=== PATIENT | male | born 1965 | race Caucasian/White ===

== ENCOUNTER 2022-01-26 07:09 | Outpatient (CLI) | payer BC, SELFPAY ==
--- OUTSIDE RECORDS SUMMARY | 2022-01-26 07:11 | XMS_ITS | Encounter Summary ---
:1965 Author Organization [employer] Address [address] [place] [address] Care Team Providers Name Role Phone Noah Cerda MD Primary Care Provider Reason for Visit Reason Comments CPAP (new) Encounter Details Date Type Department Care Team Description 02/07/2018 Telephone [facility] 3931 Ana Cristina Conner A PRN, CPAP (new) Pulmonary Medicine DESIGN ASSISTANT [address] [facility] [address] [facility] [address] [place] [address] [place], [place] [phone] (Wo rk) Social History Tobacco Use Types Packs/Day Years Used Date Smoking Tobacco: Every Day Cigarettes 0.9 Smokeless Tobacco: Never Comments: Smoking History Packs/day: Alcohol Use Standard Drinks/Week Comments No 0 (1 standard drink = 0.6 oz pure alcoho l) rare Alcohol Habits Answer Date Recorded How often do you have a drink containing alcohol? Not asked How many drinks containing alcohol do you have on a typical Not asked day when you are drinking? How often do you have six or more drinks on one occasion? No t asked Comment: rare 12/11/2015 Sex Assigned at Date Recorded Not on file documented as of this encounter Nursing Notes Stefany Meadows RN - 02/07/2018 2:03 PM CDT Pt requests that we send his CPAP order to [facility] [phone], with order number [id number] written on it. Pt is paying out of pocket so no further documentation needed. documented in this encounter Plan of Treatment Not on filedocumented as of this encounter Visit Diagnoses Not on filedocumented in this encounter Care Teams Direct Customer Service Representative Relationship Specialty Start Date End Date Noah Cerda MD PCP - General Family Practice 03/29/16 [address] [place] [address] documented as of this encounter
--- OUTSIDE RECORDS SUMMARY | 2022-01-26 07:11 | XMS_ITS | Clinical Summary ---
:1965 Author Organization [employer] Address [address] [place] [address] Care Team Providers Name Role Phone Noah Cerda MD Primary Care Provider Source Comments You are receiving this document as you are listed as the primary care provider,follow-up provider, or the patient has been referred to you for consultation.This is in compliance with the Medicare and Medicaid EHR Incentive Program,which states Providers who transition their patient to another setting of careor provider of care or refers their patient to another provider of care shouldprovide summarycare record for each transition of care or referral. [employer] Allergies Active Allergy Reactions Severity Noted Date Comments Atorvastatin 09/18/2013 PN: myalgia, PN : cramps Medications Medication Sig Dispensed Refills Start Date End Date Status unknown medication LW 0 04/05/2005 Active Comment:CPAP 9, [facility] Multiple Vitamins-Minerals Take 1 tablet 100 13 4 Active (MULTIVITAMIN OR) by mouth daily (every 24 hours). hydroCHLOROthiazide Take 1 Tab by 90 Tab 0 11/02/2016 Active (ORETIC) 25 MG tablet mouth daily. venlafaxine (EFFEXORXR) 75 Take 1 Cap by 90 Cap 0 7 Active MG 24 hour release mouth daily. capsuleIndications: Mild single current episode of major depressive disorder (HRC) pravastatin (PRAVACHOL) 20 TAKE 1 TABLET 90 Tab 0 7 Active MG tabletIndications: DAILY (EVERY Hyperlipidemia, 24 HOURS) unspecified hyperlipidemia type (HRC) Active Problems Problem Noted Date Asymptomatic varicose veins 08/08/2007 Overview: LW Modifier: Right thigh ; Varicose Veins Encounter for sterilization 08/08/2007 Overview: LW Onset: 1997 ; Vasectomy Elective Obstructive sleep apnea on CPAP 04/05/2005 Overview: Severe Setting: APAP 9-15 FFM Supplied by: PN[facility] PSG done: 04/04/05 AHI 52 RDI 71 Lowest O2 Sat: 83% Asim/Conner 06/08/14 replacement, Repair-Replace 11/16; 02/07/18 cmn/[facility]. F: [phone] Hyperlipidemia 09/10/2003 Overview: LW Onset: 17Isw59 Major depressive disorder, single episode 09/10/2003 Overview: LW Onset: 07Ale47 ; Depression Major NOS Obesity 09/10/2003 Overview: LW Modifier: BMI > 35 LW Onset: 42Swu12 Tobacco use disorder 09/27/2002 Overview: Tobacco Abuse Immunizations Name Administration Dates Next Due DT Ped 12/02/1993 HepA-HepB ([place], 18+ yrs) 03/31/2004, 05/25/2003, 004 Influenza IIV4 (Quadrivalent) 0.5mL 01/06/2016 (22948) TDAP (ADACEL) 03/08/2010 Td 03/31/2004 Family History Relation Name Status Comments Other Social History Tobacco Use Types Packs/Day Years [...] Assigned at Date Recorded Not on file Last Filed Vital Signs Vital Sign Reading Time Taken Comments Blood Pressure 128/88 11/16/2017 8:03 AM CDT Pulse 63 11/16/2017 8:03 AM CDT Temperature 36.8 ??C (98.3 ??F) 04/05/2016 11:14 AM HEAVY RAIL TRAIN OPERATOR Respiratory Rate 18 11/23/2012 3:27 PM CDT Oxygen Saturation 98% 11/16/2017 8:03 AM CDT Inhaled Oxygen Concentration - - Weight 136.5 kg (301 lb) 11/16/2017 8:03 AM CDT Height 182.9 cm (6') 11/16/2017 8:03 AM CDT Body Mass Index 40.82 11/16/2017 8:03 AM CDT Plan of Treatment Health Maintenance Due Date Last Done Comments Colon Cancer Screening Plan 1965 Due Hep C Screening (Preventive 1965 Services) COVID-19 Vaccine (#1) 05/11/1967 HIV Screening (Preventive 1982 Services) Adult Preventive Visit 1984 PSA Screening Discussion 08/18/2004 08/19/2003 Zoster/Shingles (1 of 2) 2016 Cholesterol 10/11/2020 10/12/2015, 06/02/2014, 02/14/2013, Additional history exists Influenza (#1) 2021 01/06/2016 DTaP/Tdap/Td (5 - Tdap) 01/12/2027 01/12/2017, 03/08/2010, 03/31/2004, Additional history exists HepA Aged Out 03/31/2004, 05/25/2003, No longe r eligible 04/27/2003 based on patient 's age to complete this topic HepB Completed 03/31/2004, 05/25/2003, 04/27/2003 Hib Aged Out No longer eligib le based on patient 's age to complete this topic IPV (Polio) Aged Out No longer eligib le based on patient 's age to complete this topic MCV4 Aged Out No longer eligib le based on patient 's age to complete this topic Pneumococcal Aged Out No longer eligib le based on patient 's age to complete this topic Insurance Payer Benefit Plan / Subscriber ID Effective Dates Phone Addre ss Type Group BCBS BCBS OUT OF [id number] 2015-Present [address] [address] [place] [address] (Work) [id number] [address] Carranza Personal/Famil Self 1965 [address] [phone] [place], [place] (Work) [address] [address] Personal/Famil 01/25/1967 [id number] [phone] [place] (Work) [address] Care Teams Market Risk Specialist Relationship Specialty Start Date End Date Noah Cerda MD PCP - General Family Practice 03/29/16 [address] [place] [address]
--- OUTSIDE RECORDS SUMMARY | 2022-01-26 07:11 | XMS_ITS | Encounter Summary ---
:1965 Author Organization [employer] Address [address] [address] Care Team Providers Name Role Phone Noah Cerda MD Primary Care Provider Reason for Visit Reason Comments Refill hydroCHLOROthiazide (ORETIC) 25 MG tablet [Pharmacy Med Name: HYDROCHLOROTHIAZIDE TAB 25MG ] Encounter Details Date Type Department Care Team Description 03/23/2018 Refill [facility] Ivan Kendrick Refi ll (hydroCHLOROthiazide Medicine W, DIRECTOR IT PROJECT, PROJECT LEADER (ORETIC) 25 MG tablet [address] [address] [place] [Pharmacy Med Name: [place] [address] [place], [place] HYDROCHLOROTHIAZIDE TAB [phone] [id number] 25MG]) Social History Tobacco Use Types Packs/Day Years [...] documented as of this encounter Nursing Notes Wilfredo Addison RN - 03/25/2018 4:22 PM CST Requested Prescriptions Refused Prescriptions Disp Refills ??? hydroCHLOROthiazide (ORETIC) 25 MG tablet [Pharmacy Med Name: HYDROCHLOROTHIAZIDE TAB 25MG] 90 Tablet 0 Sig: TAKE 1 TABLET DAILY Refused By: WILFREDO ADDISON Reason for Refusal: Patient Needs An Appointment TER CREASER SLOTTER HELPER Interface, Out Asyarisylwia Prov Query - 03/23/2018 9:09 PM CST hydroCHLOROthiazide (ORETIC) 25 MG tablet [Pharmacy Med Name: HYDROCHLOROTHIAZIDE TAB 25MG] Medication started: 10/12/2015 Last ordered by IVAN KENDRICK W: 11/02/2016 (506 days ago) QTY: 90, Refills: 0, Sig: take 1 tab by mouth daily. (changed but equivalent) -> A qualifying visit was not found within the last 2 years. -> Cr, K, and Na are overdue (performed 29 months ago, required every 12 months) -> Cr is abnormal (1.2 mg/dL lies outside 0.73 mg/dL - 1.18 mg/dL) Last qualifying visit: None (A recent visit (in Family Practice) was found) Next scheduled visit: None SBP: 134 mm Hg on 04/05/2016 DBP: 72 mm Hg on 04/05/2016 Cr: 1.2 mg/dL on 11/11/2015 Na: 140 mEq/L on 11/11/2015 K: 4.3 mEq/L on 11/11/2015 PATIENT IS DUE FOR: - CR (Sent to [facility]) - K (Sent to [facility]) - NA (Sent to [facility]) Powered by [employer], Reference: [id number], 03/23/2018 9:09:28 PM SLITTER CREASER SLOTTER HELPER, Ricardo: CAYETANO BANUELOS REFLAKEISHA ([id number]) TER CREASER SLOTTER HELPER documented in this encounter Plan of Treatment Not on filedocumented as of this encounter Visit Diagnoses Not on filedocumented in this encounter Care Teams Casting Finisher Relationship Specialty Start Date End Date Noah Cerda MD PCP - General Family Practice 03/29/16 [address] [place] [address] documented as of this encounter
--- OUTSIDE RECORDS SUMMARY | 2022-01-26 07:11 | XMS_ITS | Encounter Summary ---
:1965 Author Organization [employer] Address [address] [place] [address] Care Team Providers Name Role Phone Noah Cerda MD Primary Care Provider Encounter Details Date Type Department Care Team Description 10/02/2016 Notes/Orders [facility] [place] [address] [address] [address] [place] [address] [place], [place] [id number] (Wo rk) Social History Tobacco Use Types [...] on file documented as of this encounter Plan of Treatment Not on filedocumented as of this encounter Visit Diagnoses Not on filedocumented in this encounter Care Teams Extrusion Process Operator Relationship Specialty Start Date End Date Noah Cerda MD PCP - General Family Practice 03/29/16 [address] [place] [address] documented as of this encounter
--- OUTSIDE RECORDS SUMMARY | 2022-01-26 07:11 | XMS_ITS | Encounter Summary ---
:1965 Author Organization [employer] Address [address], [place] [address] Care Team Providers Name Role Phone Noah Cerda MD Primary Care Provider Reason for Visit Reason Comments Refill venlafaxine (EFFEXORXR) 75 M G 24 hour release capsule [Pharmacy Med Name: VENLAFAXINE HCL ER CAPS 75MG ] Encounter Details Date Type Department Care Team Description 11/27/2016 Refill [facility] Ivan Kendrick R efill (venlafaxine Medicine PROCESS OPERATOR, LARD MAKER (EFFEXORXR) 75 MG [address] hour [place] [address] [place] [address] [Pharmacy Med Name: [phone] (Wo rk) VENLAFAXINE HCL ER CAPS 75MG]) Social History Tobacco Use Types Packs/Day Years [...] documented as of this encounter Nursing Notes Jennifer Flores - 11/30/2016 4:08 PM CDT MYCHART Letter sent Joan Oneil RN - 11/29/2016 9:28 AM CDT OFFICE APPOINTMENT NEEDED Please notify patient to schedule an appointment within 30 days. Requested Prescriptions Signed Prescriptions Disp Refills ??? venlafaxine (EFFEXORXR) 75 MG 24 hour release capsule 90 Cap 0 Sig: Take 1 Cap by mouth daily. Authorizing Provider: IVAN KENDRICK Ordering User: JOAN ONEIL Interface, Out Surescripts Prov Query - 11/27/2016 12:18 AM CDT venlafaxine (EFFEXORXR) 75 MG 24 hour release capsule [Pharmacy Med Name: VENLAFAXINE HCL ER CAPS 75MG] Medication started: 12/20/2010 Last ordered by IVAN KENDRICK W: 10/12/2015 (412 days ago) QTY: 90, Refills: 3, Sig: take 1 capsule by mouth daily (every 24 hours). (changed but equivalent) -> This medication may not have been authorized by the requested provider. -> Refill x 3 months (courtesy refill. overdue for an office visit) Last qualifying visit: 11/11/2015 (with IVAN KENDRICK) Next scheduled visit: None SBP: 138 mm Hg on 11/11/2015 DBP: 88 mm Hg on 11/11/2015 Powered by [employer], Reference: [id number], 11/27/2016 12:18:49 AM CDT, Pool: CAYETANO BANUELOS REFILL([id number]) documented in this encounter Plan of Treatment Not on filedocumented as of this encounter Visit Diagnoses Diagnosis Mild single current episode of major dep ressive disorder (HRC) documented in this encounter Care Teams Mobile Sales Assistant Relationship Specialty Start Date End Date Noah Cerda MD PCP - General [facility] Practice 03/29/16 [address] [place] [address] documented as of this encounter
--- OUTSIDE RECORDS SUMMARY | 2022-01-26 07:11 | XMS_ITS | Encounter Summary ---
:1965 Author Organization [employer] Address [address] [place] [address] Care Team Providers Name Role Phone Noah Cerda MD Primary Care Provider Reason for Referral Procedure/Equipment (Routine) - Closed Specialty Diagnoses / Procedures Referred By Contact Refer red To Contact Diagnoses GAGAN (obstructive sleep apnea) Ana Cristina Conner APRN, CNP Procedures Positive Airway Pressure - Replacement/Repair [address] [facility] [address] [place] [address] Referral ID Status Reason Start Date Expiration Date Visits Requ ested Visits Authorized [id number] Closed 11/16/2017 02/15/2019 1 1 Reason for Visit Reason Comments SLEEP APNEA antoine Encounter Details Date Type Department Care Team Description 11/16/2017 Office Visit Specialty Center Ana Cristina Conner GAGAN (o bstructive sleep apnea) (Primary Dx); 39[address] Pulmonary YUE SMALLS Obesity due to excess calories with seri ous comorbidity, unspecified classification Medicine [address] [place], [place] [id number] Social History Tobacco Use Types Packs/Day Years [...] on file documented as of this encounter Last Filed Vital Signs Vital Sign Reading Time Taken Comments Blood Pressure 128/88 11/16/2017 8:03 AM CDT Pulse 63 11/16/2017 8:03 AM CDT Temperature - - Respiratory Rate - - Oxygen Saturation 98% 11/16/2017 8:03 AM CDT Inhaled Oxygen Concentration - - Weight 136.5 kg (301 lb) 11/16/2017 8:03 AM CDT Height 182.9 cm (6') 11/16/2017 8:03 AM CDT Body Mass Index 40.82 11/16/2017 8:03 AM CDT documented in this encounter Progress Notes Ana Cristina Conner, OUTPATIENT INTERVIEWING CLERK, DIRECTOR OF EMERGENCY NURSING - 11/16/2017 8:00 AM CDT PULMONARY/SLEEP CLINIC FOLLOW-UP CHIEF COMPLAINT: Obstructive Sleep Apnea HPI: The patient is a 52 y.o. male with a history of severe obstructive sleep apnea- AHi 52 diagnosed in 2004. He has compliantly worn cpap since that time set at 9 - 12 cm h20. No snoring under mask. Sleeping 12 hours/ night. Waking x 2. No headache in am. Does feel rested but his body is sore. He drives and needs DOT clearance. His original machine broke and he's been using his father's oldermachine which stopped recording data in 2017. We will need to replace his machine. Wears full face mask. WEight is up 30 lbs from original study. INTERVAL MEDICAL HISTORY:reviewed PHYSICAL EXAM: BP 128/88 (BP Location: Right Forearm, BP Cuff Size: Adult Regular/Long) Pulse 63 Ht 6' (1.829 m) Wt (!) 301 lb (136.5 kg) SpO2 98% BMI 40.82 kg/m2 GEN: alert and oriented x3 IMPRESSION AND PLAN: 1. Severe sleep apnea- 2. Morbid obesity Reviewed sleep study. Will replace machine with apap 9-15 cm h20. Look at simplus full face mask. Will print download next year for him for his dot- needs visit in 3 years. All of the patient's questions were answered. He states understanding and agreement with my assessment and plan as above. Total time 15 min, more than half spent in face to face counseling and coordination of care. documented in this encounter Plan of Treatment Not on filedocumented as of this encounter Visit Diagnoses Diagnosis GAGAN (obstructive sleep apnea) - Primary Obstructive sleep apnea (adult) (pediatr ic) Obesity due to excess calories with seri ous comorbidity, unspecified classification (HRC) documented in this encounter Care Teams Date Puller Relationship Specialty Start Date End Date Noah Cerda MD PCP - General Family Practice 03/29/16 [address] [place] [address] documented as of this encounter
--- OUTSIDE RECORDS SUMMARY | 2022-01-26 07:11 | XMS_ITS | Encounter Summary ---
:1965 Author Organization [employer] Address [address], [place] [address] Care Team Providers Name Role Phone Noah Cerda MD Primary Care Provider Reason for Visit Reason Comments Refill pravastatin (PRAVACHOL) 20 M G tablet [Pharmacy Med Name: PRAVASTATIN TABS 20MG] Encounter Details Date Type Department Care Team Description 12/30/2016 Refill [facility] Ivan Kendrick R efill (pravastatin Medicine MANAGER ORDER, CAN INTAKE WORKER (PRAVACHOL) 20 MG [address] [facility] [address] tablet [[place] [address] [place] [address] Name: PRAVASTATIN TABS [phone] (Wo rk) 20MG]) Social History Tobacco Use Types Packs/Day Years [...] documented as of this encounter Nursing Notes Edie Donis - 01/01/2017 10:43 AM CDT Appointment letter sent via Agendia Nelson Martinez RN - 12/30/2016 8:26 AM CDT OFFICE APPOINTMENT NEEDED Please notify patient to schedule an appointment within 30 days. Requested Prescriptions Pending Prescriptions Disp Refills pravastatin (PRAVACHOL) 20 MG tablet [Pharmacy Med Name: PRAVASTATIN TABS 20MG] 90 Tab 0 Sig: TAKE 1 TABLET DAILY (EVERY 24 HOURS) Interface, Out [employer] Query - 12/30/2016 12:29 AM CDT pravastatin (PRAVACHOL) 20 MG tablet [Pharmacy Med Name: PRAVASTATIN TABS 20MG] Medication started: 09/14/2011 Last ordered by IVAN KENDRICK W: 10/01/2016 (90 days ago) QTY: 90, Refills: 0, Sig: take 1 tabletdaily (every 24 hours) (unchanged) -> Refill x 3 months (courtesy refill. overdue for an office visit) Last qualifying visit: 11/11/2015 (with IVAN KENDRICK) Next scheduled visit: None Powered by [employer], Reference: [id number], 12/30/2016 12:29:55 AM CDT, Ricardo: CAYETANO BANUELOS REFILL([id number]) documented in this encounter Plan of Treatment Not on filedocumented as of this encounter Visit Diagnoses Diagnosis Hyperlipidemia, unspecified hyperlipidem ia type (HRC) documented in this encounter Care Teams Area Development Manager Relationship Specialty Start Date End Date Noah Cerda MD PCP - General [facility] Practice 03/29/16 [address] [place] [address] documented as of this encounter
--- OUTSIDE RECORDS SUMMARY | 2022-01-26 07:12 | XMS_ITS | Encounter Summary ---
:1965 Author Organization [employer] Address [address], [place] [address] Care Team Providers Name Role Phone Juany Mazariegoston W YUE SMALLS Primary Care Provider [phone] Reason for Visit Reason Comments MEDICATION CHECK Encounter Details Date Type Department Care Team Description 06/05/2013 Office Visit [facility] [place]ilah, Vargas Othe r and unspecified hyperlipidemia (Primary Dx); Medicine W, YUE SMALLS Major depressive disorder, single episod e, unspecified; [address] [employer] [address] [address] Tobacco use disorder; [place] [address] [place], [place] Erectile dysfunction of orga jase origin [phone] Social History Tobacco Use Types Packs/Day Years Used Date Smoking Tobacco: Never Assessed Sex Assigned at Date Recorded Not on file documented as of this encounter Last Filed Vital Signs Vital Sign Reading Time Taken Comments Blood Pressure 142/89 06/05/2013 10:55 AM NON DESTRUCTIVE TESTER Pulse 71 06/05/2013 10:55 AM NON DESTRUCTIVE TESTER Temperature - - Respiratory Rate - - Oxygen Saturation - - Inhaled Oxygen Concentration - - Weight 140.2 kg (309 lb) 06/05/2013 10:55 AM NON DESTRUCTIVE TESTER Height - - Body Mass Index 41.33 03/08/2010 7:59 AM NON DESTRUCTIVE TESTER documented in this encounter Patient Instructions Patient InstructionsEstrella Zendejas LPN - 06/05/2013 11:31 AM CST You must quit smoking. You must start to loose weight and exercise. Discuss the CPAP needs with the Sleep Lab. [phone] DESTRUCTIVE TESTER documented in this encounter Progress Notes Vargas Mazariegos, TILTROTOR CREW CHIEF, REFERENCE LIBRARIAN - 06/05/2013 12:34 PM CST Chief concern: Chief Complaint Patient presents with ??? Medication Check Other concerns: Hyperlipidemia, tobacco abuse, depression, sleep apnea, erectile dysfunction Past medical history: Past Medical History Diagnosis Date ??? Hyperlipidemia #*LW 2 09/10/2003 ??? Depression Major NOS #*LW 3 09/10/2003 ??? Obesity #*LW 4 09/10/2003 ??? Obstructive Sleep Apnea Hypopnea #*LW 5 04/05/2005 Medications: Current Outpatient Prescriptions on File Prior to Visit Medication Sig Dispense Refill ??? [DISCONTINUED] cefUROXime (CEFTIN) 500 mg tablet Take 1 tablet by mouth 2 times daily. till all taken 20 tablet 0 ??? continuous positive airway pressure (CPAP) LW Comment:CPAP 9, [facility] ??? drug not in computer Take by mouth. Indications: pro formula multi vit supplements 2 daily ??? multivitamin (THERAGRAN) tablet Take 1 tablet by mouth daily (every 24 hours). 100 13 ??? omega-3 fatty acids-fish oil 340-1,000 mg capsule Take 1 capsule by mouth daily (every 24 hours). ??? op medications reviewed ??? pravastatin (PRAVACHOL) 20 mg tablet Take 1 tablet by mouth daily (every 24 hours). 30 tablet 11 ??? [DISCONTINUED] varenicline (CHANTIX CONTINUING MONTH FACUNDO) 1 mg tablet Take 1 tablet by mouth 2 times daily. 60 tablet 1 ??? [DISCONTINUED] varenicline (CHANTIX STARTER FACUNDO) 0.5 (11)-1 (42) mg tablet Take as instructed. Take 0.5mg by mouth daily for days 1 through 3, then 0.5mg twice daily for days 4 through 7, then 1mg twice daily. 53 tablet 0 ??? [DISCONTINUED] venlafaxine (EFFEXOR-XR) 150 mg 24 hr capsule Take 1 capsule by mouth daily (every 24 hours). Pt. forgot medication at home, so Rx called in. 10 capsule 0 ??? venlafaxine (EFFEXOR-XR) 150 mg 24 hr capsule Take 1 capsule by mouth daily (every 24 hours). 90capsule 3 No current facility-administered medications on file prior to visit. Adverse Drug Reactions: Allergies Allergen Reactions ??? Atorvastatin Calcium myalgia Habits: History Social History ??? Marital Status: Spouse Name: N/A Number of Children: N/A ??? Years of Education: N/A Occupational History ??? Not on file. Social History Main Topics ??? Smoking status: Current Every Day Smoker -- 0.85 packs/day Types: Cigarettes ??? Smokeless tobacco: Never Used Comment: Smoking History Packs/day: ??? Alcohol Use: Not on file Comment: Alcoholic Drinks/day: Amount:1-2 drinks; Freq:=< Monthly; ??? Drug Use: Not on file ??? Sexually Active: Not on file Other Topics Concern ??? Not on file Social History Narrative ??? No narrative on file HPI: He returns for a followup of multiple issues. History of hyperlipidemia, depression, obesity, sleep apnea. PH Q.-9=5. Currently on Effexor XR 150 mg q.d. with good results. Denies any side effectsfrom his medication. His cholesterol is stable with elevated triglycerides. He admits to lack of exercise and weight gain. Blood pressure is borderline elevated. He has sleep apnea, initial evaluation in 2004. He believes he needs a new machine. He also complains of erectile dysfunction. Previous testosterone normal. He is interested in trialing medication. Denies other concerns. Review of systems: Denies chest pain, shortness of breath. Denies bowel or bladder symptoms. Denies numbness, tingling, swelling in the extremities. Weight is stable. No arthralgias or myalgias. OBJECTIVE: Vital Signs: BP 142/89 Pulse 71 Wt 140.161 kg (309 lb) BMI 41.31 kg/m2 Patient is alert oriented and pleasant. No acute distress. Head: Normocephalic. Eyes: PERRLA, full EOM. External exams normal. Ears: Normal pinnae, canals, and TM's. Nose: Patent, without deformity. Throat: Moist mucous membranes without lesions, erythema, or exudate. Neck: Supple, no cervical lymphadenopathy. Thyroid nontender, without swelling or nodules palpated. Respiratory: Normal respiratory effort. Lungs are clear with good breath sounds. Heart: Regular rate and rhythm, no murmurs, rubs, gallops. Abdomen: The abdomen was soft and nontender without guarding rebound or masses. No hepatosplenomegaly. Legs: Without edema. ASSESSMENT: Encounter Diagnoses Name Primary? Hyperlipidemia Yes ??? Depression Major NOS ??? Tobacco Abuse ??? Erectile dysfunction of organic origin PLAN: Patient Instructions You must quit smoking. You must start to loose weight and exercise. Discuss the CPAP needs with the Sleep Lab. [phone] Orders Placed This Encounter Medications ??? sildenafil citrate (VIAGRA) 100 mg tablet Sig: Take 0.5-1 tablets by mouth as needed for Erectile Dysfunction. Dispense: 6 tablet Refill: 11 Continue other medications unchanged. Return within one year for complete physical exam, sooner as needed. The patient was discharged ambulatory and in stable condition and agreed with the above plan. DESTRUCTIVE TESTER documented in this encounter Plan of Treatment Not on filedocumented as of this encounter Visit Diagnoses Diagnosis Other and unspecified hyperlipidemia (HR C) - Primary Other and unspecified hyperlipidemia Major depressive disorder, single episod e, unspecified (HRC) Major depressive disorder, single episod e, unspecified Tobacco use disorder (HRC) Tobacco use disorder Erectile dysfunction of organic origin Impotence of organic origin documented in this encounter Care Teams Blood Donor Recruiter Supervisor Relationship Specialty Start Date End Date Vargas Mazariegos APRN, CNP PCP - General 07/24/10 03/28/16 documented as of this encounter
--- OUTSIDE RECORDS SUMMARY | 2022-01-26 07:12 | XMS_ITS | Encounter Summary ---
:1965 Author Organization [employer] Address [address], [place] [address] Care Team Providers Name Role Phone Ivan Kendrick APRN, YUE Primary Care Provider [phone] Reason for Visit Reason Comments Refill Encounter Details Date Type Department Care Team Description 07/09/2015 Refill [facility] Ivan Kendrick, SERINA, Refill [address] [place] [address] [facility] [phone] [place], [place] [address] (Wo rk) Social History Tobacco Use Types Packs/Day Years Used Date Smoking Tobacco: Never Assessed Sex Assigned at Date Recorded Not on file documented as of this encounter Nursing Notes User, Katie - 07/09/2015 8:13 AM CDT 1) pravastatin (PRAVACHOL) 20 mg tablet [Pharmacy Med Name: PRAVASTATIN 20MG TAB] - MEDICATION STARTED: 09/14/2011 - LAST REFILLED ON: 06/15/2014, QTY: 90, Refills: 3, Sig: take 1 tablet by mouth daily (every 24 hours). (changed but equivalent) - REFILL: 3 months - RATIONALE: This is a courtesy refill. Patient is overdue for an office visit. This will be the last refill authorized by the protocol. - LAST QUALIFYING VISIT WITH IVAN KENDRICK: 05/28/2014 - NEXT SCHEDULED VISIT: None Powered by [employer], Reference: [id number], 07/09/2015 5:31:24 AM Ricardo GRANT: CAYETANO IMED REFILL ([id number]) 2) venlafaxine (EFFEXOR-XR) 150 mg 24 hr capsule [Pharmacy Med Name: VENLAFAXINE ER 150MG CAP] - MEDICATION STARTED: 03/08/2010 - LAST REFILLED ON: 06/15/2014, QTY: 90, Refills: 3, Sig: take 1 capsule by mouth daily (every 24 hours). (changed but equivalent) - REFILL: 3 months - RATIONALE: This is a courtesy refill. Patient is overdue for an office visit. This will be the last refill authorized by the protocol. - LAST QUALIFYING VISIT WITH IVAN KENDRICK W: 05/28/2014 - NEXT SCHEDULED VISIT: None - SBP: 150.0mm Hg on 05/28/2014 - DBP: 88.0mm Hg on 05/28/2014 Powered by [employer], Reference: [id number], 07/09/2015 5:31:24 AM CHARLYTRicardo: CAYETANO DEVONED REFILL ([id number]) Eveline Waller CMA - 07/09/2015 8:13 AM CDT Appointment Letter Sent (via [employer]) Suhail Nielsen RN - 07/09/2015 8:11 AM CDT OFFICE APPOINTMENT NEEDED Please notify patient to schedule an appointment within 30 days. Requested Prescriptions Signed Prescriptions Disp Refills ??? venlafaxine (EFFEXOR-XR) 150 mg 24 hr capsule 90 capsule 0 Sig: TAKE ONE CAPSULE BY MOUTH ONCE DAILY Authorizing Provider: IVAN KENDRICK Ordering User: SUHAIL NIELSEN ??? pravastatin (PRAVACHOL) 20 mg tablet 90 tablet 0 Sig: TAKE ONE TABLET BY MOUTH ONCE DAILY Authorizing Provider: IVAN KENDRICK Ordering User: SUHAIL NIELSEN documented in this encounter Miscellaneous Notes Letter - Ivan Kendrick APRN, CNP - 07/09/2015 12:00 AM CDT Images from the original note were not included. [facility] Austin Carranza [id number] [address] July 09, 2015 Dear Austin Carranza, We recently received a renewal request for your prescription(s). While reviewing your chart, we noticed that you are due for a visit with your doctor. To receive future refills, please schedule an office visit within the next month. At [facility], your health care is important to us. Please call [phone] to schedule an appointment. Thank you for choosing [facility] for your health care needs. Your [facility] Primary Care Team OMS INSPECTOR documented in this encounter Plan of Treatment Not on filedocumented as of this encounter Visit Diagnoses Not on filedocumented in this encounter Care Teams Transition Teacher Relationship Specialty Start Date End Date Ivan Kendrick APRN, CNP PCP - General 07/24/10 03/28/16 (work) documented as of this encounter
--- OUTSIDE RECORDS SUMMARY | 2022-01-26 07:12 | XMS_ITS | Encounter Summary ---
:1965 Author Organization [employer] Address [address] [place] [address] Care Team Providers Name Role Phone Vargas Mazariegos APRN, CNP Primary Care Provider [phone] Reason for Visit Reason Comments MEDICATION CHECK Encounter Details Date Type Department Care Team Description 09/17/2012 Office Visit [facility] Vargas Mazariegos Othe r and unspecified hyperlipidemia (Primary Dx); Medicine SERINA Jung CNP Major depressive disorder, single episod e, unspecified; [address] [address] [place] [address] [place], [place] [phone] Social History Tobacco Use Types Packs/Day Years Used Date Smoking Tobacco: Never Assessed Sex Assigned at Date Recorded Not on file documented as of this encounter Last Filed Vital Signs Vital Sign Reading Time Taken Comments Blood Pressure 136/83 09/17/2012 12:12 PM CDT Pulse 81 09/17/2012 12:12 PM CDT Temperature - - Respiratory Rate - - Oxygen Saturation - - Inhaled Oxygen Concentration - - Weight 135.6 kg (299 lb) 09/17/2012 12:12 PM CDT Height - - Body Mass Index 39.99 03/08/2010 7:59 AM TUBE DEPATCHER documented in this encounter Progress Notes Vargas Mazariegos APRN, CNP - 09/17/2012 2:58 PM CDT Chief concern: Chief Complaint Patient presents with ??? Medication Check Other concerns: Hyperlipidemia, tobacco abuse, depression Past medical history: Past Medical History Diagnosis Date ??? Hyperlipidemia #*LW 2 09/10/2003 ??? Depression Major NOS #*LW 3 09/10/2003 ??? Obesity #*LW 4 09/10/2003 ??? Obstructive Sleep Apnea Hypopnea #*LW 5 04/05/2005 Medications: Current Outpatient Prescriptions on File Prior to Visit Medication Sig Dispense Refill ??? continuous positive airway pressure (CPAP) LW [...] 24 hours). ??? op medications reviewed ??? DISCONTD: pravastatin (PRAVACHOL) 20 mg tablet Take 1 tablet by mouth daily (every 24 hours). 30tablet 11 ??? DISCONTD: venlafaxine (EFFEXOR-XR) 150 mg 24 hr capsule Take 1 capsule by mouth daily (every 24 hours). 30 capsule 0 No current facility-administered medications on file prior to visit. Adverse Drug Reactions: Allergies Allergen Reactions ??? Atorvastatin Calcium LW Reaction: myalgia ??? Other LW Other1: -NKA ??? Review Contrast Media LW CM1: CONTRAST- NKA Reaction : ??? Review Food Intolerance LW FI1: NKA Habits: History Social History ??? Marital Status: Spouse Name: N/A Number of Children: N/A ??? Years of Education: N/A Occupational History ??? Not on file. Social History Main Topics ??? Smoking status: Current Everyday Smoker -- 1.00 packs/day Types: Cigarettes ??? Smokeless tobacco: Never Used Comment: Smoking History Packs/day: ??? Alcohol Use: Not on file Alcoholic Drinks/day: Amount:1-2 drinks; Freq:=< Monthly; ??? Drug Use: Not on file ??? Sexually Active: Not on file Other Topics Concern ??? Not on file Social History Narrative ??? No narrative on file HPI: Patient returns for a followup of chronic issues. History of hyperlipidemia currently on Pravachol 20 mg q.d. He denies any side effects from the medication. Previously on Lipitor with myalgias. Recent laboratory tests through a life insurance physical, total cholesterol 226, triglyceride 397, HDL 34, LDL 112. He admits that he does not get any routine exercise. He continues to smoke regularly. Has tried quitting with Chantix in the past and has been able to reduce the amount he smokes but has not been able to quit. He would like to re trial it. History of depression, controlled. PH Q.-9=7. Currently taking Effexor 150 mg q.d. He requests refills of his medications. Denies other concerns. Review of systems: Denies chest pain, shortness of breath. Denies bowel or bladder symptoms. Denies numbness, tingling, swelling in the extremities. Weight is stable. No arthralgias or myalgias. OBJECTIVE: Vital Signs: BP 136/83 Pulse 81 Wt 135.626 kg (299 lb) BMI 39.97 kg/m2 Patient is alert oriented and pleasant. [...] ??? Depression Major NOS ??? Tobacco Abuse PLAN: Orders Placed This Encounter Procedures ??? Alanine Aminotransferase ??? CPK ??? Cholesterol Fraction-LDLD If Trig High Orders Placed This Encounter Medications ??? omega-3 fatty acids-fish oil 340-1,000 mg capsule Sig: Take 1 capsule by mouth daily (every 24 hours). ??? pravastatin (PRAVACHOL) 20 mg tablet Sig: Take 1 tablet by mouth daily (every 24 hours). Dispense: 30 tablet Refill: 11 ??? venlafaxine (EFFEXOR-XR) 150 mg 24 hr capsule Sig: Take 1 capsule by mouth daily (every 24 hours). Dispense: 30 capsule Refill: 11 ??? varenicline (CHANTIX STARTER FACUNDO) 0.5 (11)-1 (42) mg tablet Sig: Take as instructed. Take 0.5mg by mouth daily for days 1 through 3, then 0.5mg twice daily fordays 4 through 7, then 1mg twice daily. Dispense: 53 tablet Refill: 0 Future laboratory tests. Diet, exercise and weight loss recommended. Is cholesterol is not improving, consider adjusting his dosage. Return in 4-6 months, sooner as needed. The patient was discharged ambulatory and in stable condition and agreed with the above plan. documented in this encounter Plan of Treatment Not on filedocumented as of this encounter Visit Diagnoses Diagnosis Other and unspecified hyperlipidemia (HR C) - Primary Other and unspecified hyperlipidemia Major depressive disorder, single episod e, unspecified (HRC) Major depressive disorder, single episod e, unspecified Tobacco use disorder (HRC) Tobacco use disorder documented in this encounter Care Teams Insurance And Financial Services Agent Relationship Specialty Start Date End Date Vargas Mazariegos APRN, CNP PCP - General 07/24/10 03/28/16 documented as of this encounter
--- OUTSIDE RECORDS SUMMARY | 2022-01-26 07:12 | XMS_ITS | Encounter Summary ---
:1965 Author Organization [employer] Address [address] [place] [address] Care Team Providers Name Role Phone Vargas Mazariegos APRN, CNP Primary Care Provider [phone] Reason for Visit Reason Comments Prior Authorization Request Encounter Details Date Type Department Care Team Description 06/11/2013 Telephone [facility] Vargas Mazariegos P rionorma Authorization Medicine YUE SMALLS Request [id number] [place] [address] [place], [place] [phone] (Wo rk) Social History Tobacco Use Types Packs/Day Years Used Date Smoking Tobacco: Never Assessed Sex Assigned at Date Recorded Not on file documented as of this encounter Nursing Notes Estrella Zendejas LPN - 06/11/2013 12:22 PM CST notified per detailed message Vargas Chaudhry APRN, CNP - 06/11/2013 11:06 AM CST Viagra is generally not covered even with a PA. He will need to call his insurance and discuss it with them. Estrella Fitch LPN - 06/11/2013 10:46 AM CST would you like a PA started EMIC PHYSICIAN Abbie Kimble - 06/11/2013 9:44 AM CST Prior Authorization What prior authorization is needed? Medication-Viagra Insurance Carrier: In dependant Administrators Pharmacy Carrier? [facility] [place] documented in this encounter Plan of Treatment Not on filedocumented as of this encounter Visit Diagnoses Diagnosis Other and unspecified hyperlipidemia (HR C) - Primary Other and unspecified hyperlipidemia documented in this encounter Care Teams It Security Specialist Relationship Specialty Start Date End Date Vargas Mazariegos, COMMUNICATION COORDINATOR, JIG MILL OPERATOR PCP - General 07/24/10 03/28/16 documented as of this encounter
--- OUTSIDE RECORDS SUMMARY | 2022-01-26 07:12 | XMS_ITS | Encounter Summary ---
:1965 Author Organization [employer] Address [address] [place] [address] Care Team Providers Name Role Phone Noah Cerda MD Primary Care Provider Encounter Details Date Type Department Care Team Description 05/25/2016 Notes/Orders [facility] [place] [address] [address] [place] [address] [place], [place] [id number] (Wo rk) Social History Tobacco Use Types [...] on filedocumented in this encounter Care Teams Vacuum Cleaner Repair Person Relationship Specialty Start Date End Date Noah Cerda MD PCP - General Family Practice 03/29/16 [address] [place] [address] documented as of this encounter
--- OUTSIDE RECORDS SUMMARY | 2022-01-26 07:12 | XMS_ITS | Encounter Summary ---
:1965 Author Organization [employer] Address [address], [place] [address] Care Team Providers Name Role Phone Vargas Mazariegos APRN, CNP Primary Care Provider [phone] Reason for Referral Specialty Diagnoses / Procedures Referred By Contact Refer red To Contact Vargas Mazariegos APRN, CNP [address] [place] [address] Referral ID Status Reason Start Date Expiration Date Visits Requ ested Visits Authorized UATE RESEARCH ASSISTANT Reason for Visit Reason Comments SKIN PROBLEM Encounter Details Date Type Department Care Team Description 06/02/2014 Initial Consult Jessica Fulton Prurigo nodularis (Primary Dx); Dermatology MD Wilma Skin lesion; [address] Tinea pedis; [address] [place], [place] Benign neoplasm of scalp and skin of neck; [place] [address] Other symptoms involving skin and integu mentary tissues [address] Social History Tobacco Use Types Packs/Day Years Used Date Smoking Tobacco: Never Assessed Sex Assigned at Date Recorded Not on file documented as of this encounter Patient Instructions Patient InstructionsKiera Carrington MA - 06/02/2014 12:19 PM CST DIRECT PHONE NUMBER: KIERA ANAYA [phone]. FEEL FREE TO CALL WITH ANY QUESTIONS OR CONCERNSYOU MAY HAVE. MOLES TO HAVE CHECKED IN CLINIC: BLACK, HILARIO OR BROWN IN THE CENTER WITH A RED OR COPPER TONE COLORING AROUND IT. ANY MOLES THAT CHANGE OR DOUBLE IN SIZE. SUNSCREEN: PREFER CLOTHING OVER SUNSCREEN. WHEN USING SUNSCREEN, PREFER SUNSCREEN WITH ZINC BASE. * FOR EXAMPLE: VANICREAM SPF 30 OR 50, NEUTROGENA SENSITIVE SKIN, CITY BLOCK BY CLINIQUE OR AQUASPORT AVAILABLE AT [employer]. VITAMIN D-3 RECOMMENDATIONS: - TAKE VITAMIN D WITH FOOD THAT HAS FAT IN IT THIS HELPS THE BODY ABSORB IT. - PREFER YOU TAKE IT YEAR ROUND. - CAN ADD UP YOUR VITAMIN D-3 INTAKE FOR THE WEEK AND TAKE IT ALL AT ONCE INSTEAD OF DAILY IF YOU ARE NOT GOOD AT REMEMBERING TO TAKE IT. - PREFER GEL CAPSULES OVER SOLID TABLETS. THIS IS AVAILABLE OVER THE COUNTER. - VITAMIN D HAS BEEN SHOWN TO FIGHT CERTAIN CANCERS, IT'S A NATURAL MOOD BOOSTER, NATURAL IMMUNITY BOOSTER, AND GOOD FOR YOUR MUSCLES, BONES AND BRAIN HEALTH. FOOT / TOENAIL FUNGUS TREATMENT PLAN: * MEDICAL TERM IS CALLED TINEA PEDIS *FOOT / TOENAIL FUNGUS CAN BE ITCHY AND SCALEY. *CAN TREAT IT WITH ANTI-FUNGAL CREAM OR LOTION. EX. ) LAMISIL (GENERIC IS CALLED TERBINAFINE) OVER THE COUNTER PRODUCT. *TRIM NAIL BACK FAR IS COMFORTABLE *APPLY LAMISIL FROM THE ANKLE DOWN OVER THE FEET AND IN BETWEEN THE TOES EVERY NIGHT UNTIL FUNGUS ISGONE AND THEN FOR ONE WEEK LONGER AFTER FUNGUS HAS RESOLVED. *BE SURE TO CLEAN THE BOTTOM OF THE SHOWER/TUB WITH LYSOL AFTER SHOWERS. UATE RESEARCH ASSISTANT documented in this encounter Progress Notes Jessica Hernandez MD - 06/02/2014 1:01 PM CST Progress Notes signed by Jessica Bland MD at 06/02/141853 Author: Jessica Bland MD Service: (none) Author Type: Physician Filed: 06/02/141853 Note Time: 06/02/14 0901 Status: Signed Sewing Machine Repairer Helper: Jessica Bland MD (Physician) NAME: AUSTIN CARRANZA MR#: [id number] CSN: [id number] AUTHENTICATING CLINICIAN: Jessica Hernandez MD CONFIRM #: [id number] LOC: 527 CLINIC PROGRESS NOTE DATE OF VISIT: 06/02/2014 : 1965 [place] is a 48-year-old with several lesions on his body he would like looked at. He has a sore spot on his right buttocks and the right forearm that will not heal. He has a spot on the left inner eyebrow that he thinks may be rubbed from his CPAP machine that came up about 2 weeks ago and has not cleared, some areas under the arms, and a couple areas on the left upper lid. He has had some on the uppereyelid before that were removed, and they are back. EXAMINATION: Basically full body including scalp, face, neck, chest, back, abdomen, buttocks, arms, hands, and nails reveals tinea pedis of the feet. A little bit of onychomycosis of the great toenails. It is mildly inflammatory of the skin around the heels. He has 2 little keratoses on the left upper eyelid, and then on the left buttocks and the right forearm are large 2.5 cm hyperkeratotic inflammatory plaques consistent with prurigo nodules, and I do not believe they are squamous cell carcinomas. He does freely admit to picking at them. 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 Perirectal, genitalia are clear. Hands and feet are fine. ASSESSMENT: Some prurigo nodules, seborrheic keratoses, sheridan hemangiomas. PLAN: We talked about options for the prurigo nodules, shave excisions, excisions, freezing, injecting, and he would like to do the freezing. It will probably take more than one treatment, but I think it will clear them. They are painful. They are bothersome, and I think they need treatment. It does not give us a diagnosis, but clinically it is pretty obvious. So, both were frozen aggressively with liquid nitrogen by [facility]- for a 10-second freeze, and Band-Aid applied. I would like him to keep them under wraps, not pick. I will see him back in a couple months. It may take a month to peel out. To call with any questions or concerns. The rest of the skin exam was fine. SUZI:SJ C: CONFIRM #: [id number] UATE RESEARCH ASSISTANT documented in this encounter Plan of Treatment Scheduled Referrals Name Type Priority Associated Diagnoses Order S chedule Dermatology Referral Routine Skin lesion Ordered: 2014, Consult-Adult/Peds Expires: 06/02/2014 documented as of this encounter Visit Diagnoses Diagnosis Prurigo nodularis - Primary Lichenification and lichen simplex chron icus Skin lesion Unspecified disorder of skin and subcuta neous tissue Tinea pedis Dermatophytosis of foot Benign neoplasm of scalp and skin of nec k Other symptoms involving skin and integu mentary tissues documented in this encounter Care Teams Tour Counselor Relationship Specialty Start Date End Date Vargas Mazariegos, MANAGEMENT [employer]ESSIONALS, EELER PCP - General 07/24/10 03/28/16 documented as of this encounter
--- OUTSIDE RECORDS SUMMARY | 2022-01-26 07:12 | XMS_ITS | Encounter Summary ---
:1965 Author Organization [employer] Address [address], [place] [address] Care Team Providers Name Role Phone Vargas Mazariegos Erich SMALLS CNP Primary Care Provider [phone] Reason for Visit Reason Comments Other EAR,PLUGGED Encounter Details Date Type Department Care Team Description 11/23/2012 Hospital Encounter [facility] Heriberto Solitario (left otitis media) (Primary Dx); Care S, DO Ear discharge blood [address] [facility] [place] [address] [phone] Social History Tobacco Use Types Packs/Day Years Used Date Smoking Tobacco: Never Assessed Sex Assigned at Date Recorded Not on file documented as of this encounter Last Filed Vital Signs Vital Sign Reading Time Taken Comments Blood Pressure 140/82 11/23/2012 3:27 PM CDT Pulse 71 11/23/2012 3:27 PM CDT Temperature 36.8 ??C (98.2 ??F) 11/23/2012 3:27 PM CDT Respiratory Rate 18 11/23/2012 3:27 PM CDT Oxygen Saturation 98% 11/23/2012 3:27 PM CDT Inhaled Oxygen Concentration - - Weight - - Height - - Body Mass Index - - documented in this encounter Medications at Time of Discharge Medication Sig Dispensed Refills Start Date End Date Multiple Take 1 tablet by 100 13 03/31/2004 Vitamins-Minerals mouth daily (every (MULTIVITAMIN OR) 24 hours). unknown medication LW Comment:CPAP 9, 0 5 [facility] cefuroxime (aka CEFTIN) Take 1 tablet by 20 tablet 0 201206/05/2013 tabletIndications: LOM mouth 2 times daily. (left otitis media), Ear till all taken discharge blood varenicline (AKA Take 1 tablet by 60 tablet 1 09/30/2012 CHANTIX) 1 MG mouth 2 times daily. tabletIndications: Tobacco use disorder (HRC) Varenicline Tartrate Take as instructed. 53 tablet 0 201206/05/2013 (AKA CHANTIX FACUNDO) 0.5 MG Take 0.5mg by mouth X 11 & 1 MG X 42 daily for days 1 tabletIndications: through 3, then Tobacco use disorder 0.5mg twice daily (HRC) for days 4 through 7, then 1mg twice daily. DRUG NOT IN Take by mouth. 0 09/14/201109/18 COMPUTERIndications: pro Indications: pro formula multi vit formula multi vit supplements 2 daily supplements 2 daily omega-3 fatty acids Take 1 capsule by 0 3 09/18/2013 (FISH OIL) 1000 MG mouth daily (every capsule 24 hours). pravastatin (AKA Take 1 tablet by 30 tablet 11 09/17/2012 PRAVACHOL) 20 MG mouth daily (every tabletIndications: Other 24 hours). and unspecified hyperlipidemia (HRC) UNKNOWN MEDICATION Indications: PN: 0 04/19/2010 09/18/2013 venlafaxine (AKA EFFEXOR Take 1 capsule by 90 capsule 3 09/2110/16/2013 XR) 150 MG 24 hour mouth daily (every release 24 hours). capsuleIndications: Major depressive disorder, single episode, unspecified (HRC) documented as of this encounter ED Notes Heriberto Solitario DO - 11/23/2012 3:46 PM CDT ED Provider Notes signed by Heriberto Solitario DO at 11/23/121750 Author: Heriberto Solitario DO Service: (none) Author Type: Physician Filed: 11/23/121750 Note Time: 11/23/121708 Status: Signed Consumer Advocate: Heriberto Solitario DO (Physician) NAME: AUSTIN CARRANZA MR#: [id number] CSN: [id number] AUTHENTICATING CLINICIAN: Heriberto Solitario DO CONFIRM #: [id number] LOC: 520 URGENT CARE PROGRESS NOTE DATE OF VISIT: 11/23/2012 : 1965 CHIEF COMPLAINT: This patient complains of bloody drainage from his left ear that he noticed about 2 hours ago. His left ear feels full, but denies any ear pain. Denies any ringing in the ears. He has had no trauma to the ear. He has not placed anything in the ear such as Q-Tips. He has had problems with ear infections in one ear, he does not remember which one and he had recurrent ear tubes placed in his ear and at one point he had a T-tube placed and that was the last time. He denies any swimming, cold symptoms orsore throat. He is not on any blood thinners. He denies any bruising. ALLERGIES: Reviewed on [facility]. MEDICATIONS: Reviewed on [facility]. PAST MEDICAL HISTORY: Significant for hyperlipidemia, major depression, obesity, obstructive sleep apnea and ear infections. SOCIAL HISTORY: He smokes. Does not use alcohol. IMMUNIZATIONS: Reviewed on [facility]. PHYSICAL EXAM: VITAL SIGNS: Blood pressure 140/82. Pulse 71. Respirations 18. Temperature 98.3. Pulse oximeter 98% on room air. He is awake, alert, active, nontoxic, well hydrated, afebrile. He is pleasant, no acute distress. SKIN: Warm and dry without rash, petechiae, or purpura. HEENT. Head is normocephalic. His eyes are PERRLA. Cornea, conjunctivae, sclerae are clear. Lids arenormal. Nose is without congestion or rhinitis. Throat is without erythema or drainage down the backof the throat. Ears the right TM and canal are clear and normal. The left ear shows no pain with motion of the tragus. He has some blood in the external canal. The tympanic membrane is injected and a little bit erythematous and there is some blood on the floor of the canal. I do not see any perforations. There is no tube in the ear. The canal is not erythematous or edematous. He has no tenderness over the mastoid area. He has a negative brody sign. NECK: Soft and supple. Trachea is midline. No JVD. No mass or adenopathy. ASSESSMENT: 1. Left otitis media. 2. Bloody discharge in the left ear. TREATMENT/CLINICAL COURSE/MEDICAL DECISION MAKING: I rubbed 2 fingers outside of his ear, he was able to hear it, so he does have some hearing in the ear. I told him that at this point I am not sure why he had bloody drainage from his ear. It could be that he had an otitis and it ruptured. He could have had a blood blister form on the tympanic membrane and rupture. So at this point I am going to treat him for an infection. I am placing him on Ceftin 500 mg 20 tablets, 1 b.i.d. until all taken. I would like him to recheck with his doctor in 10-14 days to recheck the ear. He is to keep it clean and dry. No swimming. He is to return for any pain, hearing loss, worsening condition or any concerns. He was discharged to home in stable condition. LSS:MEDQ C: CONFIRM #: [id number] documented in this encounter Miscellaneous Notes Medication History - Hola Winters MD - 11/23/2012 3:42 PM CDT INPATIENT MEDS Encounter Date: 11/23/12 cefUROXime (CEFTIN) 500 mg tablet Start Date:11/23/12, End Date:06/05/13, Frequency:2 TIMES DAILY *No Administrations Recorded documented in this encounter Plan of Treatment Not on filedocumented as of this encounter Visit Diagnoses Diagnosis LOM (left otitis media) - Primary Ear discharge blood Other otorrhea Triage Assessment Note - Jennifer Silva RN - 11/23/2012 3:25 PM CDT pt said that this afternoon his L ear started bleeding out of no where; he was not cleaning it or doing anything with it. one of his ears has a tube in it from 2 years ago and he's not sure if that's the ear it's in. documented in this encounter Care Teams Plate Drying Machine Tender Relationship Specialty Start Date End Date Vargas Mazariegos, SERINA, ASSISTANT TO THE DIRECTOR PCP - General 07/24/10 03/28/16 documented as of this encounter
--- OUTSIDE RECORDS SUMMARY | 2022-01-26 07:12 | XMS_ITS | Encounter Summary ---
:1965 Author Organization [email or web address] Address [address], [place] [address] Care Team Providers Name Role Phone Noah Cerda MD Primary Care Provider Reason for Visit Reason Comments Refill pravastatin (PRAVACHOL) 20 M G tablet [Pharmacy Med Name: PRAVASTATIN TABS 20MG] Encounter Details Date Type Department Care Team Description 10/01/2016 Refill [facility] Ivan Kendrick WAlba efill (pravastatin Medicine SCRAP BUNCH MAKER, TRANSPORTATION OFFICER (PRAVACHOL) 20 MG [address] [facility] [address] tablet [[place] [address] [place] [address] Name: PRAVASTATIN TABS [phone] (Wo rk) 20MG]) Social History Tobacco Use [...] documented as of this encounter Nursing Notes Lizet Reyes RN - 10/01/2016 5:35 PM CDT Renewed medication per medication refill protocol. Requested Prescriptions Pending Prescriptions Disp Refills pravastatin (PRAVACHOL) 20 MG tablet [Pharmacy Med Name: PRAVASTATIN TABS 20MG] 90 Tab 0 Sig: TAKE 1 TABLET DAILY (EVERY 24 HOURS) Interface, Out Fliiby Query - 10/01/2016 5:40 AM CDT pravastatin (PRAVACHOL) 20 MG tablet [Pharmacy Med Name: PRAVASTATIN TABS 20MG] Medication started: 09/14/2011 Last ordered by IVAN KENDRICK W: 10/12/2015 (355 days ago) QTY: 90, Refills: 3, Sig: take 1 tablet by mouth daily (every 24 hours). (changed but equivalent) -> Refill x 3 months (until due for an office visit) Last qualifying visit: 11/11/2015 (with IVAN KENDRICK) Next scheduled visit: None [employer], Reference: [id number], 10/01/2016 5:40:47 AM CDT, Ricardo: CAYETANO BANUELOS REFILL ([id number]) documented in this encounter Plan of Treatment Not on filedocumented as of this encounter Visit Diagnoses Diagnosis Hyperlipidemia, unspecified hyperlipidem ia type (HRC) documented in this encounter Care Teams Social Services Assistant Relationship Specialty Start Date End Date Noah Cerda MD PCP - General [facility] 03/29/16 [address] [place] [address] documented as of this encounter
--- OUTSIDE RECORDS SUMMARY | 2022-01-26 07:12 | XMS_ITS | Encounter Summary ---
:1965 Author Organization [employer] Address [address] [place] [address] Care Team Providers Name Role Phone Vargas Mazariegos MED CARE MANAGER, PRODUCTION CONTROL SPECIALIST Primary Care Provider Reason for Visit Reason Comments Pharmacy Encounter Details Date Type Department Care Team Description 06/06/[address] [facility] Vargas Mazariegos A PRN, Pharmacy Medicine PRODUCTION CONTROL SPECIALIST [address] [place] [address] [place] [address] [phone] (Wo rk) Social History Tobacco Use Types Packs/Day Years Used Date Smoking Tobacco: Never Assessed Sex Assigned at Date Recorded Not on file documented as of this encounter Nursing Notes Jenny Bee - 06/10/2013 3:45 PM CST PA was denied for Viagra. Both the pt and the pharmacy have been notified. GER CHANGE Deb Cain LPN - 06/10/2013 9:47 AM CST called and PA done over phone and will take 72 hrs.for approval. Emma Lee - 06/09/2013 11:30 AM CST Caller from [facility] calling and advised that they have faxed over a PA that needs to be faxedback urgently to [phone] Deb Cain LPN - 06/06/2013 11:23 AM CST MICHELE Quach faxed to patient insurance BS CS [place] medicare [place] for patient . awaiting approval. GER CHANGE documented in this encounter Plan of Treatment Not on filedocumented as of this encounter Visit Diagnoses Not on filedocumented in this encounter Care Teams Jointer Machine Operator Relationship Specialty Start Date End Date Vargas Mazariegos, MED CARE MANAGER, PRODUCTION CONTROL SPECIALIST PCP - General 07/24/10 03/28/16 documented as of this encounter
--- OUTSIDE RECORDS SUMMARY | 2022-01-26 07:12 | XMS_ITS | Encounter Summary ---
:1965 Author Organization [employer] Address [address] [address] Care Team Providers Name Role Phone Vargas Mazariegos APRN, CNP Primary Care Provider [phone] Reason for Visit Reason Comments Refill Encounter Details Date Type Department Care Team Description 09/08/2012 Telephone [facility] Vargas Mazariegos A PRN, Refill Medicine [place] [address] [facility] [address] [place] [address] [place] [address] [phone] (Wo rk) Social History Tobacco Use Types Packs/Day Years Used Date Smoking Tobacco: Never Assessed Sex Assigned at Date Recorded Not on file documented as of this encounter Nursing Notes Estrella Zendejas LPN - 09/10/2012 12:56 PM CDT notified and advised per detailed message Vargas Mazariegos APRN, CNP - 09/10/2012 12:24 PM CDT 1 month supply only, no additional refills, last visit 1 year ago. Pt will need an appointment priorto any more refills. Shannon Ames RN - 09/10/2012 11:04 AM CDT DOES NOT MEET REQUIREMENTS FOR REFILL Reason: Past due for 6 month f/u. No appointment scheduled. Last visit with PCP: 09/13/12- advised to f/u in 6 months. nursing staff development coordinator action: Please route to Frontline to schedule appointment. Requested Prescriptions Pending Prescriptions Disp Refills ??? venlafaxine (EFFEXOR-XR) 150 mg 24 hr capsule [Pharmacy Med Name: VENLAFAXINE HCL ER 150MG CAP] 30 capsule 0 Sig: Take 1 capsule by mouth daily (every 24 hours). documented in this encounter Plan of Treatment Not on filedocumented as of this encounter Visit Diagnoses Not on filedocumented in this encounter Care Teams Splitter Machine Relationship Specialty Start Date End Date Vargas Mazariegos, SERINA, BULB GROWER PCP - General 07/24/10 03/28/16 documented as of this encounter
--- OUTSIDE RECORDS SUMMARY | 2022-01-26 07:12 | XMS_ITS | Encounter Summary ---
:1965 Author Organization [employer] Address [address] [place] [address] Care Team Providers Name Role Phone Vargas Mazariegos Erich SMALLS CNP Primary Care Provider [phone] Encounter Details Date Type Department Care Team Description 06/02/2014 Lab Visit [facility] Other and unspecified hyperl ipidemia; [address] Screening for diabetes manuela almonte; [place] [address] Fatigue [phone] Social History Tobacco Use Types Packs/Day Years Used Date Smoking Tobacco: Never Assessed Sex Assigned at Date Recorded Not on file documented as of this encounter Plan of Treatment Not on filedocumented as of this encounter Procedures Procedure Name Priority Date/Time Associated Diagnosis Comme nts GLUCOSE Routine 06/02/2014 11:21 Screening for diabetes R esults for this AM MERCHANDISER mellitus procedure are i n the results section. THYROID STIMULATING Routine 06/02/2014 11:21 Fatigue Resu lts for this HORMONE AM MERCHANDISER procedure are i n the results section. LIPID PANEL AND Routine 06/02/2014 11:21 Other and unspecified Results for this DIRECT LDL(IF AM MERCHANDISER hyperlipidemia (HRC) proced ure are in NEEDED) the results section. COMPLETE BLOOD Routine 06/02/2014 11:21 Fatigue Results f or this COUNT-NO DIFF AM MERCHANDISER procedure are in the results section. ALT (SGPT) Routine 06/02/2014 11:21 Other and unspecified Re sults for this AM MERCHANDISER hyperlipidemia (HRC) procedu re are in the results section. CK, TOTAL Routine 06/02/2014 11:21 Other and unspecified Re sults for this AM MERCHANDISER hyperlipidemia (HRC) procedu re are in the results section. documented in this encounter Results Complete Blood Count-No Diff (06/02/2014 11:21 AM MERCHANDISER) athologist Signature White Blood Cell 8.1 3.8 - 11.0 HP CONVERSIO N Count k/cmm Red Blood Cell 4.42 4.20 - HP CONVERSION Count 5.90 m/cmm Hemoglobin 14.9 13.4 - HP CONVERSION 17.5 g/dL Hematocrit 41.7 39.0 - HP CONVERSION 51.0 % Mean Corpuscular 94.5 80.0 - HP CONVERSION Volume 100.0 fL RDW 13.3 11.0 - HP CONVERSION 15.0 % Platelet Count 156 140 - 450 HP CONVERSION k/cmm Specimen Anatomical Collection Method Collection Time Receive d Time (Source) Location / / Volume Laterality 06/02/2014 11:21 06/02/2014 AM MERCHANDISER 11:21 AM MERCHANDISER Narrative HP CONVERSION - 06/02/2014 11:37 AM MERCHANDISER Performed at [facility], [address] [place] [address] Vargas Mazariegos APRN, CNP LAB_1 Performing Organization Address City/[facility] Phon e Number HP CONVERSION THYROID STIMULATING HORMONE (06/02/2014 11:21 AM MERCHANDISER) athologist Signature Thyroid 2.41 0.20 - HP CONVERSION Stimulating 4.50 mIU/L Hormone Specimen Anatomical Collection Method Collection Time Receive d Time (Source) Location / / Volume Laterality 06/02/2014 11:21 06/02/2014 3:45 AM MERCHANDISER PM MERCHANDISER Narrative HP CONVERSION - 06/02/2014 4:22 PM [place] [address] Vargas Mazariegos APRN, MATERNAL CHILD NURSE LAB_1 Performing Organization Address City/State/[facility] Phon e Number HP CONVERSION GLUCOSE (06/02/2014 11:21 AM MERCHANDISER) athologist Signature Lab Glucose 91 60 - 100 HP CONVERSION mg/dL Specimen Anatomical Collection Method Collection Time Receive d Time (Source) Location / / Volume Laterality 06/02/2014 11:21 06/02/2014 7:01 AM MERCHANDISER PM MERCHANDISER Narrative HP CONVERSION - 06/02/2014 7:16 PM MERCHANDISER Performed at [facility], [address] [place], [place] [id number] Vargas Erich Delilah SMALLS CNP LAB_1 Performing Organization Address [facility] Phon e Number HP CONVERSION (ABNORMAL) Lipid Panel and Direct LDL(If Needed) (06/02/2014 11:21 AM MERCHANDISER) [facility] Method Time Signature Cholesterol 219 (H) 0 - 200 HP CONVERSION mg/dL Triglycerides 344 (H) 0 - 149 HP CONVERSION mg/dL HDL Cholesterol 33 (L) >39 mg/dL HP CONVERSION Cholesterol/HDL 6.6 HP CONVERSION Ratio Screen LDL Calculated 117 19 - 130 HP CONVERSION mg/dL Length Of Fast na HP CONVERSION Specimen Anatomical Collection Method Collection Time Receive d Time (Source) Location / / Volume Laterality 06/02/2014 11:21 06/02/2014 7:01 AM MERCHANDISER PM MERCHANDISER Narrative HP CONVERSION - 06/02/2014 7:16 PM MERCHANDISER Performed at [facility], [address] [place] [address] Vargas Erich Delilah SMALLS CNP LAB_1 Performing Organization Address [facility] Phon e Number HP CONVERSION CK, Total (06/02/2014 11:21 AM MERCHANDISER) P athologist Signature Creatine Kinase 191 0 - 225 HP CONVERSION U/L Specimen Anatomical Collection Method Collection Time Receive d Time (Source) Location / / Volume Laterality 06/02/2014 11:21 06/02/2014 7:01 AM MERCHANDISER PM MERCHANDISER Narrative HP CONVERSION - 06/02/2014 7:16 PM MERCHANDISER Performed at [facility], [address] [place] [address] Vargas Erich Delilah SMALLS CNP LAB_1 Performing Organization Address [facility] Phon e Number HP CONVERSION ALT (SGPT) (06/02/2014 11:21 AM MERCHANDISER) [facility] Method Time Signature Alanine 26 4 - 55 HP CONVERSION Aminotransferase U/L Specimen Anatomical Collection Method Collection Time Receive d Time (Source) Location / / Volume Laterality 06/02/2014 11:21 06/02/2014 7:01 AM MERCHANDISER PM MERCHANDISER Narrative HP CONVERSION - 06/02/2014 7:16 PM MERCHANDISER Performed at [facility], [address] [place] [address] Vargas Mazariegos APRN, CNP LAB_1 Performing Organization Address City/State/ZIP Code Phon e Number HP CONVERSION documented in this encounter Visit Diagnoses Diagnosis Other and unspecified hyperlipidemia (HR C) Other and unspecified hyperlipidemia Screening for diabetes mellitus Fatigue Other malaise and fatigue documented in this encounter Care Teams Medical Records Custodian Relationship Specialty Start Date End Date Vargas Mazariegos APRN, CNP PCP - General 07/24/10 03/28/16 documented as of this encounter
--- OUTSIDE RECORDS SUMMARY | 2022-01-26 07:12 | XMS_ITS | Encounter Summary ---
:1965 Author Organization [employer] Address [address] [place] [address] Care Team Providers Name Role Phone Vargas Mazariegos Erich SMALLS CNP Primary Care Provider [phone] Encounter Details Date Type Department Care Team Description 02/14/2013 Lab Visit [facility] Other and unspecified [address] [facility] [place] [address] Social History Tobacco Use Types Packs/Day Years Used Date Smoking Tobacco: Never Assessed Sex Assigned at Date Recorded Not on file documented as of this encounter Plan of Treatment Not on filedocumented as of this encounter Procedures Procedure Name Priority Date/Time Associated Diagnosis Comme nts LIPID PANEL AND Routine 02/14/2013 9:46 AM Other and unspecifi ed Results for this DIRECT LDL(IF CDT hyperlipidemia (HRC) proced ure are in NEEDED) the results section. LDL CHOLESTEROL, Routine 02/14/2013 9:46 AM Resul ts for this DIRECT MEASURED CDT procedure ar e in the results section. ALT (SGPT) Routine 02/14/2013 9:46 AM Other and unspecified Results for this CDT hyperlipidemia (HRC) procedu re are in the results section. CK, TOTAL Routine 02/14/2013 9:46 AM Other and unspecified Results for this CDT hyperlipidemia (HRC) procedu re are in the results section. documented in this encounter Results (ABNORMAL) LDL Cholesterol, Direct Measured (02/14/2013 9:46 AM CDT) P athologist Signature LDL Direct 159 (H) 0 - 130 HP CONVERSION mg/dL Specimen Anatomical Collection Method Collection Time Receive d Time (Source) Location / / Volume Laterality 02/14/2013 9:46 AM 3 9:45 CDT AM CDT Narrative HP CONVERSION - 02/14/2013 11:39 AM CDT Performed at [facility], [address] [place] [address] Vargas Mazariegos APRN, CNP LAB_1 Performing Organization Address [facility] Phon e Number HP CONVERSION (ABNORMAL) Lipid Panel and Direct LDL(If Needed) (02/14/2013 9:46 AM CDT) [facility] gist Method Time Signature Cholesterol 237 (H) 0 - 200 HP CONVERSION mg/dL Triglycerides 411 (H) 0 - 149 HP CONVERSION mg/dL HDL Cholesterol 32 (L) >39 mg/dL HP CONVERSION Cholesterol/HDL 7.4 HP CONVERSION Ratio Screen Length Of Fast 12.0 HP CONVERSION Specimen Anatomical Collection Method Collection Time Receive d Time (Source) Location / / Volume Laterality 02/14/2013 9:46 AM 3 9:45 CDT AM CDT Narrative HP CONVERSION - 02/14/2013 11:26 AM CDT Performed at [facility], [address] [place] [address] Vargas Mazariegos APRN, CNP LAB_1 Performing Organization Address [facility] Phon e Number HP CONVERSION (ABNORMAL) CK, Total (02/14/2013 9:46 AM CDT) athologist Signature Creatine 285 (H) 0 - 225 HP CONVERSION Kinase U/L Specimen Anatomical Collection Method Collection Time Receive d Time (Source) Location / / Volume Laterality 02/14/2013 9:46 AM 3 9:45 CDT AM CDT Narrative HP CONVERSION - 02/14/2013 11:26 AM CDT Performed at [facility], [address] [place] [address] Vargas Mazariegos APRN, CNP LAB_1 Performing Organization Address [facility] Phon e Number HP CONVERSION ALT (SGPT) (02/14/2013 9:46 AM CDT) [facility] gist Method Time Signature Alanine 49 4 - 55 HP CONVERSION Aminotransferase U/L Specimen Anatomical Collection Method Collection Time Receive d Time (Source) Location / / Volume Laterality 02/14/2013 9:46 AM 10/25/201 3 9:45 CDT AM CDT Narrative HP CONVERSION - 02/14/2013 11:26 AM CDT Performed at [facility], [address] [place], [place] [id number] Vargas Mazariegos APRN, CNP LAB_1 Performing Organization Address City/State/ZIP Code Phon e Number HP CONVERSION documented in this encounter Visit Diagnoses Diagnosis Other and unspecified hyperlipidemia (HR C) Other and unspecified hyperlipidemia documented in this encounter Care Teams [employer] Relationship Specialty Start Date End Date Vargas Mazariegos APRN, CNP PCP - General 07/24/10 03/28/16 documented as of this encounter
--- OUTSIDE RECORDS SUMMARY | 2022-01-26 07:12 | XMS_ITS | Encounter Summary ---
:1965 Author Organization [employer] Address [address] [address] [place] [address] Care Team Providers Name Role Phone Noah Cerda MD Primary Care Provider Reason for Visit Reason Comments PRE-OP EXAM DOS 04-14-16 [facility] eyelids Encounter Details Date Type Department Care Team Description 04/05/2016 Pre-Op Visit [facility] Noah Cerda, Preoper ative examination (Primary Dx); Medicine Ptosis, bilateral [address] [place] [address] [phone] Social History Tobacco Use Types Packs/Day Years [...] Sign Reading Time Taken Comments Blood Pressure 134/72 04/05/2016 11:14 AM RUBBER CURER Pulse 68 04/05/2016 11:14 AM RUBBER CURER Temperature 36.8 ??C (98.3 ??F) 04/05/2016 11:14 AM RUBBER CURER Respiratory Rate - - Oxygen Saturation - - Inhaled Oxygen Concentration - - Weight 140.6 kg (310 lb) 04/05/2016 11:14 AM RUBBER CURER Height 182.9 cm (6') 04/05/2016 11:14 AM RUBBER CURER Body Mass Index 42.04 04/05/2016 11:14 AM RUBBER CURER documented in this encounter OR Notes H&P - Noah Cerda MD - 04/05/2016 11:31 AM CST PREOPERATIVE ASSESSMENT Date of Service: 04/05/2016 Date of : 1965 Age: 50 y.o. Sex: male Preoperative Evaluation completed by: Noah Cerda MD Primary care physician: Noah Cerda MD [phone] CHIEF COMPLAINT Pre-Operative Evaluation ANTICIPATED PROCEDURE Eyelid surgery HISTORY OF PRESENT ILLNESS 50 yo here for the above procedure. No acute concerns today. No hx of surgical problems in the past.No hx of DVT or PE. No FH or anaesthesia problems. EKG 2 months ago was without acute findings. Lab work normal as well. Risk Factors/Review of Systems: (Please see flowsheets for details) Cardiovascular risks negative except for: Renal risks negative except for: Neuro risks negative except for: GI risks negative except for: Pulmonary risks negative except for: Obstructive sleep apnea: Smoker: Endocrine/Nutrition risks negative except for: Hematologic Disease risks negative except for: Musculoskeletal/Skin risks negative except for: Mental Health risks negative except for: Anxiety: Code Status: , Other risk factors negative except for: Complete review of systems is otherwise negative. Patient Active Problem List Diagnosis ??? Tobacco use disorder (HRC) ??? Hyperlipidemia (HRC) ??? Major depressive disorder, single episode ??? Obesity (HRC) ??? Sleep apnea ??? Asymptomatic varicose veins ??? Encounter for sterilization Past Medical History Diagnosis Date ??? Hyperlipidemia #*LW 2 09/10/2003 ??? Depression Major NOS #*LW 3 09/10/2003 ??? Obesity #*LW 4 09/10/2003 ??? Obstructive Sleep Apnea Hypopnea #*LW 5 04/05/2005 No past surgical history on file. Family History Problem Relation Age of Onset ??? LW Problem: V18.0 DM Fam Hx LW Modifier: father at 65 Social History Social History ??? Marital Status: Spouse Name: N/A ??? Number of Children: N/A ??? Years of Education: N/A Occupational History ??? Not on file. Social History Main Topics ??? Smoking status: Current Every Day Smoker -- 0.85 packs/day Types: Cigarettes ??? Smokeless tobacco: Never Used Comment: Smoking History Packs/day: ??? Alcohol Use: No Comment: rare ??? Drug Use: Not on file ??? Sexual Activity: Not on file Other Topics Concern ??? Not on file Social History Narrative Current Outpatient Prescriptions Medication Sig Dispense Refill ??? Multiple Vitamins-Minerals (MULTIVITAMIN OR) Take 1 tablet by mouth daily (every 24 hours). (Patient taking differently: Take 1 tablet by mouth every other day.) 100 13 ??? pravastatin (PRAVACHOL) 20 MG tablet Take 1 tablet by mouth daily (every 24 hours). 90 tablet 3 ??? unknown medication LW Comment:CPAP 9, [facility] ??? venlafaxine (EFFEXORXR) 75 MG 24 hour release capsule Take 1 capsule by mouth daily (every 24 hours). 90 capsule 3 No current facility-administered medications for this visit. Allergies Allergen Reactions ??? Atorvastatin PN: myalgia, PN: cramps PHYSICAL EXAMINATION Temp: 98.3 ??F (36.8 ??C) (04/05/16 111) Pulse: 68 (04/05/16 111) BP: 134/72 mmHg (04/05/16 111) Height: 6' (182.9 cm) (04/05/16 1114) Weight: (!) 310 lb (140.615 kg) (04/05/16 111) BMI (Calculated): 42.13 (04/05/16 1114) General Appearance: Normal HEENT: Normal Neck: Normal Lungs: Normal Heart: Normal Abdomen: Normal Extremities: Normal Skin: Normal Neurologic: Normal TEST RESULTS AND DATE EKG done: From ED on 01/23. Sinus rhythm. Vertical axis. Consider pulmonary disease. Borderline ECG. ASSESSMENT 1. Preoperative Assessment: This patient has been examined by me today and has been found to be a suitable candidate for surgery: Yes 2. Avoid NSAIDs prior to surgery. RECOMMENDATIONS AND PLAN Day of surgery testing: none Medication recommendations including insulin / diabetes: no adjustments needed. Additional screening recommended: no Consult (Cardiology/other): no Additional test results attached: none Recommend RT assessment post op for Oxygenation and ventilation monitoring: YES, hx of sleep apnea. Other: no - Do not eat anything after midnight the evening before your surgery. - It is OK to drink water or Gatorade up to 4 hours before your surgery. - You may take medicines before surgery with a small sip of water ABOVE RECOMMENDATIONS WERE REVIEWED WITH PATIENT: yes Noah Cerda MD 04/05/2016 ER CURER documented in this encounter Plan of Treatment Not on filedocumented as of this encounter Visit Diagnoses Diagnosis Preoperative examination - Primary Preoperative examination, unspecified Ptosis, bilateral Unspecified ptosis of eyelid documented in this encounter Care Teams Mesh Cutter Relationship Specialty Start Date End Date Noah Cerda MD PCP - General Family Practice 03/29/16 [address] [place] [address] documented as of this encounter
--- OUTSIDE RECORDS SUMMARY | 2022-01-26 07:12 | XMS_ITS | Encounter Summary ---
:1965 Author Organization [employer] Address [address] [place] [address] Care Team Providers Name Role Phone Ivan Kendrick APRN, CNP Primary Care Provider [phone] Reason for Visit Reason Comments Refill Encounter Details Date Type Department Care Team Description 11/17/2013 Refill [facility] Ivan Kendrick APRN, Refill [address] [place] [address] [facility] [phone] [place], [place] [address] (Wo rk) Social History Tobacco Use Types Packs/Day Years Used Date Smoking Tobacco: Never Assessed Sex Assigned at Date Recorded Not on file documented as of this encounter Nursing Notes Tammy Orourke RN - 11/20/2013 8:21 AM CDT Renewed medication per medication refill protocol. Requested Prescriptions Signed Prescriptions Disp Refills ??? pravastatin (PRAVACHOL) 20 mg tablet 90 tablet 1 Sig: Take 1 tablet by mouth daily (every 24 hours). Authorizing Provider: IVAN KENDRICK Ordering User: TAMMY OROURKE documented in this encounter Plan of Treatment Not on filedocumented as of this encounter Visit Diagnoses Not on filedocumented in this encounter Care Teams Childcare Administrator Relationship Specialty Start Date End Date Ivan Kendrick APRN, CNP PCP - General 07/24/10 03/28/16 documented as of this encounter
--- OUTSIDE RECORDS SUMMARY | 2022-01-26 07:12 | XMS_ITS | Encounter Summary ---
:1965 Author Organization [employer] Address [address] [address] Care Team Providers Name Role Phone Ivan Kendrick APRN, YUE Primary Care Provider [phone] Reason for Visit Reason Comments Refill Encounter Details Date Type Department Care Team Description 06/15/2014 Refill [facility] Ivan Kendrick APRN, Refill [address] [place] [address] [facility] [phone] [place], [place] [address] (Wo rk) Social History Tobacco Use Types Packs/Day Years Used Date Smoking Tobacco: Never Assessed Sex Assigned at Date Recorded Not on file documented as of this encounter Nursing Notes User, Katie - 06/17/2014 10:12 AM CST 1) pravastatin (PRAVACHOL) 20 mg tablet - WARNING: The patient is requesting a renewal from a different pharmacy. - REFILL: 12 months (if warnings resolved) - RATIONALE: This refill should last until the patient is due for an office visit. - LAST QUALIFYING VISIT WITH IVAN KENDRICK: 05/28/2014 - NEXT SCHEDULED VISIT: None - MEDICATION STARTED: 09/14/2011 - LAST REFILLED ON: 05/28/2014, QTY: 30, Refills: 11, Sig: take 1 tablet by mouth daily (every 24 hours). (unchanged) Powered by [employer], Reference: [id number], 06/15/2014 4:15:00 PM Ricardo CULLEN: [facility]TE[facility]O IMED REFILL ([id number]) 2) venlafaxine (EFFEXOR-XR) 150 mg 24 hr capsule - WARNING: The patient is requesting a renewal from a different pharmacy. - REFILL: 12 months (if warnings resolved) - RATIONALE: This refill should last until the patient is due for an office visit. - LAST QUALIFYING VISIT WITH IVAN KENDRICK W: 05/28/2014 - NEXT SCHEDULED VISIT: None - MEDICATION STARTED: 08/11/2008 - LAST REFILLED ON: 05/28/2014, QTY: 30, Refills: 11, Sig: take 1 capsule by mouth daily (every 24 hours). (unchanged) Powered by [employer], Reference: [id number], 06/15/2014 4:15:00 PM Ricardo CULLEN: [facility] IMED REFILL ([id number]) Suhail Ayers RN - 06/17/2014 10:12 AM CST Renewed medication per medication refill protocol. Requested Prescriptions Signed Prescriptions Disp Refills ??? venlafaxine (EFFEXOR-XR) 150 mg 24 hr capsule 90 capsule 3 Sig: Take 1 capsule by mouth daily (every 24 hours). Authorizing Provider: IVAN KENDRICK Ordering User: SUHAIL PRESTON ??? pravastatin (PRAVACHOL) 20 mg tablet 90 tablet 3 Sig: Take 1 tablet by mouth daily (every 24 hours). Authorizing Provider: IVAN KENDRICK Ordering User: SUHAIL PRESTON A&P TECHNICIAN Charlene Yuen - 06/15/2014 4:14 PM CST Mail Order pharmacy now requesting Rxs. Please send Rxs if appropriate, thank you. documented in this encounter Plan of Treatment Not on filedocumented as of this encounter Visit Diagnoses Diagnosis Major depressive disorder, single episod e, unspecified (HRC) - Primary Major depressive disorder, single episod e, unspecified Other and unspecified hyperlipidemia (HR C) Other and unspecified hyperlipidemia documented in this encounter Care Teams Cord Maker Relationship Specialty Start Date End Date Ivan Kendrick, PACKAGING DESIGN ENGINEER, PRODUCTION POSTING CLERK PCP - General 07/24/10 03/28/16 documented as of this encounter
--- OUTSIDE RECORDS SUMMARY | 2022-01-26 07:12 | XMS_ITS | Encounter Summary ---
:1965 Author Organization [employer] Address [address] [place] [address] Care Team Providers Name Role Phone Vargas Mazariegos Erich SMALLS CNP Primary Care Provider [phone] Encounter Details Date Type Department Care Team Description 11/06/2011 Lab Visit [facility] Other and unspecified [place] [address] hyperlipidemia [place], [place] [address] Social History Tobacco Use Types Packs/Day Years Used Date Smoking Tobacco: Never Assessed Sex Assigned at Date Recorded Not on file documented as of this encounter Plan of Treatment Not on filedocumented as of this encounter Procedures Procedure Name Priority Date/Time Associated Diagnosis Comme nts LIPID PANEL AND Routine 11/06/2011 11:25 Other and unspecified Results for this DIRECT LDL(IF AM CDT hyperlipidemia (HRC) proced ure are in NEEDED) the results section. ALT (SGPT) Routine 11/06/2011 11:25 Other and unspecified Re sults for this AM CDT hyperlipidemia (HRC) procedu re are in the results section. CK, TOTAL Routine 11/06/2011 11:25 Other and unspecified Re sults for this AM CDT hyperlipidemia (HRC) procedu re are in the results section. documented in this encounter Results (ABNORMAL) Lipid Panel and Direct LDL(If Needed) (11/06/2011 11:25 AM CDT) [facility] Method Time Signature Cholesterol 236 (H) 0 - 200 HP CONVERSION mg/dL Triglycerides 387 (H) 0 - 149 HP CONVERSION mg/dL HDL Cholesterol 37 (L) >39 mg/dL HP CONVERSION Cholesterol/HDL 6.4 HP CONVERSION Ratio Screen LDL Calculated 122 19 - 130 HP CONVERSION mg/dL Length Of Fast 1.5 HP CONVERSION Comment: Corrected result; previously re ported as 10 on 11/06/11 at 10:29 by MICHELLE Specimen Anatomical Collection Method Collection Time Receive d Time (Source) Location / / Volume Laterality 11/06/2011 11:25 11/06/2011 1:13 AM CDT PM CDT Vargas Mazariegos APRN, CNP LAB_1 Performing Organization Address City/[facility] Code Phon e Number HP CONVERSION CK, Total (11/06/2011 11:25 AM CDT) P athologist Signature Creatine Kinase 182 0 - 225 HP CONVERSION U/L Specimen Anatomical Collection Method Collection Time Receive d Time (Source) Location / / Volume Laterality 11/06/2011 11:25 11/06/2011 1:13 AM CDT PM CDT Vargas Mazariegos APRN, CNP LAB_1 Performing Organization Address [facility] Phon e Number HP CONVERSION ALT (SGPT) (11/06/2011 11:25 AM CDT) Patholo gist Method Time Signature Alanine 27 4 - 55 HP CONVERSION Aminotransferase U/L Specimen Anatomical Collection Method Collection Time Receive d Time (Source) Location / / Volume Laterality 11/06/2011 11:25 11/06/2011 1:13 AM CDT PM CDT Vargas Mazariegos APRN, CNP LAB_1 Performing Organization Address [facility] Phon e Number HP CONVERSION documented in this encounter Visit Diagnoses Diagnosis Other and unspecified hyperlipidemia (HR C) Other and unspecified hyperlipidemia documented in this encounter Care Teams Lining Closer Relationship Specialty Start Date End Date Vargas Mazariegos APRN, CNP PCP - General 07/24/10 03/28/16 documented as of this encounter
--- OUTSIDE RECORDS SUMMARY | 2022-01-26 07:12 | XMS_ITS | Encounter Summary ---
:1965 Author Organization [employer] Address [address] [address] Care Team Providers Name Role Phone Ivan Kendrick APRN, CNP Primary Care Provider [phone] Reason for Visit Reason Comments Patient Calling Back Encounter Details Date Type Department Care Team Description 05/17/2014 Refill [facility] Ivan Kendrick P atient Calling Back Medicine YUE SMALLS [address] [place] [address] [place] [address] [phone] (Wo rk) Social History Tobacco Use Types Packs/Day Years Used Date Smoking Tobacco: Never Assessed Sex Assigned at Date Recorded Not on file documented as of this encounter Nursing Notes User, Katie - 05/20/2014 12:36 PM CST venlafaxine (EFFEXOR-XR) 150 mg 24 hr capsule [Pharmacy Med Name: VENLAFAXINE HCL ER 150MG CAP] - WARNING: This medication has never been authorized by the requested provider. - REFILL: 3 months (if warnings resolved) - RATIONALE: This refill should last until the patient is due for an office visit. - LAST QUALIFYING VISIT WITH IVAN KENDRICK W: 06/05/2013 - NEXT SCHEDULED VISIT: None - MEDICATION STARTED: 08/11/2008 - LAST REFILLED ON: 10/18/2013, QTY: 30, Refills: 6, Sig: take 1 capsule by mouth daily (every 24 hours). (unchanged) Powered by [employer], Reference: [id number], 05/17/2014 7:43:38 PM Ricardo CULLEN: CAYETANO BANUELOS REFILL ([id number]) Ashley Cox - 05/20/2014 12:36 PM CST Appt Letter sent Estrella Stanley RN - 05/19/2014 5:24 PM CST REFILL APPOINTMENT NEEDED Please call patient and schedule appointment within 30 days. Medication has been renewed and sent to pharmacy for a 30 day supply Comment: UCTION ASSEMBLER Alysha Landaverde - 05/19/2014 1:53 PM CST Non -Symptom Message from Front Line Primary Care Provider: Ivan Kendrick APRN, CNP Message: Patient states he is out of venlafaxine and needs this filled today if possible. Called in the so please approve. documented in this encounter Miscellaneous Notes Letter - Ivan Kendrick APRN, CNP - 05/17/2014 12:00 AM CST Images from the original note were not included. [facility] [address] [place] [address] Austin Carranza [address] [address] [facility] [address] May 20, 2014 Dear Austin Carranza, We received your request for the following prescription(s): Orders Placed This Encounter Medications ??? venlafaxine (EFFEXOR-XR) 150 mg 24 hr capsule Sig: TAKE 1 CAPSULE BY MOUTH DAILY (EVERY 24 HOURS). Dispense: 30 capsule Refill: 0 needs appt Your request was approved. You will need an appointment with your provider before your next refill. Please call [facility] at [phone] to schedule an appointment within 30 days. Thank you for choosing [facility] for your [facility] care needs. [facility] Primary Care Team UCTION ASSEMBLER Letter - Ivan Kendrick APRN, CNP - 05/17/2014 12:00 AM CST Images from the original note were not included. [facility] [address] [facility] [address] Austin Carranza [address] [facility] [address] May 20, 2014 Dear Austin Carranza, We received your request for the following prescription(s): Orders Placed This Encounter Medications ??? venlafaxine (EFFEXOR-XR) 150 mg 24 hr capsule Sig: TAKE 1 CAPSULE BY MOUTH DAILY (EVERY 24 HOURS). Dispense: 30 capsule Refill: 0 needs appt Your request was approved. You will need an appointment with your provider before your next refill. Please call [facility] at [phone] to schedule an appointment within 30 days. Thank you for choosing [facility] for your health care needs. [facility] Primary Care Team UCTION ASSEMBLER documented in this encounter Plan of Treatment Not on filedocumented as of this encounter Visit Diagnoses Not on filedocumented in this encounter Care Teams Heat Treater Relationship Specialty Start Date End Date Ivan Kendrick APRN, YUE PCP - General 07/24/10 03/28/16 documented as of this encounter
--- OUTSIDE RECORDS SUMMARY | 2022-01-26 07:12 | XMS_ITS | Encounter Summary ---
:1965 Author Organization [employer] Address [address] [address] Care Team Providers Name Role Phone Vargas Mazariegos APRN, CNP Primary Care Provider [phone] Reason for Visit Reason Comments Refill Encounter Details Date Type Department Care Team Description 09/30/2012 Refill [facility] Vargas Mazariegos APRN, Refill [id number] Done In :[address] [place] [address] [facility] [phone] [place], [place] [address] (Wo rk) Social History Tobacco Use Types Packs/Day Years Used Date Smoking Tobacco: Never Assessed Sex Assigned at Date Recorded Not on file documented as of this encounter Nursing Notes Vargas Mazariegos APRN, CNP - 09/30/2012 2:50 PM CDT done. Libra Merchant - 09/30/2012 2:36 PM CDT From Pharmacy: We noticed that Austin's prescription for the Chantix Starter Pack had 0 refills. Can we get a prescription for the Chantix Continuing Pack so that when he is ready to continue after the starter pack, we have the order on file? Thanks, [facility] documented in this encounter Plan of Treatment Not on filedocumented as of this encounter Visit Diagnoses Diagnosis Tobacco use disorder (HRC) - Primary Tobacco use disorder documented in this encounter Care Teams Tree Doctor Relationship Specialty Start Date End Date Vargas Mazariegos, SERINA, DUBBING MACHINE OPERATOR PCP - General 07/24/10 03/28/16 documented as of this encounter
--- OUTSIDE RECORDS SUMMARY | 2022-01-26 07:12 | XMS_ITS | Encounter Summary ---
:1965 Author Organization [employer] Address [address] [place] [address] Care Team Providers Name Role Phone Vargas Mazariegos APRN, CNP Primary Care Provider [phone] Reason for Visit Reason Comments MEDICATION CHECK Encounter Details Date Type Department Care Team Description 10/12/2015 Office Visit [facility] Vargas Mazariegos Hype rlipidemia, unspecified hyperlipidemia type (Primary Dx); Maxwell Jung APRN, CNP Essential hypertension; [id number] Carter single current episode of major dep ressive disorder (HRC); [place] [address] [place], [place] Screening for diabetes [facility] [phone] Social History Tobacco Use Types Packs/Day Years Used Date Smoking Tobacco: Never Assessed Sex Assigned at Date Recorded Not on file documented as of this encounter Last Filed Vital Signs Vital Sign Reading Time Taken Comments Blood Pressure 154/95 10/12/2015 7:54 AM CDT Pulse 68 10/12/2015 7:54 AM CDT Temperature - - Respiratory Rate - - Oxygen Saturation - - Inhaled Oxygen Concentration - - Weight 143.3 kg (316 lb) 10/12/2015 7:54 AM CDT Height 184.2 cm (6' 0.5) 10/12/2015 7:54 AM CDT Body Mass Index 42.27 10/12/2015 7:54 AM CDT documented in this encounter Patient Instructions Patient InstructionsVargas Mazariegos APRN, CNP - 10/12/2015 9:00 AM CDT Visit Opthalmology for vision related problems. Try using Flonase daily in each nostril. Follow up in 4 weeks to recheck blood pressure. Start taking Hydrochlorothiazide in the morning. Continue to check your blood pressure at home. documented in this encounter Progress Notes Vargas Mazariegos APRN, CNP - 10/12/2015 9:30 AM CDT Chief concern: Chief Complaint Patient presents with ??? Medication Check Other concerns: Hyperlipidemia, Depression, Hypertension. Past medical history: Past Medical History Diagnosis Date ??? Hyperlipidemia #*LW 2 09/10/2003 ??? Depression Major NOS #*LW 3 09/10/2003 ??? Obesity #*LW 4 09/10/2003 ??? Obstructive Sleep Apnea Hypopnea #*LW 5 04/05/2005 Medications: Outpatient Prescriptions Prior to Visit Medication Sig Dispense Refill ??? continuous positive airway pressure (CPAP) LW Comment:CPAP 9, [facility] ??? multivitamin (THERAGRAN) tablet Take 1 tablet by mouth daily (every 24 hours). (Patient taking differently: Take 1 tablet by mouth every other day.) 100 13 ??? pravastatin (PRAVACHOL) 20 mg tablet TAKE ONE TABLET BY MOUTH ONCE DAILY 90 tablet 0 ??? venlafaxine (EFFEXOR-XR) 150 mg 24 hr capsule TAKE ONE CAPSULE BY MOUTH ONCE DAILY 90 capsule 0 No facility-administered medications prior to visit. Adverse Drug Reactions: Allergies Allergen Reactions ??? Atorvastatin Calcium myalgia ??? Lipitor [Atorvastatin] cramps Habits: History Social History ??? Marital Status: [...] ??? Not on file Social History Narrative Lab Results Component Value Date/Time CHOLESTEROL 219* 06/02/2014 1121 HDL CHOLESTEROL 33* 06/02/2014 1121 TRIGLYCERIDES 344* 06/02/2014 1121 LDL CALCULATED 117 06/02/2014 1121 LDL DIRECT 159* 02/14/2013 0946 Lab Results Component Value Date/Time LAB GLUCOSE 91 06/02/2014 1121 BEDSIDE BLOOD GLUCOSE TEST 70 05/18/1998 0849 HPI: Patient is here today to renew his medications. He currently takes 150 mg Effexor for depression. He reports frequent sweating but denies other side effects. PHQ-9=5. He states that the medicationtakes away the lows but also takes away the highs which he does not like. He would like to reduce the amount of his medication today. Also takes Pravachol 20 mg daily. States he has some bilateral rib muscle pains but not very often. Over the past 2 years patient has gained 15 lbs. He is a current every day smoker. He is not willing to consider quitting at this time. He is a school age program teacher and states that he does reduce his smoking to 7-10 cigarettes a day in the summer time. His blood pressure is elevated at today's visit. He states that he checks it at home and it runs in the 120-130s however over the past few years it has slowly been increasing. Reports some leg swelling and sock lines at the end of the day. Father with a history of 9 coronary stents. He is willing to start medication today to lower blood pressure. States his right ear has been bugging him. He remembers having a tube placed in his left ear. [facility] complains that his vision is worsening for reading. He has been using cheaters recently. He has had some recent double vision in his right eye when reading at night. Denies blurry vision or eye pain. Denies other concerns. Review of systems: Denies chest pain, shortness of breath. Denies bowel or bladder symptoms. Denies numbness, tingling, swelling in the extremities. Weight is stable. No arthralgias or myalgias. OBJECTIVE: Vital Signs: BP 154/95 mmHg Pulse 68 Ht 1.842 m (6' 0.5) Wt 143.337 kg (316 lb) BMI 42.25 kg/m2 Patient is alert oriented and pleasant. No acute distress. Head: Normocephalic. Eyes: PERRLA, full EOM. External exams normal. Ears: Normal pinnae, canals, and TM's. Right ear effusion noted. Nose: Patent, without deformity. Throat: Moist mucous membranes without lesions, erythema, or exudate. Neck: Supple, no cervical lymphadenopathy. Respiratory: Normal respiratory effort. Lungs are clear with goodbreath sounds. Heart: Regular rate and rhythm, no murmurs, rubs, gallops. Abdomen: The abdomen was soft and nontender without guarding rebound or masses. No hepatosplenomegaly. Legs: 1+ edema bilaterally. ASSESSMENT: Encounter Diagnoses Name Primary? 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 Hyperlipidemia, unspecified hyperlipidemia type ??? Essential hypertension (HRC) ??? Screening for diabetes mellitus PLAN: Start Hydrochlorothiazide to reduce blood pressure. Follow up in 1 month to recheck creatinine/electrolytes. Reduce Effexor from 150 to [address] Consider having [address] calcium scoring done in the future. Follow up with Opthalmology for eye related problems. Try using Flonase daily to reduce fluid in right ear. Orders Placed This Encounter Procedures ??? Alanine Aminotransferase ??? Glucose ??? Cholesterol Fraction-LDLD If Trig High ??? Creatinine ??? Electrolytes (NA, K, CL, Bicarb) Patient Instructions Visit Opthamology for vision related problems. Try using Flonase daily in each nostril. Follow up in 4 weeks to recheck blood pressure. Start taking Hydrochlorothiazide in the morning. Continue to check your blood pressure at home. Orders Placed This Encounter Medications ??? pravastatin (PRAVACHOL) 20 mg tablet Sig: Take 1 tablet by mouth daily (every 24 hours). Dispense: 90 tablet Refill: 3 ??? venlafaxine (EFFEXOR-XR) 75 mg 24 hr capsule Sig: Take 1 capsule by mouth daily (every 24 hours). Dispense: 90 capsule Refill: 3 ??? hydrochlorothiazide (ORETIC) 25 mg tablet Sig: Take 1 tablet by mouth daily (every 24 hours). Dispense: 90 tablet Refill: 3 The patient was discharged ambulatory and in stable condition and agreed with the above plan. documented in this encounter Plan of Treatment Not on filedocumented as of this encounter Visit Diagnoses Diagnosis Hyperlipidemia, unspecified hyperlipidem ia type (HRC) - Primary Essential hypertension (HRC) Unspecified essential hypertension Mild single current episode of major dep ressive disorder (HRC) Screening for diabetes mellitus documented in this encounter Care Teams Migratory Farm Hand Relationship Specialty Start Date End Date Vargas Mazariegos, YUE SMALLS PCP - General 07/24/10 03/28/16 documented as of this encounter
--- OUTSIDE RECORDS SUMMARY | 2022-01-26 07:12 | XMS_ITS | Encounter Summary ---
:1965 Author [facility] Address [address] [place] [address] Care Team Providers Name Role Phone Vargas Mazariegos APRN, CNP Primary Care Provider [phone] Reason for Visit Reason Comments Refill Encounter Details Date Type Department Care Team Description 10/16/2013 Refill [facility] Vargas Mazariegos APRN, Refill [address] [address] [place] [address] [facility] [phone] [place], [place] [address] (Wo rk) Social History Tobacco Use Types Packs/Day Years Used Date Smoking Tobacco: Never Assessed Sex Assigned at Date Recorded Not on file documented as of this encounter Nursing Notes Reyna Schmid - 10/18/2013 5:35 PM CDT effexor refilled per protocol documented in this encounter Plan of Treatment Not on filedocumented as of this encounter Visit Diagnoses Not on filedocumented in this encounter Care Teams Factory Laborer Relationship Specialty Start Date End Date Vargas Mazariegos APRN, CNP PCP - General 07/24/10 03/28/16 documented as of this encounter
--- OUTSIDE RECORDS SUMMARY | 2022-01-26 07:12 | XMS_ITS | Encounter Summary ---
:1965 Author Organization [employer] Address [address], [place] [address] Care Team Providers Name Role Phone Ivan Kendrick APRN, YUE Primary Care Provider [phone] Reason for Visit Reason Comments Refill Encounter Details Date Type Department Care Team Description 10/13/2015 Refill [facility] Ivan Kendrick APRN, Refill [address] [place] [address] [facility] [phone] [place], [place] [address] (Wo rk) Social History Tobacco Use Types Packs/Day Years Used Date Smoking Tobacco: Never Assessed Sex Assigned at Date Recorded Not on file documented as of this encounter Nursing Notes User, Katie - 10/13/2015 4:53 PM CDT venlafaxine (EFFEXOR-XR) 150 mg 24 hr capsule [Pharmacy Med Name: VENLAFAXINE ER 150MG CAP] - MEDICATION STARTED: 03/08/2010 - LAST REFILLED ON: 07/09/2015, QTY: 90, Refills: 0, Sig: take one capsule by mouth once daily (unchanged) - WARNING #1: A duplicate request was processed on 10/11/2015. - WARNING #2: The requested medication appears on the patient's medication history at a different strength (75 mg). - REFILL: 12 months (if warnings resolved) - RATIONALE: This refill should last until the patient is due for an office visit. - LAST QUALIFYING VISIT WITH IVAN KENDRICK: 10/12/2015 - NEXT SCHEDULED VISIT IN INTERNAL MEDICINE: 11/11/2015 - SBP: 154.0mm Hg on 10/12/2015 - DBP: 95.0mm Hg on 10/12/2015 Powered by [employer], Reference: [id number], 10/13/2015 2:11:15 PM CDT, Pool: MONTEIRO IMED REFILL ([id number]) ATTE OPERATOR Lizet Sandhu RN - 10/13/2015 4:53 PM CDT Renewed medication per medication refill protocol. Requested Prescriptions Signed Prescriptions Disp Refills ??? venlafaxine (EFFEXOR-XR) 150 mg 24 hr capsule 90 capsule 3 Sig: TAKE ONE CAPSULE BY MOUTH ONCE DAILY Authorizing Provider: IVAN KENDRICK Ordering User: LIZET SANDHU Wanda Ma - 10/13/2015 3:45 PM CDT Pt states [facility] will not ship medication until 10/17 and pt is out as of today. Pt is requesting a partial Rx sent to [facility] in [place] to get him through to 10/22/15. Pleaseadvise. Jennifer Flores - 10/13/2015 2:53 PM CDT venlafaxine (EFFEXOR-XR) 150 mg 24 hr capsule last sent to [facility] 07/09/15 for a 90 day supply. Ptrecently had appt on 10/12/15 with PCP. Please advise, thank you. ATTE OPERATOR documented in this encounter Plan of Treatment Not on filedocumented as of this encounter Visit Diagnoses Not on filedocumented in this encounter Care Teams Custodial Services Manager Relationship Specialty Start Date End Date Ivan Kendrick, EXPANSION JOINT FINISHER, CAREGIVERS NON MEDICAL PCP - General 07/24/10 03/28/16 documented as of this encounter
--- OUTSIDE RECORDS SUMMARY | 2022-01-26 07:12 | XMS_ITS | Encounter Summary ---
:1965 Author Organization [facility] Address [address], [place] [address] Care Team Providers Name Role Phone Vargas Mazariegos APRN, CNP Primary Care Provider [phone] Encounter Details Date Type Department Care Team Description 11/29/2010 Notes/Orders [facility] Vargas Mazariegos, O ther and unspecified hyperlipidemia; Medicine YUE SMALLS Other malaise and fatigue [address] [place] [address] [place] [phone] (Wo rk) Social History Tobacco Use Types Packs/Day Years Used Date Smoking Tobacco: Never Assessed Sex Assigned at Date Recorded Not on file documented as of this encounter Plan of Treatment Not on filedocumented as of this encounter Visit Diagnoses Diagnosis Other and unspecified hyperlipidemia (HR C) Other and unspecified hyperlipidemia Other malaise and fatigue documented in this encounter Care Teams Telephone Service Representative Relationship Specialty Start Date End Date Vargas Mazariegos APRN, CNP PCP - General 07/24/10 03/28/16 documented as of this encounter
--- OUTSIDE RECORDS SUMMARY | 2022-01-26 07:12 | XMS_ITS | Encounter Summary ---
:1965 Author Organization [employer] Address [address], [place] [address] Care Team Providers Name Role Phone Vargas Mazariegos Erich SMALLS CNP Primary Care Provider [phone] Reason for Visit Reason Comments Pulmonary Encounter Details Date Type Department Care Team Description 09/18/2013 Office Visit [facility] [address] Ana Cristina Conner, U nspecified sleep Pulmonary Medicine YUE SMALLS apnea (Primary Dx) [address] [facility] [address] [place], [place] [address] [address] [place], [place] [phone] (Wo rk) Social History Tobacco Use Types Packs/Day Years Used Date Smoking Tobacco: Never Assessed Sex Assigned at Date Recorded Not on file documented as of this encounter Last Filed Vital Signs Vital Sign Reading Time Taken Comments Blood Pressure 146/88 09/18/2013 10:47 AM CDT Pulse 69 09/18/2013 10:47 AM CDT Temperature - - Respiratory Rate - - Oxygen Saturation 97% 09/18/2013 10:47 AM CDT Inhaled Oxygen Concentration - - Weight 136.5 kg (301 lb) 09/18/2013 10:47 AM CDT Height 182.9 cm (6') 09/18/2013 10:47 AM CDT Body Mass Index 40.82 09/18/2013 10:47 AM CDT documented in this encounter Progress Notes Ana Cristina Conner APRN, CNP - 09/18/2013 12:40 PM CDT PULMONARY/SLEEP CLINIC FOLLOW-UP CHIEF COMPLAINT: Obstructive Sleep Apnea HPI: The patient is a 47 y.o. male with a history of severe obstructive sleep apnea- AHi 52 diagnosed in 2004. He has compliantly worn cpap since that time set at 9 cm h20. He felt he was sleeping well. His heard no snoring. His machine broke 2 weeks ago. He is not sleeping well. His insurance will be changing at the end of the month so he is not able to purchase a new machine presently. His father may have an extra machine he could use. He has not been sleepy with driving. He does drive a school bus. Weight is up 30 lbs from his sleep study in 2004. No restless leg syndrome. INTERVAL MEDICAL HISTORY:reviewed SOCIAL HISTORY: smokes 10 cigarettes/day, no etoh, 4-6 cans diet mountain dew /day, FAMILY HISTORY: reviewed. father with shanthi ROS: reviewed- negative PHYSICAL EXAM: BP 146/88 Pulse 69 Ht 6' (1.829 m) Wt 301 lb (136.533 kg) BMI 40.81 kg/m2 SpO2 97% GEN: alert and oriented x3 IMPRESSION AND PLAN: 1. Severe sleep apnea- Reviewed sleep study. Will start autoset 9-12 cm h20 once he has insurance. He can bring his fathersmachine in and I will be happy to set it for him. We discussed importance given his driving in treating his sleep apnea as soon as possible. I will see him once he has new machine for download. Orders faxed to [facility]. All of the patient's questions were answered. He states understanding and agreement with my assessment and plan as above. Total time 20 min, more than half spent in face to face counseling and coordination of care. documented in this encounter Plan of Treatment Not on filedocumented as of this encounter Visit Diagnoses Diagnosis Unspecified sleep apnea - Primary documented in this encounter Care Teams Solder Technician Relationship Specialty Start Date End Date Vargas Mazariegos APRN, CNP PCP - General 07/24/10 03/28/16 documented as of this encounter
--- OUTSIDE RECORDS SUMMARY | 2022-01-26 07:12 | XMS_ITS | Encounter Summary ---
:1965 [facility] Address [address] [address] Care Team Providers Name Role Phone Vargas Mazariegos APRN, CNP Primary Care Provider [phone] Encounter Details Date Type Department Care Team Description 11/11/2015 Lab Visit [facility] Essential hypertension [address] [place] [address] Social History Tobacco Use Types Packs/Day Years Used Date Smoking Tobacco: Never Assessed Sex Assigned at Date Recorded Not on file documented as of this encounter Plan of Treatment Not on filedocumented as of this encounter Procedures Procedure Name Priority Date/Time Associated Diagnosis Comme nts CREATININE / GFR Routine 11/11/2015 11:19 AM Essential Resu lts for this CDT hypertension procedure are i n the results section. ELECTROLYTE PANEL Routine 11/11/2015 11:19 AM Essential Res ults for this CDT hypertension procedure are i n the results section. documented in this encounter Results Electrolyte Panel (11/11/2015 11:19 AM CDT) athologist Signature Sodium 140 136 - 145 HP CONVERSION mmol/L Potassium 4.3 3.5 - 5.2 HP CONVERSION mmol/L Chloride 101 98 - 107 HP CONVERSION mmol/L Bicarbonate 26 22 - 29 HP CONVERSION mmol/L Specimen Anatomical Collection Method Collection Time Receive d Time (Source) Location / / Volume Laterality 11/11/2015 11:19 11/11/2015 AM CDT 11:19 AM CDT Narrative HP CONVERSION - 11/11/2015 11:57 AM CDT Performed at [facility], [address] [place] [address] CLIA number [id number] Vargas Mazariegos APRN, CNP LAB_1 Performing Organization Address City/[facility]/ZIP Code Phon e Number HP CONVERSION (ABNORMAL) Creatinine / GFR (11/11/2015 11:19 AM CDT) [facility] gist Method Time Signature Creatinine 1.20 (H) 0.73 - HP CONVERSION Serum 1.18 mg/dL Est GFR >60 >60 HP CONVERSION Am mL/min/1.7 3m2 Est GFR Non-Afr >60 >60 HP CONVERSION Am mL/min/1.7 3m2 Comment: Normal>60, moderate decrease 30 - 59, se henry decrease 15 - 29, renal failure <15 mL/min/1.73 m2 NOTE: ??Choose the eGFR result above audrey ropriate for the race of the patient. Specimen Anatomical Collection Method Collection Time Receive d Time (Source) Location / / Volume Laterality 11/11/2015 11:19 11/11/2015 AM CDT 11:19 AM CDT Narrative HP CONVERSION - 11/11/2015 11:57 AM CDT Performed at [facility], [address] [place] [address] CLIA number [id number] Vargas Mazariegos APRN, CNP LAB_1 Performing Organization Address [facility] Phon e Number HP CONVERSION documented in this encounter Visit Diagnoses Diagnosis Essential hypertension (HRC) Unspecified essential hypertension documented in this encounter Care Teams Emergency Man Relationship Specialty Start Date End Date Vargas Mazariegos APRN, CNP PCP - General 07/24/10 03/28/16 documented as of this encounter
--- OUTSIDE RECORDS SUMMARY | 2022-01-26 07:12 | XMS_ITS | Encounter Summary ---
:1965 Author Organization [employer] Address [address] [place] [address] Care Team Providers Name Role Phone Vargas Mazariegos Erich SMALLS, YUE Primary Care Provider [phone] Encounter Details Date Type Department Care Team Description 11/29/2010 Lab Visit [facility] Other and unspecified hyperl ipidemia; [address] Other malaise and fatigue CHRISTINE Thomas [id number] Social History Tobacco Use Types Packs/Day Years Used Date Smoking Tobacco: Never Assessed Sex Assigned at Date Recorded Not on file documented as of this encounter Plan of Treatment Not on filedocumented as of this encounter Procedures Procedure Name Priority Date/Time Associated Diagnosis Comme nts TESTOSTERONE TOTAL Routine 11/29/2010 11:07 Other malaise and Results for this [facility]IL[facility] AM CDT fatigue procedu re are in the results section. LIPID PANEL AND Routine 11/29/2010 11:07 Other and unspecified Results for this DIRECT LDL(IF AM CDT hyperlipidemia (HRC) proced ure are in NEEDED) the results section. VITAMIN D Routine 11/29/2010 11:07 Other malaise and Result s for this 25-HYDROXY, TOTAL AM CDT fatigue procedure are in the results section. ALT (SGPT) Routine 11/29/2010 11:07 Other and unspecified Re sults for this AM CDT hyperlipidemia (HRC) procedu re are in the results section. CK, TOTAL Routine 11/29/2010 11:07 Other and unspecified Re sults for this AM CDT hyperlipidemia (HRC) procedu re are in the results section. VENIPUNCTURE (CRISTIAN) Routine 11/29/2010 11:05 Other and unspeci fied Results for this AM CDT hyperlipidemia (HRC) procedu re are in the results section. HANDLING FEE TO Routine 11/29/2010 11:05 Other malaise and Res ults for this REFERENCE LAB (HREF) AM CDT fatigue procedu re are in the results section. documented in this encounter Results Vitamin D 25-Hydroxy, Total (11/29/2010 11:07 AM CDT) P athologist Signature Vitamin D 25 Oh 28 20 - 80 HP CONVERSION ng/mL Comment: Deficiency = <20 Adequate ??= 20-29 Preferred = 30-50 Uncertain safety = 51-80 High = >80 Specimen Anatomical Collection Method Collection Time Receive d Time (Source) Location / / Volume Laterality 11/29/2010 11:07 11/29/2010 4:05 AM CDT PM CDT Vargas Mazariegos APRN, CNP LAB_1 Performing Organization Address City/[facility]/ZIP Code Phon e Number HP CONVERSION TESTOSTERONE TOTAL [facility]IL[facility] (11/29/2010 11:07 AM CDT) Analysis Performed At Patho logist Time Signature Total Serum 412 240 - 950 HP CONVERSION Testosterone ng/dL Specimen Anatomical Collection Method Collection Time Receive d Time (Source) Location / / Volume Laterality 11/29/2010 11:07 11/30/2010 AM CDT 10:14 AM CDT Narrative HP CONVERSION - 12/01/2010 4:29 PM CDT Performed at [facility] [address] [place] [address] Vargas Mazariegos APRN, CNP LAB_1 Performing Organization Address City/State/ZIP Code Phon e Number HP CONVERSION (ABNORMAL) Lipid Panel and Direct LDL(If Needed) (11/29/2010 11:07 AM CDT) [facility] Method Time Signature Cholesterol 186 0 - 200 HP CONVERSION mg/dL Triglycerides 323 (H) 0 - 149 HP CONVERSION mg/dL HDL Cholesterol 31 (L) >39 mg/dL HP CONVERSION Cholesterol/HDL 6.0 HP CONVERSION Ratio Screen LDL Calculated 90 19 - 130 HP CONVERSION mg/dL Length Of Fast 12.0 HP CONVERSION Specimen Anatomical Collection Method Collection Time Receive d Time (Source) Location / / Volume Laterality 11/29/2010 11:07 11/29/2010 2:19 AM CDT PM CDT Narrative HP CONVERSION - 11/29/2010 3:15 PM CDT Performed at [facility], [address] [place] [address] Vargas Erich Delilah SMALLS CNP LAB_1 Performing Organization Address [facility] Phon e Number HP CONVERSION (ABNORMAL) CK, Total (11/29/2010 11:07 AM CDT) athologist Signature Creatine 260 (H) 0 - 225 HP CONVERSION Kinase U/L Specimen Anatomical Collection Method Collection Time Receive d Time (Source) Location / / Volume Laterality 11/29/2010 11:07 11/29/2010 2:19 AM CDT PM CDT Narrative HP CONVERSION - 11/29/2010 3:15 PM CDT Performed at [facility], [address] [place] [address] Vargas Erich Delilah SMALLS CNP LAB_1 Performing Organization Address [facility] Phon e Number HP CONVERSION ALT (SGPT) (11/29/2010 11:07 AM CDT) [facility] Method Time Signature Alanine 22 4 - 55 HP CONVERSION Aminotransferase U/L Specimen Anatomical Collection Method Collection Time Receive d Time (Source) Location / / Volume Laterality 11/29/2010 11:07 11/29/2010 2:19 AM CDT PM CDT Narrative HP CONVERSION - 11/29/2010 3:15 PM CDT Performed at [facility], [address] [place] [address] Vargas Erich Delilah SMALLS CNP LAB_1 Performing Organization Address [facility] Phon e Number HP CONVERSION HANDLING FEE TO REFERENCE LAB (HREF) (11/29/2010 11:05 AM CDT) athologist Signature Handling Fee to Done HP CONVERSION Reference Lab Specimen (Source) Anatomical Collection Method Collection Time Re ceived Time Location / / Volume Laterality 11/29/2010 11:05 AM CDT Vargas Erich Delilah SMALLS CNP LAB_1 Performing Organization Address [facility] Phon e Number HP CONVERSION VENIPUNCTURE (CRISTIAN) (11/29/2010 11:05 AM CDT) athologist Signature Venipuncture Done HP CONVERSION Specimen (Source) Anatomical Collection Method Collection Time Re ceived Time Location / / Volume Laterality 11/29/2010 11:05 AM CDT Narrative HP CONVERSION - 11/29/2010 11:05 AM CDT Performed at [facility], [address] [place] [address] Vargas Mazariegos APRN, CNP LAB_1 Performing Organization Address City/State/ZIP Code Phon e Number HP CONVERSION documented in this encounter Visit Diagnoses Diagnosis Other and unspecified hyperlipidemia (HR C) Other and unspecified hyperlipidemia Other malaise and fatigue documented in this encounter Care Teams Grill Prep Cook Relationship Specialty Start Date End Date Vargas Mazariegos APRN, CNP PCP - General 07/24/10 03/28/16 documented as of this encounter
--- OUTSIDE RECORDS SUMMARY | 2022-01-26 07:12 | XMS_ITS | Encounter Summary ---
:1965 Author Organization [employer] Address [address] [address] Care Team Providers Name Role Phone Ivan Kendrick APRN, YUE Primary Care Provider [phone] Reason for Visit Reason Comments Refill Encounter Details Date Type Department Care Team Description 10/08/2012 Refill [facility] Ivan Kendrick, REFINER OPERATOR, Refill [address] [place] [address] [facility] [phone] [place], [place] [address] (Wo rk) Social History Tobacco Use Types Packs/Day Years Used Date Smoking Tobacco: Never Assessed Sex Assigned at Date Recorded Not on file documented as of this encounter Nursing Notes Lizet Sandhu RN - 10/09/2012 12:42 PM CDT Requested Prescriptions Signed Prescriptions Disp Refills ??? venlafaxine (EFFEXOR-XR) 150 mg 24 hr capsule 90 capsule 3 Sig: Take 1 capsule by mouth daily (every 24 hours). Authorizing Provider: IVAN KENDRICK Ordering User: LIZET SANDHU Renewed medication per medication refill protocol. Rx resent to pharmacy per current order by PCP dated 09/17/12. documented in this encounter Plan of Treatment Not on filedocumented as of this encounter Visit Diagnoses Diagnosis Major depressive disorder, single episod e, unspecified (HRC) - Primary Major depressive disorder, single episod e, unspecified documented in this encounter Care Teams Conveyor Man Relationship Specialty Start Date End Date Ivan Kendrick, REFINER OPERATOR, ASTROCHEMIST PCP - General 07/24/10 03/28/16 documented as of this encounter
--- OUTSIDE RECORDS SUMMARY | 2022-01-26 07:12 | XMS_ITS | Encounter Summary ---
:1965 Author Organization [employer] Address [address], [place] [address] Care Team Providers Name Role Phone Vargas Mazariegos Erich SMALLS, YUE Primary Care Provider [phone] Reason for Visit Reason Comments Follow-up Encounter Details Date Type Department Care Team Description 08/04/2014 Office Visit Jessica [facility], Prurigo nodularis (Primary Dx); Dermatology Nevus of face [address] [place] [address] [place] [phone] (Wo rk) Social History Tobacco Use Types Packs/Day Years Used Date Smoking Tobacco: Never Assessed Sex Assigned at Date Recorded Not on file documented as of this encounter Patient Instructions Patient InstructionsRadha Mazariegos RN - 08/04/2014 11:37 AM CDT 1. Try not to pick or scratch areas. 2. It might take a long time for the pinkness to go away. 3. Prurigo Nodule we did a steroid injection then placed duoderm on it. Leave this duoderm on for aslong as you can. DIRECT PHONE NUMBER: KIERA LIGHT HÉCTOR [phone]. FEEL FREE TO CALL WITH ANY QUESTIONS OR CONCERNS YOU MAY HAVE. MOLES TO HAVE CHECKED IN [...] BLOCK BY CLINIQUE OR AQUASPORT AVAILABLE AT [employer]. VITAMIN D-3 RECOMMENDATIONS: - TAKE VITAMIN D [...] FOR YOUR MUSCLES, BONES AND BRAIN HEALTH. documented in this encounter Progress Notes Jessica Hernandez MD - 08/04/2014 11:39 AM CDT Progress Notes signed by Jessica Bland MD at 08/05/14729 Author: Jessica Bland MD Service: (none) Author Type: Physician Filed: 08/05/14729 Note Time: 08/04/14 1505 Status: Signed Sandfill Operator: Jessica Bland MD (Physician) NAME: AUSTIN CARRANZA MR#: [id number] CSN: [id number] AUTHENTICATING CLINICIAN: Jessica Hernandez MD CONFIRM #: [id number] LOC: 527 CLINIC PROGRESS NOTE DATE OF VISIT: 08/04/2014 : 1965 [place] is a 48-year-old here for recheck of prurigo nodules on the right forearm and the right buttocks. We talked about options last time in May and we froze them. The arm improved greatly. He keptit moisturized. The backside he does not think it helped a lot. He also has a new spot on the left upper medial eyebrow where the root of the nose meets the eyebrow. EXAMINATION: At the left root of the nose where it meets the eyebrow is a small, slightly elevated intradermal nevus with a little light pigmentation on the surface. On the right buttocks is a prurigo nodule about 2 cm in size with hypo and hyperpigmentation around the periphery to 2 cm and the right forearm is a l onger, almost Nahomi's comet look with a round patch in the middle, a bit of a tail off to the side. It is mostly pink now with a little bit of hyperkeratosis and prurigo nodule remaining around the periphery. ASSESSMENT: Prurigo nodularis and intradermal nevus. PLAN: I think he has gotten good results on the arm and because it is sore and itchy, we did re-freeze theperiphery of the right buttocks. It really did not respond very well. We talked about shave removal versus intralesional injection because it is itching and annoying, so we did do the intralesional injection with 10 mg/mL of triamcinolone 0.2 mL injected, very firm to inject it, and then I placed DuoDERM Thin on the surface and I want him to use that for a month. Samples were given. The mole is normal and not worrisome. We will see him back in a few months. If things are doing well, he can cancel. If they are still there, we can re-evaluate for shave excision. Wound care instructions given verbally. Tolerated everything well. 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
--- OUTSIDE RECORDS SUMMARY | 2022-01-26 07:12 | XMS_ITS | Encounter Summary ---
:1965 Author Organization [employer] Address [address], [place] [address] Care Team Providers Name Role Phone Vargas Mazariegos ETL TESTERYUE Suazo Primary Care Provider [phone] Reason for Visit Reason Comments Patient Calling Back Medication Request Encounter Details Date Type Department Care Team Description 04/19/2013 Telephone [facility] Vargas Mazariegos P atient Calling Back; Medicine ETL TESTER, GLUER MACHINE SETUP OPERATOR Medication Request [address] [place] [address] [place] [address] [phone] (Wo rk) Social History Tobacco Use Types Packs/Day Years Used Date Smoking Tobacco: Never Assessed Sex Assigned at Date Recorded Not on file documented as of this encounter Nursing Notes Sue Perkins RN - 04/19/2013 2:34 PM CST Pt. calling and states is in [place] and left Venlafaxine at home. Is requesting that Rx for 1 pill be sent to [facility] in [place] on [address] Pharmacy phone is [phone]. This nurse consulted with on-call , Dr. Ana Cristina Cobos, who gave VO: Venlafaxine (Effexor XR) 150mg 24 hour capsule take 1 capsule by mouth daily every 24 huors, Quantitiy: 10, Refills: 0, remind pt. to schedule appointment with PCP. [facility] [place] and gave verbal order to pharmacist, Lloyd, for Venlafaxine. Then called pt. back to advise of Dr. Cobos's orders. ION ADMINISTRATOR Flora Ingram - 04/19/2013 2:01 PM CST The patient is calling back, see previous entry, transferred the call to triage. Mi Ozuna - 04/19/2013 12:18 PM CST Patient would like one tablet if possible of Venlafaxine medication. Pt is out of town and left medication at home. Patient just needs a one day supply. The pharmacy information pt would like it sent to : [id number] [place], [place] . documented in this encounter Plan of Treatment Not on filedocumented as of this encounter Visit Diagnoses Not on filedocumented in this encounter Care Teams Fast Food Assistant Restaurant Manager Relationship Specialty Start Date End Date Vargas Mazariegos, ETL TESTER, GLUER MACHINE SETUP OPERATOR PCP - General 07/24/10 03/28/16 documented as of this encounter
--- OUTSIDE RECORDS SUMMARY | 2022-01-26 07:12 | XMS_ITS | Encounter Summary ---
:1965 Author Organization [employer] Address [address] [address] Care Team Providers Name Role Phone Ivan Kendrick APRN, CNP Primary Care Provider [phone] Reason for Visit Reason Comments Refill Encounter Details Date Type Department Care Team Description 12/20/2010 Refill [facility] Ivan Kendrick APRN, Refill [address] [place] [address] [facility] [phone] [place], [place] [address] (Wo rk) Social History Tobacco Use Types Packs/Day Years Used Date Smoking Tobacco: Never Assessed Sex Assigned at Date Recorded Not on file documented as of this encounter Nursing Notes Yanet Newby - 12/20/2010 10:09 AM CDT Renewed medication per medication refill protocol. Prescription Refills Approved Prescriptions Disp Refills ??? venlafaxine (EFFEXOR XR) 150 mg 24 hr capsule 90 capsule 1 Sig: Take 1 capsule by mouth daily (every 24 hours). Authorizing Provider: IVAN KENDRICK Ordering User: YANET NEWBY documented in this encounter Plan of Treatment Not on filedocumented as of this encounter Visit Diagnoses Not on filedocumented in this encounter Care Teams Retail Experience Specialist Relationship Specialty Start Date End Date Ivan Kendrick APRN, CNP PCP - General 07/24/10 03/28/16 documented as of this encounter
--- OUTSIDE RECORDS SUMMARY | 2022-01-26 07:12 | XMS_ITS | Encounter Summary ---
:1965 Author Organization [employer] Address [address], [place] [address] Care Team Providers Name Role Phone Vargas Mazariegos APRN, CNP Primary Care Provider [phone] Reason for Visit Reason Comments MEDICATION CHECK Encounter Details Date Type Department Care Team Description 05/28/[address] [facility] Vargas Mazariegos M ajor depressive disorder, single episode, unspecified (Primary Dx); Medicine YUE SMALLS Other and unspecified hyperlipidemia; [address] [address] [place] Tobacco use disorder; [place] [address] [place], [place] Fatigue; [phone] [address] Skin lesion; [phone] (Wo rk) Screening for diabetes mellitus Social History Tobacco Use Types Packs/Day Years Used Date Smoking Tobacco: Never Assessed Sex Assigned at Date Recorded Not on file documented as of this encounter Last Filed Vital Signs Vital Sign Reading Time Taken Comments Blood Pressure 150/88 05/28/2014 10:40 AM XEROX MACHINE OPERATOR Pulse 69 05/28/2014 10:40 AM XEROX MACHINE OPERATOR Temperature - - Respiratory Rate - - Oxygen Saturation - - Inhaled Oxygen Concentration - - Weight 141.1 kg (311 lb) 05/28/2014 10:40 AM XEROX MACHINE OPERATOR Height - - Body Mass Index 42.18 09/18/2013 10:47 AM CDT documented in this encounter Patient Instructions Patient InstructionsVargas Mazariegos APRN, CNP - 05/28/2014 11:04 AM XEROX MACHINE OPERATOR Keep checking your BP, if > 140/90 then return for BP treatment. If your LDL > 130 then increase Pravastatin to 40 mg or switch back to Lipitor or trial Crestor. You must quit smoking. Please call the dermatology/skin dept. at [phone] to schedule your appointment. X MACHINE OPERATOR documented in this encounter Progress Notes Vargas Mazariegos APRN, CNP - 05/28/2014 12:44 PM CST Chief concern: Chief Complaint Patient presents with ??? Medication Check Other concerns: Depression, hyperlipidemia, tobacco abuse, fatigue, skin lesions x2 Past medical history: Past Medical History Diagnosis Date ??? Hyperlipidemia #*LW 2 09/10/2003 ??? Depression Major NOS #*LW 3 09/10/2003 ??? Obesity #*LW 4 09/10/2003 ??? Obstructive Sleep Apnea Hypopnea #*LW 5 04/05/2005 Medications: Current Outpatient Prescriptions on File Prior to Visit Medication Sig Dispense Refill ??? continuous positive airway pressure (CPAP) LW Comment:CPAP 9, [facility] ??? multivitamin (THERAGRAN) tablet Take 1 tablet by mouth daily (every 24 hours). (Patient taking differently: Take 1 tablet by mouth every other day.) 100 13 ??? [DISCONTINUED] pravastatin (PRAVACHOL) 20 mg tablet Take 1 tablet by mouth daily (every 24 hours). 90 tablet 1 ??? [DISCONTINUED] venlafaxine (EFFEXOR-XR) 150 mg 24 hr capsule TAKE 1 CAPSULE BY MOUTH DAILY (EVERY 24 HOURS). 30 capsule 0 No current facility-administered medications [...] ??? Not on file Social History Narrative HPI: Returns today with multiple concerns. History of hyperlipidemia on pravastatin 20 mg daily. Hischolesterol has been elevated. He admits to not taking his medicine regularly in the past. He has now been taking it regularly he would like to check his labs. He is willing to adjust it if necessary. P reviously on Lipitor with myalgias. He is having some leg cramps. History of depression on Effexor 150 mg q.d. PH Q.-9= 7. His blood pressure is elevated today. He has been checking his blood pressure at home, typically 130s or better systolically. He continues to smoke. He has tried to quit in the past unsuccessfully. He complains of excessive fatigue. He continues to gain weight. He admits to a poor diet and lack of exercise. He also has to reddened flaky skin lesions one on the right forearm and one on the right buttock. He has not seen dermatology has not had a biopsy. Denies other concerns. Review of systems: Denies chest pain, shortness of breath. Denies bowel or bladder symptoms. Denies numbness, tingling, swelling in the extremities. Weight is stable. No arthralgias or myalgias. Fatigue. OBJECTIVE: Vital Signs: BP 150/88 Pulse 69 Wt 141.069 kg (311 lb) Patient is alert oriented and pleasant. No [...] or masses. No hepatosplenomegaly. Legs: Without edema. Skin exam: Large raised nodular lesion, right forearm and right buttock. ASSESSMENT: Encounter Diagnoses Name Primary? Depression Major NOS Yes ??? Hyperlipidemia ??? Tobacco Abuse ??? Fatigue ??? Skin lesion x 2 ??? Screening for diabetes mellitus PLAN: Orders Placed This Encounter Procedures ??? Alanine Aminotransferase ??? CPK ??? Cholesterol Fraction-LDLD If Trig High ??? Glucose ??? Thyroid Stimulating Hormone ??? Complete Blood Count-No Diff ??? DERMATOLOGY CONSULT ADULT/PEDS (AMB) Patient Instructions Keep checking your BP, if > 140/90 then return for BP treatment. If your LDL > 130 then increase Pravastatin to 40 mg or switch back to Lipitor or trial Crestor. You must quit smoking. Please call the dermatology/skin dept. at [phone] to schedule your appointment. Orders Placed This Encounter Medications ??? pravastatin (PRAVACHOL) 20 mg tablet Sig: Take 1 tablet by mouth daily (every 24 hours). Dispense: 30 tablet Refill: 11 ??? venlafaxine (EFFEXOR-XR) 150 mg 24 hr capsule Sig: Take 1 capsule by mouth daily (every 24 hours). Dispense: 30 capsule Refill: 11 ??? triamcinolone (KENALOG) 0.1 % cream Sig: Apply topically 3 times daily. Dispense: 30 g Refill: 0 The patient was discharged ambulatory and in stable condition and agreed with the above plan. X MACHINE OPERATOR documented in this encounter Plan of Treatment Not on filedocumented as of this encounter Visit Diagnoses Diagnosis Major depressive disorder, single episod e, unspecified (HRC) - Primary Major depressive disorder, single episod e, unspecified Other and unspecified hyperlipidemia (HR C) Other and unspecified hyperlipidemia Tobacco use disorder (HRC) Tobacco use disorder Fatigue Other malaise and fatigue Skin lesion Unspecified disorder of skin and subcuta neous tissue Screening for diabetes mellitus documented in this encounter Care Teams Community Health Advocate Relationship Specialty Start Date End Date Vargas Mazariegos APRN, CNP PCP - General 07/24/10 03/28/16 documented as of this encounter
--- OUTSIDE RECORDS SUMMARY | 2022-01-26 07:12 | XMS_ITS | Encounter Summary ---
:1965 Author Organization [employer] Address [address] [place] [address] Care Team Providers Name Role Phone Vargas Mazariegos Erich SMALLS, YUE Primary Care Provider [phone] Encounter Details Date Type Department Care Team Description 10/12/2015 Lab Visit [facility] Hyperlipidemia, unspecified hyperlipidemia type; [address] [employer] Screening for diabetes manuela almonte; [place] [address] Essential hypertension [phone] Social History Tobacco Use Types Packs/Day Years Used Date Smoking Tobacco: Never Assessed Sex Assigned at Date Recorded Not on file documented as of this encounter Plan of Treatment Not on filedocumented as of this encounter Procedures Procedure Name Priority Date/Time Associated Diagnosis Comme nts GLUCOSE Routine 10/12/2015 9:10 Screening for diabetes Re sults for this AM CDT mellitus procedure are i n the results section. LIPID PANEL AND Routine 10/12/2015 9:10 Hyperlipidemia, Result s for this DIRECT LDL(IF AM CDT unspecified procedure are in NEEDED) hyperlipidemia type the resu lts section. CREATININE / GFR Routine 10/12/2015 9:10 Essential hypertensio n Results for this AM CDT procedure are i n the results section. ELECTROLYTE PANEL Routine 10/12/2015 9:10 Essential hypertensi on Results for this AM CDT procedure are i n the results section. ALT (SGPT) Routine 10/12/2015 9:10 Hyperlipidemia, Results f or this AM CDT unspecified procedure are i n hyperlipidemia type the resu lts section. documented in this encounter Results (ABNORMAL) Electrolyte Panel (10/12/2015 9:10 AM CDT) P athologist Signature Sodium 141 136 - 145 HP CONVERSION mmol/L Potassium 4.2 3.5 - 5.2 HP CONVERSION mmol/L Chloride 109 (H) 98 - 107 HP CONVERSION mmol/L Bicarbonate 25 22 - 29 HP CONVERSION mmol/L Specimen Anatomical Collection Method Collection Time Receive d Time (Source) Location / / Volume Laterality 10/12/2015 9:10 AM 6 9:10 CDT AM CDT Narrative HP CONVERSION - 10/12/2015 9:45 AM CDT Performed at [facility] [address] [place] [address] CLIA number [id number] Vargas Erich Delilah SMALLS, DATE PITTER LAB_1 Performing Organization Address [facility] Phon e Number HP CONVERSION Creatinine / GFR (10/12/2015 9:10 AM CDT) athologist Signature Creatinine 1.10 0.73 - HP CONVERSION Serum 1.18 mg/dL [...] Time (Source) Location / / Volume Laterality 10/12/2015 9:10 AM 6 9:10 CDT AM CDT Narrative HP CONVERSION - 10/12/2015 9:45 AM CDT Performed at [facility] [address] [place], [place] [address] CLIA number [id number] Vargas Mazariegos APRN, DATE PITTER LAB_1 Performing Organization Address [facility] Phon e Number HP CONVERSION (ABNORMAL) Lipid Panel and Direct LDL(If Needed) (10/12/2015 9:10 AM CDT) [facility] gist Method Time Signature Cholesterol 214 (H) 0 - 199 HP CONVERSION mg/dL Triglycerides 322 (H) 4 - 149 HP CONVERSION mg/dL HDL Cholesterol 31 (L) >39 mg/dL HP CONVERSION Cholesterol/HDL 6.9 HP CONVERSION Ratio Screen LDL Calculated 119 19 - 130 HP CONVERSION mg/dL Length Of Fast 12.0 HP CONVERSION Specimen Anatomical Collection Method Collection Time Receive d Time (Source) Location / / Volume Laterality 10/12/2015 9:10 AM 6 9:10 CDT AM CDT Narrative HP CONVERSION - 10/12/2015 9:45 AM CDT Performed at [facility] [address] [place] [address] CLIA number [id number] Vargas Mazariegos APRN, CNP LAB_1 Performing Organization Address [facility] Phon e Number HP CONVERSION GLUCOSE (10/12/2015 9:10 AM CDT) P athologist Signature Lab Glucose 96 60 - 100 HP CONVERSION mg/dL Specimen Anatomical Collection Method Collection Time Receive d Time (Source) Location / / Volume Laterality 10/12/2015 9:10 AM 6 9:10 CDT AM CDT Narrative HP CONVERSION - 10/12/2015 9:45 AM CDT Performed at [facility] [address] [place] [address] CLIA number [id number] Vargas Mazariegos APRN, DATE PITTER LAB_1 Performing Organization Address [facility] Phon e Number HP CONVERSION ALT (SGPT) (10/12/2015 9:10 AM CDT) Patholo gist Method Time Signature Alanine 23 9 - 55 HP CONVERSION Aminotransferase U/L Specimen Anatomical Collection Method Collection Time Receive d Time (Source) Location / / Volume Laterality 10/12/2015 9:10 AM 6 9:10 CDT AM CDT Narrative HP CONVERSION - 10/12/2015 9:45 AM CDT Performed at [facility] [address] [place] [address] CLIA number [id number] Vargas Mazariegos APRN, YUE LAB_1 Performing Organization Address [facility] Phon e Number HP CONVERSION documented in this encounter Visit Diagnoses Diagnosis Hyperlipidemia, unspecified hyperlipidem ia type (HRC) Screening for diabetes mellitus Essential hypertension (HRC) Unspecified essential hypertension documented in this encounter Care Teams Power Plant Engineer Relationship Specialty Start Date End Date Vargas Mazariegos APRN DATE PITTER PCP - General 07/24/10 03/28/16 documented as of this encounter
--- OUTSIDE RECORDS SUMMARY | 2022-01-26 07:12 | XMS_ITS | Encounter Summary ---
:1965 Author Organization [employer] Address [address] [address] Care Team Providers Name Role Phone Ivan Kendrick APRN, YUE Primary Care Provider [phone] Reason for Visit Reason Comments Refill Encounter Details Date Type Department Care Team Description 10/11/2015 Refill [facility] Ivan Kendrick, SERINA, Refill [address] [place] [address] [facility] [phone] [place], [place] [address] (Wo rk) Social History Tobacco Use Types Packs/Day Years Used Date Smoking Tobacco: Never Assessed Sex Assigned at Date Recorded Not on file documented as of this encounter Nursing Notes User, Katie - 10/12/2015 2:15 PM CDT 1) pravastatin (PRAVACHOL) 20 mg tablet [Pharmacy Med Name: PRAVASTATIN 20MG TAB] - MEDICATION STARTED: 09/14/2011 - LAST REFILLED ON: 07/09/2015, QTY: 90, Refills: 0, Sig: take one tablet by mouth once daily (unchanged) - NOTIFICATION: An office visit is overdue (performed 17 months ago, required every 12 months). - LAST QUALIFYING VISIT WITH IVAN KENDRICK W: 05/28/2014 - NEXT SCHEDULED VISIT: None Powered by [employer], Reference: [id number], 10/11/2015 10:48:06 AM CDT, Pool: CAYETANO IMED REFILL([id number]) 2) venlafaxine (EFFEXOR-XR) 150 mg 24 hr capsule [Pharmacy Med Name: VENLAFAXINE ER 150MG CAP] - MEDICATION STARTED: 03/08/2010 - LAST REFILLED ON: 07/09/2015, QTY: 90, Refills: 0, Sig: take one capsule by mouth once daily (unchanged) - NOTIFICATION: An office visit is overdue (performed 17 months ago, required every 12 months). - LAST QUALIFYING VISIT WITH IVAN KENDRICK: 05/28/2014 - NEXT SCHEDULED VISIT: None - SBP: 150.0mm Hg on 05/28/2014 - DBP: 88.0mm Hg on 05/28/2014 Powered by [employer], Reference: [id number], 10/11/2015 10:48:06 AM Ricardo GRANT: CAYETANO LAUGHLIN([id number]) Ivan Chaudhry APRN, CNP - 10/12/2015 2:15 PM CDT Done at visit today. Concha Joyce RN - 10/12/2015 1:21 PM CDT Further assistance needed to complete refill request Reason: Pt overdue for qualifying visit. Next Steps: Review pended order for accuracy. Sign. Route to frontline pool to schedule appt. Requested Prescriptions Pending Prescriptions Disp Refills ??? pravastatin (PRAVACHOL) 20 mg tablet [Pharmacy Med Name: PRAVASTATIN 20MG TAB] 90 tablet 0 Sig: Take 1 tablet by mouth daily (every 24 hours). ??? venlafaxine (EFFEXOR-XR) 150 mg 24 hr capsule [Pharmacy Med Name: VENLAFAXINE ER 150MG CAP] 90 capsule 0 Sig: Take 1 capsule by mouth daily (every 24 hours). documented in this encounter Plan of Treatment Not on filedocumented as of this encounter Visit Diagnoses Not on filedocumented in this encounter Care Teams Loading Unit Operator Seating Relationship Specialty Start Date End Date Ivan Kendrick APRN, YUE PCP - General 07/24/10 03/28/16 documented as of this encounter
--- OUTSIDE RECORDS SUMMARY | 2022-01-26 07:12 | XMS_ITS | Encounter Summary ---
:1965 Author Organization [employer] Address [address] [address] Care Team Providers Name Role Phone Ivan Kendrick APRN, YUE Primary Care Provider [phone] Reason for Visit Reason Comments Refill Encounter Details Date Type Department Care Team Description 06/14/2011 Refill [facility] Ivan Kendrick, TANKER SERVICEMAN, Refill [address] [place] [address] [facility] [phone] [place], [place] [address] (Wo rk) Social History Tobacco Use Types Packs/Day Years Used Date Smoking Tobacco: Never Assessed Sex Assigned at Date Recorded Not on file documented as of this encounter Nursing Notes Julissa Wong - 06/16/2011 10:40 AM CST lmm re rx and to make appt. Yanet Newby - 06/15/2011 6:11 PM CST REFILL APPOINTMENT NEEDED Please call patient and schedule appointment within 30 days. Medication has been renewed and faxed to pharmacy for 90 day supply only, per protocol. Comment: Due for follow-up Prescription Refills Approved Prescriptions Disp Refills ??? venlafaxine (EFFEXOR-XR) 150 mg 24 hr capsule 90 capsule 0 Sig: TAKE 1 CAPSULE BY MOUTH DAILY (EVERY 24 HOURS). Authorizing Provider: IVAN KENDRICK Ordering User: YANET NEWBY documented in this encounter Plan of Treatment Not on filedocumented as of this encounter Visit Diagnoses Not on filedocumented in this encounter Care Teams Folder And Notcher Relationship Specialty Start Date End Date Ivan Kendrick, TANKER SERVICEMAN, HARVEST FIELD TICKETER PCP - General 07/24/10 03/28/16 documented as of this encounter
--- OUTSIDE RECORDS SUMMARY | 2022-01-26 07:12 | XMS_ITS | Encounter Summary ---
:1965 Author Organization [employer] Address [address] [place] [address] Care Team Providers Name Role Phone Vargas Mazariegos APRN, CNP Primary Care Provider [phone] Reason for Visit Reason Comments Letter Encounter Details Date Type Department Care Team Description 10/02/2014 Telephone [facility] [address] Conner A PRN, Letter Pulmonary Medicine LEATHER WHITENER [address] [facility] [address] [facility] [address] [place] [address] [place], [place] [phone] (Wo rk) Social History Tobacco Use Types Packs/Day Years Used Date Smoking Tobacco: Never Assessed Sex Assigned at Date Recorded Not on file documented as of this encounter Nursing Notes Joycelyn Carrasco RN - 10/02/2014 1:44 PM CDT 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 Patient advised that this cannot be done because he must be seen at least 1 time per year for a download to prove compliance. Patient was given scheduling phone number and told he must schedule an appointment. documented in this encounter Plan of Treatment Not on filedocumented as of this encounter Visit Diagnoses Not on filedocumented in this encounter Care Teams Manager Analytical Relationship Specialty Start Date End Date Vargas Mazariegos APRN, CNP PCP - General 07/24/10 03/28/16 documented as of this encounter
--- OUTSIDE RECORDS SUMMARY | 2022-01-26 07:12 | XMS_ITS | Encounter Summary ---
:1965 Author Organization [employer] Address [address] [place] [address] Care Team Providers Name Role Phone Vargas Mazariegos APRN, CNP Primary Care Provider [phone] Reason for Visit Reason Comments Refill Encounter Details Date Type Department Care Team Description 04/19/2011 Refill [facility] Vargas Mazariegos APRN, [address]ill [address] [employer] [place] [address] [facility] [phone] [place], [place] [address] (Wo rk) Social History Tobacco Use Types Packs/Day Years Used Date Smoking Tobacco: Never Assessed Sex Assigned at Date Recorded Not on file documented as of this encounter Nursing Notes Estrella Zendejas LPN - 04/25/2011 9:20 AM CST notified Vargas Chaudhry APRN, CNP - 04/25/2011 9:07 AM CST done. Esther Johnson RN - 04/21/2011 12:08 PM CST Advised pt that PCP out of the office until 04/25/10--he is ok to wait. Pt thinks was > 6 mo since last attempt with Chantix. He only took it x 1 mo as was not aware it was a 3 mo program. ICAL INSTRUMENT MECHANIC Sarah Lam, RN, CDE - 04/19/2011 6:06 PM CST Voicemail message left for patient to return call. OK to wait until PCP back on 04/25? Also wondering how long it has been since patient took medication. ICAL INSTRUMENT MECHANIC Gisele Brewer - 04/19/2011 2:49 PM CST Non -Symptom Message from Front Line Primary Care Provider: NIKKI Downey Message: Pt wants to start back on chantix - please fax to pharmacy - pt requesting call when sent to pharmacy. ICAL INSTRUMENT MECHANIC documented in this encounter Plan of Treatment Not on filedocumented as of this encounter Visit Diagnoses Not on filedocumented in this encounter Care Teams Fare Register Repairer Relationship Specialty Start Date End Date Vargas Mazariegos, INFORMATION SECURITY ANALYST, JANITORIAL SUPERVISOR PCP - General 07/24/10 03/28/16 documented as of this encounter
--- OUTSIDE RECORDS SUMMARY | 2022-01-26 07:12 | XMS_ITS | Encounter Summary ---
:1965 Author Organization [employer] Address [address], [place] [address] Care Team Providers Name Role Phone Vargas Mazariegos APRN, CNP Primary Care Provider [phone] Reason for Visit Reason Comments MEDICATION CHECK Encounter Details Date Type Department Care Team Description 09/14/2011 Office Visit [facility] Vargas Mazariegos, O ther and unspecified hyperlipidemia; Medicine YUE SMALLS Major depressive disorder, single episod e, unspecified [id number] [place] [address] [place], [place] [phone] (Wo rk) Social History Tobacco Use Types Packs/Day Years Used Date Smoking Tobacco: Never Assessed Sex Assigned at Date Recorded Not on file documented as of this encounter Last Filed Vital Signs Vital Sign Reading Time Taken Comments Blood Pressure 136/83 09/14/2011 11:10 AM CDT Pulse 66 09/14/2011 11:10 AM CDT Temperature - - Respiratory Rate - - Oxygen Saturation - - Inhaled Oxygen Concentration - - Weight 129.3 kg (285 lb) 09/14/2011 11:10 AM CDT Height - - Body Mass Index 38.12 03/08/2010 7:59 AM RUG SIZER documented in this encounter Patient Instructions Patient InstructionsVargas Mazariegos APRN, CNP - 09/14/2011 11:26 AM CDT Please call [phone] to schedule your lab appointment. documented in this encounter Progress Notes Vargas Mazariegos W, DEAN, DIRECTOR MBA - 09/14/2011 12:36 PM CDT Chief concern: Chief Complaint Patient presents with ??? Medication Check Other concerns: Hyperlipidemia, depression Past medical history: Past Medical History Diagnosis Date ??? Hyperlipidemia #*LW 2 09/10/2003 ??? Depression Major NOS #*LW 3 09/10/2003 ??? Obesity #*LW 4 09/10/2003 ??? Obstructive Sleep Apnea Hypopnea #*LW 5 04/05/2005 Medications: Current outpatient prescriptions ordered prior to encounter Medication Sig Dispense Refill ??? continuous positive airway pressure (CPAP) LW Comment:CPAP 9, [facility] ??? multivitamin (THERAGRAN) tablet Take 1 tablet by mouth daily (every 24 hours). 100 13 ??? DISCONTD: [place]-3 Fatty Acids-Fish Oil (FISH OIL OMEGA 3-6-9) 300-1,000 mg CpDR daily (every 24 hours). ??? op medications reviewed ??? pravastatin (PRAVACHOL) 20 mg tablet Take 1 tablet by mouth daily (every 24 hours). 30 tablet 11 ??? DISCONTD: simvastatin (ZOCOR) 40 mg tablet Take 1 tablet by mouth every evening. LW Addl Instr:Indicated for: High Cholesterol 30 12 ??? DISCONTD: varenicline (CHANTIX CONTINUING MONTH FACUNDO) 1 mg tablet Take 1 tablet by mouth 2 times daily. 56 tablet 2 ??? DISCONTD: venlafaxine (EFFEXOR-XR) 150 mg 24 hr capsule TAKE 1 CAPSULE BY MOUTH DAILY (EVERY 24 HOURS). 90 capsule 0 Adverse Drug Reactions: Allergies Allergen Reactions ??? Atorvastatin Calcium LW Reaction: myalgia ??? Contrast Media LW CM1: CONTRAST- NKA Reaction : ??? Food Intolerance LW FI1: NKA ??? Other LW Other1: -NKA Habits: History Social History ??? Marital Status: Spouse Name: N/A Number of Children: N/A ??? Years of Education: N/A Occupational History ??? Not on file. Social History Main Topics ??? Smoking status: Current Everyday Smoker -- 0.6 packs/day Types: Cigarettes ??? Smokeless tobacco: Never Used Comment: Smoking History Packs/day: ??? Alcohol Use: Alcoholic Drinks/day: Amount:1-2 drinks; Freq:=< Monthly; ??? Drug Use: ??? Sexually Active: Other Topics Concern ??? Not on file Social History Narrative ??? No narrative on file HPI: Patient presents today for a followup of hyperlipidemia. He has stopped taking his cholesterol medicine times one month due to bilateral rib cramping. Previously on Lipitor, this caused leg cramping. His cholesterol has been improved on the medication. His triglycerides remain elevated. He has been taking gmrq-ang-mssfrmz supplements including fish oil. He is working on diet and exercise. History of depression, on Effexor 150 mg q.d. with good results. He would like to continue this medication.PH Q.-9 = 4. Denies other concerns. Lab Results Component Value Date/Time Cholesterol 186 11/29/2010 11:07 HDL Cholesterol 31* 11/29/2010 11:07 Triglycerides 323* 11/29/2010 11:07 LDL Calculated 90 11/29/2010 11:07 LDL Direct 178* 04/20/2010 11:49 Review of systems: Denies chest pain, shortness of breath. Denies bowel or bladder symptoms. Denies numbness, tingling, swelling in the extremities. Weight is stable. No arthralgias or myalgias. Deniessuicidal ideation. OBJECTIVE: Vital Signs: BP 136/83 Pulse 66 Wt 129.275 kg (285 lb) Patient is alert oriented and pleasant. [...] edema. ASSESSMENT: Encounter Diagnoses Name Primary? Hyperlipidemia ??? Depression Major NOS PLAN: Orders Placed This Encounter Procedure ??? Alanine Aminotransferase ??? CPK ??? Cholesterol Fraction-LDLD If Trig High Patient Instructions Please call [phone] to schedule your lab appointment. Orders Placed This Encounter Medication ??? venlafaxine (EFFEXOR-XR) 150 mg 24 hr capsule Sig: Take 1 capsule by mouth daily (every 24 hours). Dispense: 90 capsule Refill: 3 ??? pravastatin (PRAVACHOL) 20 mg tablet Sig: Take 1 tablet by mouth daily (every 24 hours). Dispense: 30 tablet Refill: 11 Return in 6 months, sooner as needed. Repeat cholesterol in one month, adjust based on results. The patient was discharged ambulatory and in stable condition and agreed with the above plan. documented in this encounter Plan of Treatment Not on filedocumented as of this encounter Visit Diagnoses Diagnosis Other and unspecified hyperlipidemia (HR C) Other and unspecified hyperlipidemia Major depressive disorder, single episod e, unspecified (HRC) Major depressive disorder, single episod e, unspecified documented in this encounter Care Teams Circulating Nurse Relationship Specialty Start Date End Date Vargas Mazariegos, DEAN, DIRECTOR MBA PCP - General 07/24/10 03/28/16 documented as of this encounter
--- OUTSIDE RECORDS SUMMARY | 2022-01-26 07:12 | XMS_ITS | Encounter Summary ---
:1965 Author Organization [employer] Address [address] [place] [address] Care Team Providers Name Role Phone Vargas Mazariegos APRN, CNP Primary Care Provider Reason for Visit Reason Comments MEDICATION CHECK Encounter Details Date Type Department Care Team Description 11/11/2015 Office Visit [facility] Vargas Mazariegos ntial hypertension Medicine WSERINA CNP (Primary Dx) [address] [place] [address] [place], [place] [phone] [address] Social History Tobacco Use Types Packs/Day Years Used Date Smoking Tobacco: Never Assessed Sex Assigned at Date Recorded Not on file documented as of this encounter Last Filed Vital Signs Vital Sign Reading Time Taken Comments Blood Pressure 138/88 11/11/2015 10:51 AM CDT Pulse 72 11/11/2015 10:51 AM CDT Temperature - - Respiratory Rate - - Oxygen Saturation - - Inhaled Oxygen Concentration - - Weight 142 kg (313 lb) 11/11/2015 10:51 AM CDT Height - - Body Mass Index 41.87 10/12/2015 7:54 AM CDT documented in this encounter Progress Notes Vargas Mazariegos APRN, CNP - 11/11/2015 12:16 PM CDT Chief concern: Chief Complaint Patient presents with ??? Medication Check Other concerns: Hypertension Past medical history: Past Medical History Diagnosis Date ??? Hyperlipidemia #*LW 2 09/10/2003 ??? Depression Major NOS #*LW 3 09/10/2003 ??? Obesity #*LW 4 09/10/2003 ??? Obstructive Sleep Apnea Hypopnea #*LW 5 04/05/2005 Medications: Outpatient Prescriptions Prior to Visit Medication Sig Dispense Refill ??? continuous positive airway pressure (CPAP) LW Comment:CPAP 9, [facility] ??? hydrochlorothiazide (ORETIC) 25 mg tablet Take 1 tablet by mouth daily (every 24 hours). 90 tablet 3 ??? multivitamin (THERAGRAN) tablet Take 1 tablet by mouth daily (every 24 hours). (Patient taking differently: Take 1 tablet by mouth every other day.) 100 13 ??? pravastatin (PRAVACHOL) 20 mg tablet Take 1 tablet by mouth daily (every 24 hours). 90 tablet 3 ??? venlafaxine (EFFEXOR-XR) 150 mg 24 hr capsule TAKE ONE CAPSULE BY MOUTH ONCE DAILY 90 capsule 3 ??? venlafaxine (EFFEXOR-XR) 75 mg 24 hr capsule Take 1 capsule by mouth daily (every 24 hours). 90 capsule 3 No facility-administered medications prior to visit. Adverse Drug Reactions: Allergies Allergen Reactions ??? Atorvastatin Calcium myalgia ??? Lipitor [Atorvastatin] cramps Habits: Social History Social History ??? Marital Status: [...] on file Social History Narrative HPI: Returns for a follow-up of hypertension. He was seen one month ago and started on hydrochlorothiazide 25 mg daily. Denies any side effects. He continues to take Effexor and pravastatin. He has been trying to work on fluid intake and activity. Denies other concerns. Review of systems: Denies chest pain, shortness of breath. Denies bowel or bladder symptoms. Denies numbness, tingling, swelling in the extremities. Weight is stable. No arthralgias or myalgias. OBJECTIVE: Vital Signs: BP 138/88 mmHg Pulse 72 Wt 141.976 kg (313 lb) Patient is alert oriented and pleasant. [...] No hepatosplenomegaly. Legs: Without edema. ASSESSMENT: Encounter Diagnosis Name Primary? Essential hypertension (HRC) Yes PLAN: Orders Placed This Encounter Procedures ??? Creatinine ??? Electrolytes (NA, K, CL, Bicarb) Continue your hydrochlorothiazide 25 mg daily. Continue checking your blood pressure. Return in 6 months. The patient was discharged ambulatory and in stable condition and agreed with the above plan. documented in this encounter Plan of Treatment Not on filedocumented as of this encounter Visit Diagnoses Diagnosis Essential hypertension (HRC) - Primary Unspecified essential hypertension documented in this encounter Care Teams Residential Sales Consultant Relationship Specialty Start Date End Date Vargas Mazariegos APRN, CNP PCP - General 07/24/10 03/28/16 documented as of this encounter
--- OUTSIDE RECORDS SUMMARY | 2022-01-26 07:12 | XMS_ITS | Encounter Summary ---
:1965 Author Organization [employer] Address [address], [place] [address] Care Team Providers Name Role Phone Vargas Mazariegos APRN, BRIDGES AND BUILDINGS SUPERVISOR Primary Care Provider [phone] Reason for Visit Reason Comments WALK-IN Encounter Details Date Type Department Care Team Description 07/31/2013 Telephone [facility] [address] [facility] Dario Mazariegos APRN, WALK-IN Medicine BRIDGES AND BUILDINGS SUPERVISOR [address] [address] [address] [place] [address] [place] [address] [phone] (Wo rk) Social History Tobacco Use Types Packs/Day Years Used Date Smoking Tobacco: Never Assessed Sex Assigned at Date Recorded Not on file documented as of this encounter Nursing Notes Soila Ascencio - 07/31/2013 10:31 AM CDT pt presented at desk and asked for pulmonary, pt's appt is at 10:15. Called pulm to ask if pt could be seen, spoke with pieter and per pul specialist could come over but, not a guarentee he will be seen. Relayed msg to pt and directions on how to get to [facility]. documented in this encounter Plan of Treatment Not on filedocumented as of this encounter Visit Diagnoses Not on filedocumented in this encounter Care Teams Manager Of Corporate Communications Relationship Specialty Start Date End Date Vargas Mazariegos, SERINA, BRIDGES AND BUILDINGS SUPERVISOR PCP - General 07/24/10 03/28/16 documented as of this encounter
--- OUTSIDE RECORDS SUMMARY | 2022-01-26 07:13 | XMS_ITS | Encounter Summary ---
:1965 Author Organization [employer] Address [address] [place] [address] Care Team Providers Name Role Phone Vargas Mazariegos YUE SMALLS Primary Care Provider [phone] Encounter Details Date Type Department Care Team Description 04/21/2010 Office Visit [facility] Ear, Nose, Anderso n, Bryce Mcgregor MD and Throat [address] [facility] [address] [place] [address] [place] [address] [phone] Social History Tobacco Use Types Packs/Day Years Used Date Smoking Tobacco: Never Assessed Sex Assigned at Date Recorded Not on file documented as of this encounter Progress Notes Bryce Jeronimo MD - 04/21/2010 12:01 AM CST NAME: AUSTIN CARRANZA MR#: [id number] ACCT: [id number] VISIT: [id number] DICTATING CLINICIAN: Bryce Jeronimo MD CONFIRM #: [id number] LOC: 3228 CLINIC PROGRESS NOTE DATE OF VISIT: 04/21/2010 : 1965 SUBJECTIVE: Austin is seen back in followup. He has had a tube by Dr. Ahuja and then more recently by me in both 2007 and then 04/2009. The last tube was a T-tube. He did very well up until the last few weeks when he started to get some drainage and plugging of the ears. No salty taste in his throat. He was doing some type of rinse that I think it was designed more for the ear canal. That was irritating and it seemed to proceed the drainage just by a day or two. OBJECTIVE: GENERAL APPEARANCE: Shows a pleasant gentleman. The left pinna is normal. The left canal has some otorrhea. The left TM shows a T-tube that looks likely in place. There is some granulation though along the inferior rim. I do not think there is a flange within that granulation. I think both phalanges are medial to the drum. There is some otorrhea that is actually a little pulsatile. I sectioned everything out as thoroughly as possible. He did have improvement of his hearing during this process. He did not have any sort of ongoing pulsatile otorrhea once things were cleaned out. ASSESSMENT/PLAN: Left otorrhea. It looks like there is basically an infection or irritation. I would like to start Ciprodex drops. Hopefully this will dry things up. If he has some ongoing otorrhea, might consider further workup. Also it is possible that replacement of the tube or removal could be of benefit if we cannot get this under control with the drops. I will plan to see him back in about 2 weeks. TAA:MEDQ C: CONFIRM #: [id number] ESIST documented in this encounter Plan of Treatment Not on filedocumented as of this encounter Visit Diagnoses Not on filedocumented in this encounter Care Teams Diesel Engine Fitter Relationship Specialty Start Date End Date Vargas Mazariegos, SERINA, YOKER MACHINE OPERATOR PCP - General 07/24/10 03/28/16 documented as of this encounter
--- OUTSIDE RECORDS SUMMARY | 2022-01-26 07:13 | XMS_ITS | Encounter Summary ---
:1965 Author [facility] Address [address] [place] [address] Care Team Providers Name Role Phone Vargas Mazariegos APRN, CNP Primary Care Provider [phone] Encounter Details Date Type Department Care Team Description 08/20/2010 PN Conversion Only [facility] [place] [facility] Sameer [facility] [address] [facility] [address] [place] [id number] Social History Tobacco Use Types Packs/Day Years Used Date Smoking Tobacco: Never Assessed Sex Assigned at Date Recorded Not on file documented as of this encounter Plan of Treatment Not on filedocumented as of this encounter Visit Diagnoses Not on filedocumented in this encounter Care Teams Marine Service Station Attendant Relationship Specialty Start Date End Date Vargas Mazariegos APRN, CNP PCP - General 07/24/10 03/28/16 documented as of this encounter
--- OUTSIDE RECORDS SUMMARY | 2022-01-26 07:13 | XMS_ITS | Encounter Summary ---
:1965 Author Organization [facility] Address [address], [place] [address] Care Team Providers Name Role Phone Vargas Mazariegos APRN, CNP Primary Care Provider [phone] Encounter Details Date Type Department Care Team Description 08/27/2010 PN Conversion Only [facility] [address] [place] [address] Social History Tobacco Use Types Packs/Day Years Used Date Smoking Tobacco: Never Assessed Sex Assigned at Date Recorded Not on file documented as of this encounter Plan of Treatment Not on filedocumented as of this encounter Visit Diagnoses Not on filedocumented in this encounter Care Teams Boiler Plant Operator Relationship Specialty Start Date End Date Vargas Mazariegos APRN, CNP PCP - General 07/24/10 03/28/16 documented as of this encounter
--- OUTSIDE RECORDS SUMMARY | 2022-01-26 07:13 | XMS_ITS | Encounter Summary ---
:1965 Author Organization [employer] Address [address] [place] [address] Care Team Providers Name Role Phone Vargas Mazariegos Erich SMALLS, YUE Primary Care Provider [phone] Encounter Details Date Type Department Care Team Description 04/21/2010 Office Visit [facility] [address] [facility] [place] [address] Social History Tobacco Use Types Packs/Day Years Used Date Smoking Tobacco: Never Assessed Sex Assigned at Date Recorded Not on file documented as of this encounter Progress Notes Kalani Marina - 04/21/2010 12:01 AM CST NAME: AUSTIN CARRANZA MR#: [id number] ACCT: [id number] VISIT: [id number] DICTATING CLINICIAN: JALEN Simms CONFIRM #: [id number] LOC: 3281 CLINIC PROGRESS NOTE DATE OF VISIT: 04/21/2010 : 1965 SUBJECTIVE: Austin Carranza, age 44, was seen for repeat tympanograms upon referral of Dr. Bryce Jeronimo. He reports that his left ear is feeling plugged again. Recall that Dr. Jeronimo placed a T tube in April 2009. The patient reports that he has had a plugged feeling since approximately January. OBJECTIVE: Otoscopy of the left ear shows what appears to be a protruding T tube sitting perhaps sideways on top of the tympanic membrane. Otoscopy in the right ear shows clear ear canal and tympanic membrane landmarks. Tympanometry showed normal ear canal volume with no tympanic membrane mobility in the left ear. Tympanometry in the right ear showed normal ear canal volume, normal middle ear pressure and normal static compliance. ASSESSMENT: 1. Normal middle ear function in the right ear. 2. Abnormal middle ear function the left ear with either the T tube being extruded or blocked at this point. PLAN: The results of today's testing were discussed with the patient. Please refer to Dr. Bryce Jeronimo's note on the same date regarding medical management options. All questions were fully answered. CME:MEDQ C: CONFIRM #: [id number] TIONS SALES EXECUTIVE documented in this encounter Plan of Treatment Not on filedocumented as of this encounter Visit Diagnoses Not on filedocumented in this encounter Care Teams Distribution Lead Relationship Specialty Start Date End Date Vargas Mazariegos, TORPEDO SHOOTER, GAS DISTRIBUTION SUPERVISOR PCP - General 07/24/10 03/28/16 documented as of this encounter
--- OUTSIDE RECORDS SUMMARY | 2022-01-26 07:13 | XMS_ITS | Encounter Summary ---
:1965 Author Organization [employer] Address [address], [place] [address] Care Team Providers Name Role Phone Ivan Kendrick APRN, YUE Primary Care Provider Reason for Visit Reason Comments Other Encounter Details Date Type Department Care Team Description 06/03/2010 Telephone [facility] Alanna Zendejas LPN Other [address] [place] [address] Social History Tobacco Use Types Packs/Day Years Used Date Smoking Tobacco: Never Assessed Sex Assigned at Date Recorded Not on file documented as of this encounter Progress Notes Center, Message - 06/03/2010 4:31 PM CST Non -Symptom Message from Front Line Caller Name/Relationship: Austin Jeffers Primary Merchandise Director: Delilah Message: Calling to tell Kylie Kendrick that he will not be able to come in for a blood draw till sometime next week. Due to insurance Harness Worker:Austin Best call back number: [phone] Is it OK to leave a confidential message on this voicemail? y *[id number] Created on 03Jun2010 4:31pm by CHRIS HARRIS On 03Jun2010 4:41pm IVAN KENDRICK wrote: complete lab as soon as able. Acknowledged by IVAN KENDRICK on 4:41pm On 06Jun2010 1:00pm ALANNA ZENDEJAS wrote: notified Acknowledged by ALANNA ZENDEJAS on 1:00pm [employer] documented in this encounter Plan of Treatment Not on filedocumented as of this encounter Visit Diagnoses Not on filedocumented in this encounter Care Teams Machinist Relationship Specialty Start Date End Date Ivan Kendrick, INVENTORY CONTROL/SHIPPING RECEIVING, RECEIVING COORDINATOR PCP - General 07/24/10 03/28/16 documented as of this encounter
--- OUTSIDE RECORDS SUMMARY | 2022-01-26 07:13 | XMS_ITS | Encounter Summary ---
:1965 Author Organization [facility] Address [address] [place] [address] Care Team Providers Name Role Phone Vargas Mazariegos Erich SMALLS CNP Primary Care Provider [phone] Encounter Details Date Type Department Care Team Description 08/29/2010 PN Conversion Only [facility] [address] [place] [address] Social History Tobacco Use Types Packs/Day Years Used Date Smoking Tobacco: Never Assessed Sex Assigned at Date Recorded Not on file documented as of this encounter Plan of Treatment Not on filedocumented as of this encounter Procedures Procedure Name Priority Date/Time Associated Diagnosis Comme nts CT ABD WO IV CONT Routine 08/29/2010 4:56 PM Resu lts for this ADRENALS CDT procedure are i n the results section. documented in this encounter Results CT Abd WO IV Cont Adrenals (08/29/2010 4:56 PM CDT) Anatomical Region Laterality Modality Abdomen Other Specimen (Source) Anatomical Location Collection Method / Collectio n Time Received Time / Laterality Volume Narrative 08/29/2010 4:[address] scan of the adrenals without contrast FINDINGS: Study is compared with 010 and shows no significant change in appearance of the left adrenal gland with a 1.5 cm area of nodularity in the lateral arm of the lef t adrenal gland. ??This likely represents a stable adenoma. ??Right adr enal gland unremarkable. ??No other gross abnormality. Dictating JOSE ARREDONDO A RADIOLOGIST Procedure Note Jose Magaña MD - 10/08/2015Format ting of this note might be different from the original. CT scan of the adrenals without contrast FINDINGS: Study is compared with and shows no significant change in appearance of the left adrenal gland with a 1.5 cm area of nodularity in the lateral arm of the lef t adrenal gland. This likely represents a stable adenoma. Right adren al gland unremarkable. No other gross abnormality. Dictating JOSE ARREDONDO RADIOLOGIST Vargas Mazariegos APRN, CNP RAD CT documented in this encounter Visit Diagnoses Not on filedocumented in this encounter Care Teams Team Driver Relationship Specialty Start Date End Date Vargas Mazariegos APRN, FIRE AND EXPLOSION INVESTIGATOR PCP - General 07/24/10 03/28/16 documented as of this encounter
--- OUTSIDE RECORDS SUMMARY | 2022-01-26 07:13 | XMS_ITS | Encounter Summary ---
:1965 Author Organization [employer] Address [address] [place] [address] Care Team Providers Name Role Phone Vargas Mazariegos APRN, CNP Primary Care Provider [phone] Encounter Details Date Type Department Care Team Description 06/22/2010 PN Conversion Only JENNY CONVERSION Vargas Mazariegos, [address] [place]S, [place] [address] [place], [place] [address] (Wo rk) Social History Tobacco Use Types Packs/Day Years Used Date Smoking Tobacco: Never Assessed Sex Assigned at Date Recorded Not on file documented as of this encounter Plan of Treatment Not on filedocumented as of this encounter Procedures Procedure Name Priority Date/Time Associated Diagnosis Comme nts LIPID PANEL AND Routine 06/22/2010 9:47 AM Result s for this DIRECT LDL(IF QA SPECIALIST procedure are in NEEDED) the results section. ALT (SGPT) Routine 06/22/2010 9:47 AM Results f or this QA SPECIALIST procedure are i n the results section. CK, TOTAL Routine 06/22/2010 9:47 AM Results f or this QA SPECIALIST procedure are i n the results section. documented in this encounter Results (ABNORMAL) Lipid Panel and Direct LDL(If Needed) (06/22/2010 9:47 AM QA SPECIALIST) [facility] Method Time Signature Cholesterol 201 (H) 0 - 200 HP CONVERSION mg/dL Triglycerides 338 (H) 0 - 149 HP CONVERSION mg/dL HDL Cholesterol 31 (L) >39 mg/dL HP CONVERSION Cholesterol/HDL 6.5 No normal HP CONVERSION Ratio Screen range LDL Calculated 102 19 - 130 HP CONVERSION mg/dL Length Of Fast 12.0 No normal HP CONVERSION range Specimen (Source) Anatomical Collection Method Collection Time Re ceived Time Location / / Volume Laterality 06/22/2010 9:47 AM QA SPECIALIST Vargas Mazariegos APRN, CNP LAB_1 Performing Organization Address [facility] Phon e Number HP CONVERSION (ABNORMAL) CK, Total (06/22/2010 9:47 AM QA SPECIALIST) P athologist Signature Creatine 282 (H) 0 - 225 HP CONVERSION Kinase U/L Specimen (Source) Anatomical Collection Method Collection Time Re ceived Time Location / / Volume Laterality 06/22/2010 9:47 AM QA SPECIALIST Vargas Mazariegos APRN, CNP LAB_1 Performing Organization Address [facility] Phon e Number HP CONVERSION ALT (SGPT) (06/22/2010 9:47 AM QA SPECIALIST) Patholo gist Method Time Signature Alanine 32 4 - 55 HP CONVERSION Aminotransferase U/L Specimen (Source) Anatomical Collection Method Collection Time Re ceived Time Location / / Volume Laterality 06/22/2010 9:47 AM QA SPECIALIST Vargas Mazariegos APRN, CNP LAB_1 Performing Organization Address [facility] Phon e Number HP CONVERSION documented in this encounter Visit Diagnoses Not on filedocumented in this encounter Care Teams Strip Mine Supervisor Relationship Specialty Start Date End Date Vargas Mazariegos APRN, CNP PCP - General 07/24/10 03/28/16 documented as of this encounter
--- OUTSIDE RECORDS SUMMARY | 2022-01-26 07:13 | XMS_ITS | Encounter Summary ---
:1965 Author Organization [facility] Address [address] [address] Care Team Providers Name Role Phone Vargas Mazariegos APRN, CNP Primary Care Provider [phone] Reason for Visit Reason Comments Other Encounter Details Date Type Department Care Team Description 06/22/2010 Telephone [facility], Message Other [address] [place], [place] [id number] Social History Tobacco Use Types Packs/Day Years Used Date Smoking Tobacco: Never Assessed Sex Assigned at Date Recorded Not on file documented as of this encounter [facility], Message - 06/22/2010 12:02 PM CST PA called in to [facility] for Effexor Xr pa ok # [id number]. PAtient and pharmacy advised. Created on 22Jun2010 12:02pm by ETHAN FISHER CH CUTTER documented in this encounter Plan of Treatment Not on filedocumented as of this encounter Visit Diagnoses Not on filedocumented in this encounter Care Teams Police Worker Relationship Specialty Start Date End Date Vargas Mazariegos APRN, TRAIN INSPECTOR PCP - General 07/24/10 12 documented as of this encounter
--- OUTSIDE RECORDS SUMMARY | 2022-01-26 07:13 | XMS_ITS | Encounter Summary ---
:1965 Author Organization [employer] Address [address] [address] Care Team Providers Name Role Phone Ivan Kendrick ELEMENTARY READING SPECIALIST, CREOSOTING ENGINEER Primary Care Provider [phone] Reason for Visit Reason Comments Other Encounter Details Date Type Department Care Team Description 08/30/2010 [facility] Ivan Kendrick, Balbir PRN, Other Medicine CREOSOTING ENGINEER [address] [place] [address] [place] [address] [phone] (Wo rk) Social History Tobacco Use Types Packs/Day Years Used Date Smoking Tobacco: Never Assessed Sex Assigned at Date Recorded Not on file documented as of this encounter [facility], Message - 08/30/2010 2:32 PM CDT Phone Note filed by Coravin at 08/30/101649 Author: Coravin Service: (none) Author Type: (none) Filed: 08/30/101649 Note Time: 08/30/101431 Status: Addendum Adult Basic Education Manager: Coravin (Resource) Related Notes: Original Note by Sita Pablo (Physician) filed at 08/30/101649 X-Ray CT Adrenals results are available in LW. Created on 30Aug2010 2:32pm by LILIANA PEGUERO On 30Aug2010 2:42pm IVAN KENDRICK wrote: no change from previous CT, no further testing needed. please notify. Acknowledged by IVAN KENDRICK on 2:42pm On 30Aug2010 4:47pm ALANNA JACOME wrote: notified Acknowledged by ALANNA JACOME on 4:47pm EN SHADE HARDWARE INSTALLER documented in this encounter Plan of Treatment Not on filedocumented as of this encounter Visit Diagnoses Not on filedocumented in this encounter Care Teams Sagger Soak Relationship Specialty Start Date End Date Ivan Kendrick, ELEMENTARY READING SPECIALIST, CREOSOTING ENGINEER PCP - General 07/24/10 03/28/16 documented as of this encounter
--- OUTSIDE RECORDS SUMMARY | 2022-01-26 07:13 | XMS_ITS | Encounter Summary ---
:1965 Author Organization [employer] Address [address] [place] [address] Care Team Providers Name Role Phone Vargas Mazariegos APRN, YUE Primary Care Provider [phone] Encounter Details Date Type Department Care Team Description 04/20/2010 PN Conversion Only JEN[place] CONVERSION Vargas Mazariegos, [address] [place], [place] [address] [place], [place] [address] (Wo rk) Social History Tobacco Use Types Packs/Day Years Used Date Smoking Tobacco: Never Assessed Sex Assigned at Date Recorded Not on file documented as of this encounter Plan of Treatment Not on filedocumented as of this encounter Procedures Procedure Name Priority Date/Time Associated Diagnosis Comme nts LIPID PANEL AND Routine 04/20/2010 11:49 AM Resul ts for this DIRECT LDL(IF KICKING MACHINE OPERATOR procedure are in NEEDED) the results section. LDL CHOLESTEROL, Routine 04/20/2010 11:49 AM Resu lts for this DIRECT MEASURED KICKING MACHINE OPERATOR procedure ar e in the results section. ALT (SGPT) Routine 04/20/2010 11:49 AM Results for this KICKING MACHINE OPERATOR procedure are i n the results section. CK, TOTAL Routine 04/20/2010 11:49 AM Results for this KICKING MACHINE OPERATOR procedure are i n the results section. documented in this encounter Results (ABNORMAL) LDL Cholesterol, Direct Measured (04/20/2010 11:49 AM KICKING MACHINE OPERATOR) P athologist Signature LDL Direct 178 (H) 0 - 130 HP CONVERSION mg/dL Specimen (Source) Anatomical Collection Method Collection Time Re ceived Time Location / / Volume Laterality 04/20/2010 11:49 AM KICKING MACHINE OPERATOR Vargas Jung Delilah SMALLS CNP LAB_1 Performing Organization Address [facility] Code Phon e Number HP CONVERSION (ABNORMAL) Lipid Panel and Direct LDL(If Needed) (04/20/2010 11:49 AM KICKING MACHINE OPERATOR) [facility] Method Time Signature Cholesterol 265 (H) 0 - 200 HP CONVERSION mg/dL Triglycerides 421 (H) 0 - 149 HP CONVERSION mg/dL HDL Cholesterol 41 >39 mg/dL HP CONVERSION Cholesterol/HDL 6.5 No normal HP CONVERSION Ratio Screen range Length Of Fast 12 No normal HP CONVERSION range Specimen (Source) Anatomical Collection Method Collection Time Re ceived Time Location / / Volume Laterality 04/20/2010 11:49 AM KICKING MACHINE OPERATOR Vargas Mazariegos APRN, CNP LAB_1 Performing Organization Address [facility] Code Phon e Number HP CONVERSION CK, Total (04/20/2010 11:49 AM KICKING MACHINE OPERATOR) athologist Signature Creatine Kinase 174 0 - 225 HP CONVERSION U/L Specimen (Source) Anatomical Collection Method Collection Time Re ceived Time Location / / Volume Laterality 04/20/2010 11:49 AM KICKING MACHINE OPERATOR Vargas Mazariegos APRN, CNP LAB_1 Performing Organization Address [facility] Code Phon e Number HP CONVERSION ALT (SGPT) (04/20/2010 11:49 AM KICKING MACHINE OPERATOR) [facility] Method Time Signature Alanine 23 4 - 55 HP CONVERSION Aminotransferase U/L Specimen (Source) Anatomical Collection Method Collection Time Re ceived Time Location / / Volume Laterality 04/20/2010 11:49 AM KICKING MACHINE OPERATOR Vargas Mazariegos APRN, CNP LAB_1 Performing Organization Address [facility] Phon e Number HP CONVERSION documented in this encounter Visit Diagnoses Not on filedocumented in this encounter Care Teams Bolt Loader Relationship Specialty Start Date End Date Vargas Mazariegos APRN, CNP PCP - General 07/24/10 03/28/16 documented as of this encounter
--- OUTSIDE RECORDS SUMMARY | 2022-01-26 07:13 | XMS_ITS | Encounter Summary ---
:1965 Author Organization [employer] Address [address] [place] [address] Care Team Providers Name Role Phone Vargas Mazariegos APRN, CNP Primary Care Provider [phone] Encounter Details Date Type Department Care Team Description 04/19/2010 Office Visit [facility] Vargas Mazariegos, Medicine YUE SMALL[place] [address] [address] [place] [address] [place] [address] [phone] (Wo rk) Social History Tobacco Use Types Packs/Day Years Used Date Smoking Tobacco: Never Assessed Sex Assigned at Date Recorded Not on file documented as of this encounter Last Filed Vital Signs Vital Sign Reading Time Taken Comments Blood Pressure 126/80 04/19/2010 12:06 PM ASSISTANT COUNSEL Pulse 76 04/19/2010 12:06 PM ASSISTANT COUNSEL Temperature - - Respiratory Rate - - Oxygen Saturation - - Inhaled Oxygen Concentration - - Weight 127.4 kg (280 lb 15.6 04/19/2010 12:06 PM C: 127 .5kg oz) ASSISTANT COUNSEL Height - - Body Mass Index 37.58 03/08/2010 7:59 AM ASSISTANT COUNSEL documented in this encounter Progress Notes Vargas Mazariegos, YUE SMALLS - 04/19/2010 12:01 AM CST Chief concern: Hyperlipidemia Other concerns: Tobacco abuse, depression Past medical history: Tobacco abuse, hyperlipidemia, depression, obesity, sleep apnea Medications: Fish oil, CPAP, multivitamin, Zocor 20 mg q.d., Effexor XR 150 mg q.d., Chantix 1 mg b.i.d.. Adverse Drug Reactions: Lipitor Habits: No smoking HPI: Patient returns for a followup of hyperlipidemia. Total cholesterol 271, triglycerides 302, HDL 34, LDL 177. He was started on simvastatin 20 mg q.d., denies side effects. He is due for followup laboratory testing. Continues to smoke 3 or 4 cigarettes daily. He plans to quit completely on April 23, 2010. He is currently taking Chantix. He believes his depression is controlled on generic Effexor 150 mg q.d. PHQ-9 = 4. Denies other concerns. Review of systems: Denies chest pain, shortness of breath. Denies bowel or bladder symptoms. Denies numbness, tingling, swelling in the extremities. Weight is stable. No myalgias or arthralgias. OBJECTIVE: Vital Signs: Blood pressure 126/80, pulse 76, weight 281 pounds. Patient is alert oriented and pleasant. No [...] masses. No hepatosplenomegaly. Legs: Without edema. ASSESSMENT: 1. Hyperlipidemia 2. Tobacco abuse 3. Depression, controlled PLAN: 1. continue fish oil 2. Complete Chantix, quit smoking completely as planned 3. Continue Effexor 4. Continue Zocor 20 mg q.d., adjust to an LDL target of less than 130. 5. Diet, exercise and weight loss recommendations discussed. The patient was discharged ambulatory and in stable condition and agreed with the above plan. *SH~DNS~SOAP STANT COUNSEL documented in this encounter Plan of Treatment Not on filedocumented as of this encounter Visit Diagnoses Not on filedocumented in this encounter Care Teams Refrigeration Operator Relationship Specialty Start Date End Date Vargas Mazariegos APRN, CNP PCP - General 07/24/10 03/28/16 documented as of this encounter
--- OUTSIDE RECORDS SUMMARY | 2022-01-26 07:13 | XMS_ITS | Encounter Summary ---
:1965 Author Organization [employer] Address [address] [place] [address] Care Team Providers Name Role Phone Vargas Mazariegos APRN, CNP Primary Care Provider [phone] Reason for Visit Reason Comments MEDICATION CHECK SHOULDER PAIN Encounter Details Date Type Department Care Team Description 11/24/2010 Office Visit [facility] Vargas Mazariegos Othe r and unspecified hyperlipidemia (Primary Dx); Maxwell Jung APRN, CNP Fatigue; [address] [address] [place], [place] [phone] [address] Social History Tobacco Use Types Packs/Day Years Used Date Smoking Tobacco: Never Assessed Sex Assigned at Date Recorded Not on file documented as of this encounter Last Filed Vital Signs Vital Sign Reading Time Taken Comments Blood Pressure 120/80 11/24/2010 10:56 AM CDT Pulse 76 11/24/2010 10:56 AM CDT Temperature - - Respiratory Rate - - Oxygen Saturation - - Inhaled Oxygen Concentration - - Weight 129.7 kg (286 lb) 11/24/2010 10:56 AM CDT Height - - Body Mass Index 38.26 03/08/2010 7:59 AM ELECTRIC TRUCKER documented in this encounter Progress Notes Vargas Mazariegos APRN, CNP - 11/24/2010 11:32 AM CDT Chief concern: Chief Complaint Patient presents with ??? Medication Check testosterone ??? Shoulder Pain right shoulder x 3 months fell over the winter Other concerns: Hyperlipidemia, fatigue Past medical history: Past Medical History Diagnosis [...] daily (every 24 hours). 100 13 ??? Sheridan-3 Fatty Acids-Fish Oil (FISH OIL OMEGA 3-6-9) 300-1,000 mg CpDR daily (every 24 hours). ??? op medications reviewed ??? simvastatin (ZOCOR) 40 mg tablet Take 1 tablet by mouth every evening. LW Addl Instr:Indicated for: High Cholesterol 30 12 ??? varenicline (CHANTIX CONTINUING MONTH FACUNDO) 1 mg tablet Take 1 tablet by mouth 2 times daily. LW Addl Instr:Indicated for: Smoking Cessation 56 1 ??? varenicline (CHANTIX) 0.5(11)-1(3X14) mg tablet LW Comment:Rx PRIORITY: Pt in Clinic LW Addl Instr:Take 0.5 mg orally once daily for days 1 through 3, then 0.5 mg twice daily for days 4 through 7, then 1 mg twice daily for the duration of treatment. Indicated for: Smoking Cessation 53 ??? venlafaxine (EFFEXOR XR) 150 mg 24 hr capsule Take 1 capsule by mouth daily (every 24 hours). LWAddl Instr:Take with food. May sprinkle on applesauce. Do not cut/crush/chew. Indicated for: Depression 30 12 Adverse Drug Reactions: Allergies Allergen Reactions ??? [...] ??? Smoking status: Current Everyday Smoker -- 0.7 packs/day ??? Smokeless tobacco: Not on file Comment: Smoking History Packs/day: ??? Alcohol Use: Alcoholic Drinks/day: Amount:1-2 drinks; Freq:=< Monthly; ??? Drug Use: ??? Sexually Active: Other Topics Concern ??? Not on file Social History Narrative ??? No narrative on file HPI: Patient returns for a followup of hyperlipidemia. He is currently taking simvastatin 40 mg q.d.He is due for followup laboratory testing. He denies any side effects to the medication. He is also complaining of fatigue. He is concerned about his testosterone level. He would like to have it checked. He has no history of low testosterone. He has never had a vitamin D checked. He had a normal thyroid and glucose February of 2010. He also complains of right shoulder pain. Symptoms are intermittent.Onset after a fall landing on his right elbow. He has been playing tennis regularly. Symptoms seem to worsen while playing tennis. Denies other concerns. Review of systems: Denies chest pain, shortness of breath. Denies bowel or bladder symptoms. Denies numbness, tingling, swelling in the extremities. Weight is stable. Fatigue. OBJECTIVE: Vital Signs: BP 120/80 Pulse 76 Wt 129.729 kg (286 lb) Patient is alert oriented and pleasant. [...] without guarding rebound or masses. No hepatosplenomegaly. Right shoulder exam: Point tenderness at the a.c. joint. Passive range of motion normal. Pain increases with lateral and frontal raise against resistance. ASSESSMENT: Encounter Diagnoses Name Primary? Hyperlipidemia #*LW 2 Yes ??? Fatigue ??? right Shoulder pain PLAN: 1. improved diet, decrease carbohydrates, continue exercise 2. Continue current medications 3. Vitamin D, cholesterol fractionation, ALT, CK, testosterone level pending 4. Watch shoulder symptoms, return if worsening. 5. Return in 6 months, sooner as needed. The patient was discharged ambulatory and in stable condition and agreed with the above plan. documented in this encounter Plan of Treatment Not on filedocumented as of this encounter Visit Diagnoses Diagnosis Other and unspecified hyperlipidemia (HR C) - Primary Other and unspecified hyperlipidemia Fatigue Other malaise and fatigue Shoulder pain Pain in joint, shoulder region documented in this encounter Care Teams Commodity Broker Relationship Specialty Start Date End Date Vargas Mazariegos APRN, CNP PCP - General 07/24/10 03/28/16 documented as of this encounter
--- OUTSIDE RECORDS SUMMARY | 2022-01-26 07:13 | XMS_ITS | Encounter Summary ---
:1965 Author Organization [employer] Address [address], [place] [address] Care Team Providers Name Role Phone Ivan Kendrick WAISTLINE JOINER OVERLOCK, ROD BENDING MACHINE OPERATOR Primary Care Provider [phone] Reason for Visit Reason Comments Other Encounter Details Date Type Department Care Team Description 06/22/2010 Telephone [facility] Ivan Kendrick A PRN, Other Medicine ROD BENDING MACHINE OPERATOR [address] [place] [address] [place] [address] [phone] (Wo rk) Social History Tobacco Use Types Packs/Day Years Used Date Smoking Tobacco: Never Assessed Sex Assigned at Date Recorded Not on file documented as of this encounter [facility], Message - 06/22/2010 9:46 AM CST Prior Authorization or Change Medications? Comment: Member ID #: (If applicable) Pharmacy Seq #:[id number] Pharmacy Name-Phone/Fax:[facility] fax# [phone]/City:[place] Clinician Name:Delilah Drug Name/Strength:Venlafaxine HCL ER 150mg caps Sig:Take 1 cap daily with food. Formulary Alternative: Insurance Carrier: Insurance Member ID: Call Back Phone or Cell Phone: Is it OK to Leave a Confidential Message on this Voicemail? *ECODE~PNPA Created on 22Jun2010 9:46am by AUGUSTIN REAL J On 22Jun2010 10:36am IVAN KENDRICK wrote: faxed. Acknowledged by IVAN KENDRICK on 10:36am Acknowledged by IVAN KENDRICK on 10:36am ILATION WORKER documented in this encounter Plan of Treatment Not on filedocumented as of this encounter Visit Diagnoses Not on filedocumented in this encounter Care Teams Lockstitch Lining Maker Relationship Specialty Start Date End Date Ivan Kendrick, WAISTLINE JOINER OVERLOCK, ROD BENDING MACHINE OPERATOR PCP - General 07/24/10 03/28/16 documented as of this encounter
--- OUTSIDE RECORDS SUMMARY | 2022-01-26 07:13 | XMS_ITS | Encounter Summary ---
:1965 Author Organization [employer] Address [address], [place] [address] Care Team Providers Name Role Phone Ivan Kendrick APRN, YUE Primary Care Provider [phone] Reason for Visit Reason Comments Other Encounter Details Date Type Department Care Team Description 03/18/2010 Telephone [facility] Alanna Zendejas LPN Other [address] [place] [address] Social History Tobacco Use Types Packs/Day Years Used Date Smoking Tobacco: Never Assessed Sex Assigned at Date Recorded Not on file documented as of this encounter [facility], Message - 03/18/2010 3:13 PM CST Phone Note filed by LocaModa at 08/13/101 Author: [employer] Service: (none) Author Type: (none) Filed: 08/13/104 Note Time: 03/18/101512 Status: Signed Affiliate Marketing Manager: [employer]oca[employer] (Resource) X-Ray CT Abdomen results are available in Last[employer]. Created on 18Mar2010 3:13pm by LILIANA PEGUERO On 21Mar2010 11:09am IVAN KENDRICK wrote: called, discussed results, small 1.5 cm left adrenal adenoma. Adrenal CT without contrast in 6months as recommended by radiology. pt agrees. Acknowledged by IVAN KENDRICK on 11:09am On 21Mar2010 2:31pm ALANNA ZENDEJAS wrote: pt scheduled, will send appt info in July for August appt Acknowledged by ALANNA ZENDEJAS on 2:31pm DING TANK TENDER documented in this encounter Plan of Treatment Not on filedocumented as of this encounter Visit Diagnoses Not on filedocumented in this encounter Care Teams Export Freight Manager Relationship Specialty Start Date End Date Ivan Kendrick, RADIOLOGY MANAGER, TICKET ATTENDANT PCP - General 07/24/10 03/28/16 documented as of this encounter
--- OUTSIDE RECORDS SUMMARY | 2022-01-26 07:13 | XMS_ITS | Encounter Summary ---
:1965 Author [facility] Address [address], [place] [address] Care Team Providers Name Role Phone Vargas Mazariegos APRN, CNP Primary Care Provider [phone] Encounter Details Date Type Department Care Team Description 06/22/2010 PN Conversion Only JENNY CONVERSION [address] [place] [address] Social History Tobacco Use Types Packs/Day Years Used Date Smoking Tobacco: Never Assessed Sex Assigned at Date Recorded Not on file documented as of this encounter Plan of Treatment Not on filedocumented as of this encounter Visit Diagnoses Not on filedocumented in this encounter Care Teams Warehouse Team Member Relationship Specialty Start Date End Date Vargas Mazariegos APRN, CNP PCP - General 07/24/10 03/28/16 documented as of this encounter
--- OUTSIDE RECORDS SUMMARY | 2022-01-26 07:14 | XMS_ITS | Encounter Summary ---
:1965 Author Organization [facility] Address [address] [place] [address] Care Team Providers Name Role Phone Vargas Mazariegos SERINA, YUE Primary Care Provider [phone] Encounter Details Date Type Department Care Team Description 02/08/2009 PN Conversion Only JENNY CONVERSION Eliz Robles, [address] [place] [address] [address] [place] [address] (Wo rk) Social History Tobacco Use Types Packs/Day Years Used Date Smoking Tobacco: Never Assessed Sex Assigned at Date Recorded Not on file documented as of this encounter Plan of Treatment Not on filedocumented as of this encounter Procedures Procedure Name Priority Date/Time Associated Diagnosis Comme nts GLUCOSE Routine 02/08/2009 11:26 AM Results for this CDT procedure are i n the results section. LIPID PANEL AND Routine 02/08/2009 11:26 AM Resul ts for this DIRECT LDL(IF CDT procedure are in NEEDED) the results section. LDL CHOLESTEROL, Routine 02/08/2009 11:26 AM Resu lts for this DIRECT MEASURED CDT procedure ar e in the results section. ALT (SGPT) Routine 02/08/2009 11:26 AM Results for this CDT procedure are i n the results section. documented in this encounter Results (ABNORMAL) LDL Cholesterol, Direct Measured (02/08/2009 11:26 AM CDT) P athologist Signature LDL Direct 174 (H) 0 - 130 HP CONVERSION mg/dL Comment: LDL Optimal: <100 mg/dL (target <100 if diabetes or coronary he art disease Near/Above Optimal: 100-130 mg/dL Borderline High: 130-160 mg/dL High Risk: 160-190 mg/dL Very High Risk: >190 mg/dL Specimen (Source) Anatomical Collection Method Collection Time Re ceived Time Location / / Volume Laterality 02/08/2009 11:26 AM CDT Eliz Castro [facility] Performing Organization Address [facility] Phon e Number HP CONVERSION (ABNORMAL) Lipid Panel and Direct LDL(If Needed) (02/08/2009 11:26 AM CDT) [facility] gist Method Time Signature Length Of Fast 12.0 Hours HP CONVERSION Cholesterol/HDL 8.7 No normal HP CONVERSION Ratio Screen range Cholesterol 286 (H) <200 mg/dL HP CONVERSION HDL Cholesterol 33 (L) >40 mg/dL HP CONVERSION Triglycerides 461 (H) 0 - 149 HP CONVERSION mg/dL LDL Calculated See Note 0 - 130 HP CONVERSION (A) mg/dL Comment: Unable to calculate due to >400 mg/dL Tr iglyceride. Specimen (Source) Anatomical Collection Method Collection Time Re ceived Time Location / / Volume Laterality 02/08/2009 11:26 AM CDT Eliz Castro [facility] Performing Organization Address [facility] Phon e Number HP CONVERSION GLUCOSE (02/08/2009 11:26 AM CDT) P athologist Signature Length Of Fast 12.0 Hours HP CONVERSION Lab Glucose 87 60 - 100 HP CONVERSION mg/dL Specimen (Source) Anatomical Collection Method Collection Time Re ceived Time Location / / Volume Laterality 02/08/2009 11:26 AM CDT Eliz Castro [facility] Performing Organization Address [facility] Phon e Number HP CONVERSION ALT (SGPT) (02/08/2009 11:26 AM CDT) [facility] Method Time Signature Alanine 27 4 - 55 HP CONVERSION Aminotransferase U/L Specimen (Source) Anatomical Collection Method Collection Time Re ceived Time Location / / Volume Laterality 02/08/2009 11:26 AM CDT Eliz Castro [facility] Performing Organization Address [facility] Phon e Number HP CONVERSION documented in this encounter Visit Diagnoses Not on filedocumented in this encounter Care Teams Clinical Research Nurse Relationship Specialty Start Date End Date Vargas Mazariegos, FIELD HORTICULTURAL SPECIALTY GROWER, RETIREMENT SPECIALIST PCP - General 07/24/10 03/28/16 documented as of this encounter
--- OUTSIDE RECORDS SUMMARY | 2022-01-26 07:14 | XMS_ITS | Encounter Summary ---
:1965 Author Organization [facility] Address [address], [place] [address] Care Team Providers Name Role Phone DelilahJuanyVargassocorro Jung APRN, CNP Primary Care Provider [phone] Reason for Visit Reason Comments Other Encounter Details Date Type Department Care Team Description 12/07/2008 Telephone [email or web address], Message Other [address] [place] [address] Social History Tobacco Use Types Packs/Day Years Used Date Smoking Tobacco: Never Assessed Sex Assigned at Date Recorded Not on file documented as of this encounter Progress Notes Miriam Porter - 12/07/2008 4:13 PM CDT Phone Note filed by Miriam Porter at 08/12/10942 Author: Miriam Porter Service: (none) Author Type: (none) Filed: 08/12/1043 Note Time: 12/07/081612 Status: Signed Race Relations Adviser: Sita Conversion (Physician) Prescription Refill Please provide enough refills to last until patient's next visit. Comment:- Pharmacy Seq #:-[phone] Pharmacy Name:-[facility] Street or City:-[address] [place] [address] Clinician Name:-DESIRAE Drug Name/Strength:-EFFEXOR XR 150MG CAPSULE SA Sig: Dose/Route/Freq:-TAKE ONE CAPSULE BY MOUTH ONE TIME DAILY WITH FOOD Quantity & Last Fill:-90(30 DISPENSED) 11/09/2008 Created on 07Dec2008 4:13pm by MIRIAM PORTER On 08Dec2008 11:37am MAURICIO SILVA wrote: Unable to refill per Medical Refill Protocol Comment: Pt.got refill on 08/19 phone note, Ijeoma gave 3 months OK but needs appt.for further refills. Call to schedule, forward request to Ijeoma. Pt.was last seen for acute issue by Ijeoma in Jan. last med check 08/08/07 by . On 08Dec2008 2:19pm BHASKAR SCOTT wrote: Pt. is scheduked for 12/15 with ijeoma On 08Dec2008 4:05pm IJEOMA MERRILL wrote: 30 refilled, keep appt. Acknowledged by IJEOMA MERRILL on 4:05pm CE SERVICES MANAGER documented in this encounter Plan of Treatment Not on filedocumented as of this encounter Visit Diagnoses Not on filedocumented in this encounter Care Teams Construction Checker Relationship Specialty Start Date End Date Vargas Mazariegos, ASSISTED LIVING ADMINISTRATOR, ASSISTIVE TECHNOLOGY TRAINER PCP - General 07/24/10 03/28/16 documented as of this encounter
--- OUTSIDE RECORDS SUMMARY | 2022-01-26 07:14 | XMS_ITS | Encounter Summary ---
:1965 Author Organization [employer] Address [address] [address] Care Team Providers Name Role Phone Vargas Mazariegos SERINA, YUE Primary Care Provider [phone] Encounter Details Date Type Department Care Team Description 04/13/2009 Office Visit [facility] [address] [place] [address] [place] [address] [phone] (Wo rk) Social History Tobacco Use Types Packs/Day Years Used Date Smoking Tobacco: Never Assessed Sex Assigned at Date Recorded Not on file documented as of this encounter Last Filed Vital Signs Vital Sign Reading Time Taken Comments Blood Pressure 130/80 04/13/2009 9:07 AM CDL TEAM TRUCK DRIVER Pulse 60 04/13/2009 9:07 AM CDL TEAM TRUCK DRIVER Temperature - - Respiratory Rate - - Oxygen Saturation - - Inhaled Oxygen Concentration - - Weight 126.1 kg (277 lb 15.7 04/13/2009 9:07 AM C: 126. 1kg oz) CDL TEAM TRUCK DRIVER Height - - Body Mass Index 37.18 12/15/2008 8:13 AM CDT documented in this encounter Progress Notes Sherry Hair MBBS - 04/13/2009 12:01 AM CST Progress Notes signed by Sherry Hair MD at 04/25/09 0742 Author: ELIZA Domingo Service: (none) Author Type: Physician Filed: 08/13/10 5383 Note Time: 04/13/09 0001 Status: Signed Usability Engineer: ELIZA Domingo (Physician) NAME: AUSTIN CARRANZA#: [id number] ACCT: [id number] VISIT: [id number] DICTATING CLINICIAN: Sherry Hair MD CONFIRM #: [id number] LOC: 1702 CLINIC PROGRESS NOTE DATE OF VISIT: 04/13/2009 SUBJECTIVE: : 1965. A 43-year-old gentleman presented to the clinic today for concerns regarding left ear pain. Patient reports pain in the left ear. Patient reports that every year he gets some fluid which does get infected and he needs to be seen by ENT. The patient was last seen in ENT in 01/2008 when the ear tubes were replaced. Patient now denies any fever, but does report some draining purulent fluid and muffled hearing. Denies any significant nasal complaints. REVIEW OF SYSTEMS: The rest of the complete review of systems negative. PAST MEDICAL HISTORY: Significant for nasal fracture and recurrent ear infection. PAST SURGICAL HISTORY: Includes tympanostomy and the tubes have been replaced 4-5 times in the past. MEDICATIONS: Include Sudafed as needed, and has been taking guaifenesin for cough as needed. Patient denies any tobacco use. OBJECTIVE: VS: Reviewed. BP: 130/80. P: 60. Wt: 178. GENERAL: No acute distress. Eyes: PERRLA, EOMI. No conjunctival congestion seen. Ears: On the left side patient has a significant amount of discharge which was seen. Patient does have tympanostomy tubes present with surrounding erythema. Nose: No significant erythema. Minimal mucoid discharge. Pharynx: Minimal post nasal drip present. Rest of the exam was deferred today. ASSESSMENT: Recurrent middle ear infection. Currently left otitis media. PLAN: Patient was given a prescription of Z-Abilio and to follow up with ENT if symptoms do not resolve. Patient verbalized understanding. Will follow up as needed. SR:[id number] C: 04/20/09 08:46 CONFIRM #: [id number] TEAM TRUCK DRIVER documented in this encounter Plan of Treatment Not on filedocumented as of this encounter Visit Diagnoses Not on filedocumented in this encounter Care Teams Mother Superior Relationship Specialty Start Date End Date Vargas Mazariegos, SCRUBBER MACHINE TENDER, DROP FORGE OPERATOR PCP - General 07/24/10 03/28/16 documented as of this encounter
--- OUTSIDE RECORDS SUMMARY | 2022-01-26 07:14 | XMS_ITS | Encounter Summary ---
:1965 [facility] Address [address] [address] Care Team Providers Name Role Phone Vargas Mazariegos APRN, CNP Primary Care Provider [phone] Encounter Details Date Type Department Care Team Description 03/08/2010 PN Conversion Only [place] [address] [address] [place] [address] Social History Tobacco Use Types Packs/Day Years Used Date Smoking Tobacco: Never Assessed Sex Assigned at Date Recorded Not on file documented as of this encounter Plan of Treatment Not on filedocumented as of this encounter Visit Diagnoses Not on filedocumented in this encounter Care Teams Lock Assembler Relationship Specialty Start Date End Date Vargas Mazariegos APRN, CNP PCP - General 07/24/10 03/28/16 documented as of this encounter
--- OUTSIDE RECORDS SUMMARY | 2022-01-26 07:14 | XMS_ITS | Encounter Summary ---
:1965 Author Organization [facility] Address [address] [address] Care Team Providers Name Role Phone Vargas Mazariegos APRN, CNP Primary Care Provider [phone] Encounter Details Date Type Department Care Team Description 02/12/2008 PN Conversion Only [place]EN[place] CONVERSION [address] [place] [address] Social History Tobacco Use Types Packs/Day Years Used Date Smoking Tobacco: Never Assessed Sex Assigned at Date Recorded Not on file documented as of this encounter Plan of Treatment Not on filedocumented as of this encounter Visit Diagnoses Not on filedocumented in this encounter Care Teams Water Maintenance Supervisor Relationship Specialty Start Date End Date aVrgas Mazariegos APRN, CNP PCP - General 07/24/10 03/28/16 documented as of this encounter
--- OUTSIDE RECORDS SUMMARY | 2022-01-26 07:14 | XMS_ITS | Encounter Summary ---
:1965 Author Organization [employer] Address [address] [address] Care Team Providers Name Role Phone Vargas Mazariegos Erich SMALLS CNP Primary Care Provider [phone] Encounter Details Date Type Department Care Team Description 02/12/2008 Office Visit [facility] Ijeoma Del Cid PA-C [address] [place] [address] [place] [phone] [place], [place] [address] (Wo rk) Social History Tobacco Use Types Packs/Day Years Used Date Smoking Tobacco: Never Assessed Sex Assigned at Date Recorded Not on file documented as of this encounter Last Filed Vital Signs Vital Sign Reading Time Taken Comments Blood Pressure 114/68 02/12/2008 11:14 AM CDT Pulse 80 02/12/2008 11:14 AM CDT Temperature - - Respiratory Rate - - Oxygen Saturation - - Inhaled Oxygen Concentration - - Weight 116.6 kg (256 lb 15.8 02/12/2008 11:14 AM C: 116 .6kg oz) CDT Height 184.2 cm (6' 0.5) 02/12/2008 11:14 AM C: 184.2c m CDT Body Mass Index 34.38 02/12/2008 11:14 AM CDT documented in this encounter Progress Notes Ijeoma Robles PA-C - 02/12/2008 12:01 AM CDT Progress Notes signed by Ijeoma Robles PA-C at 02/13/08 0821 Author: Ijeoma Robles PA-C Service: (none) Author Type: Physician Cupola Man Filed: 08/13/10 0758 Note Time: 02/12/08 0001 Status: Signed Oyster Grader: Ijeoma Robles PA-C (Physician Cupola Man) NAME: AUSTIN CARRANZA MR#: [id number] ACCT: [id number] VISIT: [id number] DICTATING CLINICIAN: IJEOMA ROBLES PA-C CONFIRM #: [id number] LOC: 1702 CLINIC PROGRESS NOTE DATE OF VISIT: 02/12/2008 SUBJECTIVE: Austin is a 42-year-old male who presents to the clinic today. He has an 87-tcxuh-dgb foster child with him, and he is complaining of left-sided ear fullness. This has been going on for approximately 6 months. He has been seen in the clinic and told to try some Sudafed to see if it would help, but that left ear is constantly popping. He feels like it is draining, and he gets occasional pain in that ear and has become quite frustrating. ADR/ALLERGIES: CURRENT IN TODAY'S [facility] PROFILE FLOW SHEET. MEDICATIONS: Current in today's [place] health profile flow sheet. OBJECTIVE: VS: Current in today's [place] health profile flow sheet. Patient is pleasant, no acute distress, and oriented to person, place, and time. Right tympanic membrane: Clear. External canal was normal. Left tympanic membrane: Definitely has clear fluid behind it with distorted markings and cones of light. Posterior pharynx: Clear. ASSESSMENT: Chronic eustachian tube dysfunction. PLAN: I will start him on Flonase nasal spray 2 squirts each nostril every morning and will have consult with ENT. Suspect he will probably need a PE tube placed. IMPRESSION: Chronic, ongoing eustachian tube dysfunction, left ear. TMG:[id number] C: 02/12/08 19:40 CONFIRM #: [id number] documented in this encounter Plan of Treatment Not on filedocumented as of this encounter Visit Diagnoses Not on filedocumented in this encounter Care Teams Paperhanger Relationship Specialty Start Date End Date Vargas Mazariegos, DAIRY DEPARTMENT MANAGER, TITLE ONE TEACHER PCP - General 07/24/10 03/28/16 documented as of this encounter
--- OUTSIDE RECORDS SUMMARY | 2022-01-26 07:14 | XMS_ITS | Encounter Summary ---
:1965 Author Organization [facility] Address [address] [place] [address] Care Team Providers Name Role Phone Vargas Mazariegos YUE SMALLS Primary Care Provider [phone] Encounter Details Date Type Department Care Team Description 03/18/2010 PN Conversion Only [facility] [address] [place] [address] Social History Tobacco Use Types Packs/Day Years Used Date Smoking Tobacco: Never Assessed Sex Assigned at Date Recorded Not on file documented as of this encounter Plan of Treatment Not on filedocumented as of this encounter Procedures Procedure Name Priority Date/Time Associated Diagnosis Comme nts CT ABD WO IV CONT Routine 03/18/2010 11:30 AM Res ults for this TEACHER EDUCATION INSTRUCTOR procedure are i n the results section. documented in this encounter Results CT Abd WO IV Cont (03/18/2010 11:30 AM TEACHER EDUCATION INSTRUCTOR) Anatomical Region Laterality Modality Abdomen, Pelvis Other Specimen (Source) Anatomical Location Collection Method / Collectio n Time Received Time / Laterality Volume Narrative 03/18/2010 11:30 AM TEACHER EDUCATION INSTRUCTOR Abdomen CT without contrast FINDINGS: Lung bases are clear. ??The un enhanced liver, spleen and pancreas are unremarkable. ??No aortic d ilatation or aortic calcification. ??Adrenal glands show a 1 .5 cm area of nodularity in the left adrenal on slice 29 which is of low attenuation and probably represents a small adenoma. ??This could be followed with another adrenal CT in 6 months without contrast. ??Kidneys show no stones nor obstruction. ??Remainder of the upper ab domen and retroperitoneum are unremarkable. ??No suspicious adenopathy with no evidence for aneurysm. CONCLUSION: No evidence for aortic aneur ysm. ??1.5 cm nodule in the left adrenal gland may represent adenoma . ??See above. Dictating JOSE ARREDONDO MD Procedure Note Jose Magaña MD - 10/07/2015Format ting of this note might be different from the original. Abdomen CT without contrast FINDINGS: Lung bases are clear. The unen hanced liver, spleen and pancreas are unremarkable. No aortic dil atation or aortic calcification. Adrenal glands show a 1.5 cm area of nodularity in the left adrenal on slice 29 which is of low attenuation and probably represents a small adenoma. This could b e followed with another adrenal CT in 6 months without contrast. Kidneys show no stones nor obstruction. Remainder of the upper abdo men and retroperitoneum are unremarkable. No suspicious adenopathy w ith no evidence for aneurysm. CONCLUSION: No evidence for aortic aneur ysm. 1.5 cm nodule in the left adrenal gland may represent adenoma . See above. Dictating JOSE ARREDONOD MD Vargas Mazariegos APRN, CNP RAD CT documented in this encounter Visit Diagnoses Not on filedocumented in this encounter Care Teams Typing Checker Relationship Specialty Start Date End Date Vargas Mazariegos APRN, CNP PCP - General 07/24/10 03/28/16 documented as of this encounter
--- OUTSIDE RECORDS SUMMARY | 2022-01-26 07:14 | XMS_ITS | Encounter Summary ---
:1965 Author Organization [facility] Address [address] [address] Care Team Providers Name Role Phone Vargas Mazariegos APRN, CNP Primary Care Provider [phone] Encounter Details Date Type Department Care Team Description 12/07/2008 PN Conversion Only J[place] CONVERSION [address] [place] [address] Social History Tobacco Use Types Packs/Day Years Used Date Smoking Tobacco: Never Assessed Sex Assigned at Date Recorded Not on file documented as of this encounter Plan of Treatment Not on filedocumented as of this encounter Visit Diagnoses Not on filedocumented in this encounter Care Teams Bricklayer Helper Relationship Specialty Start Date End Date Vargas Mazariegos APRN, CNP PCP - General 07/24/10 03/28/16 documented as of this encounter
--- OUTSIDE RECORDS SUMMARY | 2022-01-26 07:14 | XMS_ITS | Encounter Summary ---
:1965 Author Organization [employer] Address [address], [place] [address] Care Team Providers Name Role Phone Vargas Mazariegos SERINA, YUE Primary Care Provider [phone] Encounter Details Date Type Department Care Team Description 04/28/2009 Office Visit [facility] [address] Faust CCC-A Audiology [address] [place] [address] [phone] (Wo rk) Social History Tobacco Use Types Packs/Day Years Used Date Smoking Tobacco: Never Assessed Sex Assigned at Date Recorded Not on file documented as of this encounter Progress Notes Juan Faust CCC-A - 04/28/2009 12:01 AM CST Progress Notes signed by TASHA Cain at 05/11/09 1215 Author: TASHA Cain Service: (none) Author Type: CERTIFICATE OF CLINICAL COMPETENCY IN AUDIOLOGY Filed: 08/13/10 1909 Note Time: 04/28/09 0001 Status: Signed Scrap Sorter: TASHA Cain (Sample Tailor) NAME: AUSTIN CARRANZA MR#: [id number] ACCT: [id number] VISIT: [id number] DICTATING CLINICIAN: Juan Faust CCCA CONFIRM #: [id number] LOC: 481 CLINIC PROGRESS NOTE DATE OF VISIT: 04/28/2009 SUBJECTIVE: Mr. Carranza, age 43, is seen at this clinic for a hearing evaluation. The hearing test is ordered by Dr. Bryce Jeronimo. The patient states that his left ear is plugged and is painful. The patient states he has no concerns about his right ear. The patient denies any tinnitus or experiencing any vertigo. The patient reports a history of a PE tube being placed in his left ear. OBJECTIVE: Otoscopic examination reveals some cerumen bilaterally. Pure tone audiometric testing reveals a mild sensorineural hearing loss on the right side. For the left side, a flat moderate mixed hearing loss is noted. A speech office manager receptionist threshold is obtained at 15 dBHL in the right ear and 35 dBHL in the left ear. The right tympanogram is normal by admittance, normal by gradient. The left tympanogram is flat with a normal ear canal volume. ASSESSMENT: Communicatively significant hearing loss as above. 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 The results of today's testing are discussed with the patient. PLAN: It is recommended that the patient follow up with the ordering provider. IMPRESSION: Mixed hearing loss. SHELDON:[id number] C: 04/30/09 16:03 CONFIRM #: [id number] APPLICATION COORDINATOR documented in this encounter Plan of Treatment Not on filedocumented as of this encounter Visit Diagnoses Not on filedocumented in this encounter Care Teams Tile Mechanic Relationship Specialty Start Date End Date Vargas Mazariegos, PLANNER CHIEF, CLEAN UP WORKER PCP - General 07/24/10 03/28/16 documented as of this encounter
--- OUTSIDE RECORDS SUMMARY | 2022-01-26 07:14 | XMS_ITS | Encounter Summary ---
:1965 Author Organization [employer] Address [address], [place] [address] Care Team Providers Name Role Phone Vargas Mazariegos YUE SMALLS Primary Care Provider [phone] Encounter Details Date Type Department Care Team Description 04/28/2009 Office Visit [facility] 3800 Ear, Bryce Jeronimo MD Nose, and Throat [address] [place] [address] [place], [place] [address] [phone] Social History Tobacco Use Types Packs/Day Years Used Date Smoking Tobacco: Never Assessed Sex Assigned at Date Recorded Not on file documented as of this encounter Progress Notes Bryce Jeronimo MD - 04/28/2009 12:01 AM CST Progress Notes signed by Bryce Jeronimo MD at 04/29/09 1507 Author: Bryce Jeronimo MD Service: (none) Author Type: Physician Filed: 08/13/10 1909 Note Time: 04/28/09 0001 Status: Signed Waste/Materials Exchange Specialist: Bryce Jeronimo MD (Physician) NAME: AUSTIN CARRANZA MR#: [id number] ACCT: [id number] VISIT: [id number] DICTATING CLINICIAN: Bryce Jeronimo MD CONFIRM #: [id number] LOC: 428 CLINIC PROGRESS NOTE DATE: 04/28/2009 SUBJECTIVE: Austin is seen back in followup. I last saw him a little over a year ago. He has had apparently problems as a child requiring tympanostomy tubes and then several times as an adult, as well. He was followed by Dr. Ahuja and then ultimately myself. It is always his left ear. He actually saw the tube fall out on his pillow and then within a few days, essentially his left ear plugged up again. He had a nasopharyngoscopy in years past, and there is nothing new as far as is nose right now. OBJECTIVE: Audiogram is ordered, and it does show a left conductive hearing loss and a flat tympanogram. Right pinna, canal, and TM normal. Left pinna and canal clear. Left TM dulled with an marleny-colored effusion. ASSESSMENT: Left chronic serous otitis media. PLAN: I do think he would be a good candidate to have a new tube placed. He very much wants to do this. Today I talked about the options to try to place a T-tube which sometimes can last for quite a number of years. He was agreeable to trying that. He gave verbal consent to go forward. Phenol was used to anesthetize the anterior-inferior quadrant, and a myringotomy was made. Serous effusion was suctioned out, and a T-tube was placed without much difficulty. He will plan to check back as needed with any issues. TAA:[id number] C: 04/29/09 09:10 CONFIRM #: [id number] US SUPERVISOR documented in this encounter Plan of Treatment Not on filedocumented as of this encounter Visit Diagnoses Not on filedocumented in this encounter Care Teams Rehabilitation Program Manager Relationship Specialty Start Date End Date Vargas Mazariegos, ANIMAL NUTRITION CONSULTANT, NUTRITION TECH PCP - General 07/24/10 03/28/16 documented as of this encounter
--- OUTSIDE RECORDS SUMMARY | 2022-01-26 07:14 | XMS_ITS | Encounter Summary ---
:1965 Author Organization [employer] Address [address], [place] [address] Care Team Providers Name Role Phone Vargas Mazariegos Erich SMALLS CNP Primary Care Provider [phone] Encounter Details Date Type Department Care Team Description 02/20/2008 Office Visit Trip [address] [facility] [place] [address] Social History Tobacco Use Types Packs/Day Years Used Date Smoking Tobacco: Never Assessed Sex Assigned at Date Recorded Not on file documented as of this encounter Progress Notes Kalani Marina - 02/20/2008 12:01 AM CDT Progress Notes signed by JALEN Simms at 02/24/08 1508 Author: JALEN Simms Service: (none) Author Type: Manager Of Case Filed: 08/13/10 0810 Note Time: 02/20/08 0001 Status: Signed Construction Quality Control Manager: JALEN Simms (Manager Of Case) NAME: AUSTIN CARRANZA MR#: [id number] ACCT: [id number] VISIT: [id number] DICTATING CLINICIAN: JALEN De CONFIRM #: [id number] LOC: 3281 CLINIC PROGRESS NOTE DATE OF VISIT: 02/20/2008 SUBJECTIVE: Austin Carranza, age 42, was seen for an audiological evaluation upon referral of Dr. Bryce Jeronimo. He reports that he has had a plugged left ear with some intermittent pain since early spring. He does have a positive history of noise exposure at times without ear protection. He indicates that the plugged ear has been occurring for several years. OBJECTIVE: Otoscopy revealed a clear ear canal and visible tympanic membrane landmarks in the right ear. Otoscopy in the left ear shows a slightly reddened TM. Tympanometry shows normal ear canal volume, normal middle ear pressure and normal static compliance in the right ear. Tympanometry in the left shows normal ear canal volume and no tympanic membrane mobility. Pure tone testing shows a borderline hearing loss in the right ear and a moderate conductive hearing loss in the left ear. Speech palm gatherer thresholds were obtained at 30 dBHL for the right and 45 dBHL for the left. Word recognition at appropriate levels was 100% correct in each ear. ASSESSMENT: 1. Moderate conductive hearing loss in the left ear with flat tympanogram. 2. Borderline hearing loss in the right ear with a normal tympanogram. Speech audiometry supports the pure tone findings. PLAN: The results of today's testing were discussed with the patient. Please refer to Dr. Bryce Jeronimo's note for his medical management plan regarding the conductive component of the left ear. I recommend that we retest the patient following medical management. All questions were fully answered. CME:[id number] C: 02/20/08 17:04 CONFIRM #: [id number] KING GUIDE documented in this encounter Plan of Treatment Not on filedocumented as of this encounter Visit Diagnoses Not on filedocumented in this encounter Care Teams Employment Instructional Associate Relationship Specialty Start Date End Date Vargas Mazariegos, ENGINEERING TECH, PRAWN TRAWLER HAND PCP - General 07/24/10 03/28/16 documented as of this encounter
--- OUTSIDE RECORDS SUMMARY | 2022-01-26 07:14 | XMS_ITS | Encounter Summary ---
:1965 Author Organization [employer] Address [address] [place] [address] Care Team Providers Name Role Phone Vargas Mazariegos Erich SMALLS CNP Primary Care Provider [phone] Reason for Visit Reason Comments Other Encounter Details Date Type Department Care Team Description 12/27/2006 Telephone [facility] [place], Message Other [address] [place] [address] Social History Tobacco Use Types Packs/Day Years Used Date Smoking Tobacco: Never Assessed Sex Assigned at Date Recorded Not on file documented as of this encounter Progress Notes Center, Message - 12/27/2006 4:34 PM CDT Phone Note filed by [email or web address] at 08/10/10341 Author: [email or web address] Service: (none) Author Type: (none) Filed: 08/10/10341 Note Time: 12/27/06 1634 Status: Signed Pattern Lease Inspector: [facility] Non -Symptom Message from Front Line Caller Name/Relationship:pt Primary Acrylic Fabricator:Les Message:pt told to check back in 30 days for a medck and there is nothing available. He would like a work in appt before goes on vacation. Collator Hand: Best call back number:[phone] Is it OK to leave a confidential message on this voicemail?y *ECODE~PNMSG2 Created on 27Dec2006 4:34pm by ANAHI LEARY M On 27Dec2006 4:36pm MIRIAM MOORE wrote: See above On 27Dec2006 5:32pm MELITA ROCHE wrote: Jaison, Can you help? kpo Acknowledged by MELITA ROCHE on 5:32pm On 28Dec2006 8:56am JAISON GALAVIZ wrote: I offered pt 2 different days and he can not make either. He requests that we change his med from 2 of the 75 mg Effexor. It looks like this has already been done. Do you want him to see another provider or see you after you return? Acknowledged by JAISON GALAVIZ on 8:56am On 28Dec2006 12:50pm MELITA ROCHE wrote: OK. If he is doing well, bridge rx to appt.with me. kpo Acknowledged by MELITA ROCHE on 12:50pm On 28Dec2006 1:10pm JAISON GALAVIZ wrote: [facility] Jaison 4050. On 03Jan2007 8:34am CAMILA GUTIÉRREZ wrote: 2nd message was left for the pt to call us back. On 04Jan2007 12:05pm KYAW BARTH wrote: Patient calling back, above information given. He will call back to schedule an appt when he has his schedule available. ENGINE OPERATOR documented in this encounter Plan of Treatment Not on filedocumented as of this encounter Visit Diagnoses Not on filedocumented in this encounter Care Teams Ball Truing Machine Operator Relationship Specialty Start Date End Date Vargas Mazariegos, BOTTOM TURNER, SURGICAL SERVICES DIRECTOR PCP - General 07/24/10 03/28/16 documented as of this encounter
--- OUTSIDE RECORDS SUMMARY | 2022-01-26 07:14 | XMS_ITS | Encounter Summary ---
:1965 Author Organization [employer] Address [address] [place] [address] Care Team Providers Name Role Phone Vargas Mazariegos YUE SMALLS Primary Care Provider [phone] Encounter Details Date Type Department Care Team Description 02/20/2008 Office Visit Trip 1515 Ear, Nose, [place] n, Bryce Mcgregor MD and Throat 3800 [facility] 1515 [place], [place] [address] [place] [address] [phone] Social History Tobacco Use Types Packs/Day Years Used Date Smoking Tobacco: Never Assessed Sex Assigned at Date Recorded Not on file documented as of this encounter Progress Notes Bryce Jeronimo MD - 02/20/2008 12:01 AM CDT Progress Notes signed by Bryce Jeronimo MD at 11/18/08 2058 Author: Bryce Jeronimo MD Service: (none) Author Type: Physician Filed: 08/13/10 0811 Note Time: 02/20/08 0001 Status: Signed Signal Person: Bryce Jeronimo MD (Physician) NAME: AUSTIN CARRANZA MR#: [id number] ACCT: [id number] VISIT: [id number] DICTATING CLINICIAN: Bryce Jeronimo MD CONFIRM #: [id number] LOC: 3228 CLINIC PROGRESS NOTE Corrected Copy 11/17/08 dmf/D Date of Service: 02/20/2008 SUBJECTIVE: : 1965. HPI: Mr. Carranza is known to this clinic in the past as related to a problem with a left serous otitis media. He saw Dr. Ahuja in 2003 who did a pretty thorough workup of this, including nasopharyngoscopy which did not show any abnormalities. A tube was placed at that time as well. He was doing well for certainly quite some time, but subsequently he has had some reaccumulation of fluid with the left ear feeling plugged. He does not evidently have other problems with the ears. He has had this issue now for least 10 to 15 years. No nasal obstruction or new issues from that point. PAST HISTORY: Hyperlipidemia, depression, obesity, sleep apnea, varicose veins. SOCIAL HISTORY: The patient smokes 1 pack per day. MEDS: Multivitamins, Flonase, Effexor, fish oil. ADR/ALLERGIES: NO KNOWN DRUG ALLERGIES. REVIEW OF SYSTEMS: As detailed in the HPI. OBJECTIVE: GENERAL APPEARANCE: A pleasant, well-appearing male. Voice quality is normal. Head and face exam: No deformity. Facial strength intact bilaterally. Salivary glands within normal limits to palpation. ENT exam: Right pinna, canal and TM within normal limits. Left pinna and canal normal. The TM looks to have marleny effusion behind an intact TM. No erythema or purulence. External nose without significant deformity. Intranasal exam shows some generalized congestion. No mass or lesion. Oral exam of the lips, teeth and gums within normal limits. Oropharynx shows a somewhat crowded oropharynx region. NECK: No masses, lymphadenopathy or thyromegaly appreciated. AUDIOLOGY: Patient has borderline normal bone conduction thresholds, but has a conductive loss on the left side of about 20 to 30 decibels. Tympanogram is flat on the left as well. Discrimination scores are 100%. ASSESSMENT: Mr. Austin Carranza is a 42-year-old with recurrent issues with left serous otitis media. Given Dr. Ahuja has previously assessed the nasopharynx, and this problem long since predates that visit in 2003, I do not think it is mandated to reexamine the nasopharynx today. He had a lot of trouble with that scope exam. However, I did offer certainly to replace his left-sided tube. He is aware of the risks and benefits and would like to have that done. Phenol was used to anesthetize the anterior inferior quadrant. A myringotomy was made in that location. A considerable amount of serous fluid was suctioned. A Ennis type tube was placed. Some drops were applied. I encouraged him to certainly follow up as needed with recurrence of problems. As he sees doctors, it would be good for them to periodically check on the tube and check its status, and certainly we are available here to see him as well. PLAN: See Assessment. TAA:[id number] C: 02/20/08 17:24 CONFIRM #: [id number] documented in this encounter Plan of Treatment Not on filedocumented as of this encounter Visit Diagnoses Not on filedocumented in this encounter Care Teams Lawn Care Worker Relationship Specialty Start Date End Date Vargas Mazariegos, NURSING TECH, LIME SLAKER PCP - General 07/24/10 03/28/16 documented as of this encounter
--- OUTSIDE RECORDS SUMMARY | 2022-01-26 07:14 | XMS_ITS | Encounter Summary ---
:1965 Author Organization [employer] Address [address], [place] [address] Care Team Providers Name Role Phone Juany Mazariegossocorro Jung APRN, CNP Primary Care Provider [phone] Reason for Visit Reason Comments Other Encounter Details Date Type Department Care Team Description 08/11/2008 Telephone [facility], Message Other [address] [place] [address] Social History Tobacco Use Types Packs/Day Years Used Date Smoking Tobacco: Never Assessed Sex Assigned at Date Recorded Not on file documented as of this encounter Progress Notes Chelsea Echavarria - 08/11/2008 9:13 AM CDT Phone Note filed by Chelsea Echavarria at 08/12/1015 Author: Chelsea Echavarria Service: (none) Author Type: (none) Filed: 08/12/1015 Note Time: 08/11/08912 Status: Signed Microfilm Mounter: Imr Conversion Prescription Refill Please provide enough refills to last until patient's next visit. Comment:- Pharmacy Seq #:-[phone] Pharmacy Name:-[email or web address] Street or City:-[address] Clinician Name:-MELCHOR Drug Name/Strength:-EFFEXOR XR 150 MG CAPSULE SA Sig: Dose/Route/Freq:-TAKE 1 CAPSULE BY MOUTH DAILY WITH FOOD Quantity & Last Fill:-30 07/07/08 Created on 11Aug2008 9:13am by CHELSEA ECHAVARRIA On 11Aug2008 2:08pm MAURICIO SILVA wrote: REFILL APPOINTMENT NEEDED Please call patient and schedule appointment within 30 days. Medication has been renewed and faxed to pharmacy for 30 day supply only, per protocol. Comment:- Please call pt.to schedule well check with new provider, must have at least a med check. Last med check with July 2007. On 11Aug2008 2:23pm BHASKAR SCOTT wrote: Left message on answering machine for pt. to schedule appt. WARE DEVELOPMENT ADVISOR documented in this encounter Plan of Treatment Not on filedocumented as of this encounter Visit Diagnoses Not on filedocumented in this encounter Care Teams Vending Manager Relationship Specialty Start Date End Date Vargas Mazariegos, OLDER WORKER SPECIALIST, RECLAMATION KETTLE TENDER PCP - General 07/24/10 03/28/16 documented as of this encounter
--- OUTSIDE RECORDS SUMMARY | 2022-01-26 07:14 | XMS_ITS | Encounter Summary ---
:1965 [facility] Address [address] [address] Care Team Providers Name Role Phone Vargas Mazariegos APRN, CNP Primary Care Provider [phone] Encounter Details Date Type Department Care Team Description 03/17/2009 PN Conversion Only [facility] CONVERSION [address] [place] [address] Social History Tobacco Use Types Packs/Day Years Used Date Smoking Tobacco: Never Assessed Sex Assigned at Date Recorded Not on file documented as of this encounter Plan of Treatment Not on filedocumented as of this encounter Visit Diagnoses Not on filedocumented in this encounter Care Teams Engine Inspector Relationship Specialty Start Date End Date Vargas Mazariegos APRN, CNP PCP - General 07/24/10 03/28/16 documented as of this encounter
--- OUTSIDE RECORDS SUMMARY | 2022-01-26 07:14 | XMS_ITS | Encounter Summary ---
:1965 Author Organization [employer] Address [address] [place] [address] Care Team Providers Name Role Phone Vargas Mazariegos APRN, CNP Primary Care Provider [phone] Encounter Details Date Type Department Care Team Description 03/08/2010 Office Visit [place] [facility] Vargas Mazariegos, Medicine YUE SMALLS [address] [place] [address] [place] [address] [phone] (Wo rk) Social History Tobacco Use Types Packs/Day Years Used Date Smoking Tobacco: Never Assessed Sex Assigned at Date Recorded Not on file documented as of this encounter Last Filed Vital Signs Vital Sign Reading Time Taken Comments Blood Pressure 116/80 03/08/2010 7:59 AM REGULATORY COMPLIANCE ENGINEER Pulse 68 03/08/2010 7:59 AM REGULATORY COMPLIANCE ENGINEER Temperature - - Respiratory Rate - - Oxygen Saturation - - Inhaled Oxygen Concentration - - Weight 121.6 kg (267 lb 15.9 03/08/2010 7:59 AM C: 121. 6kg oz) REGULATORY COMPLIANCE ENGINEER Height 184.2 cm (6' 0.5) 03/08/2010 7:59 AM C: 184.2cm REGULATORY COMPLIANCE ENGINEER Body Mass Index 35.85 03/08/2010 7:59 AM REGULATORY COMPLIANCE ENGINEER documented in this encounter Progress Notes Vargas Mazariegos, YUE SMALLS - 03/08/2010 12:01 AM CST Chief concern: Preventive Exam Past Medical History: Hyperlipidemia, tobacco abuse, depression, obesity, sleep apnea Surgical History: Vasectomy 1997, left ear tube 2008 Family History: (First degree family members) Family history was reviewed today and, except as noted, was found to be negative. No colon CA. Father with diabetes mellitus, AAA, coronary artery disease, hypertension. No hyperlipidemia. No hypothyroidism. No testicular or prostate cancer. Social History: Employment Status: motorcoach driver Marital Status: Children: 3 Habits: With the exception of any notes below, patient's habits were reviewed today and unchanged from [employer] note dated: Tobacco: Smokes one pack of cigarettes daily Alcohol: None Caffeine: No coffee, 4 or 5 diet Mountain Dew's daily Exercise: None Preventive Health Assessment: Preventive Health screen was reviewed and updated today in [employer]. The patient does not perform monthly genital exams. Colonoscopy is due at age 51 Cholesterol fractionation 286, triglycerides 461, HDL 33, LDL 174. Has been on Lipitor in the past, caused myalgias. Fasting glucose 87. PSA is due at age 51. DTaP immunization is due. Patient does not get yearly influenza vaccination. Review of Systems: Denies chest pain, shortness of breath, no abdominal pain, denies bowel or bladder changes. Denies numbness, tingling, or swelling in the extremities. Weight is stable. He is concerned about a family history of AAA. Father and 3 uncles all have AAA's. He has never been screened. He has a history of hyperlipidemia, previously on Lipitor which caused myalgias. His has diabetes and try to improve their diet. He does not exercise. He smokes one package of cigarettes daily. He has tried to quit in the past without success. He has never tried Chantix. He has a history of depression which is stable on Effexor. He would like to wean off of Effexor in the future if possible. Denies any current depressive symptoms. With the exception of any items noted above, the remainder of the complete ROS is negative. Current Medications: Fish oil q.d., CPAP, Effexor XR 150 mg q.d., multivitamin. Adverse Drug Reactions: Lipitor. OBJECTIVE: Vital Signs: Blood pressure 160/80, pulse 68, height 72.5 inches, weight 268 pounds, BMI 35.8. General: Patient alert, in NAD. HEENT: PERRLA. Bilateral TM's, external canals, oropharynx normal. Left TM tube in place. Neck: Supple, without thyromegaly or mass. Upper Extremities: FROM with good strength, no lesions or deformities. CV: RRR without murmurs, rubs or gallops. Resp: Clear to auscultation without crackles, wheezes or distress. Abdomen: Soft, non-tender, without hepatosplenomegaly, masses, or hernias. Lymphatic: No neck, supraclavicular, axillary or groin lymphadenopathy. Lower Extremities: FROM, normal gait without edema, lesions, or deformity. Genitalia: Circumcised male without lesions or discharge, testicles without nodules or masses, no inguinal hernias. Rectal: Normal tone, no mass, prostate normal without nodules or masses. Skin: No suspicious lesions. Neuro: CN II-XII, motor & sensory function all intact. Psychiatric: Alert & oriented with normal affect and insight. Patient does not appear depressed or anxious. ASSESSMENT: 1. Routine preventive exam. 2. Family history of AAA 3. Hyperlipidemia not treated 4. Tobacco abuse 5. Depression stable PLAN: 1. Abdominal CT without contrast pending 2. Quit smoking, Chantix prescribed. Warned of risk of increasing depression. Will continue Effexor until after Chantix was completed. Consider weaning Effexor in the future if successful. 3. Diet, exercise, weight loss recommended 4. DTaP given 5. Cholesterol fractionation, ALT, glucose, TSH, CBC, electrolytes, creatinine, CK pending 6. Consider TriCor if triglycerides are greater than 400. 7. Followup in 3 months, sooner as needed. Follow-up in 1 year, sooner PRN any concerns. Prescriptions provided, see OP Med list on Health Profile in [employer]Word. Labs: We will mail lab results to patient. Will call if abnormal. Preventive health counseling provided: *SH~DNS~PEM LATORY COMPLIANCE ENGINEER documented in this encounter Plan of Treatment Not on filedocumented as of this encounter Visit Diagnoses Not on filedocumented in this encounter Care Teams Concession Attendant Relationship Specialty Start Date End Date Vargas Mazariegos APRN, CNP PCP - General 07/24/10 03/28/16 documented as of this encounter
--- OUTSIDE RECORDS SUMMARY | 2022-01-26 07:14 | XMS_ITS | Encounter Summary ---
:1965 Author Organization [employer] Address [address] [address] Care Team Providers Name Role Phone Vargas Mazariegos Erich SMALLS CNP Primary Care Provider [phone] Encounter Details Date Type Department Care Team Description 08/08/2007 Office Visit [facility] Sameer Galindo [address] [place], [place] [id number] Social History Tobacco Use Types Packs/Day Years Used Date Smoking Tobacco: Never Assessed Sex Assigned at Date Recorded Not on file documented as of this encounter Last Filed Vital Signs Vital Sign Reading Time Taken Comments Blood Pressure 108/74 08/08/2007 10:20 AM CDT Pulse 68 08/08/2007 10:20 AM CDT Temperature - - Respiratory Rate - - Oxygen Saturation - - Inhaled Oxygen Concentration - - Weight 111.1 kg (245 lb) 08/08/2007 10:20 AM CDT C: 111 .1kg Height 184.2 cm (6' 0.5) 08/08/2007 10:20 AM CDT C: 18 4.2cm Body Mass Index 32.77 08/08/2007 10:20 AM CDT documented in this encounter Progress Notes Sameer Saldana - 08/08/2007 12:01 AM CDT Progress Notes signed by Sameer Saldana MD at 08/08/07 4456 Author: Sameer Saldana MD Service: (none) Author Type: Physician Filed: 08/13/10 0324 Note Time: 08/08/07 0001 Status: Signed Assistant Community Director: Sameer Saldana MD (Physician) SUBJECTIVE: He comes to review several medical problems, get refills and discuss some upper back and shoulder pain. He has been doing fairly well with his depression on Effexor. He thinks the dose is correct. 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 He finds this somewhat troublesome because when he is bored, he has more trouble with smoking, eating and depression. Recently he has been having some left upper back pain and along the shoulder. He has not had any injury. He doesn't think it is from computer use. He continues to smoke. He rates his desire 8/10 to quit but his confidence at only 4 or 5/10. Adverse Drug Reactions: None Medications: Reviewed. See Medication List in LastWord. OBJECTIVE: Vital Signs : Reviewed; See Flowsheet Charting in LastWord. He looks well and healthy. He is conversant and alert and has normal mood and affect. He has full range of motion of the shoulders. There is mild limitation of sidebending and rotation of the neck to the left, better to the right. Otherwise he has full zcxps-nq-yrijkl of the neck as well.there is considerable nodularity along the left trapezius border with associated tenderness. neck: The neck was supple, without masses, lymphadenopathy or tenderness. Carotids are silent. Respiratory: Normal respiratory effort. Lungs are clear with good breath sounds. Heart: RR without murmurs, rubs, or gallops. Abdomen: The abdomen was flat, soft and nontender without guarding rebound or masses. Extremities: Full ROM without limitation, deformity or edema. 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 ASSESSMENT: Depression, stable. Tobacco abuse. Hyperlipidemia. Trapezius strain.. Varicose vein. PLAN: I think he would benefit from physical therapy. We discussed his cholesterol LDL goal less than 100 . I refilled his Effexor. Encouraged him to quit smoking. Lab today including cholesterol fraction, ALT, creatinine, TSH and glucose. The patient was discharged ambulatory and in stable condition. E RIPSAW OPERATOR documented in this encounter Plan of Treatment Not on filedocumented as of this encounter Visit Diagnoses Not on filedocumented in this encounter Care Teams Feller Machine Operator Relationship Specialty Start Date End Date Vargas Mazariegos, CAFE TEAM MEMBER, BIBLE TEACHER PCP - General 07/24/10 03/28/16 documented as of this encounter
--- OUTSIDE RECORDS SUMMARY | 2022-01-26 07:14 | XMS_ITS | Encounter Summary ---
:1965 Author Organization [facility] Address [address], [place] [address] Care Team Providers Name Role Phone Vargas Mazariegos APRN, CNP Primary Care Provider [phone] Encounter Details Date Type Department Care Team Description 03/18/2010 PN Conversion Only [facility] [address] [place] [address] Social History Tobacco Use Types Packs/Day Years Used Date Smoking Tobacco: Never Assessed Sex Assigned at Date Recorded Not on file documented as of this encounter Plan of Treatment Not on filedocumented as of this encounter Visit Diagnoses Not on filedocumented in this encounter Care Teams Air Hose Coupler Relationship Specialty Start Date End Date Vargas Mazariegos APRN, CNP PCP - General 07/24/10 03/28/16 documented as of this encounter
--- OUTSIDE RECORDS SUMMARY | 2022-01-26 07:14 | XMS_ITS | Encounter Summary ---
:1965 Author Organization [facility] Address [address] [address] Care Team Providers Name Role Phone Vargas Mazariegos APRN, CNP Primary Care Provider [phone] Reason for Visit Reason Comments Other Encounter Details Date Type Department Care Team Description 04/28/[address] [facility] [address] Ear, Nose, Martha Johnson RN Other and Throat [address] [place] [address] Social History Tobacco Use Types Packs/Day Years Used Date Smoking Tobacco: Never Assessed Sex Assigned at Date Recorded Not on file documented as of this encounter Progress Notes Mauricio Johnson RN - 04/28/2009 5:04 PM CST Phone Note filed by Mauricio Johnson RN at 08/12/102099 Author: Mauricio Johnson RN Service: (none) Author Type: Registered Nurse Filed: 08/12/102099 Note Time: 04/28/091703 Status: Signed Information Technology Professor: Mauricio Johnson RN (Registered Nurse) Kelton T-tube placed in pts. left ear today. Lot# [id number] Ster.date:07/2018 Created on 28Apr2009 5:04pm by MAURICIO JOHNSON EXPERIENCE ARCHITECT documented in this encounter Plan of Treatment Not on filedocumented as of this encounter Visit Diagnoses Not on filedocumented in this encounter Care Teams Insurance Account Specialist Relationship Specialty Start Date End Date Vargas Mazariegos APRN, CNP PCP - General 07/24/10 03/28/16 documented as of this encounter
--- OUTSIDE RECORDS SUMMARY | 2022-01-26 07:14 | XMS_ITS | Encounter Summary ---
:1965 Author Organization [employer] Address [address], [place] [address] Care Team Providers Name Role Phone Vargas Mazariegos Erich SMALLS, YUE Primary Care Provider [phone] Reason for Visit Reason Comments Other Encounter Details Date Type Department Care Team Description 08/05/2007 Telephone Liliana Hensley PA-C Other [address] [place] [address] [place] [address] [phone] Social History Tobacco Use Types Packs/Day Years Used Date Smoking Tobacco: Never Assessed Sex Assigned at Date Recorded Not on file documented as of this encounter Progress Notes Miriam Porter - 08/05/2007 10:12 AM CDT Phone Note filed by Miriam Porter at 08/10/101829 Author: Miriam Porter Service: (none) Author Type: (none) Filed: 08/10/101829 Note Time: 08/05/07 1012 Status: Signed Zipper Trimmer Hand: Imr Conversion Prescription Refill Please provide enough refills to last until patient's next visit. Comment:- Pharmacy Seq #:-[phone] Pharmacy Name:-[facility] Pharmacy Street or City: Clinician Name:LONNY Drug Name/Strength:-EFFEXOR XR 150MG CAPSULE SA Sig: Dose/Route/Freq:-TAKE ONE CAPSULE BY MOUTH ONE TIME DAILY Quantity & Last Fill:-30 07/04/2007 Created on 05Aug2007 10:12am by MIRIAM PORTER On 05Aug2007 1:52pm MAURICIO SILVA wrote: Unable to refill per Medical Refill Protocol Comment: Pt.was seen 11/23/06 by and was to f/u in the fall. Has med check scheduled for 08/07. On 05Aug2007 2:13pm LILIANA CONWAY wrote: rx sent Acknowledged by LILIANA CONWAY on 2:13pm A PROMOTER documented in this encounter Plan of Treatment Not on filedocumented as of this encounter Visit Diagnoses Not on filedocumented in this encounter Care Teams Chief Ultrasound Technologist Relationship Specialty Start Date End Date Vargas Mazariegos, SOLDER TECHNICIAN, COLLOID MILL OPERATOR PCP - General 07/24/10 03/28/16 documented as of this encounter
--- OUTSIDE RECORDS SUMMARY | 2022-01-26 07:14 | XMS_ITS | Encounter Summary ---
:1965 Author Organization [employer] Address [address] [place] [address] Care Team Providers Name Role Phone Vargas Mazariegos NO EXPERIENCE, INVESTMENT ACCOUNTING CLERK Primary Care Provider [phone] Encounter Details Date Type Department Care Team Description 03/08/2010 PN Conversion Only [facility]ENJIE CONVERSIO N Vargas Mazariegos, [address] NO EXPERIENCE, [place] [address] [place] [address] (Wo rk) Social History Tobacco Use Types Packs/Day Years Used Date Smoking Tobacco: Never Assessed Sex Assigned at Date Recorded Not on file documented as of this encounter Plan of Treatment Not on filedocumented as of this encounter Procedures Procedure Name Priority Date/Time Associated Comments Diagnosis GLUCOSE Routine 03/08/2010 9:41 AM Results f or this MANUSCRIPT READER procedure are i n the results section. THYROID STIMULATING Routine 03/08/2010 9:41 AM Re sults for this HORMONE MANUSCRIPT READER procedure are i n the results section. LIPID PANEL AND Routine 03/08/2010 9:41 AM Result s for this DIRECT LDL(IF NEEDED) MANUSCRIPT READER proced ure are in the results section. CREATININE / GFR Routine 03/08/2010 9:41 AM Resul ts for this MANUSCRIPT READER procedure are i n the results section. COMPLETE BLOOD Routine 03/08/2010 9:41 AM Results for this COUNT-W/DIFF MANUSCRIPT READER procedure are i n the results section. DIFFERENTIAL Routine 03/08/2010 9:41 AM Results f or this MANUSCRIPT READER procedure are i n the results section. ALT (SGPT) Routine 03/08/2010 9:41 AM Results f or this MANUSCRIPT READER procedure are i n the results section. CK, TOTAL Routine 03/08/2010 9:41 AM Results f or this MANUSCRIPT READER procedure are i n the results section. documented in this encounter Results Differential (03/08/2010 9:41 AM MANUSCRIPT READER) athologist Signature Absolute 3.0 2.0 - 6.8 HP CONVERSION Neutrophils k/cmm Absolute 3.3 1.0 - 4.0 HP CONVERSION Lymphocytes k/cmm Absolute 0.7 0.2 - 1.0 HP CONVERSION Monocytes k/cmm Absolute 0.2 0.0 - 0.5 HP CONVERSION Eosinophils k/cmm Absolute 0.0 0.0 - 0.2 HP CONVERSION Basophils k/cmm Specimen (Source) Anatomical Collection Method Collection Time Re ceived Time Location / / Volume Laterality 03/08/2010 9:41 AM MANUSCRIPT READER Vargas Mazariegos APRN, CNP LAB_1 Performing Organization Address City/State/ZIP Code Phon e Number HP CONVERSION (ABNORMAL) Hemogram/Plts/Diff (03/08/2010 9:41 AM MANUSCRIPT READER) [facility] gist Method Time Signature White Blood Cell 7.2 3.8 - HP CONVERSION Count 11.0 k/cmm Red Blood Cell 4.24 4.20 - HP CONVERSION Count 5.90 m/cmm Hemoglobin 14.7 13.4 - HP CONVERSION 17.5 g/dL Hematocrit 42.6 39.0 - HP CONVERSION 51.0 % Mean Corpuscular 100.5 (H) 80.0 - HP CONVERSION Volume 100.0 fL RDW 13.4 11.0 - HP CONVERSION 15.0 % Platelet Count 175 140 - 450 HP CONVERSION k/cmm Specimen (Source) Anatomical Collection Method Collection Time Re ceived Time Location / / Volume Laterality 03/08/2010 9:41 AM MANUSCRIPT READER Vargas Mazariegos APRN, CNP LAB_1 Performing Organization Address City/State/ZIP Code Phon e Number HP CONVERSION THYROID STIMULATING HORMONE (03/08/2010 9:41 AM MANUSCRIPT READER) athologist Signature Thyroid 1.98 0.20 - HP CONVERSION Stimulating 4.50 mIU/L Hormone Specimen (Source) Anatomical Collection Method Collection Time Re ceived Time Location / / Volume Laterality 03/08/2010 9:41 AM MANUSCRIPT READER Vargas Mazariegos YUE SMALLS LAB_1 Performing Organization Address [facility] Code Phon e Number HP CONVERSION (ABNORMAL) Lipid Panel and Direct LDL(If Needed) (03/08/2010 9:41 AM MANUSCRIPT READER) [facility] gist Method Time Signature Cholesterol 271 (H) 0 - 200 HP CONVERSION mg/dL Triglycerides 302 (H) 0 - 149 HP CONVERSION mg/dL HDL Cholesterol 34 (L) >39 mg/dL HP CONVERSION Cholesterol/HDL 8.0 No normal HP CONVERSION Ratio Screen range LDL Calculated 177 (H) 19 - 130 HP CONVERSION mg/dL Length Of Fast 12 No normal HP CONVERSION range Specimen (Source) Anatomical Collection Method Collection Time Re ceived Time Location / / Volume Laterality 03/08/2010 9:41 AM MANUSCRIPT READER Vargas Jung Delilah SMALLS CNP LAB_1 Performing Organization Address [facility] Phon e Number HP CONVERSION GLUCOSE (03/08/2010 9:41 AM MANUSCRIPT READER) athologist Signature Lab Glucose 92 60 - 100 HP CONVERSION mg/dL Specimen (Source) Anatomical Collection Method Collection Time Re ceived Time Location / / Volume Laterality 03/08/2010 9:41 AM MANUSCRIPT READER Vargas Jung Delilah SMALLS CNP LAB_1 Performing Organization Address [facility] Phon e Number HP CONVERSION Creatinine / GFR (03/08/2010 9:41 AM MANUSCRIPT READER) athologist Signature Creatinine 1.2 0.4 - 1.3 HP CONVERSION Serum mg/dL Est GFR >60 >60 HP CONVERSION Am mL/min/1.7 Est GFR Non-Afr >60 >60 HP CONVERSION Am mL/min/1.7 Comment: Normal>60, moderate decrease 30 - 59, se henry decrease 15 - 29, renal failure <15 mL/min/1.73 m2 NOTE: ??Choose the eGFR result above audrey ropriate for the race of the patient. Specimen (Source) Anatomical Collection Method Collection Time Re ceived Time Location / / Volume Laterality 03/08/2010 9:41 AM MANUSCRIPT READER Vargas Jung Delilah SMALLS CNP LAB_1 Performing Organization Address [facility] Code Phon e Number HP CONVERSION (ABNORMAL) CK, Total (03/08/2010 9:41 AM MANUSCRIPT READER) P athologist Signature Creatine 257 (H) 0 - 225 HP CONVERSION Kinase U/L Specimen (Source) Anatomical Collection Method Collection Time Re ceived Time Location / / Volume Laterality 03/08/2010 9:41 AM MANUSCRIPT READER Vargas Mazariegos APRN, CNP LAB_1 Performing Organization Address City/State/ZIP Code Phon e Number HP CONVERSION ALT (SGPT) (03/08/2010 9:41 AM MANUSCRIPT READER) Patholo gist Method Time Signature Alanine 21 4 - 55 HP CONVERSION Aminotransferase U/L Specimen (Source) Anatomical Collection Method Collection Time Re ceived Time Location / / Volume Laterality 03/08/2010 9:41 AM MANUSCRIPT READER Vargas Mazariegos APRN, CNP LAB_1 Performing Organization Address City/[facility] Code Phon e Number HP CONVERSION documented in this encounter Visit Diagnoses Not on filedocumented in this encounter Care Teams Bottom Loader Relationship Specialty Start Date End Date Vargas Mazariegos APRN, CNP PCP - General 07/24/10 03/28/16 documented as of this encounter
--- OUTSIDE RECORDS SUMMARY | 2022-01-26 07:14 | XMS_ITS | Encounter Summary ---
:1965 Author [facility] Address [address] [address] Care Team Providers Name Role Phone Vargas Mazariegos APRN, CNP Primary Care Provider [phone] Encounter Details Date Type Department Care Team Description 05/19/2008 Procedure Visit [facility] Santos, Sean [address] [facility] [address] [address] [facility] [phone] [place] [address] (Wo rk) Social History Tobacco Use Types Packs/Day Years Used Date Smoking Tobacco: Never Assessed Sex Assigned at Date Recorded Not on file documented as of this encounter Plan of Treatment Not on filedocumented as of this encounter Visit Diagnoses Not on filedocumented in this encounter Care Teams Cell Changer Relationship Specialty Start Date End Date Vargas Mazariegos APRN, CNP PCP - General 07/24/10 03/28/16 documented as of this encounter
--- OUTSIDE RECORDS SUMMARY | 2022-01-26 07:14 | XMS_ITS | Encounter Summary ---
:1965 Author Organization [employer] Address [address], [place] [address] Care Team Providers Name Role Phone Vargas Mazariegos YUE SMALLS Primary Care Provider [phone] Encounter Details Date Type Department Care Team Description 10/22/2007 Office Visit Amelie Rome PA-C [address] [place] [address] [place] [address] [phone] (Wo rk) Social History Tobacco Use Types Packs/Day Years Used Date Smoking Tobacco: Never Assessed Sex Assigned at Date Recorded Not on file documented as of this encounter Last Filed Vital Signs Vital Sign Reading Time Taken Comments Blood Pressure 128/78 10/22/2007 3:47 PM CDT Pulse 70 10/22/2007 3:47 PM CDT Temperature - - Respiratory Rate - - Oxygen Saturation - - Inhaled Oxygen Concentration - - Weight 115.7 kg (254 lb 15.7 10/22/2007 3:47 PM C: 115. 7kg oz) CDT Height - - Body Mass Index 34.11 08/08/2007 10:20 AM CDT documented in this encounter Progress Notes Amelie Sandoval PA-C - 10/22/2007 12:01 AM CDT Progress Notes signed by Amelie Sandoval PA-C at 10/24/07 3863 Author: Amelie Sanodval PA-C Service: (none) Author Type: Physician Electrolytic Etcher Filed: 08/13/10 0516 Note Time: 10/22/07 0001 Status: Signed Help Desk Analyst: Amelie Sandoval PA-C (Physician Electrolytic Etcher) NAME: AUSTIN CARRANZA MR#: [id number] ACCT: [id number] VISIT: [id number] DICTATING CLINICIAN: Amelie Sandoval PA-C CONFIRM #: [id number] LOC: 1702 CLINIC PROGRESS NOTE DATE OF VISIT: 10/22/2007 SUBJECTIVE: CHIEF COMPLAINT: Plugged ears. Austin is a 41-year-old male who presents with 1 week of his left ear feeling plugged. He feels like his hearing has decreased. The pain sometimes will travel down into his neck. He denies any fevers, no recent URI symptoms, no facial pain, no prominent sinus congestion or pressure that he is aware of. He has not tried any treatments. PAST MEDICAL HISTORY: Reviewed in patient health profile. MEDICATIONS: Were reviewed and are current in patient health profile. ADR/ALLERGIES: NONE. SOCIAL HISTORY: He smokes a pack a day. He is not quite ready to quit. OBJECTIVE: VS: Reviewed and are current in today's [facility] patient health profile flow sheet. GENERAL: He is pleasant, in no acute distress. HEENT: Right TM and external canal is clear. Left canal is clear, TM with some clear fluid bubbles, good movement of the TM with pneumoscopy. Nares are patent, no inflammation, no discharge. Sinuses are nontender to palpation. Oropharynx with some purulent post nasal drip. NECK: Supple, no lymphadenopathy. LUNGS: Clear to auscultation bilaterally. HEART: Regular rate and rhythm, no murmurs, rubs, or gallops. ASSESSMENT: Left serous otitis media. PLAN: He will try decongestants for the next week or so and increasing his fluid intake. He will let me know if his symptoms are not improving. Discussed that it typically will resolve on his own. Will come in for a recheck if that is not the case. Austin agrees with the plan. [id number]:[id number] C: 10/23/07 15:34 CONFIRM #: [id number] documented in this encounter Plan of Treatment Not on filedocumented as of this encounter Visit Diagnoses Not on filedocumented in this encounter Care Teams Vessel Slag Worker Relationship Specialty Start Date End Date Vargas Mazariegos, SERINA, COSTUME CUTTER PCP - General 07/24/10 03/28/16 documented as of this encounter
--- OUTSIDE RECORDS SUMMARY | 2022-01-26 07:14 | XMS_ITS | Encounter Summary ---
:1965 Author Organization [employer] Address [address], [place] [address] Care Team Providers Name Role Phone Vargas Mazariegos Erich SMALLS CNP Primary Care Provider [phone] Encounter Details Date Type Department Care Team Description 05/18/2008 Office Visit [facility] Miguelina Small PA-C [address] [place] [address] [place] [address] [phone] (Wo rk) Social History Tobacco Use Types Packs/Day Years Used Date Smoking Tobacco: Never Assessed Sex Assigned at Date Recorded Not on file documented as of this encounter Last Filed Vital Signs Vital Sign Reading Time Taken Comments Blood Pressure 126/74 05/18/2008 9:45 AM SLAG WHEELER Pulse 76 05/18/2008 9:45 AM SLAG WHEELER Temperature - - Respiratory Rate - - Oxygen Saturation - - Inhaled Oxygen Concentration - - Weight 121.1 kg (266 lb 15.6 05/18/2008 9:45 AM C: 121. 1kg oz) SLAG WHEELER Height 184.2 cm (6' 0.5) 05/18/2008 9:45 AM C: 184.2cm SLAG WHEELER Body Mass Index 35.71 05/18/2008 9:45 AM SLAG WHEELER documented in this encounter Progress Notes Miguelina Hopson PA-C - 05/18/2008 12:01 AM CST Progress Notes signed by Miguelina Yang PA-C at 05/18/08 1622 Author: Miguelina Yang PA-C Service: (none) Author Type: Physician Associate Professor Of Law Filed: 08/13/10 1017 Note Time: 05/18/08 0001 Status: Signed Radiophone Operator: Miguelina Yang PA-C (Physician Associate Professor Of Law) NAME: AUSTIN CARRANZA MR#: [id number] ACCT: [id number] VISIT: [id number] DICTATING CLINICIAN: Miguelina Yang PA-C CONFIRM #: [id number] LOC: 1702 CLINIC PROGRESS NOTE DATE OF VISIT: 05/18/2008 SUBJECTIVE: : 1965. This is a pleasant, 42-year-old male who presents as a walk-in to the clinic today. He is concerned with a lesion on the margin of his left eyelid. He states it has been present for approximately 5 weeks. However, in the last 3-4 days it has become painful. It has not grown over this time and developed overnight. He denies true pain, but more of annoyance. He has noticed the red color in the last several days as well. He denies fever, chills, nausea, vomiting or diarrhea. He denies any changes in his vision. No blurry vision. He does not wear glasses. In fact, had LASIK surgery several months ago. He has not tried any naoy-euv-bdpvlce modalities to treat this lesion. REVIEW OF SYSTEMS: All other are negative except as stated above. MEDS: Reviewed and updated in LastWord. ADR/ALLERGIES: REVIEWED AND UPDATED IN LASTWORD. OBJECTIVE: VS: Reviewed and updated in LastWord. GENERAL IMPRESSION: This is a well-nourished male, resting quietly in no acute distress. Examination of the left eye shows a small, 2 mm round lesion with a distinct clear border as it is raised on the superior lid margin. No signs of infection present. However, it is slightly pink in color. No associated cellulitis. Pupils are equal and reactive to light and accommodation. The rest of the eye exam is completely normal. ASSESSMENT: 1. Skin tag versus lesion on the margin of the superior left eyelid. PLAN: 1. Due to the location of this lesion, a referral to Ophthalmology will be made. We actually did call for the appointment, and he was able to get an appointment this afternoon. His care will be transferred to Ophthalmology, and he will let me know if he has any questions or concerns in the future. [id number]:[id number] C: 05/18/08 16:14 CONFIRM #: [id number] WHEELER documented in this encounter Plan of Treatment Not on filedocumented as of this encounter Visit Diagnoses Not on filedocumented in this encounter Care Teams Cable Rigger Relationship Specialty Start Date End Date Vargas Mazariegos, SERINA, RIPENING ROOM ATTENDANT PCP - General 07/24/10 03/28/16 documented as of this encounter
--- OUTSIDE RECORDS SUMMARY | 2022-01-26 07:14 | XMS_ITS | Encounter Summary ---
:1965 Author Organization [employer] Address [address] [place] [address] Care Team Providers Name Role Phone Vargas Mazariegos Erich SMALLS CNP Primary Care Provider [phone] Reason for Visit Reason Comments Other Encounter Details Date Type Department Care Team Description 08/14/2008 Telephone [facility] [employer] [place], Message Other [address] [place] [address] Social History Tobacco Use Types Packs/Day Years Used Date Smoking Tobacco: Never Assessed Sex Assigned at Date Recorded Not on file documented as of this encounter [facility], Message - 08/14/2008 12:36 PM CDT Phone Note filed by [employer] at 08/12/1036 Author: [employer] Service: (none) Author Type: (none) Filed: 08/12/1036 Note Time: 08/14/08 1236 Status: Signed Structural Steel Detailer: [employer] (Resource) Non -Symptom Message from Front Line Caller Name/Relationship:Austin - Pt Primary Appeals Rn:Lse Message:Dr Saldana is gone and PT is on need of med ck but has no ins. States he would like to get effexor 150 mg refill for 3 months if possible and should have ins perhaps at that time. - or other suggestion for this issue? Food Checker:Austin Andres call back number:[phone] Is it OK to leave a confidential message on this voicemail?yes *[id number] Created on 14Aug2008 12:36pm by LUCI STRAUSS On 14Aug2008 3:54pm IJEOMA MERRILL wrote: I did a 90 day supply to [facility] in [place]. Acknowledged by IJEOMA MERRILL on 3:54pm On 14Aug2008 4:21pm JAISON GALAVIZ wrote: LM script faxed. ETRICS NURSE documented in this encounter Plan of Treatment Not on filedocumented as of this encounter Visit Diagnoses Not on filedocumented in this encounter Care Teams Education Program Manager Relationship Specialty Start Date End Date Vargas Mazariegos, CONSULTANT, SECURITY SME PCP - General 07/24/10 03/28/16 documented as of this encounter
--- OUTSIDE RECORDS SUMMARY | 2022-01-26 07:14 | XMS_ITS | Encounter Summary ---
:1965 Author Organization [employer] Address [address] [place] [address] Care Team Providers Name Role Phone Vargas Mazariegos Erich SMALLS, YUE Primary Care Provider [phone] Encounter Details Date Type Department Care Team Description 08/08/2007 PN Conversion Only JENNY CONVERSION Sameer Saldana [address] [place] [address] Social History Tobacco Use Types Packs/Day Years Used Date Smoking Tobacco: Never Assessed Sex Assigned at Date Recorded Not on file documented as of this encounter Plan of Treatment Not on filedocumented as of this encounter Procedures Procedure Name Priority Date/Time Associated Comments Diagnosis GLUCOSE Routine 08/08/2007 11:11 Results for this AM CDT procedure are i n the results section. THYROID STIMULATING Routine 08/08/2007 11:11 Resu lts for this HORMONE AM CDT procedure are i n the results section. LIPID PANEL AND Routine 08/08/2007 11:11 Results for this DIRECT LDL(IF NEEDED) AM CDT proced ure are in the results section. CREATININE / GFR Routine 08/08/2007 11:11 Results for this AM CDT procedure are i n the results section. ALT (SGPT) Routine 08/08/2007 11:11 Results for this AM CDT procedure are i n the results section. documented in this encounter Results (ABNORMAL) Lipid Panel and Direct LDL(If Needed) (08/08/2007 11:11 AM CDT) [facility] Method Time Signature Length Of Fast 12.0 Hours HP CONVERSION Cholesterol/HDL 7.6 No normal HP CONVERSION Ratio Screen range Cholesterol 275 (H) <200 mg/dL HP CONVERSION HDL Cholesterol 36 (L) >40 mg/dL HP CONVERSION Triglycerides 356 (H) 0 - 149 HP CONVERSION mg/dL LDL Calculated 168 (H) 0 - 130 HP CONVERSION mg/dL Comment: Specimen (Source) Anatomical Collection Method Collection Time Re ceived Time Location / / Volume Laterality 08/08/2007 11:11 AM CDT Sameer Saldana LAB_1 Performing Organization Address City/State/ZIP Code Phon e Number HP CONVERSION ALT (SGPT) (08/08/2007 11:11 AM CDT) [facility] gist Method Time Signature Alanine 20 4 - 55 HP CONVERSION Aminotransferase U/L Specimen (Source) Anatomical Collection Method Collection Time Re ceived Time Location / / Volume Laterality 08/08/2007 11:11 AM CDT Sameer Francsico Saldana LAB_1 Performing Organization Address City/[facility]/ZIP Code Phon e Number HP CONVERSION Creatinine / GFR (08/08/2007 11:11 AM CDT) athologist Signature Creatinine 1.3 0.4 - 1.3 HP CONVERSION Serum mg/dL Est GFR >60 >60 HP CONVERSION Am Comment: -[place] and Ags-Wnvecij-Gdexpgh n reference range units: mL/min/1.73m2 Normal>60, moderate decrease 30 - 59, se henry decrease 15 - 29, renal failure <15 mL/min/1.73 m2 Est GFR Non-Afr Am >60 >60 HP CONVERSI ON Specimen (Source) Anatomical Collection Method Collection Time Re ceived Time Location / / Volume Laterality 08/08/2007 11:11 AM CDT Sameer Francisco Saldana LAB_1 Performing Organization Address City/[facility]/ZIP Code Phon e Number HP CONVERSION Glucose (08/08/2007 11:11 AM CDT) athologist Signature Length Of Fast 12.0 Hours HP CONVERSION Lab Glucose 89 60 - 100 HP CONVERSION mg/dL Specimen (Source) Anatomical Collection Method Collection Time Re ceived Time Location / / Volume Laterality 08/08/2007 11:11 AM CDT Sameer Saldana LAB_1 Performing Organization Address City/State/ZIP Code Phon e Number HP CONVERSION Thyroid Stimulating Hormone (08/08/2007 11:11 AM CDT) athologist Signature Thyroid 1.49 0.20 - HP CONVERSION Stimulating 4.50 Hormone uIU/mL Specimen (Source) Anatomical Collection Method Collection Time Re ceived Time Location / / Volume Laterality 08/08/2007 11:11 AM CDT Sameer Saldana LAB_1 Performing Organization Address City/State/ZIP Code Phon e Number HP CONVERSION documented in this encounter Visit Diagnoses Not on filedocumented in this encounter Care Teams Laborer Bituminous Paving Relationship Specialty Start Date End Date Vargas Mazariegos, BAR AND FILLER ASSEMBLER, BAKER CHEF PCP - General 07/24/10 03/28/16 documented as of this encounter
--- NOTE | 2022-01-26 07:15 | CRLHL7_ITS ---
For Patients: As a result of the Century Cures Act, medical imaging exams and procedure reports are released immediately into your electronic medical record. You may view this report before your referring provider. If you have questions, please contact your health care provider. CLINICAL HISTORY: Right calf pain TECHNIQUE: A compression venous ultrasound exam was performed of the right lower extremity using de la vega-scale imaging, color Doppler and spectral Doppler analysis. FINDINGS: Sonographic imaging of the right lower extremity demonstrates normal compressibility and color Doppler venous blood flow within the common femoral vein, deep femoral vein, and the proximal greater saphenous vein. Within the thigh, the femoral vein is patent and compressible. At a lower level, the popliteal and posterior tibial veins also show normal compressibility and color Doppler venous blood flow. Limited imaging of the contralateral groin demonstrates a normal spectral waveform and color Doppler venous blood flow within the left common femoral vein. IMPRESSION: No evidence of deep vein thrombosis within the right lower extremity. Dictated by Loretta Nelson MD @ 01/26/2022 9:23:48 AM (Electronically Signed)
--- OUTSIDE RECORDS SUMMARY | 2022-01-26 07:15 | XMS_ITS | Encounter Summary ---
:1965 Author Organization [email or web address] Address [address], [place] [address] Care Team Providers Name Role Phone Vargas Mazariegos Erich SMALLS CNP Primary Care Provider [phone] Encounter Details Date Type Department Care Team Description 04/13/2005 Procedure Visit Specialty [facility] 3931 Katia Koch MD Pulmonary Medicine 3931 [facility] 39[address] [facility] [address] [place] [id number] (Wo rk) Social History Tobacco Use Types Packs/Day Years Used Date Smoking Tobacco: Never Assessed Sex Assigned at Date Recorded Not on file documented as of this encounter Last Filed Vital Signs Vital Sign Reading Time Taken Comments Blood Pressure 142/80 04/13/2005 1:18 PM WET PROCESS MILLER HEAD Pulse 101 04/13/2005 1:18 PM WET PROCESS MILLER HEAD Temperature - - Respiratory Rate - - Oxygen Saturation 95% 04/13/2005 1:18 PM WET PROCESS MILLER HEAD Inhaled Oxygen Concentration - - Weight 126.1 kg (277 lb 15.7 04/13/2005 1:18 PM C: 126. 1kg oz) WET PROCESS MILLER HEAD Height - - Body Mass Index 35.69 04/11/2005 9:04 AM WET PROCESS MILLER HEAD documented in this encounter Progress Notes Sherry Koch MD - 04/13/2005 12:01 AM CST Progress Notes signed by Sherry Koch MD at 04/18/05 0940 Author: Sherry Koch MD Service: (none) Author Type: Physician Filed: 08/12/10 0908 Note Time: 04/13/052015 Status: Signed Public Works Commissioner: Sherry Koch MD (Physician) NAME: AUSTIN CARRANZA MR: [id number] ACCT: [id number] VISIT: [id number] DICTATING CLINICIAN: SHERRY KOCH MD JOB: [id number] CLINIC PROGRESS NOTE DATE OF VISIT: 04/13/2005 SUBJECTIVE: Requesting physician is Dr. Sameer Saldana. Chief Complaint: Obstructive sleep apnea. HPI: Mr. Carranza is a 39-year-old man with a history of snoring, observed apneas, and excessive daytime sleepiness who was seen, today, for evaluation of obstructive sleep apnea. He notes that he is sleepy to the point that he will fall asleep and fight to stay awake, even while working on the computer. He denies any sleepiness while driving. He denies any true cataplexy and states he only had one possible blackout episode with laughing. There are no hypnogogic hallucinations or sleep paralysis. He does typically go to bed at 11 o'clock p.m. with a short sleep latency. He will wake up more than two times per night and subsequently get up at 6:45 in the morning. He naps most days. He denies any sleep-walking, but does talk in his sleep. PAST MEDICAL HISTORY: Depression, obesity, hyperlipidemia, tobacco abuse. SOCIAL HISTORY: He continues to smoke approximately 15 cigarettes per day. He drinks one alcoholic beverage per day. He is . 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 FAMILY HISTORY: Notable for a father with obstructive sleep apnea. No known heart disease. REVIEW OF SYSTEMS: A full review of systems is completed and is negative, except as noted above and in the HPI. OBJECTIVE: VS: BP: 142/80. P: 101. Wt: 278 lb. O2 sat: 95% on room air. In general, he is pleasant, alert, and in no acute distress. Eyes: PERRL, EOMI. ENT: Neck is supple without lymphadenopathy or masses. Oropharynx is benign. Sinuses are nontender. Left tympanic membrane is clear. Right tympanic membrane is occluded by cerumen. PULMONARY: Clear to auscultation, bilaterally, no dullness to percussion. CARDIOVASCULAR: Regular rate and rhythm without murmurs, clicks, or rubs. No palpable heave. GI: Abdomen is soft, nontender, nondistended, positive bowel sounds, no hepatosplenomegaly. MUSCULOSKELETAL: Lower extremities are warm, well-formed, and without edema. NEUROLOGIC: Deep tendon reflexes are equal, bilaterally. Gait is normal. There are no tremors. PSYCHIATRIC: He is pleasant, alert, and in no acute distress. He has a bright affect and is an excellent historian. Polysomnogram results: Mr. Carranza recently underwent polysomnographic testing. He was found to have severe obstructive sleep apnea with an apnea hypopnea index of 52 events per hour. This was effectively treated with CPAP at 9 cm water pressure. ASSESSMENT: Severe obstructive sleep apnea. I did discuss, at length, with Mr. Carranza his diagnosis. We similarly discussed consequences of untreated obstructive sleep apnea, including excessive daytime sleepiness, as well as cardiovascular consequences. He has been on CPAP for the past week and has noted a significant improvement in his daytime sleepiness. He is no longer needing to nap and his has not noted any snoring. Overall, he feels that he is tolerating the machine quite well and has no concerns with its use. I did discuss with him the fact that he should follow up with me, in the future, if he experiences any change in terms of tolerance to CPAP or change of his daytime symptoms. Certainly, if his snoring returns, or he begins to feel sleepy again, I would like to see him back in clinic for a reevaluation. All of his questions were answered and he will follow up on a p.r.n. basis. PLAN: See assessment. LMB:[id number] C: 04/14/05 12:19 DOCUMENT: [id number] PROCESS MILLER HEAD documented in this encounter Plan of Treatment Not on filedocumented as of this encounter Visit Diagnoses Not on filedocumented in this encounter Care Teams Upholstery Cutter Relationship Specialty Start Date End Date Vargas Mazariegos, CONTINUITY DIRECTOR, LUSTERER PCP - General 07/24/10 03/28/16 documented as of this encounter
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
--- OUTSIDE RECORDS SUMMARY | 2022-01-26 07:15 | XMS_ITS | Encounter Summary ---
:1965 Author Organization [employer] Address [address] [place] [address] Care Team Providers Name Role Phone Vargas Mazariegos Erich SMALLS, YUE Primary Care Provider [phone] Reason for Visit Reason Comments Other Encounter Details Date Type Department Care Team Description 07/18/2006 Telephone [facility] [employer] [place], Message Other [address] [place] [address] Social History Tobacco Use Types Packs/Day Years Used Date Smoking Tobacco: Never Assessed Sex Assigned at Date Recorded Not on file documented as of this encounter [facility], Message - 07/18/2006 12:19 PM CDT Phone Note filed by [employer] at 08/09/101805 Author: [employer] Service: (none) Author Type: (none) Filed: 08/09/101805 Note Time: 07/18/06 1219 Status: Signed Licensed Loan Officer: [employer] Patient calling, he was in to see Dr. Roche on 06/14/06. He was given a rx for Effexor XR 75mg 1 every day #30. His insurance will be running out at the end of this month and he wonders if he can get a 90 day refill? Please call him at [phone] (ok to ) [facility] seq [phone]. Created on 18Jul2006 12:19pm by KYAW BARTH On 18Jul2006 12:36pm MELITA ROCHE wrote: OK. I do not know if they will honor it. I faxed. kpo Acknowledged by MELITA ROCHE on 12:36pm On 18Jul2006 2:18pm BHASKAR SCOTT wrote: Notified pt. R SETTER documented in this encounter Plan of Treatment Not on filedocumented as of this encounter Visit Diagnoses Not on filedocumented in this encounter Care Teams Paper Twister Relationship Specialty Start Date End Date Vargas Mazariegos, CLERK OF WORKS, FOUR HORSE HITCH DRIVER PCP - General 07/24/10 03/28/16 documented as of this encounter
--- OUTSIDE RECORDS SUMMARY | 2022-01-26 07:15 | XMS_ITS | Encounter Summary ---
:1965 Author Organization [facility] Address [address], [place] [address] Care Team Providers Name Role Phone Vargas Mazariegos APRN, CNP Primary Care Provider [phone] Encounter Details Date Type Department Care Team Description 11/23/2006 PN Conversion Only JENNY CONVERSION [address] [place] [address] Social History Tobacco Use Types Packs/Day Years Used Date Smoking Tobacco: Never Assessed Sex Assigned at Date Recorded Not on file documented as of this encounter Plan of Treatment Not on filedocumented as of this encounter Visit Diagnoses Not on filedocumented in this encounter Care Teams Airplane Flight Attendant Relationship Specialty Start Date End Date Vargas Mazariegos APRN, CNP PCP - General 07/24/10 03/28/16 documented as of this encounter
--- OUTSIDE RECORDS SUMMARY | 2022-01-26 07:15 | XMS_ITS | Encounter Summary ---
:1965 Author Organization [employer] Address [address], [place] [address] Care Team Providers Name Role Phone Unassigned, Provider Primary Care Provider Unavailable Encounter Details Date Type Department Care Team Description 04/04/2005 Hospital Encounter SYNAGOGUE CONVERSION Wilma Dailey MD [address] [facility] [address] [place] [address] (Wo rk) Social History Tobacco Use Types Packs/Day Years Used Date Smoking Tobacco: Never Assessed Sex Assigned at Date Recorded Not on file documented as of this encounter Medications at Time of Discharge Medication Sig Dispensed Refills Start Date End Date Multiple Take 1 tablet by 100 13 03/31/2004 Vitamins-Minerals mouth daily (every (MULTIVITAMIN OR) 24 hours). omega-3 fatty acids (FISH daily (every 24 0 03/3108/08/2007 OIL) 1000 MG capsule hours). sertraline (AKA ZOLOFT) Take 1 tablet by 90 3 200411/23/2006 100 MG tablet mouth daily (every 24 hours). sertraline (AKA ZOLOFT) Take 1 tablet by 90 0 200411/23/2006 100 MG tablet mouth daily (every 24 hours). LW Comment:NEEDS APPT sertraline (AKA ZOLOFT) Take 1 tablet by 90 3 200311/23/2006 100 MG tablet mouth daily (every 24 hours). sertraline (AKA ZOLOFT) Take 1 tablet by 90 3 200311/23/2006 100 MG tablet mouth daily (every 24 hours). UNKNOWN MEDICATION Indications: PN: 0 01/19/2005 04/19/2010 UNKNOWN MEDICATION Indications: PN: 0 05/23/2004 04/19/2010 UNKNOWN MEDICATION Indications: PN: 0 03/31/2004 04/19/2010 documented as of this encounter Plan of Treatment Not on filedocumented as of this encounter Visit Diagnoses Not on filedocumented in this encounter Care Teams Bed Rubber Relationship Specialty Start Date End Date Unassigned, Provider PCP - General 01/23/01 06/21/[address] [place] [id number] documented as of this encounter
--- OUTSIDE RECORDS SUMMARY | 2022-01-26 07:15 | XMS_ITS | Encounter Summary ---
:1965 Author Organization [facility] Address [address] [address] Care Team Providers Name Role Phone Vargas Mazariegos Erich SMALLS CNP Primary Care Provider [phone] Encounter Details Date Type Department Care Team Description 03/26/2006 Office Visit [facility] Sameer Galindo [address] [place] [address] Social History Tobacco Use Types Packs/Day Years Used Date Smoking Tobacco: Never Assessed Sex Assigned at Date Recorded Not on file documented as of this encounter Last Filed Vital Signs Vital Sign Reading Time Taken Comments Blood Pressure 110/70 03/26/2006 1:45 PM WASTEWATER TREATMENT PLANT OPERATOR Pulse 64 03/26/2006 1:45 PM WASTEWATER TREATMENT PLANT OPERATOR Temperature - - Respiratory Rate - - Oxygen Saturation - - Inhaled Oxygen Concentration - - Weight 121.6 kg (267 lb 15.9 03/26/2006 1:45 PM C: 121. 6kg oz) WASTEWATER TREATMENT PLANT OPERATOR Height - - Body Mass Index 34.41 04/11/2005 9:04 AM WASTEWATER TREATMENT PLANT OPERATOR documented in this encounter Progress Notes Sameer Saldana - 03/26/2006 12:01 AM CST Progress Notes signed by Sameer Saldana MD at 03/26/06 1428 Author: Sameer Saldana MD Service: (none) Author Type: Physician Filed: 08/12/10 1557 Note Time: 03/26/06 0001 Status: Signed Eyewear Consultant: Sameer Saldana MD (Physician) SUBJECTIVE: [place] comes to review his depression. One thing he has notices that he is picking at his thumbnails on a regular basis. He has seen an ad for an antidepressant that helps with compulsive behaviors, however he can't remember which one that is. He is also smoking and would like to stop. He has picked April 16 as his quit date. He is willing to start using some bupropion prior to that time. He has found substantial benefit from using his CPAP. He thinks that he could lose some weight if he would get some more activity and fitness. Adverse Drug Reactions: None Medications: Reviewed. See Medication List in LastWord. OBJECTIVE: Vital Signs : Reviewed; See Flowsheet Charting in LastWord. He looks well and healthy. He is conversant and alert. He has the faint odor of tobacco. He has normal mood and affect. Both thumbnails have longitudinal grooves in them and he demonstrates the picking activity that he does. Today no other exam is done. His PHQ-9 score is five ASSESSMENT: Depression with some compulsive behaviors. Tobacco abuse. PLAN: I refilled her Zoloft at 100 mg per day. Start bupropion 150 SR, one a day for a week then b.i.d. Recheck with me in approximately 1 month. The patient was discharged ambulatory and in stable condition. 25 minutes, all counseling. EWATER TREATMENT PLANT OPERATOR documented in this encounter Plan of Treatment Not on filedocumented as of this encounter Visit Diagnoses Not on filedocumented in this encounter Care Teams Slicing Machine Operator/Tender Relationship Specialty Start Date End Date Vargas Mazariegos, SERINA, WORKFORCE DEVELOPMENT PROGRAM DIRECTOR PCP - General 07/24/10 03/28/16 documented as of this encounter
--- OUTSIDE RECORDS SUMMARY | 2022-01-26 07:15 | XMS_ITS | Encounter Summary ---
:1965 Author Organization [facility] Address [address] [address] Care Team Providers Name Role Phone Vargas Mazariegos APRN, CNP Primary Care Provider [phone] Encounter Details Date Type Department Care Team Description 03/26/2006 PN Conversion Only [facility] CONVERSION [address] [place] [address] Social History Tobacco Use Types Packs/Day Years Used Date Smoking Tobacco: Never Assessed Sex Assigned at Date Recorded Not on file documented as of this encounter Plan of Treatment Not on filedocumented as of this encounter Visit Diagnoses Not on filedocumented in this encounter Care Teams Sand Carrier Relationship Specialty Start Date End Date Vargas Mazariegos APRN, CNP PCP - General 07/24/10 03/28/16 documented as of this encounter
--- OUTSIDE RECORDS SUMMARY | 2022-01-26 07:15 | XMS_ITS | Encounter Summary ---
:1965 [facility] Address [address] [address] Care Team Providers Name Role Phone Vargas Mazariegos APRN, CNP Primary Care Provider [phone] Encounter Details Date Type Department Care Team Description 02/03/2005 PN Conversion Only [facility] [facility] [address] [place] [address] Social History Tobacco Use Types Packs/Day Years Used Date Smoking Tobacco: Never Assessed Sex Assigned at Date Recorded Not on file documented as of this encounter Plan of Treatment Not on filedocumented as of this encounter Visit Diagnoses Not on filedocumented in this encounter Care Teams Therapy Coordinator Relationship Specialty Start Date End Date Vargas Mazariegos APRN, CNP PCP - General 07/24/10 03/28/16 documented as of this encounter
--- OUTSIDE RECORDS SUMMARY | 2022-01-26 07:15 | XMS_ITS | Encounter Summary ---
:1965 Author Organization [facility] Address [address] [place] [address] Care Team Providers Name Role Phone Vargas Mazariegos YUE SMALLS Primary Care Provider [phone] Encounter Details Date Type Department Care Team Description 02/06/2005 PN Conversion Only [facility] Mina Cooper MD [address] [facility] [address] [place], [place] [id number] (Wo rk) Social History Tobacco Use Types Packs/Day Years Used Date Smoking Tobacco: Never Assessed Sex Assigned at Date Recorded Not on file documented as of this encounter Plan of Treatment Not on filedocumented as of this encounter Procedures Procedure Name Priority Date/Time Associated Comments Diagnosis [place] STRESS Routine 02/06/2005 12:05 Result s for this ECHOCARDIOGRAM PM CDT procedure are in the results section. documented in this encounter Results [place] Stress Echocardiogram (02/06/2005 12:05 PM CDT) Specimen (Source) Anatomical Collection Method Collection Time Re ceived Time Location / / Volume Laterality 02/06/2005 12:05 PM CDT Narrative HP CONVERSION - 02/06/2005 12:05 PM CDT This study included two-dimensional echo, pulse, continuous wave and color Doppler. INDICATION FOR EXAM: Dyspnea. ??(786.09) DEFINITY: 0.6 cc HEMODYNAMICS: Resting heart rate: 73 ? Resting blood pressure: 118/80 Maximum predicted heart rate: 182 ? Maximum blood pressure: 228/90 85% Max predicted heart rate: 155 ? Rate pressure product: ??36,480 Maximum heart rate achieved: ??160 ?Exercise duration: 10:19 % Maximum heart rate achieved: 87% ?? M ets: ??11.0 HEIGHT: 6' ?WEIGHT: 265 ? BSA: 2.4 m^2 ?TECH: BW MEDICATIONS: ??No medications which woul d affect test results. PROTOCOL: ??Bike ergometer-echocardiogra m with contrast. SYMPTOMS: ??Moderate shortness of breath . Protocol completed; Predicted heart rate achieved. ECG, REST: ??Normal ST-T segments. ECG, STRESS: ??No significant ST segment shifts noted. ECHO, REST: ??Chamber size, wall motion, and wall thickness are normal. No significant valvular abnormalities ar e seen. ??Global left ventricular function is normal. ??The vi sually estimated left ventricular ejection fraction is 60%. ECHO, STRESS: ??All segments display audrey ropriate hyperkinesis; ejection fraction increases appropriately. CONCLUSION: ??1. ??Normal exercise echoc ardiogram with adequate ? heart rate and workload. ? 2. ??Image quality wa s good. ? 3. ??No evidence for inducible ischemia. PRIMARY MD: ??Dr. Sameer Saldana Noah Gomes MD PN ECHO ORDERABLES Performing Organization Address City/State/ZIP Code Phon e Number HP CONVERSION documented in this encounter Visit Diagnoses Not on filedocumented in this encounter Care Teams Director Of Assessing Relationship Specialty Start Date End Date Vargas Mazariegos, INVENTORY CONTROL/SHIPPING RECEIVING, MEASUREMENT SPECIALIST PCP - General 07/24/10 03/28/16 documented as of this encounter
--- OUTSIDE RECORDS SUMMARY | 2022-01-26 07:15 | XMS_ITS | Encounter Summary ---
:1965 Author Organization [employer] Address [address] [address] Care Team Providers Name Role Phone Vargas Mazariegos Erich SMALLS, YUE Primary Care Provider [phone] Encounter Details Date Type Department Care Team Description 11/23/2006 Office Visit [facility] Sameer Galindo [address] [place], [place] [id number] Social History Tobacco Use Types Packs/Day Years Used Date Smoking Tobacco: Never Assessed Sex Assigned at Date Recorded Not on file documented as of this encounter Last Filed Vital Signs Vital Sign Reading Time Taken Comments Blood Pressure 140/78 11/23/2006 4:42 PM CDT Pulse 68 11/23/2006 4:42 PM CDT Temperature - - Respiratory Rate - - Oxygen Saturation - - Inhaled Oxygen Concentration - - Weight 115.2 kg (253 lb 15.9 11/23/2006 4:42 PM C: 115. 2kg oz) CDT Height 188 cm (6' 2) 11/23/2006 4:42 PM C: 188.0cm CDT Body Mass Index 32.61 11/23/2006 4:42 PM CDT documented in this encounter Progress Notes Sameer Saldana - 11/23/2006 12:01 AM CDT Progress Notes signed by Sameer Saldana MD at 11/23/061905 Author: Sameer Saldana MD Service: (none) Author Type: Physician Filed: 08/12/102053 Note Time: 11/23/06 0001 Status: Signed Image Assembler: Sameer Saldana MD (Physician) SUBJECTIVE: Austin comes to review his cholesterol and his antidepressant. He hasn't find any value to the Effexor at the current dose. We weren't sure that Cymbalta would be covered consequently we decided to try this one. He is also appropriately concerned about his cholesterol which has been elevated. He continues to smoke about a pack of cigarettes per day. This you would like to stop and rates importance about 5/10. His confidence is very low however rating this only at 2/10. Social History : Currently working at [employer] and enjoying it quite a bit. His has not taken a new job with [employer]. Adverse Drug Reactions: Medications: Reviewed. See Medication List in LastWord. OBJECTIVE: Vital Signs : Reviewed; See Flowsheet Charting in LastWord. He looks well and healthy. He is conversant and alert and has normal mood and affect.Neck: The neck was supple, without masses, lymphadenopathy or tenderness. Carotids are silent. Respiratory: Normal respiratory effort. Lungs are clear with good breath sounds. Heart: RR without murmurs, rubs, or gallops. Abdomen: The abdomen was flat, soft and nontender without guarding rebound or masses. Extremities: Full ROM without limitation, deformity or edema. PHQ-9 score is 6 ASSESSMENT: Depression. Tobacco addiction. Hyperlipidemia. PLAN: Today he will have cholesterol fraction, glucose, ALT, creatinine and ABC. Increase the Effexor to two pills daily. He will try that for the next two weeks and then let us know how things are going. We could go up to 3 of the pills. If no benefit, we will switch to Cymbalta. The patient was discharged ambulatory and in stable condition. AL SERVICE LIAISON documented in this encounter Plan of Treatment Not on filedocumented as of this encounter Visit Diagnoses Not on filedocumented in this encounter Care Teams Spool Maker Relationship Specialty Start Date End Date Vargas Mazariegos, FAMILY AND MARRIAGE COUNSELLOR, RN NICU PCP - General 07/24/10 03/28/16 documented as of this encounter
--- OUTSIDE RECORDS SUMMARY | 2022-01-26 07:15 | XMS_ITS | Encounter Summary ---
:1965 Author Organization [employer] Address [address] [place] [address] Care Team Providers Name Role Phone DelilahJuany chunsocorro Jung APRN, YUE Primary Care Provider Reason for Visit Reason Comments Other Encounter Details Date Type Department Care Team Description 03/22/2006 Telephone [facility], Message Other [address] [place] [address] Social History Tobacco Use Types Packs/Day Years Used Date Smoking Tobacco: Never Assessed Sex Assigned at Date Recorded Not on file documented as of this encounter Progress Notes Miriam Porter - 03/22/2006 8:28 AM CST Phone Note filed by Miriam Porter at 08/09/10 1130 Author: Miriam Porter Service: (none) Author Type: (none) Filed: 08/09/10 1130 Note Time: 03/22/06827 Status: Signed Motorman/Woman: Imr Conversion Prescription Refill Please provide enough refills to last until patient's next visit. Comment:- Pharmacy Seq #:-[phone] Pharmacy Name:-[facility] Pharmacy Street or City: Clinician Name:-MELCHOR Drug Name/Strength:-SERTRALINE 100 MG TA (FOR ZOLOFT 100MG) Sig: Dose/Route/Freq:-TAKE ONE TABLET BY MOUTH DAILY Quantity & Last Fill:-02/06/2006 Created on 22Mar2006 8:28am by MIRIAM PORTER On 22Mar2006 1:40pm MAURICIO SILVA wrote: Unable to refill per Medical Refill Protocol Comment: Pt.last seen 01/19/05. Is scheduled for 03/26/06. On 22Mar2006 5:37pm MELITA ROCHE wrote: ok one month. kpo Acknowledged by MELITA ROCHE on 5:37pm On 23Mar2006 7:54am ALANNA COLVIN wrote: Rx called into message line at [facility] for one month supply. Ok pr Dr. Roche. ONAL CLINICAL RESEARCH ASSOCIATE documented in this encounter Plan of Treatment Not on filedocumented as of this encounter Visit Diagnoses Not on filedocumented in this encounter Care Teams Qa Manager Relationship Specialty Start Date End Date Vargas Mazariegos, REGIONAL AIRLINE PILOT, DRYING EQUIPMENT OPERATOR PCP - General 07/24/10 03/28/16 documented as of this encounter
--- OUTSIDE RECORDS SUMMARY | 2022-01-26 07:15 | XMS_ITS | Encounter Summary ---
:1965 Author Organization [facility] [facility] Address [address] [address] Care Team Providers Name Role Phone Vargas Mazariegos YUE SMALLS Primary Care Provider [phone] Encounter Details Date Type Department Care Team Description 04/11/2005 Office Visit [facility] Krystle Bonilla [address] [place] [address] [facility] [address] [phone] [place], [place] [address] Social History Tobacco Use Types Packs/Day Years Used Date Smoking Tobacco: Never Assessed Sex Assigned at Date Recorded Not on file documented as of this encounter Last Filed Vital Signs Vital Sign Reading Time Taken Comments Blood Pressure 134/72 04/11/2005 9:04 AM CONCRETE JOURNEYMAN Pulse 72 04/11/2005 9:04 AM CONCRETE JOURNEYMAN Temperature - - Respiratory Rate - - Oxygen Saturation - - Inhaled Oxygen Concentration - - Weight 127 kg (279 lb 15.8 oz) 04/11/2005 9:04 AM C: 12 7.0kg CONCRETE JOURNEYMAN Height 188 cm (6' 2) 04/11/2005 9:04 AM C: 188.0cm CONCRETE JOURNEYMAN Body Mass Index 35.95 04/11/2005 9:04 AM CONCRETE JOURNEYMAN documented in this encounter Progress Notes Krystle Bonilla MD - 04/11/2005 12:01 AM CST Progress Notes signed by Krystle Mcrae MD at 04/11/05 1558 Author: Krystle Mcrae MD Service: (none) Author Type: Physician Filed: 08/12/10 0903 Note Time: 04/11/05 0001 Status: Signed Shuttle Hand: Krystle Mcrae MD (Physician) SUBJECTIVE: Austin 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 He is no other questions or concerns. OBJECTIVE: Vital Signs : Reviewed; See Flowsheet Charting in LastWord. Please see scanned DOT physical exam form. ASSESSMENT: 39-year-old male in for DOT exam. PLAN: Forms were filled out patient was provided with his card. Since there was trace amount of blood in his urine, he will follow with his primary physician in the next two to three weeks. RETE JOURNEYMAN documented in this encounter Plan of Treatment Not on filedocumented as of this encounter Visit Diagnoses Not on filedocumented in this encounter Care Teams Base Cloth Inspector Relationship Specialty Start Date End Date Vargas Mazariegos, CONFIGURATION MANAGEMENT ANALYST, HAND FUNNEL COATER PCP - General 07/24/10 03/28/16 documented as of this encounter
--- OUTSIDE RECORDS SUMMARY | 2022-01-26 07:15 | XMS_ITS | Encounter Summary ---
:1965 Author Organization [employer] Address [address] [place] [address] Care Team Providers Name Role Phone Vargas Mazariegos Erich SMALLS CNP Primary Care Provider [phone] Reason for Visit Reason Comments Other Encounter Details Date Type Department Care Team Description 11/27/2006 Telephone [facility] Tango Card Jackson, Message Other [address] [place] [address] Social History Tobacco Use Types Packs/Day Years Used Date Smoking Tobacco: Never Assessed Sex Assigned at Date Recorded Not on file documented as of this encounter Progress Notes Mauricio Nye - 11/27/2006 4:00 PM CDT Phone Note filed by Mauricio Nye at 08/10/10137 Author: Mauricio Nye Service: (none) Author Type: (none) Filed: 08/10/10137 Note Time: 11/27/06 1600 Status: Signed Industrial Automation Engineer: Imr Conversion Non -Symptom Message from Front Line Caller Name/Relationship:pt Primary Chick Sexer:Les Message:Pt was prescribed Effoxer by Dr Roche, and his insurance doesn't cover it. Excavating Supervisor:Austin Andres call back number:[phone] Is it OK to leave a confidential message on this voicemail? yes *ECODE~[id number] Created on 27Nov2006 4:00pm by MAURICIO NYE On 27Nov2006 4:42pm CAMILA GUTIÉRREZ wrote: Message was left for the pt to call us back. On 28Nov2006 10:48am JAISON GALAVIZ wrote: Script was just increased to 2 tabs. a day 8-7. Pt was on Zoloft and Wellbutrin. Do you want to try Cymbalta or Effexor a 2 a day. On 28Nov2006 11:42am JAISON GALAVIZ wrote: PA will be filled out and faxed. Pt advised to call Pharm in 3 days and have them run the script. On 28Nov2006 1:00pm MELITA ROCHE wrote: He could try Cymbalta 30 mg, one a day for a week and then two a day, if it is covered by his insurance. If not, I am comfortable having him return to the Zoloft and Wellbutrin or going up on the Effexor, whichever he feels he wants to try. Regardless he will need a follow-up appointment with me in one month. KPO Acknowledged by MELITA ROCHE on 1:00pm On 28Nov2006 1:06pm JAISON GALAVIZ wrote: Pt stated he would like to stay with the Effexor. PA was done. L PREPAREDNESS COORDINATOR documented in this encounter Plan of Treatment Not on filedocumented as of this encounter Visit Diagnoses Not on filedocumented in this encounter Care Teams Elevator Operator Relationship Specialty Start Date End Date Vargas Mazariegos, SERINA, YARN SALVAGER PCP - General 07/24/10 03/28/16 documented as of this encounter
--- OUTSIDE RECORDS SUMMARY | 2022-01-26 07:15 | XMS_ITS | Encounter Summary ---
:1965 Author Organization [employer] Address [address] [place] [address] Care Team Providers Name Role Phone Vargas Mazariegos BARBACK, TEAR DOWN WORKER Primary Care Provider [phone] Encounter Details Date Type Department Care Team Description 01/19/2005 PN Conversion Only JENNY CONVERSION Sameer Saldana [address] [place] [address] Social History Tobacco Use Types Packs/Day Years Used Date Smoking Tobacco: Never Assessed Sex Assigned at Date Recorded Not on file documented as of this encounter Plan of Treatment Not on filedocumented as of this encounter Procedures Procedure Name Priority Date/Time Associated Comments Diagnosis GLUCOSE Routine 01/19/2005 10:17 Results for this AM CDT procedure are i n the results section. THYROID STIMULATING Routine 01/19/2005 10:17 Resu lts for this HORMONE AM CDT procedure are i n the results section. LIPID PANEL AND Routine 01/19/2005 10:17 Results for this DIRECT LDL(IF NEEDED) AM CDT proced ure are in the results section. LDL CHOLESTEROL, Routine 01/19/2005 10:17 Results for this DIRECT MEASURED AM CDT procedure ar e in the results section. CREATININE / GFR Routine 01/19/2005 10:17 Results for this AM CDT procedure are i n the results section. COMPLETE BLOOD Routine 01/19/2005 10:17 Results f or this COUNT-W/DIFF AM CDT procedure are i n the results section. ALT (SGPT) Routine 01/19/2005 10:17 Results for this AM CDT procedure are i n the results section. POTASSIUM Routine 01/19/2005 10:17 Results for this AM CDT procedure are i n the results section. documented in this encounter Results (ABNORMAL) Complete Blood Count-W/Diff (01/19/2005 10:17 AM CDT) [facility] S3Bubble Method Time Signature White Blood Cell 8.4 3.8 - 11.0 HP CONVERSIO N Count K/cmm Red Blood Cell 4.25 4.20 - HP CONVERSION Count 5.90 m/cmm Hemoglobin 14.3 13.4 - HP CONVERSION 17.5 gm/dL Hematocrit 41.8 39.0 - HP CONVERSION 51.0 % Mean Corpuscular 98.5 80.0 - HP CONVERSION Volume 100.0 fl Mean Corpuscular 33.7 27.0 - HP CONVERSION Hemoglobin 34.0 pg Mean Corpuscular 34.2 32.0 - HP CONVERSION Hemoglobin Conc 36.5 gm/dL Julian RDW 12.4 11.0 - HP CONVERSION 15.0 % Platelet Count 214 140 - 450 HP CONVERSION k/cmm Differential Auto-Dif No normal HP CONVERSION Verify range Neutrophils 3.9 2.0 - 7.5 HP CONVERSION Absolute Count K/cmm Neutrophil 46.4 (L) 50.0 - HP CONVERSION 75.0 % Lymphocyte % 44.5 (H) 20.0 - HP CONVERSION 40.0 % Monocyte 6.0 5.0 - 14.0 HP CONVERSION % Eosinophil 2.4 0.0 - 6.0 HP CONVERSION % Basophil % 0.7 0.0 - 2.0 HP CONVERSION % Specimen (Source) Anatomical Collection Method Collection Time Re ceived Time Location / / Volume Laterality 01/19/2005 10:17 AM CDT Sameer Saldana MD LAB_1 Performing Organization Address City/State/ZIP Code Phon e Number HP CONVERSION ALT (SGPT) (01/19/2005 10:17 AM CDT) [facility] S[facility]ubble Method Time Signature Alanine 51 0 - 65 HP CONVERSION Aminotransferase U/L Specimen (Source) Anatomical Collection Method Collection Time Re ceived Time Location / / Volume Laterality 01/19/2005 10:17 AM CDT Sameer Saldana MD LAB_1 Performing Organization Address City/State/ZIP Code Phon e Number HP CONVERSION Creatinine / GFR (01/19/2005 10:17 AM CDT) athologist Signature Creatinine 1.0 0.5 - 1.5 HP CONVERSION Serum mg/dL Specimen (Source) Anatomical Collection Method Collection Time Re ceived Time Location / / Volume Laterality 01/19/2005 10:17 AM CDT Sameer Saldana MD LAB_1 Performing Organization Address City/State/ZIP Code Phon e Number HP CONVERSION Glucose (01/19/2005 10:17 AM CDT) athologist Signature Length Of Fast 12.0 Hours HP CONVERSION Lab Glucose 85 60 - 100 HP CONVERSION mg/dL Specimen (Source) Anatomical Collection Method Collection Time Re ceived Time Location / / Volume Laterality 01/19/2005 10:17 AM CDT Sameer Saldana MD LAB_1 Performing Organization Address City/State/ZIP Code Phon e Number HP CONVERSION Potassium (01/19/2005 10:17 AM CDT) athologist Signature Potassium 4.0 3.5 - 5.2 HP CONVERSION meq/L Specimen (Source) Anatomical Collection Method Collection Time Re ceived Time Location / / Volume Laterality 01/19/2005 10:17 AM CDT Sameer Saldana MD LAB_1 Performing Organization Address City/State/ZIP Code Phon e Number HP CONVERSION (ABNORMAL) Lipid Panel and Direct LDL(If Needed) (01/19/2005 10:17 AM CDT) [facility] gist Method Time Signature Length Of Fast 12.0 Hours HP CONVERSION Cholesterol/HDL 11.3 No normal HP CONVERSION Ratio Screen range Cholesterol 316 (H) <200 mg/dL HP CONVERSION Comment: Borderline high: 200-239 mg/dL High risk: >240 mg/dL HDL Cholesterol 28 (L) 40 - 60 mg/dL HP CONVERS ION Comment: Desirable: >39 mg/dL Higher risk: <40 mg/dL Triglycerides 794 0 - 149 mg/dL HP CONVERSIO N Comment: Borderline high: 150-199 mg/dL High risk: 200-499 mg/dL Very high risk: 500 mg/dL or greater LDL Calculated See Note (A) 0 - 130 mg/dL HP CONVE RSION Comment: Unable to calculate due to >400 mg/dL Tr iglyceride. Specimen (Source) Anatomical Collection Method Collection Time Re ceived Time Location / / Volume Laterality 01/19/2005 10:17 AM CDT Sameer Saldana MD LAB_1 Performing Organization Address City/[facility]/ZIP Code Phon e Number HP CONVERSION Thyroid Stimulating Hormone (01/19/2005 10:17 AM CDT) athologist Signature Thyroid 2.47 0.20 - HP CONVERSION Stimulating 4.50 Hormone uIU/mL Specimen (Source) Anatomical Collection Method Collection Time Re ceived Time Location / / Volume Laterality 01/19/2005 10:17 AM CDT Sameer Saldana MD LAB_1 Performing Organization Address City/[facility] Phon e Number HP CONVERSION (ABNORMAL) LDL Cholesterol, Direct Measured (01/19/2005 10:17 AM CDT) athologist Signature LDL Direct 146 (H) 0 - 130 HP CONVERSION mg/dL Comment: Direct LDL Reference Ranges 0-129 ?? Desirable 130-159 Borderline Risk >160 ?High Risk Specimen (Source) Anatomical Collection Method Collection Time Re ceived Time Location / / Volume Laterality 01/19/2005 10:17 AM CDT Sameer Saldana MD LAB_1 Performing Organization Address [facility] Phon e Number HP CONVERSION documented in this encounter Visit Diagnoses Not on filedocumented in this encounter Care Teams Music Box Mechanic Relationship Specialty Start Date End Date Vargas Mazariegos, BARBACK, TEAR DOWN WORKER PCP - General 07/24/10 03/28/16 documented as of this encounter
--- OUTSIDE RECORDS SUMMARY | 2022-01-26 07:15 | XMS_ITS | Encounter Summary ---
:1965 Author Organization [email or web address] Address [address] [place] [address] Care Team Providers Name Role Phone DelilahJuany chunsocorro Jung APRN, YUE Primary Care Provider [phone] Reason for Visit Reason Comments Other Encounter Details Date Type Department Care Team Description 02/06/2006 Telephone [facility], Message Other [address] [place] [address] Social History Tobacco Use Types Packs/Day Years Used Date Smoking Tobacco: Never Assessed Sex Assigned at Date Recorded Not on file documented as of this encounter Progress Notes Miriam Porter - 02/06/2006 2:19 PM CDT Phone Note filed by Miriam Porter at 08/09/10946 Author: Miriam Porter Service: (none) Author Type: (none) Filed: 08/09/1061 Note Time: 02/06/06 1419 Status: Signed Surplus Property Disposal Agent: Imr Conversion Prescription Refill Please provide enough refills to last until patient's next visit. Comment:- Pharmacy Seq #:-[phone] Pharmacy Name:-[facility] Pharmacy Street or City: Clinician Name:-MELCHOR Drug Name/Strength:-SERTRALINE 100MG TA (FOR ZOLOFT 100MG TA) Sig: Dose/Route/Freq:-TAKE ONE TABLET BY MOUTH DAILY Quantity & Last Fill:-01/11/2006 Created on 06Feb2006 2:19pm by MIRIAM PORTER On 06Feb2006 2:45pm ELIZ MOYER wrote: REFILL APPOINTMENT NEEDED Please call patient and schedule appointment within 30 days. Medication has been renewed and faxed to pharmacy for 30 day supply only, per protocol. Comment:-Pt's last visit was on 01-19-05 when his depression was last mentioned. Pt needs a yearly med check. On 06Feb2006 3:30pm BHASKAR SCOTT wrote: Pt. scheduled appt. PHONIC NURSE CASE MANAGER documented in this encounter Plan of Treatment Not on filedocumented as of this encounter Visit Diagnoses Not on filedocumented in this encounter Care Teams Campaign Manager Relationship Specialty Start Date End Date Vargas Mazariegos, MUTUAL FUNDS AGENT, CONTRACT TECHNICAL WRITER PCP - General 07/24/10 03/28/16 documented as of this encounter
--- OUTSIDE RECORDS SUMMARY | 2022-01-26 07:15 | XMS_ITS | Encounter Summary ---
:1965 Author Organization [email or web address] Address [address] [address] Care Team Providers Name Role Phone Vargas Mazariegos APRN, CNP Primary Care Provider [phone] Encounter Details Date Type Department Care Team Description 04/11/2005 PN Conversion Only DONA ANA CONVERSION [address] [place] [address] Social History Tobacco Use Types Packs/Day Years Used Date Smoking Tobacco: Never Assessed Sex Assigned at Date Recorded Not on file documented as of this encounter Plan of Treatment Not on filedocumented as of this encounter Visit Diagnoses Not on filedocumented in this encounter Care Teams Star Route Mail Driver Relationship Specialty Start Date End Date Vargas Mazariegos APRN, CNP PCP - General 07/24/10 03/28/16 documented as of this encounter
--- OUTSIDE RECORDS SUMMARY | 2022-01-26 07:15 | XMS_ITS | Encounter Summary ---
:1965 Author Organization [employer] Address [address] [place] [address] Care Team Providers Name Role Phone Vargas Mazariegos SERINA, TELEVISION HOST Primary Care Provider [phone] Encounter Details Date Type Department Care Team Description 04/11/2005 PN Conversion Only [place] CONVERSION Mayela Mcrae, [address] [facility] [place] [address] [address] [place], [place] [address] Social History Tobacco Use Types Packs/Day Years Used Date Smoking Tobacco: Never Assessed Sex Assigned at Date Recorded Not on file documented as of this encounter Plan of Treatment Not on filedocumented as of this encounter Procedures Procedure Name Priority Date/Time Associated Comments Diagnosis URINALYSIS CHEMICALS Routine 04/11/2005 9:05 AM R esults for this ONLY BAGGAGE HANDLER procedure are i n the results section. documented in this encounter Results (ABNORMAL) Urinalysis Chemicals Only (04/11/2005 9:05 AM BAGGAGE HANDLER) [facility] gist Method Time Signature U Specific 1.025 1.005 - 25 HP CONVERSION [place] pH Urine 5.5 4.5 - 7.5 HP CONVERSION Protein Urine Negative Neg-Trac HP CONVERSION Glucose, Negative Neg-Trac HP CONVERSION Qualitative U Ketones Negative Negative HP CONVERSION U BILI Negative Negative HP CONVERSION Blood Urine Trace (A) Negative HP CONVERSION Nitrite Urine Negative Negative HP CONVERSION Leukocyte Negative Negative HP CONVERSION Esterase Urine Urobilinogen Negative 0.2 - 1.0 HP CONVERSION Urine Specimen (Source) Anatomical Collection Method Collection Time Re ceived Time Location / / Volume Laterality 04/11/2005 9:05 AM BAGGAGE HANDLER Krystle Mcrae MD LAB_1 Performing Organization Address City/State/ZIP Code Phon e Number HP CONVERSION documented in this encounter Visit Diagnoses Not on filedocumented in this encounter Care Teams Psychiatric Secretary Relationship Specialty Start Date End Date Vargas Mazariegos APRN, TELEVISION HOST PCP - General 07/24/10 03/28/16 documented as of this encounter
--- OUTSIDE RECORDS SUMMARY | 2022-01-26 07:15 | XMS_ITS | Encounter Summary ---
:1965 Author Organization [employer] Address [address] [place] [address] Care Team Providers Name Role Phone DelilahJuany chunsocorro Jung APRN, YUE Primary Care Provider [phone] Reason for Visit Reason Comments Other Encounter Details Date Type Department Care Team Description 02/06/2005 [facility]phone [facility] [place], Message Other [address] [place] [address] Social History Tobacco Use Types Packs/Day Years Used Date Smoking Tobacco: Never Assessed Sex Assigned at Date Recorded Not on file documented as of this encounter [facility], Message - 02/06/2005 12:09 PM CDT Phone Note filed by Peak 10 at 08/08/102128 Author: [facility] [employer] Service: (none) Author Type: (none) Filed: 08/08/102128 Note Time: 02/06/051208 Status: Signed Talent Partner: Peak 10 Preliminary echo results are available on this patient in LastWord. Created on 06Feb2005 12:09pm by ROSIE GARCIA On 06Feb2005 12:18pm LOGAN PONCE wrote: tell her stress test was normal Acknowledged by LOGAN PONCE on 12:18pm On 06Feb2005 1:23pm LADY DELA CRUZ wrote: DONNA for pt with above results. INE PROGRAMMER documented in this encounter Plan of Treatment Not on filedocumented as of this encounter Visit Diagnoses Not on filedocumented in this encounter Care Teams Bread Slicer Machine Relationship Specialty Start Date End Date Vargas Mazariegos, SYSTEMATIC THEOLOGY PROFESSOR, CARTON WAXING MACHINE OPERATOR PCP - General 07/24/10 03/28/16 documented as of this encounter
--- OUTSIDE RECORDS SUMMARY | 2022-01-26 07:15 | XMS_ITS | Encounter Summary ---
:1965 Author Organization [facility] Address [address] [place] [address] Care Team Providers Name Role Phone Vargas Mazariegos SERINA, YUE Primary Care Provider [phone] Encounter Details Date Type Department Care Team Description 11/23/2006 PN Conversion Only JENNY CONVERSION Sameer Saldana [address] [place] [address] Social History Tobacco Use Types Packs/Day Years Used Date Smoking Tobacco: Never Assessed Sex Assigned at Date Recorded Not on file documented as of this encounter Plan of Treatment Not on filedocumented as of this encounter Procedures Procedure Name Priority Date/Time Associated Comments Diagnosis GLUCOSE Routine 11/23/2006 5:22 PM Results f or this CDT procedure are i n the results section. LIPID PANEL AND Routine 11/23/2006 5:22 PM Result s for this DIRECT LDL(IF CDT procedure are in NEEDED) the results section. CREATININE / GFR Routine 11/23/2006 5:22 PM Resul ts for this CDT procedure are i n the results section. COMPLETE BLOOD Routine 11/23/2006 5:22 PM Results for this COUNT-NO DIFF CDT procedure are in the results section. ALT (SGPT) Routine 11/23/2006 5:22 PM Results f or this CDT procedure are i n the results section. documented in this encounter Results ALT (SGPT) (11/23/2006 5:22 PM CDT) [facility] Method Time Signature Alanine 29 4 - 55 HP CONVERSION Aminotransferase U/L Specimen (Source) Anatomical Collection Method Collection Time Re ceived Time Location / / Volume Laterality 11/23/2006 5:22 PM CDT Sameer Saldana LAB_1 Performing Organization Address City/State/ZIP Code Phon e Number HP CONVERSION Creatinine / GFR (11/23/2006 5:22 PM CDT) athologist Signature Creatinine 1.1 0.4 - 1.3 HP CONVERSION Serum mg/dL Specimen (Source) Anatomical Collection Method Collection Time Re ceived Time Location / / Volume Laterality 11/23/2006 5:22 PM CDT Sameer Francisco Saldana LAB_1 Performing Organization Address [facility] Code Phon e Number HP CONVERSION Glucose (11/23/2006 5:22 PM CDT) athologist Signature Length Of Fast 12.0 Hours HP CONVERSION Lab Glucose 85 60 - 100 HP CONVERSION mg/dL Specimen (Source) Anatomical Collection Method Collection Time Re ceived Time Location / / Volume Laterality 11/23/2006 5:22 PM CDT Sameer Francisco Saldana LAB_1 Performing Organization Address [facility] Code Phon e Number HP CONVERSION (ABNORMAL) Lipid Panel and Direct LDL(If Needed) (11/23/2006 5:22 PM CDT) [facility] [employer] Method Time Signature Length Of Fast 12.0 Hours HP CONVERSION Cholesterol/HDL 8.3 No normal HP CONVERSION Ratio Screen range Cholesterol 250 (H) <200 mg/dL HP CONVERSION HDL Cholesterol 30 (L) 40 - 60 HP CONVERSION mg/dL Triglycerides 345 (H) 0 - 149 HP CONVERSION mg/dL LDL Calculated 151 (H) 0 - 130 HP CONVERSION mg/dL Comment: Specimen (Source) Anatomical Collection Method Collection Time Re ceived Time Location / / Volume Laterality 11/23/2006 5:22 PM CDT Sameer Francisco Saldana LAB_1 Performing Organization Address [facility] Phon e Number HP CONVERSION (ABNORMAL) Complete Blood Count-No Diff (11/23/2006 5:22 PM CDT) [facility] [employer] Method Time Signature White Blood Cell 8.6 3.8 - HP CONVERSION Count 11.0 K/cmm Red Blood Cell 4.15 (L) 4.20 - HP CONVERSION Count 5.90 m/cmm Hemoglobin 13.7 13.4 - HP CONVERSION 17.5 gm/dL Hematocrit 40.6 39.0 - HP CONVERSION 51.0 % Mean Corpuscular 97.9 80.0 - HP CONVERSION Volume 100.0 fl Mean Corpuscular 33.0 27.0 - HP CONVERSION Hemoglobin 34.0 pg Mean Corpuscular 33.7 32.0 - HP CONVERSION Hemoglobin Conc 36.5 Duval gm/dL RDW 11.8 11.0 - HP CONVERSION 15.0 % Platelet Count 194 140 - 450 HP CONVERSION k/cmm Specimen (Source) Anatomical Collection Method Collection Time Re ceived Time Location / / Volume Laterality 11/23/2006 5:22 PM CDT Sameer Saldana LAB_1 Performing Organization Address City/State/ZIP Code Phon e Number HP CONVERSION documented in this encounter Visit Diagnoses Not on filedocumented in this encounter Care Teams Global Manager Relationship Specialty Start Date End Date Vargas Mazariegos, FEATHER STITCHER, CAN INTAKE WORKER PCP - General 07/24/10 03/28/16 documented as of this encounter
--- OUTSIDE RECORDS SUMMARY | 2022-01-26 07:15 | XMS_ITS | Encounter Summary ---
:1965 Author Organization [employer] Address [address] [address] Care Team Providers Name Role Phone Vargas Mazariegos Erich SMALLS CNP Primary Care Provider [phone] Encounter Details Date Type Department Care Team Description 07/07/2004 Office Visit [facility] [place] [address] [place], [place] [address] [place] [id number] (Wo rk) Social History Tobacco Use Types Packs/Day Years Used Date Smoking Tobacco: Never Assessed Sex Assigned at Date Recorded Not on file documented as of this encounter Progress Notes Juan Pablo Murphy MD - 07/07/2004 12:01 AM CST Progress Notes signed by Juan Pablo Murphy MD at 07/11/04 0809 Author: Juan Pablo Murphy MD Service: (none) Author Type: Physician Filed: 08/12/10 0349 Note Time: 07/07/04 0001 Status: Signed Gas Pipe Layer: Juan Pablo Murphy MD (Physician) NAME: AUSTIN CARRANZA MR: [id number] ACCT: [id number] VISIT: [id number] DICTATING CLINICIAN: JUAN PABLO MURPHY MD JOB: [id number] CLINIC PROGRESS NOTE DATE OF VISIT: 07/07/2004 SUBJECTIVE: A 38-year-old male complaining of and got sick Sunday night, three days ago. Is vomiting and some diarrhea. Said he has not had it since then, slept more than usual the following days, and yesterday developed a mid back pain. Also, notices now some difficulty swallowing. He describes sensation of poor passage of liquids or solids when he eats. Otherwise, meals do not exacerbate his symptoms. He tells me that I do not feel ill. Denies abdominal pain. Also yesterday, he had bright red blood in his stool x1. Otherwise, his bowel movements have been normal for the last couple of days. He has not had a bowel movement today. No fever, no tarry stools. He denies shortness of breath. He does have a history of hemorrhoids, sounds like it is external. No history of heartburn. He denies urinary symptoms, cough. No recent travel. He smokes ?10? packs of cigarettes a day, does not drink alcohol. His discomfort is not affected by physical activities. I reviewed dictation by Dr. Colin Saldana from 03/31/04, including past medical history, family history, allergies, medications. He does not take his Lipitor any more. He is still on Zoloft. The patient denied lightheadedness or dizziness. PAST MEDICAL HISTORY: Include tobacco abuse, hyperlipidemia depression and obesity. OBJECTIVE: VS: BP: 140/86. T: 97.4. P: 75. R: 18. On exam, patient is a moderately obese individual who does not look ill. His color is normal. No scleral jaundice. OROPHARYNX: Benign. No cervical adenopathy. LUNGS: Clear to auscultation. HEART: Regular rate and rhythm. Peripheral pulses in upper and lower extremities are full and equal. No chest or abdominal bruits. ABDOMEN: Exam reveals no organomegaly or tenderness to palpation. The patient preferred to forgo rectal examination and EKG of which I was talking about. ASSESSMENT: Possible gastroenteritis, otherwise I am not sure what kind etiology that manifests itself with these set of symptoms. PLAN: Patient will try Aciphex 20 mg a day, #30 prescribed, and he is to be seen in four days if there is no improvement, or before with any new or more severe symptoms. OS:[id number] C: 07/09/04 08:59 DOCUMENT: [id number] ETING TECHNOLOGIST documented in this encounter Plan of Treatment Not on filedocumented as of this encounter Visit Diagnoses Not on filedocumented in this encounter Care Teams Sagger Soak Relationship Specialty Start Date End Date Vargas Mazariegos, MANAGER HVAC, SCRAP YARD WORKER PCP - General 07/24/10 03/28/16 documented as of this encounter
--- OUTSIDE RECORDS SUMMARY | 2022-01-26 07:15 | XMS_ITS | Encounter Summary ---
:1965 Author Organization [employer] Address [address] [place] [address] Care Team Providers Name Role Phone DelilahJuanyVargassocorro Jung APRN, YUE Primary Care Provider [phone] Reason for Visit Reason Comments Other Encounter Details Date Type Department Care Team Description 02/06/2005 Telephone [facility] [place], Message Other [address] [place] [address] Social History Tobacco Use Types Packs/Day Years Used Date Smoking Tobacco: Never Assessed Sex Assigned at Date Recorded Not on file documented as of this encounter [facility], Message - 02/06/2005 12:09 PM CDT Phone Note filed by [employer] at 08/08/102128 Author: [employer] Service: (none) Author Type: (none) Filed: 08/08/102128 Note Time: 02/06/051208 Status: Signed Wood Machinist: [employer] Preliminary echo results are available on this patient in LastWord. Created on 06Feb2005 12:09pm by ROSIE GARCIA On 07Feb2005 8:29am MELITA ROCHE wrote: Great! Stress echo was normal. kpo Acknowledged by MELITA ROCHE on 8:29am On 07Feb2005 8:33am LADY DELA CRUZ wrote: See previous phone note, message was left for pt on 02-06-05 with normal results. OCOMPUTER TECHNICIAN documented in this encounter Plan of Treatment Not on filedocumented as of this encounter Visit Diagnoses Not on filedocumented in this encounter Care Teams System Support Technician Relationship Specialty Start Date End Date Vargas Mazariegos, GLUE JOINTER OPERATOR, MEDTRONICS TECHNICIAN PCP - General 07/24/10 03/28/16 documented as of this encounter
--- OUTSIDE RECORDS SUMMARY | 2022-01-26 07:15 | XMS_ITS | Encounter Summary ---
:1965 Author Organization [employer] [facility] Address [address] [place] [address] Care Team Providers Name Role Phone Vargas Mazariegos APRN, CNP Primary Care Provider [phone] Encounter Details Date Type Department Care Team Description 04/04/2005 PN Conversion Only PULMMEDICINE Britt Escobar sa, MD [address] [facility] [address] [facility] [id number] (Wo rk) Social History Tobacco Use Types Packs/Day Years Used Date Smoking Tobacco: Never Assessed Sex Assigned at Date Recorded Not on file documented as of this encounter Plan of Treatment Not on filedocumented as of this encounter Visit Diagnoses Not on filedocumented in this encounter Care Teams Refurbish Technician Relationship Specialty Start Date End Date Vargas Mazariegos APRN, CNP PCP - General 07/24/10 12 documented as of this encounter
--- OUTSIDE RECORDS SUMMARY | 2022-01-26 07:15 | XMS_ITS | Encounter Summary ---
:1965 Author Organization [employer] Address [address] [address] Care Team Providers Name Role Phone Vargas Mazariegos Erich SMALLS CNP Primary Care Provider [phone] Encounter Details Date Type Department Care Team Description 06/14/2006 Office Visit [facility] Sameer Galindo [address] [place], [place] [id number] Social History Tobacco Use Types Packs/Day Years Used Date Smoking Tobacco: Never Assessed Sex Assigned at Date Recorded Not on file documented as of this encounter Last Filed Vital Signs Vital Sign Reading Time Taken Comments Blood Pressure 112/72 06/14/2006 9:38 AM MEASUREMENT SUPERINTENDENT Pulse 68 06/14/2006 9:38 AM MEASUREMENT SUPERINTENDENT Temperature - - Respiratory Rate - - Oxygen Saturation - - Inhaled Oxygen Concentration - - Weight 121.6 kg (267 lb 15.9 06/14/2006 9:38 AM C: 121. 6kg oz) MEASUREMENT SUPERINTENDENT Height 188 cm (6' 2) 06/14/2006 9:38 AM C: 188.0cm MEASUREMENT SUPERINTENDENT Body Mass Index 34.41 06/14/2006 9:38 AM MEASUREMENT SUPERINTENDENT documented in this encounter Progress Notes Sameer Saldana - 06/14/2006 12:01 AM CST Progress Notes signed by Sameer Saldana MD at 06/14/06 0477 Author: Sameer Saldana MD Service: (none) Author Type: Physician Filed: 08/12/10 1877 Note Time: 06/14/06 0001 Status: Signed Credit Card Interviewer: Sameer Saldana MD (Physician) SUBJECTIVE: Austin comes to review his depression. Foremost, he would like to switch antidepressants. He was hoping to start on Cymbalta, however this would be significantly costly for him. As an alternative he is willing to try Effexor-XR. He brought some printouts about what these would cost, so he is well aware. Social History : He is taking on some foster kids, but would prefer a full-time job. Adverse Drug Reactions: None Medications: Reviewed. See Medication List in LastWord. OBJECTIVE: Vital Signs : Reviewed; See Flowsheet Charting in LastWord. He looks well and healthy. He is conversant and alert and obviously engaged in this process. PHQ-9 score is 10 ASSESSMENT: Depression, now well-controlled. PLAN: We reviewed his documents and his depression. We are going to try Effexor-XR 75 mg, one a day. He will return in about a month to review. I wrote down how he might wean from his Zoloft and bupropion. The patient was discharged ambulatory and in stable condition. 25 minutes, all counseling. UREMENT SUPERINTENDENT documented in this encounter Plan of Treatment Not on filedocumented as of this encounter Visit Diagnoses Not on filedocumented in this encounter Care Teams Soft Sugar Operator Head Relationship Specialty Start Date End Date Vargas Mazariegos, MAINTENANCE INSTRUCTOR, LEAD SOFTWARE DEVELOPMENT ENGINEER PCP - General 07/24/10 03/28/16 documented as of this encounter
--- OUTSIDE RECORDS SUMMARY | 2022-01-26 07:15 | XMS_ITS | Encounter Summary ---
:1965 Author Organization [employer] Address [address], [place] [address] Care Team Providers Name Role Phone Vargas Mazariegos Erich SMALLS CNP Primary Care Provider [phone] Encounter Details Date Type Department Care Team Description 05/23/2004 Office Visit Kenia Hensley PA-C [address] [employer] [address] [place] [address] [place] [address] [phone] Social History Tobacco Use Types Packs/Day Years Used Date Smoking Tobacco: Never Assessed Sex Assigned at Date Recorded Not on file documented as of this encounter Progress Notes Kenia Fishman PA-C - 05/23/2004 12:01 AM CST Progress Notes signed by Kenia Fishman PA-C at 11/21/04 1620 Author: Kenia Fishman PA-C Service: (none) Author Type: Physician Field Laboratory Operator Filed: 08/12/10 0254 Note Time: 05/23/04 0001 Status: Signed Bag Press Operator: Kenia Fishman PA-C (Physician Field Laboratory Operator) NAME: AUSTIN CARRANZA MR: [id number] ACCT: [id number] VISIT: [id number] DICTATING CLINICIAN: VIOLA ROJO JOB: [id number] CLINIC PROGRESS NOTE DATE OF VISIT: 05/23/2004 SUBJECTIVE: A 38-year-old male here today for concerns of a positive Mantoux test. 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 Had a Mantoux test placed four days ago and read a couple of days ago. He said he was told it was positive, but he does not have any recount of the measurement in millimeters. He says that he thinks it may have been placed inappropriately and they were wondering too if it was more of a reaction than a true positive. This is the third year he has had a Mantoux. He has never had a positive one. No exposure to tuberculosis that he is aware of. 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 He has had no cough, fever, or night sweats. Otherwise been feeling well. MEDICATIONS: See LastWord. ADR/ALLERGIES: SEE LASTWORD. OBJECTIVE: VS: BP: 134/90. Wt: 275 lb. LUNGS: Clear. HEART: Regular. Neck without adenopathy. No supraclavicular or infraclavicular adenopathy as well. He did have an area of induration on the Mantoux test on his left forearm. It was not officially read because it was done four days ago. ASSESSMENT: History of a positive Mantoux test. PLAN: Repeat the test at our clinic in one to three weeks to have redone and reread. Discussed possibly of INH treatment if results are strongly positive; especially with his history of positive Mantoux test. MHT:[id number] C: 05/24/04 15:11 DOCUMENT: [id number] documented in this encounter Plan of Treatment Not on filedocumented as of this encounter Procedures Procedure Name Priority Date/Time Associated Diagnosis Comme nts XR CHEST 2 VIEWS Routine 05/23/2004 10:53 AM Resu lts for this SUGAR CANE GROWER procedure are i n the results section. documented in this encounter Results XR Chest 2 Views (05/23/2004 10:53 AM SUGAR [facility]E GROWER) Anatomical Region Laterality Modality Chest, Lung Other Specimen (Source) Anatomical Location Collection Method / Collectio n Time Received Time / Laterality Volume Narrative 05/23/2004 10:53 AM SUGAR CANE GROWER Findings: CH2 Cardiovascular structures appear normal for age. ??No evidence of active pulmonary disease. Dictating MARY AUGUSTE RADIOLOGIST Procedure Note Mary Wick - 06/30/2016 Findings: CH2 Cardiovascular structures appear normal for age. No evidence of active pulmonary disease. Dictating MARY AUGUSTE RADIOLOGIST Kenia FRANCE GD documented in this encounter Visit Diagnoses Not on filedocumented in this encounter Care Teams B2B Sales Professional Relationship Specialty Start Date End Date Vargas Mazariegos, VENETIAN BLIND INSTALLER, COMMODITY BROKER PCP - General 07/24/10 03/28/16 documented as of this encounter
--- OUTSIDE RECORDS SUMMARY | 2022-01-26 07:15 | XMS_ITS | Encounter Summary ---
:1965 Author Organization [employer] Address [address] [address] Care Team Providers Name Role Phone Vargas Mazariegos Erich SMALLS, YUE Primary Care Provider [phone] Reason for Visit Reason Comments Other Encounter Details Date Type Department Care Team Description 06/12/2006 Telephone [facility], Message Other [address] [place] [address] Social History Tobacco Use Types Packs/Day Years Used Date Smoking Tobacco: Never Assessed Sex Assigned at Date Recorded Not on file documented as of this encounter [facility], Message - 06/12/2006 12:06 PM CST Phone Note filed by [employer] at 08/09/10 1253 Author: [employer] Service: (none) Author Type: (none) Filed: 08/09/10 7078 Note Time: 06/12/06 1206 Status: Signed Bobj Developer: [employer] Patient calling, he needs a refill on his Zoloft but would like to switch to Cymbalta. He did check with insurance and they will cover it and any generic of it. Please call him if questions at [phone] (ok to lm) Pharm Cub/LV seq [phone]. Created on 12Jun2006 12:06pm by KYAW BARTH On 12Jun2006 1:54pm ZORAIDA LUNA wrote: Note reviewed. Will defer to Dr. Roche, as I am unfamiliar with this patient, and do not know if this medication is an appropriate choice for him. Acknowledged by ZORAIDA LUNA on 1:54pm On 12Jun2006 3:29pm MEILTA ROCHE wrote: I see I asked him to return in a month. Please ask him to make an appt. kpo Acknowledged by MELITA ROCHE on 3:29pm On 12Jun2006 3:32pm BHASKAR SCOTT wrote: Was Rx filled? On 12Jun2006 3:54pm JEFFY HIDALGO wrote: no On 12Jun2006 4:08pm BHASKAR SCOTT wrote: Austin scheduled for 06/14 E TENDER documented in this encounter Plan of Treatment Not on filedocumented as of this encounter Visit Diagnoses Not on filedocumented in this encounter Care Teams Fine Arts Chair Relationship Specialty Start Date End Date Vargas Mazariegos, PIPE FITTER APPRENTICE, COORDINATE MEASURING MACHINE OPERATOR PCP - General 07/24/10 03/28/16 documented as of this encounter
--- OUTSIDE RECORDS SUMMARY | 2022-01-26 07:15 | XMS_ITS | Encounter Summary ---
:1965 Author Organization [facility] Address [address] [address] Care Team Providers Name Role Phone Vargas Mazariegos APRN, CNP Primary Care Provider [phone] Encounter Details Date Type Department Care Team Description 05/30/2004 Nursing Visit Kenia Hensley PA-C [facility] [facility] [id number] [place] [address] [place] [address] [place] [address] [phone] Social History Tobacco Use Types Packs/Day Years Used Date Smoking Tobacco: Never Assessed Sex Assigned at Date Recorded Not on file documented as of this encounter Plan of Treatment Not on filedocumented as of this encounter Visit Diagnoses Not on filedocumented in this encounter Care Teams Automation Technologist Relationship Specialty Start Date End Date Vargas Mazariegos APRN, CNP PCP - General 07/24/10 12 documented as of this encounter
--- OUTSIDE RECORDS SUMMARY | 2022-01-26 07:15 | XMS_ITS | Encounter Summary ---
:1965 Author Organization [facility] Address [address] [place] [address] Care Team Providers Name Role Phone Vargas Mazariegos APRN, CNP Primary Care Provider [phone] Encounter Details Date Type Department Care Team Description 03/07/2005 Bootmaker Hand Only Sameer Leblanc [facility] [address] [place], [place] [address] Social History Tobacco Use Types Packs/Day Years Used Date Smoking Tobacco: Never Assessed Sex Assigned at Date Recorded Not on file documented as of this encounter Progress Notes Sameer Saldana - 03/07/2005 12:01 AM CST Progress Notes signed by Sameer Saldana MD at 03/07/05 1323 Author: Sameer Saldana MD Service: (none) Author Type: Physician Filed: 08/12/10 0821 Note Time: 03/07/05 0001 Status: Signed Sign Artist: Sameer Saldana MD (Physician) I have discussed with Austin that he should have the sleep apnea study. He also snores. We reviewed this in March 26. Please see the note dated . He has now decided to follow through, which I endorsed. kp OR BIOSTATISTICIAN/GROUP LEADER documented in this encounter Plan of Treatment Not on filedocumented as of this encounter Visit Diagnoses Not on filedocumented in this encounter Care Teams Inbound Call Center Representative Relationship Specialty Start Date End Date Vargas Mazariegos APRN, CNP PCP - General 07/24/10 03/28/16 documented as of this encounter
--- OUTSIDE RECORDS SUMMARY | 2022-01-26 07:15 | XMS_ITS | Encounter Summary ---
:1965 Author Organization [employer] Address [address], [place] [address] Care Team Providers Name Role Phone Vargas Mazariegos APRN, CNP Primary Care Provider [phone] Encounter Details Date Type Department Care Team Description 01/19/2005 PN Conversion Only [facility] Randell Salgado MD [address] [place] [address] [place], [place] [phone] (Wo rk) Social History Tobacco Use Types Packs/Day Years Used Date Smoking Tobacco: Never Assessed Sex Assigned at Date Recorded Not on file documented as of this encounter Last Filed Vital Signs Vital Sign Reading Time Taken Comments Blood Pressure 136/84 01/19/2005 9:26 AM CDT Pulse 66 01/19/2005 9:26 AM CDT Temperature - - Respiratory Rate - - Oxygen Saturation - - Inhaled Oxygen Concentration - - Weight 122.5 kg (270 lb) 01/19/2005 9:26 AM CDT C: 122. 5kg Height - - Body Mass Index - - documented in this encounter Plan of Treatment Not on filedocumented as of this encounter Visit Diagnoses Not on filedocumented in this encounter Care Teams Hourly Shift Relationship Specialty Start Date End Date Vargas Mazariegos APRN, CNP PCP - General 07/24/10 03/28/16 documented as of this encounter
--- OUTSIDE RECORDS SUMMARY | 2022-01-26 07:16 | XMS_ITS | Clinical Summary ---
:1965 Author Organization [employer] [facility] [place] [address] Care Team Providers Name Role Phone Emily Quintero [facility] - Primary Care Provider [phone] Allergies No known active allergies Medications Medication Sig Dispensed Refills Start Date End Date Status VENLAFAXINE HCL Take by 0 Acti ve (VENLAFAXINE ORAL) mouth. PRAVASTATIN SODIUM Take by 0 A ctive (PRAVASTATIN ORAL) mouth. hydrochlorothiazide (HCTZ) Take 25 mg by 0 Active 25 mg tablet mouth once daily. Active Problems Not on file Family History Medical History Relation Name Comments Heart Disease Other Relation Name Status Comments Other Social History Tobacco Use Types Packs/Day Years Used Date Current Every Day Smoker 1 Alcohol Use Standard Drinks/Week Comments Not Asked 0 (1 standard drink = 0.6 oz pure alcoho l) Sex Assigned at Date Recorded Not on file Obstetrics History Last Filed Vital Signs Vital Sign Reading Time Taken Comments Blood Pressure 167/122 01/27/2016 1:34 PM CDT Pulse 84 01/27/2016 1:34 PM CDT Temperature 36.6 ??C (97.8 ??F) 01/27/2016 1:34 PM CDT Respiratory Rate 16 01/27/2016 1:34 PM CDT Oxygen Saturation 92% 01/27/2016 1:34 PM CDT Inhaled Oxygen Concentration - - Weight 140.6 kg (310 lb) 01/27/2016 1:34 PM CDT Height 182.9 cm (6') 01/27/2016 1:34 PM CDT Body Mass Index 42.04 01/27/2016 1:34 PM CDT Plan of Treatment Health Maintenance Due Date Last Done Comments COVID-19 vaccine series (#1) 05/11/1966 Tdap 1977 Depression screening for age 12+ 1978 Hepatitis C screening for age 18-79 1984 Tetanus booster 1986 Colonoscopy through age 75 11/09/2011 Lipids for age 45-75 11/09/2011 Zoster (shingles) series for age 50+ (1 of 2) 2016 BMI (ht and wt on same day) for age 18+ 01/26/2017 01/27/20 16 Influenza for age 50-64 12/22/2021 Results Not on filefrom Last 3 Months Insurance Payer Benefit Plan / Subscriber ID Effective Dates Phone Addre ss Type Group [employer] [id number] 2016-Prese [address] [place] [address] [facility] [id number] 2019-Presen [address] [address] [place] [address] Care Teams Hide Mill Man Relationship Specialty Start Date End Date Emily Quintero [facility] - PCP - General 01/27/16 [address] [place] [place] [address]
--- OUTSIDE RECORDS SUMMARY | 2022-01-26 07:16 | XMS_ITS | Encounter Summary ---
:1965 Author Organization [facility] Address [address], [place] [address] Care Team Providers Name Role Phone Vargas Mazariegos APRN, CNP Primary Care Provider [phone] Encounter Details Date Type Department Care Team Description 08/26/2002 PN Conversion Only JEN[facility] CONVERSION [address] [place] [address] Social History Tobacco Use Types Packs/Day Years Used Date Smoking Tobacco: Never Assessed Sex Assigned at Date Recorded Not on file documented as of this encounter Plan of Treatment Not on filedocumented as of this encounter Visit Diagnoses Not on filedocumented in this encounter Care Teams Sales Specialist Relationship Specialty Start Date End Date Vargas Mazariegos APRN, CNP PCP - General 07/24/10 03/28/16 documented as of this encounter
--- OUTSIDE RECORDS SUMMARY | 2022-01-26 07:16 | XMS_ITS | Encounter Summary ---
:1965 Author Organization [email or web address] Address [address] [address] Care Team Providers Name Role Phone Vargas Mazariegos Erich SMALLS CNP Primary Care Provider [phone] Encounter Details Date Type Department Care Team Description 03/31/2004 Office Visit [facility] Sameer Galindo [address] [place] [address] Social History Tobacco Use Types Packs/Day Years Used Date Smoking Tobacco: Never Assessed Sex Assigned at Date Recorded Not on file documented as of this encounter Progress Notes Sameer Saldana - 03/31/2004 12:01 AM CST Progress Notes signed by Sameer Saldana MD at 04/08/04 1415 Author: Sameer Saldana MD Service: (none) Author Type: Physician Filed: 08/12/10 0158 Note Time: 03/31/04 0001 Status: Signed Typewriter Operator Automatic: Sameer Saldana MD (Physician) NAME: AUSTIN CARRANZA MR: [id number] ACCT: [id number] VISIT: [id number] DICTATING CLINICIAN: SAMEER SALDANA MD JOB: [id number] CLINIC PROGRESS NOTE DATE OF VISIT: 03/31/2004 SUBJECTIVE: Austin comes today to review fatigue, his Lipitor, and muscle aches and pains, the possibility of sleep apnea, and get immunizations updated. His has observed that he has erratic breathing. By this, he means that she notes he stops breathing for 10 or 15 seconds at a time. He has also started snoring. Thinks this might be from increasing his weight, but still is concerned about it. He has seen ENT in the past. He has a slightly deviated septum. He feels profoundly tired, but he also tells me he is going to school, as well as doing his normal activities. FAMILY HISTORY: Paternal side includes lots of obstructive sleep apnea and many numbers using CPAP machine. Father has had hyperlipidemia and was using Lipitor, but got muscles aches and pains. Austin thinks he has had some muscle aches and pains as well and wonders if that is from his Lipitor. He has not experienced any other significant personality changes. He also mentions that he wants to get off the tobacco. In fact, has set 04/23 as his quit date. He would consider using Wellbutrin, in addition to the Zoloft he is taking. ADR/ALLERGIES: NONE. PMH: Tobacco abuse, hyperlipidemia, depression, obesity. MEDICATIONS: See LastWord. OBJECTIVE: VS: BP: 124/76 left arm, large cuff. P: 56. Wt: 272.5 lb. Otherwise looks well and healthy. He is conversant and alert. The uvula is generally normal size, but may be a little bit edematous. Tympanic membranes, nasal membranes and turbinates are all normal. No cervical adenopathy. LUNGS: Clear. Respirations are easy. HEART SOUNDS: Rhythm and rate are normal. ABDOMEN: Flat, soft, and nontender. No wheezes today. ASSESSMENT: Strong likelihood of obstructive sleep apnea, tobacco abuse, depression, obesity. PLAN: Add Wellbutrin SR 100 mg one a day for a week, then one twice a day. I suggested he not try to stop smoking until he has been on the medicine about two weeks. That would be about his quit date. He should have a sleep study because of the observed sleep apnea. Recheck with me in about four weeks to review how he is doing off the tobacco emotionally and with the GAGAN. We gave him hepatitis A and B, as well as adult DT today. KPO:[id number] C: 04/01/04 13:10 DOCUMENT: [id number] documented in this encounter Plan of Treatment Not on filedocumented as of this encounter Visit Diagnoses Not on filedocumented in this encounter Care Teams Mud Jack Nozzleman Relationship Specialty Start Date End Date Vargas Mazariegos, SERINA, ALARM TECHNICIAN PCP - General 07/24/10 03/28/16 documented as of this encounter
--- OUTSIDE RECORDS SUMMARY | 2022-01-26 07:16 | XMS_ITS | Encounter Summary ---
:1965 Author Organization [employer] Address [address] [address] Care Team Providers Name Role Phone Unavailable Primary Care Provider Unavailable Encounter Details Date Type Department Care Team Description 01/26/1995 - Hospital Encounter [facility] 5W-General Angel Edmondson MD [address] [place] [id number] 01/27/1995 Medicine Angel Marie MD [address] [place] [address] [address] [place] [address] Social History Tobacco Use Types Packs/Day Years Used Date Smoking Tobacco: Never Assessed Sex Assigned at Date Recorded Not on file documented as of this encounter Procedure Notes Angel Marie MD - 02/08/1995 12:01 AM CDT OR Surgeon signed by Grandis Print And at 03/30/99 1200 Author: Angel Marie MD Service: (none) Author Type: Physician Filed: Note Time: 02/08/95 0000 Status: Signed [id number] OPERATIVE REPORT DATE OF PROCEDURE: January 26, 1995. SURGEON: Angel Marie M.D. PREOPERATIVE DIAGNOSIS: Deviated septum, status post nasal fracture, external nasal deformity. POSTOPERATIVE DIAGNOSIS: Same. PROCEDURE: Septoplasty and closed reduction of depressed left nasal fracture. Under general endotracheal anesthesia, the patient was prepped and draped in the usual fashion. The nose was decongested with 200 mg of cocaine in 4% solution on cotton pledgets. The hemitransfixion and periphery of the nose were injected with 5 cc of 0.5% Marcaine 1:30,000 adrenalin. The right hemitransfixion incision was made. Left anterior and posterior tunnels were created. Right anterior and posterior tunnels were created. The left posterior septal deflection was resected, straightened, and returned to the intraseptal space. The septum was now straight and midline. The hemitransfixion was closed with two 4-0 chromic sutures. Stents were placed and secured with a single 3-0 nylon suture. The depressed fracture was measured with a fracture elevator. The fracture elevator was inserted to the level of the measurement and then raised, thus elevating the fracture. This was held in place with Vaseline gauze packing. An external dressing consisting of tape and Aquaplast was applied. The patient tolerated the procedure well and was taken to the recovery room in satisfactory condition. go/ Signed: Angel Marie M.D. ER documented in this encounter Miscellaneous Notes Miscellaneous - Angel Marie MD - 01/27/1995 1:23 PM CDT ICD-9-CM ICD-9-CM Narrative description Code ======== DIAGNOSES Principal: NASAL BONE FX-CLOSED 802.0 Secondary: STRUCK IN SPORTS E917.0 DEVIATED NASAL SEPTUM 470 PROCEDURES Provider Date Principal: SEPTOPLASTY NEC ANGEL MARIE [id number] 21.88 Secondary: CLOS REDUCTION NASAL FX ANGEL MARIE [id number] 21.71 CPT4 Principal: TREAT OF NOSE FRACTURE, 98607 Secondary: REPAIR OF NASAL SEPTUM 14541 documented in this encounter Plan of Treatment Not on filedocumented as of this encounter Procedures Procedure Name Priority Date/Time Associated Comments Diagnosis CONVERSION DEFAULT Routine 01/26/1995 12:50 PM Re sults for this INTERFACE ORDER CDT procedure ar e in the results section. documented in this encounter Results Conversion Default Interface Order (01/26/1995 12:50 PM CDT) P athologist Signature Hemoglobin 15.2 13.9 HP CONVERSION 17.5GM/D L Specimen (Source) Anatomical Collection Method Collection Time Re ceived Time Location / / Volume Laterality 01/26/1995 12:50 PM CDT Angel Marie MD LAB_1 Performing Organization Address City/State/ZIP Code Phon e Number HP CONVERSION documented in this encounter Visit Diagnoses Not on filedocumented in this encounter
--- OUTSIDE RECORDS SUMMARY | 2022-01-26 07:16 | XMS_ITS | Encounter Summary ---
:1965 Author [facility] Address [address], [place] [address] Care Team Providers Name Role Phone Vargas Mazariegos APRN, CNP Primary Care Provider [phone] Encounter Details Date Type Department Care Team Description 07/14/2002 PN Conversion Only JENNY CONVERSION Sameer Saldana [address] [place] [address] Social History Tobacco Use Types Packs/Day Years Used Date Smoking Tobacco: Never Assessed Sex Assigned at Date Recorded Not on file documented as of this encounter Plan of Treatment Not on filedocumented as of this encounter Visit Diagnoses Not on filedocumented in this encounter Care Teams Industrial Real Estate Agent Relationship Specialty Start Date End Date Vargas Mazariegos APRN, CNP PCP - General 07/24/10 03/28/16 documented as of this encounter
--- OUTSIDE RECORDS SUMMARY | 2022-01-26 07:16 | XMS_ITS | Encounter Summary ---
:1965 Author Organization [facility] Address [address] [place] [address] Care Team Providers Name Role Phone Vargas Mazariegos SERINA, YUE Primary Care Provider [phone] Encounter Details Date Type Department Care Team Description 01/14/2003 PN Conversion Only JENNY CONVERSION Sameer Saldana [address] [place] [address] Social History Tobacco Use Types Packs/Day Years Used Date Smoking Tobacco: Never Assessed Sex Assigned at Date Recorded Not on file documented as of this encounter Plan of Treatment Not on filedocumented as of this encounter Procedures Procedure Name Priority Date/Time Associated Diagnosis Comme nts LIPID PANEL AND Routine 01/14/2003 1:11 PM Result s for this DIRECT LDL(IF CDT procedure are in NEEDED) the results section. AST Routine 01/14/2003 1:11 PM Results f or this CDT procedure are i n the results section. documented in this encounter Results AST (01/14/2003 1:11 PM CDT) [facility] Method Time Signature Aspartate 25 0 - 45 HP CONVERSION Aminotransferase U/L Specimen (Source) Anatomical Collection Method Collection Time Re ceived Time Location / / Volume Laterality 01/14/2003 1:11 PM CDT Sameer Saldana MD LAB_1 Performing Organization Address City/State/ZIP Code Phon e Number HP CONVERSION (ABNORMAL) Lipid Panel and Direct LDL(If Needed) (01/14/2003 1:11 PM CDT) [facility] Method Time Signature Length Of Fast 12.0 Hours HP CONVERSION Cholesterol/HDL 6.2 No normal HP CONVERSION Ratio Screen range Cholesterol 179 125 - 199 HP CONVERSION mg/dL HDL Cholesterol 29 (L) 40 - 60 HP CONVERSION mg/dL Triglycerides 337 (H) 0 - 199 HP CONVERSION mg/dL LDL Calculated 83 66 - 129 HP CONVERSION mg/dL Comment: Specimen (Source) Anatomical Collection Method Collection Time Re ceived Time Location / / Volume Laterality 01/14/2003 1:11 PM CDT Sameer Saldana MD LAB_1 Performing Organization Address City/State/ZIP Code Phon e Number HP CONVERSION documented in this encounter Visit Diagnoses Not on filedocumented in this encounter Care Teams Phototypesetter Operator Relationship Specialty Start Date End Date Vargas Mazariegos, METER MECHANIC, PRODUCTION LINE SOLDERER PCP - General 07/24/10 03/28/16 documented as of this encounter
--- OUTSIDE RECORDS SUMMARY | 2022-01-26 07:16 | XMS_ITS | Encounter Summary ---
:1965 Author Organization [employer] Address [address] [place] [address] Care Team Providers Name Role Phone Vargas Mazariegos SERINA, YUE Primary Care Provider Encounter Details Date Type Department Care Team Description 09/10/2003 PN Conversion Only William Family Melita Galindo [address] [place], [place] [id number] Social History Tobacco Use Types Packs/Day Years Used Date Smoking Tobacco: Never Assessed Sex Assigned at Date Recorded Not on file documented as of this encounter Progress Notes Melita Roche - 09/10/2003 12:01 AM CDT Progress Notes signed by Melita Roche MD at 09/11/03 0932 Author: Melita Roche MD Service: (none) Author Type: Physician Filed: 08/11/10 2230 Note Time: 09/10/03 0001 Status: Signed Service Or Work Dispatcher: Melita Roche MD (Physician) NAME: AUSTIN CARRANZA MR: [id number] ACCT: [id number] VISIT: [id number] DICTATING CLINICIAN: MELITA ROCHE MD JOB: [id number] CLINIC PROGRESS NOTE DATE OF VISIT: 09/10/2003 ASSESSMENT: Tobacco smoking. Hyperlipidemia. Depression. Obesity. PLAN: Focus on fitness activity. This is difficult because he is going to school. Continue the Lipitor and Zoloft. Recheck with me in six months to review his medicines and smoking. SUBJECTIVE: Austin comes today for review of his hyperlipidemia and his depression. He also continues to smoke. He has made efforts to get off but is so far having significant difficulty. He has been taking Lipitor 20 mg a day without any difficulty, as well as Zoloft 100 mg a day. He has good control of his LDL, but his triglycerides remain elevated. CRP is normal, but homocysteine was 14.3. Emotionally, he is doing satisfactorily. He thinks the Zoloft is okay. It has impeded sexual functioning a bit but tolerable. He has not considered using Zyban or Wellbutrin to get off the tobacco. FAMILY HISTORY: Fair amount of heart disease on the paternal side but no early heart attacks in parents or siblings. OBJECTIVE: VS: BP: 118/68, right arm, large cuff. P: Radial, 72. Wt: 271. This is a BMI of 35. [id number] C: 09/10/03 21:13 DOCUMENT: [id number] Phone Note, Clinician - 08/14/2003 12:01 AM CDT Phone Note filed by Clinician Phone Note at 08/09/10 0214 Author: Clinician Phone Note Service: (none) Author Type: Resource Filed: 08/09/10 9451 Note Time: 08/14/03 0001 Status: Signed Service Or Work Dispatcher: Clinician Phone Note (Resource) TO: MELITA ROCHE FROM: ELIZ MOYER RN [phone] * PROVIDER MESSAGE: ROUTINE * 08/14/03 10:22AM * *WITHIN 4 HOURS * MESSAGE: Pt had one pill left of his * HOME PHONE:[phone] * Lipitor 20 mg so needs a one month * CONTACT PHONE:[phone] * rx called in. He did make a med * if questions * check appt for 08-18. Last chol * PHARMACY: [phone] [facility] * was last Dec. SUBJECTIVE: ALLERGIES/SENSITIVITIES... none CURRENT MEDICATIONS... Zoloft 100 mg, Lipitor 20 mg 01/13/03 PERTINENT PAST HISTORY... Depression 01/13/03 WEIGHT: ASSESSMENT: rx for Lipitor 20 mg PLAN: DISPOSITION: NO DISPOSITION GIVEN CALL BY ELIZ MOYER RN 08/14/2003 10:21AM [phone] ADDENDUM: <> 08/14/2003 02:19PM by YANDEL FISHER: Dr. Roche ok'd 1 refill of the Lipitor and it was called to the pharmacy listed. Rosa Ahuja MD - 07/14/2003 12:01 AM CST Progress Notes signed by Rosa Ahuja MD at 07/19/03 2247 Author: Rosa Ahuja MD Service: (none) Author Type: Physician Filed: 08/11/10 1931 Note Time: 07/14/03 0001 Status: Signed Service Or Work Dispatcher: Rosa Ahuja MD (Physician) NAME: AUSTIN CARRANZA MR: [id number] ACCT: [id number] VISIT: [id number] DICTATING CLINICIAN: ROSA AHUJA MD JOB: [id number] CLINIC PROGRESS NOTE DATE OF VISIT: 07/14/2003 ASSESSMENT: A. Left serous otitis media. B. 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 C. Consider obstructive sleep apnea. PLAN: The patient was interested in hearing better and wanted to have tympanostomy and tube insertion done today. It was therefore done under the operating microscope using 2% Xylocaine with 1:100,000 local anesthesia in the vascular strip of the left ear canal. An anterior inferior quadrant incision was made through the left tympanic membrane. A copious amount of marleny-colored serous fluid was aspirated from the left middle ear cleft after which a Ennis tube was inserted. The patient was then advised to have his monitor his sleeping to determine whether or not he has episodes of apnea greater than 10 seconds. He was also strongly encouraged to stop smoking. Follow up based on patient's 's surveillance of his sleeping. We may want to schedule a sleep study in this patient. SUBJECTIVE: Austin is a 37-year-old patient seen at the request of Neto Harris for evaluation of chief complaint of decreased hearing in his left ear. The patient says that he develops problem with decreased hearing in his left ear in the winter. This has occurred over the last several blount and in the course of his lifetime, he has had tympanostomy and tubes three different times; two in childhood and one in his adult life, all in his left ear. In addition to noticing decreased hearing in his left ear, he has had some headachy-pain behind his left eye and some left suboccipital pain which is relieved by rubbing his head. He also hears his heart beat in his left ear. The patient has tried to do Valsalva maneuvers with no avail. He has been on decongestant medications as well as guaifenesin without improving his hearing. The patient is a one pack per day cigarette smoker. He is also on Zoloft and Lipitor. OBJECTIVE: Austin was a very friendly, alert and cooperative 37-year-old male. Examination of his ears; his right tympanic membrane essentially appeared normal with no sign of middle ear fluid or infection. His left tympanic membrane had multiple air fluid levels and bubbles of fluid medial to it. There was chalky-white manubrium and there was a yellow, melted-butter discoloration medial to his tympanic membrane. Examination of his nose revealed a right nasal septal deviation, somewhat decreasing his right nasal airway compared to his left. The patient is, I believe, postop nasal septoplasty. The patient's oral cavity examination revealed a hyperactive gag, marked inflammation to the oropharyngeal mucosa, some persistent tonsils that are generous and elongated soft palate. The patient's uvula is horizontally ridged making me think that he is a significant snorer at night, which is corroborated by his who also corroborates that he may have breath-holding spells at night. He has no idea how long they last for. Patient had a hyperactive gag even after Cetacaine spray and it was therefore elected to use flexible laryngoscopy through the left nasal cavity after topical 4% Xylocaine was sprayed intranasally. The nasal pharyngoscope was passed back to the nasopharynx, which shows inflammation to the membranes, but no suggestion of a neoplasm in the nasopharynx. This scope was then passed to the level of the base of tongue. It reveals enlargement of the base of tongue with lymphoid hyperplasia, some inflammation and the tongue is effacing the vallecula. The true vocal cords are visualized. They are slightly erythematous, but there is no sign of malignancy on them. They move well to the midline. The piriform sinuses fill out well. The vallecula does not because of the prominence of the tongue. The scope was then withdrawn. Exam of Austin's neck reveals no tenderness, no adenopathy and no thyromegaly. 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 Speech housekeeper nanny threshold 30 in left, 5 in right. CC: MICHELE MAHONEY MLS:[id number] C: 07/14/03 17:39 DOCUMENT: [id number] E FASTENERS INSPECTOR Neto Harris PA-C - 06/23/2003 12:01 AM CST Progress Notes signed by Neto Harris PA-C at 06/23/03 1348 Author: Neto Harris PA-C Service: (none) Author Type: Physician Clinical Office Technician Filed: 08/11/10 5272 Note Time: 06/23/03 0001 Status: Signed Service Or Work Dispatcher: Neto Harris PA-C (Physician Clinical Office Technician) CHIEF COMPLAINT: ACUTE/FLUID IN EAR PROVIDER NOTE: [facility] Acute Clinic Visit IMPRESSION: Eustachian Tube Dysfunction SUBJECTIVE: Chief Complaint: Ears feel plugged History of Present Illness: Illness duration: 6 weeks, started with URI symptoms all of which have resolved except for ear plugging. Afebrile Symptoms worsening No headache Ear pain Ears feel plugged No nasal congestion/rhinorrhea No sore throat No cough URI symptoms 6 weeks ago, resolved. Meds This Illness: Sudafed Antihistamines Past History: Smoking: Currently smokes 1 ppd History of recalcitrant eustachian tube dysfunction, middle ear has had to be drained and tubes placed as recently as last year. Adverse Drug Reactions: No Adverse Drug Reactions Chronic Medications: Chronic Medications: Lipitor 20 mg qd, Lovugl125 mg qd OBJECTIVE: Vital Signs: T: 97.9 degrees F. P: R: BP: 138/64 Weight: 260 lbs. General Appearance: Well-appearing Eyes: External exam is normal bilaterally Left ear: Canal: , normal, TM: , bulging, serous middle ear fluid Right ear: Pinna, canal and TM normal Nose/Sinuses: Normal Oropharynx: Normal, mucous membranes moist, tonsils symmetric without redness or exudate. Neck: Supple without significant adenopathy or thyromegaly Respiratory: Lung sounds clear to auscultation without respiratory distress Cardiac: RRR without murmur Skin: Skin exam normal Lab & X-Ray: None ASSESSMENT: Eustachian Tube Dysfunction PLAN: Oral Decongestants Nutritious liquids Schedule follow-up appointment with ENT: Austin scheduled appointment 07/14/03 and requested that we talk to Dr. Ahuja and get him in earlier (requested today). Informed Austin that this would not be considered an emergent situation so we will not request this through ENT. Suggested he put himself on their cancellation list and see us in the interim if symptoms progress more rapidly than he's comfortable with. Shorthand Note completed on: 06/23/2003 1:46 PM E FASTENERS INSPECTOR Phone Note, Clinician - 01/13/2003 12:01 AM CDT Phone Note signed by KAYCEE Bass at 02/08/04 4357 Author: Clinician Phone Note Service: (none) Author Type: Resource Filed: 09/10/03 0000 Note Time: 01/13/03 0001 Status: Signed Service Or Work Dispatcher: Clinician Phone Note (Resource) TO: MELITA ROCHE FROM: MAURICIO SILVA RN [phone] * PROVIDER MESSAGE: ROUTINE * 01/13/03 08:36AM * *WITHIN 4 HOURS * MESSAGE: Pt. needs refill of Lipitor * HOME PHONE:[phone] * 20 mg. Last labs 10/06/02 Chol 187, * CONTACT PHONE:[phone] * LDL 98. Trigly. 448. No need for * PHARMACY: [phone] * callback. * [facility] * SUBJECTIVE: ALLERGIES/SENSITIVITIES... none 01/13/03 CURRENT MEDICATIONS... Zoloft 100 mg, Lipitor 20 mg 01/13/03 PERTINENT PAST HISTORY... Depression 01/13/03 WEIGHT: ASSESSMENT: Lipitor refill PLAN: DISPOSITION: NO DISPOSITION GIVEN CALL BY MAURICIO SILVA RN 01/13/2003 08:34AM [phone] ADDENDUM: <> 01/13/2003 11:51AM by MITUL TAYLOR: Per Beulah Sy RN DRY CLIPPER TENDER, Lipitor 20mg 1 po qd #30 with 2 refills. Torres d to [facility] at [phone]._Needs fasting cholesterol and AST since going up on dose to 20mg. Left message for patient at contact n rebecca. 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 He has no concerns currently noted at this time. Mentioned he had had a history of pilonidal cyst, which is stable, and he takes Lipitor for cholesterol, which has kept it under control. He needs to have a repeat fasting cholesterol at this time. PAST MEDICAL HISTORY: He has no chronic illnesses. At one point he was knocked out with a softball, but things have been stable since. SOCIAL HISTORY: He is a business banking manager. He smokes one pack of cigarettes per day. Alcohol use is occasional. He does not exercise routinely. He has two children, which are with him today. Complete review of systems today were negative. ADR/ALLERGIES: NONE. MEDS: Lipitor 10 and Zoloft 100. OBJECTIVE: VS: BP: 130/70. P: 72. Wt: 260. The patient is a well-nourished, well-developed male in no acute distress, oriented to person, place and time. HEENT: TM's clear. External canals normal. Nasal mucosa moist and pink. Posterior pharynx is clear. NECK: Supple, without thyroid enlargement or adenopathy. LUNGS: Clear, without rhonchi, rales, or wheezes. HEART: Regular rate and rhythm, without murmurs, gallops, or rubs. ABDOMEN: Positive bowel sounds in four quadrants, without tenderness, masses, guarding, or organ enlargement. : Both testicles distended, no evidence of hernia. MUSCULOSKELETAL: Normal. NEURO: Normal. ASSESSMENT: Routine health maintenance examination. DOT forms filled out. PLAN: Lipitor 10 was renewed. Cholesterol fractionation, AST were checked. Vision today was 20/20. IMPRESSION: Routine health maintenance examination. DOT physical. TT: CT: [id number] C: 10/08/02 08:03 DOCUMENT: [id number] Solo Benítez - 09/19/2002 12:01 AM CDT Progress Notes signed by Solo Benítez MD at 09/23/02 5429 Author: Solo Benítez MD Service: (none) Author Type: Physician Filed: 08/11/10 5202 Note Time: 09/19/02 0001 Status: Signed Service Or Work Dispatcher: Solo Benítez MD (Physician) NAME: AUSTIN CARRANZA MR: [id number] ACCT: [id number] VISIT: [id number] DICTATING CLINICIAN: SOLO BENÍTEZ MD JOB: [id number] CLINIC PROGRESS NOTE DATE OF VISIT: 09/19/2002 SUBJECTIVE: The patient is a 36-year-old male who presents with a one-week history of diarrhea. He noted crampy abdominal discomfort for the first four days. That has resolved. He still has loose stools, but it seems to be improving. No travel. No exposure to well water. No nausea or vomiting. No fever or chills. He was noted to have a left ear infection and was given Augmentin to take. He realizes that the Augmentin may be the aggravating factor. He stopped it three days ago and the abdominal cramping has resolved. He did early on notice a little bit of bright red blood on the surface of the stool, nothing mixed in with the stool. He notes no further bleeding at this point in time. No family history of colon cancer. PAST MEDICAL HISTORY: Hyperlipidemia, depression, tobacco addiction. PAST SURGICAL HISTORY: Vasectomy in 1997. MEDICATIONS: Zoloft 100 mg q.d., Lipitor 10 mg q.d., Augmentin, and guaifenesin just recently. OBJECTIVE: VS: BP: 118/62. T: 97.8. WT: 267 lb. HEART: Regular rhythm, rate with S1, S2. LUNGS: Clear to auscultation throughout. Tympanic membranes, right clear, left clear with some fluid behind the eardrum. Throat not inflamed, not injected. No sinus facial tenderness present. The patient declines rectal exam and evaluation here today. ASSESSMENT: 1. Diarrhea due to Augmentin side effect, resolving. Will discontinue Augmentin at this point in time. If patient notes any recurrent bleeding, he should return for recheck, reevaluation, and then would definitely need rectal evaluation and/or anoscopy. 2. Otitis media, resolved. Would have patient continue to use prescription decongestant p.r.n. Follow up if he notes pain, pressure, or discomfort over the next several weeks. PLAN: See Assessment. TT: CT: [facility]:[id number] C: 09/20/02 10:10 DOCUMENT: [id number] Phone Note, Clinician - 09/16/2002 12:01 AM CDT Phone Note filed by Clinician Phone Note at 08/09/10 112 Author: Clinician Phone Note Service: (none) Author Type: Resource Filed: 08/09/10 112 Note Time: 09/16/02 0001 Status: Signed Service Or Work Dispatcher: Clinician Phone Note (Resource) SUBJECTIVE: PATIENT COMPLAINS OF... Pt says he * HOME PHONE:[phone] * went to [facility] as he had some ear pain and e ar congestion, He was given Amox and Guaifensen. Pt then developed elder e stomach cramps and diarrhea. He did have some blood in the diarrhea, He quit the two meds on September 13 - 7 days later. No ear pain now, no d iarrhea, or blood in stools. He wondered if he should come in, ALLERGIES/SENSITIVITIES... none 07/03/02 CURRENT MEDICATIONS... Zoloft 07/03/02 PERTINENT PAST HISTORY... Depression 06/17/01 07/03/02 ASSESSMENT: questions DISPOSITION: HOME CARE PLAN: RECOMMENDED THE FOLLOWING... Pt was offered appt if he wanted a f/u. He decided to monitor since t he only sx left now was a feeling of water in his ear. Verbalizes understanding and agrees with phone care recommendation CALL BY ELIZ MOYER RN 09/16/2002 08:32AM [phone] ADDENDUM: E FASTENERS INSPECTOR documented in this encounter Plan of Treatment Not on filedocumented as of this encounter Visit Diagnoses Not on filedocumented in this encounter Care Teams Tank Builder Supervisor Relationship Specialty Start Date End Date Vargas Mazariegos, VIDEO COORDINATOR, DRY CLIPPER TENDER PCP - General 07/24/10 03/28/16 documented as of this encounter
--- OUTSIDE RECORDS SUMMARY | 2022-01-26 07:16 | XMS_ITS | Encounter Summary ---
:1965 Author Organization [employer] Address [address], [place] [address] Care Team Providers Name Role Phone Vargas Mazariegos YUE SMALLS Primary Care Provider [phone] Encounter Details Date Type Department Care Team Description 08/26/2002 PN Conversion [place] [facility] [place] [address] [place] [address] Social History Tobacco Use Types Packs/Day Years Used Date Smoking Tobacco: Never Assessed Sex Assigned at Date Recorded Not on file documented as of this encounter Progress Notes Reji Asif MD - 08/26/2002 12:01 AM CDT Progress Notes signed by Reji Asif MD at 01/13/04 4089 Author: Reji Asif MD Service: (none) Author Type: Physician Filed: 08/11/10 1406 Note Time: 08/26/02 0001 Status: Signed Mold Maker Helper: Reji Asif MD (Physician) NAME: AUSTIN CARRANZA MR: [id number] ACCT: [id number] VISIT: [id number] DICTATING CLINICIAN: REJI ASIF MD JOB: [id number] CLINIC PROGRESS NOTE DATE OF VISIT: 08/26/2002 SUBJECTIVE: This 36-year-old male comes in with concern that he feels that he has some fluid in his left ear for the past three weeks. Denies any earache but has this plugged feeling and problem with hearing in his left ear for the past three weeks. No fevers or other symptoms noted. No URI symptoms or nasal congestion noted. He tells me he has been getting this kind of problem for the past few years, usually at this time of the year. Apparently, the fluid was drained and a tube placed last year for the same problem. He has called ENT and has an appointment in about three or four weeks. ??PAST MEDICAL HISTORY:?? No sore throat or other symptoms. ??PAST MEDICAL HISTORY:?? Negative. MEDICATIONS: Lipitor, Zoloft. ADR/ALLERGIES: NONE. OBJECTIVE: VS: BP: 158/73. T: Afebrile. P: 60. R: 20. Exam shows patient looking good. Throat looks normal. Right ear looks normal. Left ear shows some chronic changes, secondary to tube place. I do not see any tube in place. There is no sign of infection in the ear. It is hard for me to appreciate any fluid behind the eardrum. No other findings. ASSESSMENT: Serous otitis media. PLAN: Symptomatic treatment reviewed, antihistamine and decongestant [id number] which she has used in the past was advised. Followup in ENT. Should be rechecked if any fevers or ear pain develops. FINAL IMPRESSION: See assessment. TT: CT: [id number] C: 08/27/02 11:56 DOCUMENT: [id number] documented in this encounter Plan of Treatment Not on filedocumented as of this encounter Visit Diagnoses Not on filedocumented in this encounter Care Teams Detail Manager Relationship Specialty Start Date End Date Vargas Mazraiegos APRN, WOOD TOOL MAKER PCP - General 07/24/10 03/28/16 documented as of this encounter
--- OUTSIDE RECORDS SUMMARY | 2022-01-26 07:16 | XMS_ITS | Encounter Summary ---
:1965 Author Organization [facility] Address [address] [place] [address] Care Team Providers Name Role Phone Vargas Mazariegos SERINA, YUE Primary Care Provider [phone] Encounter Details Date Type Department Care Team Description 04/01/2004 PN Conversion Only JENNY CONVERSION Bryce Walden MD [address] [place] [address] [facility] [address] [place] [address] (Wo rk) Social History Tobacco Use Types Packs/Day Years Used Date Smoking Tobacco: Never Assessed Sex Assigned at Date Recorded Not on file documented as of this encounter Plan of Treatment Not on filedocumented as of this encounter Procedures Procedure Name Priority Date/Time Associated Diagnosis Comme nts STREP GROUP A Routine 04/01/2004 11:40 AM Results for this ANTIGEN TEST DEPUTY CLERK OF SUPERIOR [facility] procedure are i n the results section. BETA STREP FOLLOWUP Routine 04/01/2004 11:40 AM R esults for this DEPUTY CLERK OF SUPERIOR [facility] procedure are i n the results section. documented in this encounter Results Strep Group A Antigen Test (04/01/2004 11:40 AM DEPUTY CLERK OF SUPERIOR COURT) Analysis Performed At Patho logist Time Signature Strep Group A Negative Negative HP CONVERSION Antigen Test Comment: Culture to follow. Specimen (Source) Anatomical Collection Method Collection Time Re ceived Time Location / / Volume Laterality 04/01/2004 11:40 AM DEPUTY CLERK OF [address]IOR [address] Bryce Walden MD LAB_1 Performing Organization Address City/State/ZIP Code Phon e Number HP CONVERSION Beta Strep Followup (04/01/2004 11:40 AM DEPUTY CLERK OF SUPERIOR COURT) P athologist Signature Strep Screen SEE TEXT HP CONVERSION Comment: Patient: AUSTIN CARRANZA Rapid Strep Follow up Culture @ ? Collected: ??[id number] ??[id number] Source: Throat ?Processed: ??[id number] ??[id number] Final Report ------ ?[id number] ??1025 No beta hemolytic Strep group A isolated . @ = Rapid F/U Cult Performed at ??[address] [place], [place] ?[address] Specimen (Source) Anatomical Collection Method Collection Time Re ceived Time Location / / Volume Laterality 04/01/2004 11:40 AM DEPUTY CLERK OF [address]IOR [address] Bryce Walden MD LAB_1 Performing Organization Address City/State/ZIP Code Phon e Number HP CONVERSION documented in this encounter Visit Diagnoses Not on filedocumented in this encounter Care Teams Bankman Relationship Specialty Start Date End Date Vargas Mazariegos, DIALER, FLATWORK PRESSER PCP - General 07/24/10 03/28/16 documented as of this encounter
--- OUTSIDE RECORDS SUMMARY | 2022-01-26 07:16 | XMS_ITS ---
:1965 Author Care Team Providers Name Role Phone DEMARCO TRACEY BAUTISTA Primary Care Provider [phone] Allergies Code Code System Name Reaction Severity Status Onset NKDA ? Medications Name Status Start Date Stop Date ? ? bupropion HCl XL 150 mg 24 hr tablet, extended release Active ? Not available ciprofloxacin 0.3 %-dexamethasone 0.1 % ear drops,suspension Act ronny ? Not available INSTILL 4 DROPS IN AFFECTED EAR THREE TIMES A DAY FOR 10 DAYS hydrochlorothiazide 12.5 mg capsule Active ? Not available losartan 100 mg tablet Active ? Not avail able rosuvastatin 10 mg tablet Active ? Not av ailable venlafaxine ER 75 mg capsule,extended release 24 hr Active ? Not available Problems None recorded. Procedures Date Name Performed by ? 04/23/2018 Colonoscopy Information not avai lable Notes: est date per pt ? Vasectomy Information not avai lable 07/06/2021 CT[facility] Radiology Department [address] [place] [address] (Work Place) Results Lab Results Date Name Specimen Result Interpretation Description Value Range Status Address ? 07/08/2021 Urinalysis, ? pH-Status 6.0 ? ? [facility]: [address] [facility], [facility] ? ? ? Blood-Status Trace ? ? [facility]: [address] [facility], [facility] pee 07/06/2021 Urinalysis, ? No observation ? ? ? Dipstick recorded. Past Encounters 07/06/2021 Microscopic Hematuria Howard Nash MD: [address] [facility], [place] [address], [place] [address], Ph. Social History Tobacco Smoking Status Current Every Day Smoker Vaccine List None recorded. Plan of Care Reminders Provider Appointments None recorded. ? ? Lab None recorded. ? ? Referral None recorded. ? ? Procedures None recorded. ? ? Surgeries None recorded. ? ? Imaging None recorded. ? ? Vitals Height Weight BMI 6 ft 320 lbs 43.4 kg/m2
--- OUTSIDE RECORDS SUMMARY | 2022-01-26 07:16 | XMS_ITS | Encounter Summary ---
:1965 Author [facility] Address [address], [place] [address] Care Team Providers Name Role Phone Vargas Mazariegos APRN, CNP Primary Care Provider [phone] Encounter Details Date Type Department Care Team Description 03/30/2004 PN Conversion Only JENNY CONVERSION [address] [place] [address] Social History Tobacco Use Types Packs/Day Years Used Date Smoking Tobacco: Never Assessed Sex Assigned at Date Recorded Not on file documented as of this encounter Plan of Treatment Not on filedocumented as of this encounter Visit Diagnoses Not on filedocumented in this encounter Care Teams Mobile Sales Consultant Relationship Specialty Start Date End Date Vargas Mazariegos APRN, CNP PCP - General 07/24/10 03/28/16 documented as of this encounter
--- OUTSIDE RECORDS SUMMARY | 2022-01-26 07:16 | XMS_ITS | Encounter Summary ---
:1965 Author Organization [facility] Address [address] [place] [address] Care Team Providers Name Role Phone Vargas Mazariegos SERINA, YUE Primary Care Provider [phone] Encounter Details Date Type Department Care Team Description 10/06/2002 PN Conversion Only JENNY CONVERSION Dallas Ellis MD [address] [place] [address] CHRISTINE [place] [id number] (Wo rk) Social History Tobacco Use Types Packs/Day Years Used Date Smoking Tobacco: Never Assessed Sex Assigned at Date Recorded Not on file documented as of this encounter Plan of Treatment Not on filedocumented as of this encounter Procedures Procedure Name Priority Date/Time Associated Comments Diagnosis URINALYSIS COMPLETE Routine 10/06/2002 10:16 AM R esults for this CDT procedure are i n the results section. LIPID PANEL AND Routine 10/06/2002 10:16 AM Resul ts for this DIRECT LDL(IF CDT procedure are in NEEDED) the results section. LDL CHOLESTEROL, Routine 10/06/2002 10:16 AM Resu lts for this DIRECT MEASURED CDT procedure ar e in the results section. AST Routine 10/06/2002 10:16 AM Results for this CDT procedure are i n the results section. documented in this encounter Results AST (10/06/2002 10:16 AM CDT) [facility] Method Time Signature Aspartate 30 0 - 45 HP CONVERSION Aminotransferase U/L Specimen (Source) Anatomical Collection Method Collection Time Re ceived Time Location / / Volume Laterality 10/06/2002 10:16 AM CDT Eliz Robles PA-C LAB_1 Performing Organization Address City/State/[facility] Code Phon e Number HP CONVERSION (ABNORMAL) Lipid Panel and Direct LDL(If Needed) (10/06/2002 10:16 AM CDT) [facility] Method Time Signature Length Of Fast 22.0 Hours HP CONVERSION Cholesterol/HDL 7.5 No normal HP CONVERSION Ratio Screen range Cholesterol 187 125 - 199 HP CONVERSION mg/dL HDL Cholesterol 25 (L) 40 - 60 HP CONVERSION mg/dL Triglycerides 448 (H) 0 - 199 HP CONVERSION mg/dL LDL Calculated N/A 66 - 129 HP CONVERSION mg/dL Comment: Unable to calculate due to >400 mg/dL Tr iglyceride. Specimen (Source) Anatomical Collection Method Collection Time Re ceived Time Location / / Volume Laterality 10/06/2002 10:16 AM CDT Eliz Robles PA-C LAB_1 Performing Organization Address [facility] Phon e Number HP CONVERSION (ABNORMAL) Urinalysis Complete (10/06/2002 10:16 AM CDT) [facility] Method Time Signature Glucose, Negative Neg-Trac HP CONVERSION Qualitative U Protein Urine Negative Neg-Trac HP CONVERSION Ketones Trace (A) Negative HP CONVERSION U BILI Negative Negative HP CONVERSION U Specific 1.025 1.005 - 25 HP CONVERSION [place] Blood Urine Negative Negative HP CONVERSION pH Urine 5.5 4.5 - 7.5 HP CONVERSION Urobilinogen Negative 0.2 - 1.0 HP CONVERSION Urine Nitrite Urine Positive Negative HP CONVERSION (A) Leukocyte Negative Negative HP CONVERSION Esterase Urine White Blood 3-4/HPF 0 - 3 HP CONVERSION Cells Urine Red Blood Cells 0-2/HPF 0 - 2 HP CONVERSION Urine Bacteria Urine Moderate None HP CONVERSION (A) Urine Mucus Large None HP CONVERSION Specimen (Source) Anatomical Collection Method Collection Time Re ceived Time Location / / Volume Laterality 10/06/2002 10:16 AM CDT Eliz Robles PA-C LAB_1 Performing Organization Address City/[facility] Code Phon e Number HP CONVERSION LDL Cholesterol, Direct Measured (10/06/2002 10:16 AM CDT) athologist Signature LDL Direct 98 <130 mg/dL HP CONVERSION Comment: Direct LDL Reference Ranges 0-129 ?? Desirable 130-159 Borderline Risk >160 ?High Risk Specimen (Source) Anatomical Collection Method Collection Time Re ceived Time Location / / Volume Laterality 10/06/2002 10:16 AM CDT Eliz Robles PA-C LAB_1 Performing Organization Address City/State/ZIP Code Phon e Number HP CONVERSION documented in this encounter Visit Diagnoses Not on filedocumented in this encounter Care Teams Assistant Professor Of Forestry Relationship Specialty Start Date End Date Vargas Mazariegos, FRUIT OR NUT FARMER, APPELLATE COURT CLERK PCP - General 07/24/10 03/28/16 documented as of this encounter
--- OUTSIDE RECORDS SUMMARY | 2022-01-26 07:16 | XMS_ITS | Encounter Summary ---
:1965 Author Organization [facility] Address [address] [place] [address] Care Team Providers Name Role Phone Vargas Mazariegos SERINA, YUE Primary Care Provider [phone] Encounter Details Date Type Department Care Team Description 07/14/2002 PN Conversion Only William Family Melita Galindo [address] [place], [place] [id number] Social History Tobacco Use Types Packs/Day Years Used Date Smoking Tobacco: Never Assessed Sex Assigned at Date Recorded Not on file documented as of this encounter Progress Notes Melita Roche - 07/14/2002 12:01 AM CST Progress Notes signed by Melita Roche MD at 07/17/02 1302 Author: Melita Roche MD Service: (none) Author Type: Physician Filed: 08/11/10 1326 Note Time: 07/14/02 0001 Status: Signed Automotive Painter: Melita Roche MD (Physician) NAME: AUSTIN CARRANZA MR: [id number] ACCT: [id number] VISIT: [id number] DICTATING CLINICIAN: MELITA ROCHE MD JOB: [id number] CLINIC PROGRESS NOTE DATE OF VISIT: 07/14/2002 SUBJECTIVE: : 1965. [id number]. Austin comes today to review his cholesterol. It has been high again. He also notes a family history of hyperlipidemia in mother, father and sister. No early heart attacks, fortunately. However, he was duly concerned about his cholesterol being elevated. He is a tobacco smoker, and he has been unsuccessful at quitting, despite his many trials. He did not get any benefit from using Zyban. He thinks he got mouth sores from the gum. He is willing to take pills to lower his cholesterol. Austin has been doing well on Zoloft 100 mg. He needs to have refills. He wonders if he will ever be able to get off this. He feels much better taking it, and he is reluctant to consider going off. OBJECTIVE: VS: BP: 124/70, left arm, large cuff. P: 80, radial. Wt: He looks well and healthy. He is conversant and alert. LUNGS: Clear. HEART: Regular. ABDOMEN: Flat, soft and nontender. No ankle edema. ASSESSMENT: Hyperlipidemia. Tobacco addiction. PLAN: Start on Lipitor 10 mg one at bedtime. Goal LDL would be less than 130-160. Fasting blood sugar, ALT, homocysteine, HsCRP, cholesterol fraction. Today we will also do an EKG; chest x-ray, PA and lateral. The blood tests will be done in six weeks after using the Lipitor. Continue the Zoloft 100 mg one a day, #90 pills, refill one year. FINAL IMPRESSION: Hyperlipidemia. Tobacco addiction. Depression. TT: CT: [facility]:[id number] C: 07/17/02 12:02 DOCUMENT: [id number] QUALITY CHEMIST Phone Note, Clinician - 07/03/2002 12:01 AM CST Phone Note filed by Clinician Phone Note at 08/09/10 1051 Author: Clinician Phone Note Service: (none) Author Type: Resource Filed: 08/09/10 1051 Note Time: 07/03/02 0001 Status: Signed Automotive Painter: Clinician Phone Note (Resource) TO: MELITA ROCHE FROM: STEPH HOUGH RN [phone] * PROVIDER MESSAGE: ROUTINE * 07/03/02 12:40PM * *WITHIN 4 HOURS * MESSAGE: Patient is calling for the * HOME PHONE:[phone] * results of his cholesteral that was * CONTACT PHONE:[phone] * drawn approx 3 weeks. Advised that * Austin * his cholesteral is elevated at 303, * PHARMACY: [phone] * and triglicerides are high. Has a * [facility] in [place] * family history of elevated cholesteral, and he would like to discuss treatment plan with Dr. Roche. Please call him SUBJECTIVE: ALLERGIES/SENSITIVITIES... none 07/03/02 CURRENT MEDICATIONS... Zoloft 07/03/02 PERTINENT PAST HISTORY... Depression 06/17/01 07/03/02 WEIGHT: ASSESSMENT: Cholesteral results PLAN: DISPOSITION: NO DISPOSITION GIVEN CALL BY STEPH HOUGH RN 07/03/2002 12:38PM [phone] ADDENDUM: <> 07/03/2002 01:15PM by JAISON GALAVIZ CHROME POLISHER: O asks the pt. to schedule an appt to discuss. Mello Manzo MD - 08/26/2001 12:01 AM CDT Progress Notes signed by at 05/10/02 1830 Author: Mello Stanley MD Service: (none) Author Type: Physician Filed: 08/11/10 0612 Note Time: 08/26/01 0001 Status: Signed Automotive Painter: Mello Stanley MD (Physician) IMPRESSION: Recheck PE tube. Follow up CT scan sinuses. Chronic rhinitis. Chronic sinusitis. Nasal septal deformity. SUBJECTIVE: The patient is here for follow-up CT scan of the nose and sinuses and recheck PE tubes. His symptoms have improved since the PE tube. No further problems with headaches. CT scan was reviewed and discussed with patient. He has an isolated posterior ethmoid air cell, more on the right than the left. The septum deviates to the right side mildly. Otherwise clear. OBJECTIVE: PE tube is in place and patent on the left side. Middle ear space appears clear. ASSESSMENT: Recheck PE tube. Follow up CT scan sinuses. Chronic rhinitis. Chronic sinusitis. Nasal septal deformity. PLAN: Discussed findings with patient. Reviewed scan. Discussed anatomy. Discussed involved disease. Because he has improved, would advise continued observation. We will see again in follow up in six months for recheck of his PE tubes, sooner on a p.r.n. basis. Discussed surgical options of endoscopic sinus surgery and nasal septoplasty. Discussed surgery in detail with his goals, risks, and potential complications and postoperative course. Would not recommend surgical intervention at this time. We will see again in follow up as discussed. TT: CT: [id number]:[id number] C: DOCUMENT: [id number] QUALITY CHEMIST Mello Stanley MD - 07/15/2001 12:01 AM CST Progress Notes signed by at 05/10/02 1825 Author: Mello Stanley MD Service: (none) Author Type: Physician Filed: 08/11/10 0514 Note Time: 07/15/01 0001 Status: Signed Automotive Painter: Mello Stanley MD (Physician) IMPRESSION: Otitis media/effusion, hearing loss left ear, rhinitis/sinusitis, nasal airway obstruction, nasoseptal deformity. SUBJECTIVE: Chief Complaint: Fluid in ears. HISTORY OF PRESENT ILLNESS: Patient is a 35-year-old male seen at the request of Dr. Roche for evaluation of his ears. He has had problems with decreased hearing and muffled plugged sensation in left ear since February. He was noted to have otitis media with effusion in February of 2001, and acute otitis media in April of 2001. He was treated with Augmentin and the pain has resolved. He still has persistent decreased hearing in the left ear with plugged sensation in the ear. No problems with otorrhea or vertigo. Some infrequent tinnitus. He notes some nasal airway obstruction and congestion. PREVIOUS SURGERIES: History of PE tubes and septoplasty. PAST MEDICAL HISTORY/CURRENT MEDICATIONS: Reviewed in health profile. ADR/ALLERGIES: NONE. HABITS: Patient smokes one pack of cigarettes per day. OBJECTIVE: GEN: A healthy-appearing adult male in no acute distress. Skin of the head and neck is normal. Respirations unlabored. HEENT: External ears appear normal. Otomicroscopic exam reveals clear right tympanic membrane and middle ear space. He has some middle ear effusion on the left side. Audiologic evaluation was conducted in hearing with flat tympanometry on the left side. Nasal exam reveals straight external nose. Intranasal exam reveals septal deformity along the vomer in area two and four. Indirect nasopharyngoscopy is normal. ASSESSMENT: Chronic otitis media with effusion, conductive hearing loss left ear. Chronic rhinitis, chronic sinusitis, nasal airway obstruction, nasoseptal deformity. PLAN: Discussed with patient. Discussed options. Discussed left PE tube under topical anesthesia. He elected to proceed. After topical Phenol an inferior myringotomy was performed. A large amount of serous fluid was suctioned from the middle ear space. Ennis ventilation tube was inserted without difficulties. Discussed nasal sinus problems. Discussed further evaluation with CT scan of the nose and sinuses. We will see again in followup with the scan. Discussed treatment options including surgical options of endoscopic nasal sinus surgery. TT: CT: [id number] C: DOCUMENT: [id number] QUALITY CHEMIST [facility] - 06/17/2001 12:01 AM CST Phone Note signed by at 06/17/01 1206 Author: Sita Conversion Service: (none) Author Type: (none) Filed: 08/11/10 0433 Note Time: 06/17/01 0001 Status: Signed Automotive Painter: Sita Conversion IMPRESSION: Referrals TO: MELITA ROCHE FROM: AURORA RIVER [phone] 06/17/01 * PROVIDER MESSAGE: ROUTINE * 01:50PM * *WITHIN 4 HOURS * MESSAGE: Pt seen 2-4 for OM left. Now * HOME PHONE:[phone] * requesting ENT w/in sooner than end * CONTACT PHONE:[phone] * of June. Pt unable to hear out of left ear. No pain, noise or drainage. Pt also requests referral for bio feedback/ behavior mod which is unavailable at [facility]. Insurance is [employer]. SUBJECTIVE: ALLERGIES/SENSITIVITIES... NKDA 06/17/01 CURRENT MEDICATIONS... ZOLOFT 100 MG, Zyban 06/17/01 PERTINENT PAST HISTORY... Depression 06/17/01 WEIGHT: ASSESSMENT: Referrals PLAN: DISPOSITION: NO DISPOSITION GIVEN CALL BY AURORA PERICO 06/17/2001 01:39PM [phone] ADDENDUM: <> 06/19/2001 11:42AM by JAISON GALAVIZ: Informed we were not able to get him in any sooner, second issue we could probably send for Bio-feedback through mental health. Melita Hernandez 05/27/2001 12:01 AM CST Progress Notes signed by Melita Roche MD at 06/01/02 1648 Author: Melita Roche MD Service: (none) Author Type: Physician Filed: 08/11/10 0401 Note Time: 05/27/01 0001 Status: Signed Automotive Painter: Melita Roche MD (Physician) IMPRESSION: Tobacco addiction, depression, otitis media. SUBJECTIVE: Austin comes today to review his ear infection, have his cholesterol checked and talk about his depression and smoking behavior. He has tried very hard to get off the tobacco but still has had a problem. He wonders if he might benefit from some program that would help him with his behavior. He is quite sure it is not the tobacco as much as the habit. He continues on Zyban and is taking Zoloft 100 mg daily. He did not go up on his Zoloft yet. The left ear had some fluid behind it when I saw him last but now developed into an ear infection. It is not feeling much better although he has been on antibiotics now for the third day. He is willing to wait to see how that will go. His depression has been well maintained. HABITS: Tobacco - still one pack per day. ADR/ALLERGIES: NO KNOWN DRUG ALLERGIES. OBJECTIVE: VS/Gen: BP: 130/80, left arm, large cuff. P: Radial pulse 72. Wt: 262 lb. He is accompanied by his son today. HEENT: Right TM is normal, the left ear canal is a little bit moist and there is obvious fluid behind the ear drum. There is minimal inflammation. It appears to be improving. Oropharynx is clear. NECK: Supple. LUNGS: Clear. LYMPH: No cervical adenopathy. NEURO: He is conversant and alert. He has normal mood and affect. ASSESSMENT: Tobacco addiction, depression, otitis media - improving. PLAN: Stay on the Zoloft 100 mg daily. Stay on the ??Wellbutrin?? 100 mg b.i.d. Recheck with me in three to six months. Finish off the amoxicillin he is taking. Consider behavior modification through mental health such as bio-feedback. He should make an ENT consult appointment if he is not having improvement over the next couple of days and if he is not improving, I would change him to Bactrim or Septra DS one p.o. b.i.d. for ten additional days. He will call in two days if no improvement. TT: CT: [id number] C: DOCUMENT: [id number] Vargas Chaudhry APRN, CNP - 05/24/2001 12:01 AM CST Progress Notes signed by Vargas Mazariegos APRN, CNP at 05/27/01 8339 Author: NIKKI Downey Service: (none) Author Type: Nurse Practitioner Filed: 08/11/10 0400 Note Time: 05/24/01 0001 Status: Signed Automotive Painter: NIKKI Downey (Nurse Practitioner) IMPRESSION: Left otitis media. SUBJECTIVE: Date of Visit: 05/24/01. Austin is a 35-year-old, white male who presents today complaining of left ear pain. States that he has been treated for some distant sounds and fluid in his left ear for about the past 4-6 weeks, and he has been using some nasal steroid spray with some limited relief. He awoke last night with severe left-sided ear pain that radiates from the ear down the left side of the jaw and neck. Denies any fever or chills, though, however. Denies any severe significant nasal congestion. Denies sore throat or cough. Denies chest pain or shortness of breath. Denies any other problems or concerns at this time. PAST MEDICAL HISTORY: Significant for depression and tobacco abuse. MEDICATIONS: Zyban and Zoloft 100 mg q.d. ADR/ALLERGIES: NONE. HABITS: He does smoke but is trying to quit, presently taking Zyban. OBJECTIVE: VS/Gen: BP: 128/88. T: 97.5 orally. P: 60. He is alert, oriented, pleasant, well developed, appears in no acute distress. HEENT: Clear conjunctivae without swelling, redness, or exudate. Sinuses are nontender to palpation. Nares are clear. Turbinates normal. Oropharynx without erythema or exudate. Right TM is completely clear. The pinna is nontender to palpation or movement. Left TM is significantly erythematous with bulging. Pinna is tender to both palpation and movement. There is tenderness to palpation in the pre- and postauricular nodes. NECK: Supple. There is no cervical lymphadenopathy. LUNGS: Clear to auscultation bilaterally without wheeze. Respirations nonlabored. CV: Regular rate and rhythm. No murmurs, rubs, or gallops. ASSESSMENT: Left otitis media. PLAN: 1. Amoxicillin 500 mg t.i.d. x10 days. 2. Auralgan 2 drops t.i.d., 15 mL, take p.r.n. for left ear pain. 3. Recommended Tylenol or Motrin regularly for pain. 4. He is instructed to follow up on a p.r.n. basis. He agrees with this plan. TT: CT: [id number] C: DOCUMENT: [id number] Melita Hernandez 04/25/2001 12:01 AM CST Progress Notes signed by Melita Roche MD at 06/01/02 6246 Author: Melita Roche MD Service: (none) Author Type: Physician Filed: 08/11/10 0316 Note Time: 04/25/01 0001 Status: Signed Automotive Painter: Melita Roche MD (Physician) IMPRESSION: Depression. Left serous otitis media. Tobacco abuse. SUBJECTIVE: Austin comes for review of his medications, discussion of tobacco, left serous otitis media and depression. He has been doing quite well on Zoloft 100 mg a day. He still feels some anxiety when he is places other than his familiar hangouts. Currently, he notes having had trouble at vacation time when he was out of state at an unfamiliar hotel. When he is with a group, the same thing happens. Recently, he has not had any crying spells, sadness or blue episodes. He is feeling more comfortable, confident and enjoy life much more. 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 He still gets his kids ready in the morning since his works days. He is home in the afternoon. He continues to smoke but wants to get off the tobacco. He has tried Zyban but did not find it very helpful. Recently, in fact, about a month ago, he had some eustachian tube dysfunction and has noted diminished hearing on the left side with the sensation of fluid in the middle ear. ALLERGIES: NONE. MEDS: Zoloft 100 mg a day. PMH: Tobacco addiction. Vasectomy in 98. OBJECTIVE: VS/GEN: BP: 148/86, left arm large cuff. P: Radial, 64. Wt: 263. Ht: 6 ft tall. Healthy appearing white male of 35 who appears well and healthy. He is conversive and alert. He has normal mood and affect. HEENT: Tympanic membranes and ear canals are normal. Nasal membranes and turbinates are normal. Oropharynx is clear. No cervical adenopathy. One exception, he does have fluid in the left middle ear with air bubbles present. LUNGS: Clear. CV: Regular. ABD: Soft and nontender. ASSESSMENT: Tobacco addiction. Depression, improved, still some anxiety. Left serous otitis media. PLAN: Refill Zoloft 100 mg one a day. Start on Wellbutrin 100 mg one a day for a week and then up to b.i.d. He is going to return in a month so that we can review his progress. Will check his ears again. Cholesterol fraction because of tobacco abuse is done. TT: CT: [id number] C: DOCUMENT: [id number] QUALITY CHEMIST Conversion, [facility] - 04/12/2001 12:01 AM CST Phone Note signed by at 04/12/01 3750 Author: Imr Conversion Service: (none) Author Type: (none) Filed: 08/11/10 0304 Note Time: 04/12/01 0001 Status: Signed Automotive Painter: Imr Conversion IMPRESSION: Pain in L ear TO: BEULAH CRUZ FROM: MAURICIO SILVA RN [phone] * PROVIDER MESSAGE: ROUTINE * 04/12/01 04:16PM * *WITHIN 4 HOURS * MESSAGE: Pt. requesting a call re: * HOME PHONE:[phone] * pain in L ear that began today. He * CONTACT PHONE:[phone] * had seen you for fluid in ear 04/03 * PHARMACY: [phone] * and has been taking 4 Sudafed a * [facility] * day. No fever, no drainage from ear. SUBJECTIVE: ALLERGIES/SENSITIVITIES... NKDA 04/12/01 CURRENT MEDICATIONS... ZOLOFT 100 MG, Sudafed qid 04/12/01 PERTINENT PAST HISTORY... Depression 04/12/01 WEIGHT: ASSESSMENT: Pain in L ear PLAN: DISPOSITION: NO DISPOSITION GIVEN CALL BY MAURICIO SILVA RN 04/12/2001 04:15PM [phone] ADDENDUM: <> 04/12/2001 04:53PM by LILLY CASTANO: Beulah spoke with pt and recommends trial of Sudafed as directed and Ibuprofen 200mg 3 tabs q 8 hours prn pain and warm packs to left ear tid prn. Instructed to f/u with our clinic early next week to have ear checked or u.c this weekend if pain persists. QUALITY CHEMIST Conversion, [facility] - 04/03/2001 12:01 AM CST Progress Notes signed by at 06/14/022044 Author: Sita Conversion Service: (none) Author Type: (none) Filed: 08/11/10 0251 Note Time: 04/03/012044 Status: Signed Automotive Painter: Sita Conversion IMPRESSION: Eustachian tube dysfunction, headache. SUBJECTIVE: Chief Complaint: This pleasant 35-year-old male presents with a two- to three-week history of left ear pressure type plugged feeling, almost like fluid in his ear. Reports no recent onset of URI symptoms or allergies. No fever, chills or sweats. No nasal congestion or postnasal drainage. No history of ear infections. No ear drainage. No dizziness or lightheadedness associated with this. MEDS: Zoloft 100 mg q.d. ADR/ALLERGIES: NKDA. Smokes one pack of cigarettes per day. He plans for a quit date April 23, 2000. Does have a history of tobacco abuse and has trialed Zyban in the past with little effect. He also notes a headache behind the left eye. It usually occurs in the afternoon while driving a school bus. States it seems to occur when he feels stressed while driving a schoolbus with all the children as well as with continuing looking up and using his mirrors. The headache does subside once he is at home. Rates the pain as a 1-10 scale, mainly as a dull pressure, nonradiating. No visual changes. No nausea or vomiting. No light sensitivity or noise sensitivity. OBJECTIVE: VS/Gen: BP: 120/82 right arm, large cuff. T: 97.7 orally. Wt : 260 pounds. A well-appearing, heavy set male in no acute distress. SKIN: Soft, warm, dry. EYES: Bilateral conjunctivae clear. PERRLA. HENT: Right TM and canal clear. Left TM with mild bulging and retraction. Bony landmarks and light reflex present. No erythema. Canal clear. No pinna or tragus pain with traction. A few air bubbles noted behind TM. Sinuses: Nares patent. Mucosa pink, moist. Clear drainage. Throat: Oropharynx unremarkable. NECK: Supple, without lymphadenopathy, masses or tenderness. ASSESSMENT: 1. Eustachian tube dysfunction. 2. Headache. PLAN: Regarding eustachian tube dysfunction, discussed physiology of this. Plan OTC Sudafed as directed. Advised adequate fluid hydration, 8 to 12 glasses of water a day. May trial a hot humid shower along with gentle Valsalva maneuver with gentle blowing technique. If no improvement of his symptoms in the next four to six weeks, will plan consult with ENT. Reassurance given regarding headache. Reports no current headache at present. May follow up if his headaches persist. Again, advised adequate fluid hydration. Avoid caffeinated products. Strongly advised smoke cessation and to keep his quit dated. Recommended he trial limiting the number of cigarettes per day in order to help him quit. May trial OTC Tylenol or ibuprofen p.r.n. headache. Patient agrees with above. Will call with further questions or concerns. ALK:[id number] C: DOCUMENT: [id number] SCHEDULED RESOURCE: BEULAH CRUZ / ALEKSANDR. QUALITY CHEMIST Conversion, [facility] - 03/22/2001 12:01 AM CST Phone Note signed by Melita Roche MD at 09/28/01 3657 Author: Sita Conversion Service: (none) Author Type: (none) Filed: 08/11/10 0235 Note Time: 03/22/01 0001 Status: Signed Automotive Painter: Sita Conversion IMPRESSION: rx for Zoloft 100 mg TO: MELITA ROCHE FROM: ELIZ MOYER RN [phone] * PROVIDER MESSAGE: ROUTINE * 03/22/01 01:18PM * *WITHIN 4 HOURS * MESSAGE: Pt says he has to call in * HOME PHONE:[phone] * each month for a refill of his * CONTACT PHONE:[phone] * Zoloft 100 mg . He last saw you Apr * if questions * 00. He made appt for annual check * PHARMACY: [phone] * for 04-22-01 . He would like rx for * [facility] * Zoloft 100 mg called in. SUBJECTIVE: ALLERGIES/SENSITIVITIES... NKDA 02/13/00 CURRENT MEDICATIONS... ZOLOFT 100 MG PERTINENT PAST HISTORY... Depression 02/13/00 WEIGHT: ASSESSMENT: rx for Zoloft 100 mg PLAN: DISPOSITION: NO DISPOSITION GIVEN CALL BY ELIZ MOYER RN 03/22/2001 01:15PM [phone] ADDENDUM: <> 03/22/2001 01:19PM by NURYS HIDALGO: We have only been refilling monthly because during his exam in April, gave him 5 refills with the plan to either discontiue med or he needed an appt to continue. The refill will be called in but we need to see him in March. Keep his scheduled appt. QUALITY CHEMIST Christiano Kang MD - 10/11/2000 12:01 AM CDT Progress Notes signed by Christiano Kang MD at 10/31/00 3779 Author: Christiano Kang MD Service: (none) Author Type: Physician Filed: 08/10/10 4362 Note Time: 10/11/00 0001 Status: Signed Automotive Painter: Christiano Kang MD (Physician) IMPRESSION: Thrombosed hemorrhoid. SUBJECTIVE: Patient is seen on a work-in basis for evaluation regarding problems with his pilonidal cyst. He was seen in June for an acute abscess of pilonidal cyst, which was treated with drainage. He had been doing very well, but about two weeks ago he developed exquisitely painful, tender lump outside the anal verge and subsequently has developed some burning irritation in the area where he first identified his pilonidal cystitis. There has been no drainage or discharge, and gradually over time he has noted that the painful perianal lump seems to be less painful and now is bordering on merely uncomfortable. He has been defecating, however, without problems and denies any GI disturbance. OBJECTIVE: Examination shows no pilonidal cystitis at the current time, at least actively and certainly no abscess or cellulitis. However, below the coccygeal area in the superior perianal region, patient has clear evidence of dermatitis, consistent with pruritus ani. It is surprising, however, that it only represents the more superior aspect, and along with this is a thrombosed external hemorrhoid that is minimally tender and relatively soft, but relatively good sized in that it involves from the 2 to the 4 o'clock position. ASSESSMENT: Thrombosed hemorrhoid. PLAN: I think the two conditions, the thrombosed hemorrhoid and the pruritus ani, are directly related. The patient, roughly two weeks ago, had a change in his work status and now sits for extended periods of time. He has also been drinking quite a bit more pop then before, and the extra flatus, the change in positioning, the new thrombosed hemorrhoid, probably all led to the dermatitis that he is now experiencing. In regard to the thrombosed hemorrhoid, I have offered the patient the option of having it surgically excised, but he feels that he has noted an improvement in it at the current time and is, therefore, somewhat leery of surgery. The only purpose of surgical intervention in such cases are to speed the recovery and, as the patient already is starting to have less discomfort, I think he may be right in withholding consent. As far as the pruritus ani, it is very likely that the dermatologic change came subsequent to his change in profession, dietary changes and especially exacerbated by his thrombosed hemorrhoid. We talked at length regarding local measures that may be of help, dietary changes, etc. Very likely with resolution of his thrombosed hemorrhoid, the pruritus ani will improve drastically. 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 SUBJECTIVE: This 74-year-old gentleman comes in for evaluation of several lesions. One on his left upper eyelid that has been present for well over a year, slowly growing in size, has bled occasionally if he rubs it vigorously. Also a spot on his central forehead, present over the past year to two years, asymptomatic, and lastly a spot on his left parietal scalp that has been there for quite a while. He notes that when he gets his hair cut short, it is occasionally nicked and has bled. No history of skin cancer. MEDICATIONS: Zoloft. ALLERGIES: NO KNOWN DRUG ALLERGIES. OBJECTIVE: On exam, pleasant gentleman in no distress. Evaluation of the face and scalp today reveal on the left upper eyelid a 3-mm, sheridan-red, dome-shaped papule. On the left parietal scalp, a larger 4-5 mm, sheridan-red, multilobulated papule. Central forehead, he has a little bit of fine telangectasia centrally, no scale, no induration, blanchable with pressure. No other worrisome lesions noted. 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 PLAN: Discussed removal of the larger sheridan hemangioma by shave technique today, and after verbal consent was obtained and the risks of shave removal including infection, bleeding, and scar were discussed, the lesion was anesthetized with 1% Xylocaine with epinephrine and shave removed, hyfrecator used for hemostasis, Polysporin ointment and Band-Aid applied, wound care instructions given. Lightly hyfrecated the smaller hemangioma on the left upper eyelid with a good response today. We did discuss that this lesion may recur. I reassured him regarding the telangectasia on the central forehead. Follow up here as needed. [id number] C: DOCUMENT: [id number] Christiano Kang MD - 07/12/2000 12:01 AM CST Progress Notes signed by Christiano Kang MD at 07/26/00 2226 Author: Christiano Kang MD Service: (none) Author Type: Physician Filed: 08/10/10 2147 Note Time: 07/12/002044 Status: Signed Automotive Painter: Christiano Kang MD (Physician) IMPRESSION: PILONOIDAL CYSTITIS SUBJECTIVE: Patient is a 34-year-old with historical pilonidal cystitis in the remote past, who is seen on an emergency work-in basis, at the request of Dr. Gonzalez, for evaluation regarding an acute infection. Apparently, several years back, the patient had an acute infection of the area and had it incised and drained. He believes at the time they excised it, but he speaks about how they left the wound open, and he had to pack it deeply, etc., etc. He had been doing well up until about five days ago, when this started to become very uncomfortable for him. He was started on antibiotics, per Urgent Care, and seen today by Dr. Gonzalez for followup. When it was clear that this represented an abscess, he was, therefore, seen in our office for possible drainage. OBJECTIVE: Examination in the prone, jackknife position shows two rather deep sinuses within the intergluteal cleft. They are relatively inferior, however, and well below the ???paracoccygeal??? region. Inferior and right of this, there is a profound area of fluctuance, which, under local anesthesia, we drained and unroofed for approximately 12-15 cc of seropurulence. Once this was drained, it was then wicked with an Iodophor wick and a perianal pad was then placed. ASSESSMENT: N/A PLAN: The patient was instructed regarding local cares, as well as signs and symptoms of concern. I would suggest to the patient that he continue his antibiotic therapy for the time being, and if this has not healed within three weeks, to return for reevaluation. On the other hand, the likelihood for recurrent problems is quite high, given that this represents his second episode, and, as such, definitive excision may be something worthwhile considering; however, it is important to realize that this is a very significant area, fairly large, involving a good deal more inferiorly than many, and will, therefore, have a much more extensive recovery. CC: JIE GONZALEZ MD JDF:[id number] C: DOCUMENT: [id number] Jie Gonzalez MD - 07/12/2000 12:01 AM CST Progress Notes signed by Jie Gonzalez MD at 08/27/00 1415 Author: Jie Gonzalez MD Service: (none) Author Type: Physician Filed: 08/10/10 2147 Note Time: 07/12/00 0001 Status: Signed Automotive Painter: Jie Gonzalez MD (Physician) IMPRESSION: Possible pilonidal cyst versus simple skin abscess. SUBJECTIVE: Reason For Visit: Followup gluteal fold abscess. This 34-year- old man is here to follow up on an abscess. He felt it was slowly brewing for about two weeks prior to an urgent care visit on 07/07. At that point, it became acutely tender. At that time, he had no palpable abscess or fluctuance, so was diagnosed with cellulitis. He was given Rocephin 1 gm IM, also Augmentin for 10 days. He was to be warm packing the area, and has been showering twice daily for 10 or 15 minutes. Last night, spontaneously drained with some purulent material. This morning he woke with some bloody drainage on his undergarments. He has had a problem with a pilonidal cyst in a similar area in the past, about 15 years ago. He is here today because the pain does not seem to be getting any better. OBJECTIVE: BP: 124/78. Wt: 240 pounds. Well-appearing gentleman. Physical exam shows mid right gluteal fold area of indurated cellulitis, plus more centrally fluctuant areas, somewhat moist. I do not see the area where drainage occurred. ASSESSMENT: Possible pilonidal cyst versus simple skin abscess. PLAN: Given difficulty in exposure, I have spoken with Christiano Kang of surgery and he has agreed to see the patient at some point this afternoon. The patient is heading over there now. Encouraged that drainage is the most important aspect of this, and he is to continue with soaks. [id number] C: DOCUMENT: [id number] Dallas Kunz MD - 07/07/2000 12:01 AM CST Progress Notes signed by Dallas Kunz MD at 08/15/00 1618 Author: Dallas Kunz MD Service: (none) Author Type: (none) Filed: 08/10/10 2141 Note Time: 07/07/002044 Status: Signed Automotive Painter: Dallas Kunz MD (Physician) IMPRESSION: Cellulitis, right buttock. SUBJECTIVE: The patient presents with having had a history of a perianal abscess in the past. This was surgically opened and packed. That resolved. Now he is developing a tender, firm area on the medial right cheek of his buttock and presents immediately, hoping to be able to treat it before it needs to be incised and drained. CURRENT MEDICATIONS: Zoloft. NO KNOWN DRUG ALLERGIES. OBJECTIVE: BP: 118/70. T: 97.1. P: 88. R: 20. Age 34 years. The patient has some erythema and tenderness on the medial right anal crease. No palpable abscess pocket or fluctuance. Somewhat tender and somewhat erythematous. ASSESSMENT: Cellulitis, right buttock. PLAN: Rocephin 1 gram IM, Augmentin 875 mg 1 tab p.o. q.12h. x 10 days. Warm sitz baths. If this fails to improve in the next 24-48 hours and is not totally recovered in 10 days, told him to return to clinic. At that point, there may have been an abscess pocket that formed and will need to be opened and drained. However, at this point, I do not think there is an abscess pocket present. [id number] C: DOCUMENT: [id number] QUALITY CHEMIST Melita Roche - 05/17/2000 12:01 AM CST Progress Notes signed by Melita Roche MD at 06/24/00 0656 Author: Melita Roche MD Service: (none) Author Type: Physician Filed: 08/10/106 Note Time: 05/17/002044 Status: Signed Automotive Painter: Melita Roche MD (Physician) IMPRESSION: Hemangiomas. Mucocele. Depression. SUBJECTIVE: Patient has several things on his agenda. He wants to have several hemangiomas checked. He has a small cyst in his lower lip and he needs a refill on his Zoloft. The hemangiomas have been longstanding but he is thinking that he might like to have them removed for, primarily, cosmetic reasons. He has one on his left upper lid, one on the forehead and one on his left parietal scalp. The cyst in the mouth was quite a bit larger a couple of weeks ago but now it has gotten smaller. He thought he should still have this checked. Lastly, he has had depression but has really done very well. He has now found that his mother and a couple of aunts have had depression in the past as well. This was of some reassurance and validation to him because he realizes he is not alone in this process. He thinks he would like to try to go off in the summertime. He has now been on it for about six months. He is pleased with his progress. He is still smoking and does not have much interest in quitting at this time. He would like to quit eventually. SOCIAL HISTORY: He is . 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 MEDICINES: Zoloft 100 mg daily. ALLERGIES: NONE. PAST MEDICAL HISTORY: Vasectomy in 1997. OBJECTIVE: BP: 120/74 left arm large cuff. H: 72 inches. W: 240 pounds. GENERAL: Healthy appearing white male looking approximately his stated age of 34. SKIN: He has a large hemangioma approximately five mm in diameter on the left parietal scalp. This is raised and red. He has a small one about two mm in diameter present on the left upper lid medially and he has a small spider hemangioma present on the forehead. In the lateral left lower lip he has a cystic lesion that is about three mm in diameter. This certainly appears to be a mucocele. ASSESSMENT: Depression doing well. Mucocele left lower lip. Benign appearing hemangiomas. PLAN: Refill the Zoloft 100 mg, 30 pills, refill times five. He might consider going off of these in the summer time. Referral to dermatology about the hemangiomas and reassurance about the mucocele. He will return if that enlarges. [id number] C: DOCUMENT: [id number] QUALITY CHEMIST [facility] - 02/13/2000 12:01 AM CDT Phone Note signed by at 02/13/002044 Author: Sita Conversion Service: (none) Author Type: (none) Filed: 08/10/101912 Note Time: 02/13/002044 Status: Signed Automotive Painter: Sita Conversion IMPRESSION: Scrotal pain/swelling/lump- (adult)- nurse guidelines - REFERRED PATIENT TO EMERGENCY ROOM SUBJECTIVE: * HOME PHONE: [phone] * PATIENT COMPLAINS OF... Mild to moderate scrotal pain/swelling, ,last 2 days has had scrotal pain, getting worse. 5 on a 1-10 scale today. No scrotal swelling noted. Urinating ok, afebrile. Seen 6 months ago for similar problem, told had small opening in abdominal wall. Has no pain when lays down, calling for am appt. Refuses to go to ER, has 3 young kids to care for at home.; PATIENT DENIES... -Inguinal swelling -Mass ALLERGIES/SENSITIVITIES... NKDA 02/13/00 CURRENT MEDICATIONS... Zoloft 02/13/00 PERTINENT PAST HISTORY... Depression 02/13/00 ASSESSMENT: Scrotal pain/swelling/lump- (adult)- nurse guidelines DISPOSITION: SEMI-URGENT PLAN: RECOMMENDED THE FOLLOWING... Referenced guideline Scrotal pain/swelling/lump- (adult)- nurse guidelines. Schedule appointment with provider within 4-8 hours. -Rest in bed -Apply ice pack to scrotum -Elevate scrotal area with rolled up towel -Wear briefs or soft athletic supporter to provide support -Take acetaminophen as directed -Do not use aspirin or anti-inflammatory medications Patient information given per Scrotal Pain or Swelling nurse guidelines. INFORMED PATIENT TO CALLBACK IF... Reasons to call back reviewed- caller verbalizes understanding of the need to call back for the following reasons: -Fever -Increased swelling and/or pain -Any other questions or concerns Call taken by AURORA BAZZI RN [phone] 02/13/2000 08:36 PM ADDENDUM: <> 02/13/2000 08:45PM by AURORA BAZZI RN [phone]: Will go to in am. REFERRED PATIENT TO URGENT CARE AT [facility]. Eliz Vyas PA-C - 01/23/2000 12:01 AM CDT Progress Notes signed by Eliz Robles PA-C at 08/07/00 1600 Author: Eliz Robles PA-C Service: (none) Author Type: Physician Industrial Economics Professor Filed: 08/10/10 8799 Note Time: 01/23/00 0001 Status: Signed Automotive Painter: Eliz Robles PA-C (Physician Industrial Economics Professor) IMPRESSION: Right eye irritation. Muscle spasm, right neck. SUBJECTIVE: Austin, 34 years old, presents to the clinic today complaining of right eye discomfort. He noticed on Sunday that he started to feel a little bit swollen above his right eye. He has not had any matting, blurred vision or double vision. Does not think he scratched it or had any bug bites but says it just feels irritated. Second concern is his upper back and neck have been sore for just a couple of days. He does not have any radiating pain. Has not tried any ibuprofen or practiced any range of motion exercises. ADVERSE DRUG REACTIONS: NONE. CURRENT MEDICATIONS: Celexa 40. OBJECTIVE: BP: 100/72. Wt: 240 pounds. Upon inspection, the right eye looks a little red and puffy in the lid area and when I pull the eyelid down it almost looks like he has a small scratch. The eye itself appears normal and there is no evidence of any blepharitis around the eyelashes. NECK: He has some muscle tenderness and tension in the trapezius and cervical spinal areas. He has full range of motion in his neck and flexion extension, lateral flexion, lateral rotation. Excellent protein scientist strength and good reflexes in the upper extremities. ASSESSMENT: Right eye irritation. Muscle spasm, right neck. PLAN: Ibuprofen. Gentle stretching exercises. Warm moist heat to the neck at this time and he can alternate that with ice if he wishes. For the eye, I recommended over the counter hydrocortisone cream and gel packs and followup if the symptoms do not improve. TMG:[id number] C: DOCUMENT: [id number] [facility] - 12/23/1999 12:01 AM CDT Phone Note signed by at 12/23/99 1112 Author: Sita Conversion Service: (none) Author Type: (none) Filed: 08/10/10 1824 Note Time: 12/23/99 0001 Status: Signed Automotive Painter: Sita Conversion IMPRESSION: rx concern TO: MELITA ROCHE FROM: ELIZ MOYER RN [phone] * PROVIDER MESSAGE: ROUTINE * 12/23/99 11:13AM * *WITHIN 4 HOURS * MESSAGE: Pt was to take 1/2 of a * HOME PHONE:[phone] * Celexa for one week, along with his * CONTACT PHONE:[phone] * homar Tucker go to a whole pill of * [place]in * Celexa. You wrote a rx for one * PHARMACY: [phone] * month. Pt was given 29 pills, but * [facility] * the number of days was more than 31 days,the most [facility] will pay for, so he was charged $52.00 extra. He says due to t he 1/2 pill. He wonders what can be done about this. SUBJECTIVE: ALLERGIES/SENSITIVITIES... NKDA 12/22/99 CURRENT MEDICATIONS... Paxil 40 mg , Celexa PERTINENT PAST HISTORY... Depression 12/22/99 WEIGHT: ASSESSMENT: rx concern PLAN: DISPOSITION: NO DISPOSITION GIVEN CALL BY ELIZ MOYER RN 12/23/1999 11:10AM [phone] ADDENDUM: QUALITY CHEMIST [facility] - 12/22/1999 12:01 AM CDT Phone Note signed by Melita Roche MD at 02/28/00 7436 Author: Sita Conversion Service: (none) Author Type: (none) Filed: 08/10/10 1822 Note Time: 12/22/99 0001 Status: Signed Automotive Painter: Sita Pablo IMPRESSION: Rx not covered TO: MELITA ROCHE FROM: ROSA RUSSELL [phone] 12/22/99 * PROVIDER MESSAGE: ROUTINE * 04:08PM * *WITHIN 4 HOURS * MESSAGE: Austin calling, states that he * HOME PHONE:[phone] * was prescribed Celexa. States that * CONTACT PHONE:[phone] * it is not covered under his * [place] * insurance. States that Prozac and * PHARMACY: [phone] * Zoloft are. He was wondering if the * [facility] [place] * prescription could be changed to one or the other. SUBJECTIVE: ALLERGIES/SENSITIVITIES... NKDA 12/22/99 CURRENT MEDICATIONS... Paxil 40 mg 12/22/99 PERTINENT PAST HISTORY... Depression 12/22/99 WEIGHT: ASSESSMENT: Rx not covered PLAN: DISPOSITION: NO DISPOSITION GIVEN CALL BY ROSA RUSSELL 12/22/1999 04:06PM [id number] ADDENDUM: <> 12/23/1999 09:07AM by NURYS HIDALGO: Per provider, ok to switch to Zoloft 100 mg dir: one qd/qty 30 with 3 refills. Just switchining meds should be fine. Pt home number was busy so will attempt later. Rx was called. Melita Hernandez 12/19/1999 12:01 AM CDT Progress Notes signed by Melita Roche MD at 02/28/004 Author: Melita Roche MD Service: (none) Author Type: Physician Filed: 08/10/10 9475 Note Time: 12/19/99 0001 Status: Signed Automotive Painter: Melita Roche MD (Physician) IMPRESSION: Depression, side effects on Paxil, and tobacco smoking. SUBJECTIVE: Austin comes today to follow up on his depression, tobacco smoking, and energy level. He has noted that the Paxil has been helpful with his mood, but he still feels quite fatigued. He does not have a lot of energy to do some of the things with his children he thinks he really would prefer to be doing. He still finds himself smoking and has a difficult time trying to get over that. He wants to focus primarily on the habit. He does not think the nicotine is as big a problem as the habit part. He has not tolerated Wellbutrin very well in the past. He wants to try the hypnosis or even acupuncture. The only other side effect he has noticed from the Paxil is that it does change his libido substantially. OBJECTIVE: BP: 134/76, right arm, large cuff. Ht: 72 inches. Wt: 232 pounds. He is alert and conversant and appears healthy. He does have nicotine stains on his index and long fingers, right hand. ASSESSMENT: Depression and tobacco smoking. PLAN: Recommended changing from Paxil to Celexa. He is going to take 1/2 tablet of the Paxil a day for the next week or so, along with 1/2 tablet of the Celexa and, then, stop the Paxil. Celexa 40 mg, 30 pills, two refills. Recheck in three months. Encouraged him about stopping smoking. [id number] C: DOCUMENT: [id number] QUALITY CHEMIST Con[facility] - 11/23/1999 12:01 AM CDT Phone Note signed by at 11/23/99 9969 Author: Imr Conversion Service: (none) Author Type: (none) Filed: 08/10/10 1754 Note Time: 11/23/99 0001 Status: Signed Automotive Painter: Imr Conversion IMPRESSION: question about sx and Paxil TO: MELITA ROCHE FROM: ELIZ MOYER RN [phone] * PROVIDER MESSAGE: ROUTINE * 11/23/99 10:47AM * *WITHIN 4 HOURS * MESSAGE: Pt has been on Paxil for 6 * HOME PHONE:[phone] * months, increased dosage to 40 mg 2 * CONTACT PHONE:[phone] * months ago. He is not a drinker, * [place] * but had two at a resort this past weekend .Starting Sunday he feels dizzy if he holds his head still, and moves his eyes. He says it is like an electric shock in his ears and arms - like he can hear his eyes moving.He wondered if it was the Paxil w ith drinking. He feels well otherwise, has not had any cold or ear pa in. Sleeping normally, and is doing what he normally does. SUBJECTIVE: ALLERGIES/SENSITIVITIES... NKDA 11/23/99 CURRENT MEDICATIONS... Paxil 40 mg 11/23/99 PERTINENT PAST HISTORY... Depression 11/23/99 WEIGHT: ASSESSMENT: question about sx and Paxil PLAN: DISPOSITION: NO DISPOSITION GIVEN CALL BY ELIZ MOYER RN 11/23/1999 10:43AM [phone] ADDENDUM: <> 11/23/1999 05:44PM by YANDEL FISHER: per Dr. Roche, ask if the pt. had missed any of his Paxil doses. Yes, he had. Dr. Roche said that this was withdrawl from the med and he should get restarted and the symptoms will get better. The pt. verbalized understanding. QUALITY CHEMIST Bryce Walden - 10/12/1999 12:01 AM CDT Progress Notes signed by Bryce Walden MD at 10/14/99 9630 Author: Bryce Walden MD Service: (none) Author Type: Physician Filed: 08/10/10 2144 Note Time: 10/12/99 0001 Status: Signed Automotive Painter: Bryce Walden MD (Physician) IMPRESSION: Upper respiratory infection. SUBJECTIVE: Patient is a 33-year-old male with a one week history of clear nasal drainage and congestion, mild cough. No fever or chills. Both ears feel plugged. No lightheadedness or dizziness. OBJECTIVE: BP: 116/78. Ht: 6'. Wt: 230 pounds. TMs clear. Throat not inflamed, not injected. Neck supple, no adenopathy. Heart regular rhythm, rate with S1, S2. Lungs clear to auscultation throughout. ASSESSMENT: Upper respiratory infection. PLAN: Tylenol, fluids, rest, and symptomatic care. Sudafed p.r.n. Patient should follow up in 7-10 days' time if symptoms not resolved. TH:[id number] C: D: DOCUMENT: 1999-10-13 QUALITY CHEMIST [facility], [facility] - 09/21/1999 12:01 AM CDT Progress Notes signed by at 11/27/00 6195 Author: Sita Conversion Service: (none) Author Type: (none) Filed: 08/10/10 1655 Note Time: 09/21/99 0001 Status: Signed Automotive Painter: Sita Conversion IMPRESSION: Viral gastroenteritis. SUBJECTIVE: A 33-year-old male who started about 8 p.m. last night with recurrent, persistent vomiting and frequent, loose stools. There is no blood in the vomitus or the stool. He is not running fevers. He denies any travel outside the [place] in recent weeks. He has not had any exposure to potentially contaminated water. No family or friends with similar illnesses. DRUG SENSITIVITIES: None. MEDICATIONS: Paxil. OBJECTIVE: T: 98.9. P: 80. R: 20. BP: 116/80. Pharynx: Mucous membranes are somewhat dry. Ears are clear. Neck supple without nodes. Chest clear with good breath sounds. Heart: Regular rhythm without murmurs at 80. Abdomen: Bowel sounds are hyperactive without pathological sounds. The abdomen is soft, slightly overweight, and essentially nontender without guarding, mass, or rebound. ASSESSMENT: Viral gastroenteritis. PLAN: Because of the persistence of the patient's symptoms, we did give him I.V. therapy consisting of D5 ringer's 1000 cc rapidly, then ringer's lactate 1000 cc over 1 hour. Phenergan 25 mg I.V. and Lomotil 2.5 mg p.o. He had no further vomiting or diarrhea at the time of discharge. He was able to pass his urine. He was treated in the department for a total of approximately 2-1/2 hours. He felt much better on discharge. He was given a direction sheet for a clear, bland diet. Advance as tolerated over the next couple of days. Rx for Lomotil 2.5 mg #15 1 q4h p.r.n. for cramps or loose stools. Rx for Tigan 250-mg capsules #6 1 q6h p.r.n. for nausea. RTC p.r.n. if not gradually improving over the next couple of days. MAJOR:[id number] C: DOCUMENT: [id number] SCHEDULED RESOURCE: NITIN FLYNN MD QUALITY CHEMIST Con[facility], [facility] - 09/21/1999 12:01 AM CDT Phone Note signed by at 09/21/99 0704 Author: Sita Conversion Service: (none) Author Type: (none) Filed: 08/10/10 1651 Note Time: 09/21/99 0001 Status: Signed Automotive Painter: Sita Pablo IMPRESSION: Abdominal pain-(adult)-nurse guidelines - REFERRED PATIENT TO URGENT CARE AT [facility] * HOME PHONE:[phone] * SUBJECTIVE: PATIENT COMPLAINS OF... Abdominal pain, says was vomiting yestray, and today has a pain in his upper stomach that makeshim want to bend over. She is concerned and wants him hiral cked. They will go to at 1V Acute onset of abdominal pain progressively worse over the last few hours ALLERGIES/SENSITIVITIES... NKDA 09/21/99 CURRENT MEDICATIONS... Paxil 09/21/99 PERTINENT PAST HISTORY... Denies, depression 09/21/99 ASSESSMENT: Abdominal pain-(adult)-nurse guidelines DISPOSITION: SEMI-URGENT PLAN: RECOMMENDED THE FOLLOWING... Referenced guideline Abdominal pain-(adult)-nurse guidelines. Schedule appointment with provider within 4-8 hours. -Rest as needed -Start clear liquid diet -Notify office immediately if pain increases before appointment Patient information given per Abdominal Pain nurse guidelines. Verbalizes understanding and agrees with phone care recommendation INFORMED PATIENT TO CALLBACK IF... Reasons to call back reviewed- caller verbalizes understanding of the need to call back for the following reasons: -Fever develops -Appearance of blood in vomit or stool -Dark urine or yellowing of skin or the whites of the eyes -Symptoms persist or progress -Any other questions or concerns CALL BY ELIZ MOYER RN 09/21/1999 07:54AM [phone] ADDENDUM: Melita Hernandez - 08/12/1999 12:01 AM CDT Progress Notes signed by Melita Roche MD at 09/15/99 2833 Author: Melita Roche MD Service: (none) Author Type: Physician Filed: 08/10/10 4527 Note Time: 08/12/99 0001 Status: Signed Automotive Painter: Melita Roche MD (Physician) IMPRESSION: Eustachian tube dysfunction. Depression. Smoking. SUBJECTIVE: Austin is here for his left ear, which has been plugged for a week after a cold. He had a cold starting about a week and a half ago and it resolved, but he has this plugged feeling remaining in his left ear with some loss of hearing and discomfort. He does not have any symptoms of the cold left, like sore throat or a cough or a runny nose, or congested sinuses, or an earache. He is asking about Sudafed or Dimetapp, and wonders how to get the feeling unplugged. He is still smoking. He is going to try to quit again on Sunday. He has tried in the past and tried things such as Zyban and nicotine patches, with limited success. OBJECTIVE: BP1: 130/80 from the right arm using standard cuff. Ht: 6'0. Wt: 240 pounds. On exam his TMs were clear with some tympanosclerosis. The tympanic membranes were normal with insufflation. His oropharynx was pink, without erythema. His uvula showed a little redness. Sinuses were not tender to palpation. His throat was without any adenopathy, supple, and thyroid was not enlarged. ASSESSMENT: Eustachian tube dysfunction. Depression. Smoking. PLAN: The eustachian tubes are probably plugged from result of the cold, plus his continued smoking. We talked about Dimetapp and Sudafed, and recommended that he take Sudafed for relief of symptoms, and that it might take a couple weeks to resolve fully. His depression has been well controlled on Paxil, although he has had a couple of episodes of it recurring, and also does some of his habits that he had before with his fingers, so we are upping the dose to 40 mg q.d. We also discussed smoking cessation with him again, and its reasons and import, and we decided that he would try to quit again on Sunday, and he will come in to see me again if he wants some help with that. We also talked about putting a rubber band around his wrist and giving himself a small snap every time he felt like puffing, as therapy, if he thought that that might help with the smoking. Dictated by: Carmelo Avilez MD CC: ROHIT LANDERS MD :[id number] C: DOCUMENT: [id number] QUALITY CHEMIST Marcelo Loo MD - 03/31/1999 12:01 AM CST Progress Notes signed by Marcelo Loo MD at 01/04/00 1644 Author: Marcelo Loo MD Service: (none) Author Type: Physician Filed: 08/10/10 1411 Note Time: 03/31/99 0001 Status: Signed Automotive Painter: Marcelo Loo MD (Physician) IMPRESSION: Left groin strain. SUBJECTIVE: The patient is a 33-year-old male referred by Dr. Marie Martinez for evaluation of left groin pain, and to rule out left inguinal hernia. The patient states that he noted suddenly within the last two to three weeks pain in the left groin area. He has had no history or knowledge of lump or swelling in this area. He is not certain what he was doing when this occurred, but he has no knowledge of any trauma, or straining, or lifting at that time. The pain started. He does have children, and says that he is very active with them. OBJECTIVE: Examination shows no evidence of right or left inguinal hernias. Scrotal contents are within normal limits. No abnormal lymphadenopathy in either the left or right groin area. I do believe that the patient has a ligament strain in the left groin area. He states that the pain is much better at this point and time. Recommend that we observe and that he return on a p.r.n. basis. I did describe to him what hernias are and what to look for. ASSESSMENT: Left groin strain. PLAN: N/A CC: MARIE MARTINEZ MD [facility]:[id number] C: DOCUMENT: [id number] Marie Martinez MD - 03/22/1999 12:01 AM CST Progress Notes signed by Marie Martinez MD at 05/07/99 1147 Author: Marie Martinez MD Service: (none) Author Type: (none) Filed: 08/10/10 1400 Note Time: 03/22/99 0001 Status: Signed Automotive Painter: Marie Martinez MD (Physician) IMPRESSION: Possible left inguinal hernia versus groin strain with worsening discomfort. SUBJECTIVE: NOTE: This is a redictation. The patient is a 33-year-old male who is here for lower abdominal pain from the mid left abdomen, sometimes radiating down into the groin. He does not recall any injury or reason to have groin strain; however, he notices that if he stands for a long time the pain is exacerbated and radiates down into the left groin and thigh, or sometimes if he changes positions in a certain way, the pain is aggravated. He noticed it starting about four days ago and last night he was awakened at 3:00 a.m. with it, an extreme pain. It is somewhat better now here in the clinic. He has had normal bowel movements. No nausea or vomiting. He does typically have loose stool since he started on Paxil some time back but his stools have not changed in the last few days or weeks. He has no fever or chills. No UTI symptoms. No penile drip. He has no history of any abdominal surgeries. He does not do any heavy lifting or does not work out with lifting weights. He has never had a hernia before. He is otherwise in good health. ALLERGIES: NEGATIVE. MEDICATIONS: Paxil. He is followed in Primary Care by Dr. Melita Roche in [facility]. OBJECTIVE: T: 97.2. P: 72. R: 16. BP: 140/90. PHYSICAL EXAM: Pleasant male who favors left side when coming onto exam table. He is able to assume supine position but keeps the left hip flexed slightly. Normal bowel sounds. Mild tenderness in the left lower quadrant but no rebound or rigidity. No palpation defect with Valsalva. The rest of the abdominal exam is unremarkable. EXAM: Normal circumcised male with normal scrotal contents which are nontender; however, he does have tenderness with exam of the left inguinal canal; however, I did not feel any cap, and did not see any bulge with Valsalva. Rectal exam unremarkable. Urinalysis was unremarkable. Negative chemistries, 0 to 2 white cells, 0 to 2 red cells. White count was 9.3, no differential. ASSESSMENT: Possible left inguinal hernia versus groin strain with worsening discomfort. PLAN: Refer to Surgery for reevaluation within the next week. If he has any worsening of symptoms, particularly abdominal pain, fever, chills or vomiting, he should be seen immediately. Otherwise, followup p.r.n. [facility]:[id number] C: DOCUMENT: [id number] QUALITY CHEMIST [facility] - 03/21/1999 12:01 AM CST Phone Note signed by at 03/21/99 0348 Author: [facility] Service: (none) Author Type: (none) Filed: 08/10/10 1358 Note Time: 03/21/99 0001 Status: Signed Automotive Painter: Sita Conversion IMPRESSION: Abdominal pain-(adult)-nurse guidelines - REFERRED PATIENT TO EMERGENCY ROOM SUBJECTIVE: * HOME PHONE: [phone] * PATIENT COMPLAINS OF... Abdominal pain focused in inguinal area, may or may not have inguinal swelling. Pt states has had lower left abd pain since this morning, roughly in inguinal area. Has slight swelling when standing, none when lying down. Left testicle has some discomfort, denies pain, swelling, heat. Denies trauma, fever, sharp or severe pain. States pain is 4-5 on 1-10 scale. Went to UC tonight but left when saw how crowded it was. Denies urinary burning or back pain; states urine may be slightly concentrated.; ALLERGIES/SENSITIVITIES... NKDA 03/21/99 CURRENT MEDICATIONS... Paxil, 03/21/99 PERTINENT PAST HISTORY... Denies, depression 03/21/99 ASSESSMENT: Abdominal pain-(adult)-nurse guidelines DISPOSITION: SEMI-URGENT PLAN: RECOMMENDED THE FOLLOWING... Referenced guideline Abdominal pain-(adult)-nurse guidelines. Schedule appointment with provider within 4-8 hours. Pt declined ER visit tonight. Pt will go to in am. If fever, sharp pain, nausea/vomiting occur, will go to ER tonight. -Rest as needed -Start clear liquid diet -Avoid alcohol -Do not use laxatives or enemas -Monitor temperature every 4 hours -Take acetaminophen as directed -Do not use aspirin or anti-inflammatory medications -Notify office immediately if pain increases before appointment Patient information given per Abdominal Pain nurse guidelines. INFORMED PATIENT TO CALLBACK IF... Reasons to call back reviewed- caller verbalizes understanding of the need to call back for the following reasons: -Fever develops -Appearance of blood in vomit or stool -Dark urine or yellowing of skin or the whites of the eyes -Symptoms persist or progress -Any other questions or concerns Call taken by TANISHA MABRY RN [phone] 03/21/1999 10:32 PM ADDENDUM: Melita Hernandez - 02/18/1999 12:01 AM CDT Progress Notes signed by Melita Roche MD at 02/23/99 6165 Author: Melita Roche MD Service: (none) Author Type: Physician Filed: 08/10/10 5082 Note Time: 02/18/99 0001 Status: Signed Automotive Painter: Melita Roche MD (Physician) IMPRESSION: Serous otitis media resolving. Depression improving. SUBJECTIVE: Austin returns for followup of his depression and his ear pain. His ear has gotten significantly better in the last couple of days, now he can hear a little bit better. He is also accompanied bu his who reviewed his depression. OBJECTIVE: WT: 237 He is alert and conversant. Intact membranes both look normal. ASSESSMENT: Depression already improving on the Paxil. He is not having any significant side effects. PLAN: Recheck in one month, continue Paxil 20 mg once a day. CC: SHAYAN:[id number] C: DOCUMENT: [id number] QUALITY CHEMIST Melita Roche - 02/03/1999 12:01 AM CDT Progress Notes signed by Melita Roche MD at 02/08/99 0906 Author: Melita Roche MD Service: (none) Author Type: Physician Filed: 08/10/10 1313 Note Time: 02/03/99 0001 Status: Signed Automotive Painter: Melita Roche MD (Physician) IMPRESSION: Serous otitis media and depression. SUBJECTIVE: Ostensibly here because his left ear is plugged and he has tried many things to try to clean the wax out of it. He denies any runny nose, cough, sore throat, or allergy symptoms but says his hearing has dropped and he is feeling a buzzing and popping. I asked if he had anything else he wanted to discuss. He admits that he has been feeling depressed and has had significant loss of merry in his life. He has been taking Zyban for a month but has been unable to quit smoking with much frustration at his inability to play basketball because of his pulmonary capacity right now. He also has had difficulty with sleeping, some withdrawal from his family, loss of interest in his daily activities. Denies any real trouble with concentration or decision-making but, then, states he does not have any to make. He has had significant guilt and loss of self-esteem. No thoughts. Tobacco: Over a pack a day. OBJECTIVE: BP: 140/84, left arm, large cuff. Wt: 237 pounds. He has nicotine stains on his index fingers. He is tearful and appears very sad. Tympanic membrane on the right is normal. The left has air bubbles present. Nasal membranes are clear. Oropharynx is clear. No cervical adenopathy. The lungs are clear. ASSESSMENT: Serous otitis media but much more importantly he is depressed. PLAN: Switch from Zyban to Paxil 20 mg 1 a day, return in two weeks, and samples given. Amoxicillin 500 mg tid for 10 days. CC: KPO:[id number] C: DOCUMENT: [id number] QUALITY CHEMIST Samy, Sita - 02/02/1999 12:01 AM CDT Phone Note signed by at 02/02/99 1231 Author: Sita Conversion Service: (none) Author Type: (none) Filed: 08/10/10 1312 Note Time: 02/02/99 0001 Status: Signed Automotive Painter: Sita Pablo IMPRESSION: Ear: swimmer-(adult)-nurse guideline SUBJECTIVE: PATIENT COMPLAINS OF... Patient * HOME PHONE: [phone] * states he has water in one of his ears and it's been there for about 4 days. Has pulled on his ear and tipped his head to the side without any relief. Denies any soreness, irritation or itching. Has used some OTC drops for ear wax without relief. ALLERGIES/SENSITIVITIES... KNA 05/17/98 CURRENT MEDICATIONS... Denies 05/17/98 PERTINENT PAST HISTORY... Denies 05/17/98 ASSESSMENT: Ear: swimmer-(adult)-nurse guideline DISPOSITION: HOME CARE PLAN: RECOMMENDED THE FOLLOWING... - Remove water from ear canals by tipping head to side and pulling ear lobe in all directions INFORMED PATIENT TO CALLBACK IF... Reasons to call back reviewed- caller verbalizes understanding of the need to call back for the following reasons: -Ear pain -Fever -Any other questions or concerns Call taken by DIMITRI HERNANDEZ RN [phone] 02/02/1999 12:27 PM ADDENDUM: QUALITY CHEMIST Héctor Bennett DPM - 01/11/1999 12:01 AM CDT Progress Notes signed by Héctor Bennett DPM at 01/24/99 0831 Author: Héctor Bennett DPM Service: (none) Author Type: Physician Filed: 08/10/10 1250 Note Time: 01/11/992044 Status: Signed Automotive Painter: Héctor Bennett DPM (Physician) IMPRESSION: Orthotic discussion. SUBJECTIVE: The patient presents for follow up. He believes that the orthotics do not fit right. He started feeling some change about 2 months ago. He has been a patient of and was given orthotics for plantar fasciitis. This condition has completely resolved. The patient is taking Zyban. He denies allergies to medications. OBJECTIVE: No examination performed. ASSESSMENT: Orthotic discussion. PLAN: Treatment options were discussed with the patient. I discussed with him that his orthotics were designed for a specific purpose and once this condition has resolved then there is no need for the orthotic. He does not feel any dependency towards the orthotic nor does he have any foot fatigue when going without them. At this point, since he is not having any need for the orthotic, I suggest simply eliminating the orthotics. If he does develop fatigue in his feet and prefers to have the orthotic then we can make him some new devices. CC: ALP:[id number] C: DOCUMENT: [id number] Eliz Robles PA-C - 05/17/1998 12:01 AM CST Progress Notes signed by Eliz Robles PA-C at 12/22/98 0939 Author: Eliz Robles PA-C Service: (none) Author Type: Physician Industrial Economics Professor Filed: 08/10/10 0840 Note Time: 05/17/982044 Status: Signed Automotive Painter: Eliz Robles PA-C (Physician Industrial Economics Professor) IMPRESSION: Headache. SUBJECTIVE: Austin is 32 years old and presents to the clinic today complaining of pain behind his eyes, especially with movement of his eyes. Sometimes, when he sneezes it will hurt. He said that he feels like he has a lot of pressure in his head, mostly behind his eyes. He has been having chills and sweats and this has been going on for about three days. Yesterday, he took several naps. Tylenol and aspirin have not helped with the pain. He thought he was getting dehydrated, so last night he drank about 12 glasses of water and said he only had about one cup of output. Urine was very concentrated. He says that his mouth is very dry. He ranks the pain as about 9.5 out of 10. He hasn't had any recent weight loss. He says his eye hurts more behind the left than the right. He hasn't had a runny nose or cough. He is not feeling short of breath. The pain is not exertional. He does have a family history of migraines and a personal history of migraines, but he hasn't had them for years. He says he has had a bad taste in his mouth. He is a smoker. ADVERSE DRUG REACTIONS: None. MEDICATIONS: None. OBJECTIVE: BP: 130/80. T: 98.7. Patient is in mild distress today. Both TMs were clear. Pupils equal, round, and reactive to light and accommodation. EOMs intact without nystagmus. Cranial nerves 2 through 12 were intact. Posterior oropharynx was clear. Tongue is pasty. Lungs were clear. Heart was regular rate and rhythm without murmur. CBC with diff was obtained today, it was normal. Blood sugar was 70. Urine had 5-10 RBCs but not WBCs. Cultures are pending. A strep screen was negative. Orthostatics lying were 120/70, sitting 118/62, standing 114/80. ASSESSMENT: Headache. PLAN: Explained to patient that he does appear somewhat dehydrated. Encouraged him to continue pushing fluids slowly. He generally drinks about 2-3 Mountain Dews a day but hasn't had any. Encouraged him to have a little caffeine as he may be having a caffeine headache making the symptoms worse. I also gave him Tylenol #3, 1-2 po q4-6h prn pain. Will call him in the morning to check on his symptoms. If they get worse this evening, he understands that he should go to the emergency room. understands the importance of making sure that he is maintaining hydration. beh [facility], [facility] - 05/17/1998 12:01 AM CST Phone Note signed by at 05/17/98 2900 Author: [facility] Service: (none) Author Type: (none) Filed: 08/10/10 0840 Note Time: 05/17/98 0001 Status: Signed Automotive Painter: Sita Conversion IMPRESSION: Eye pain/discomfort-(adult)-nurse guidelines TO: MELITA ROCHE FROM: AIDA MORALES RN [phone] * PROVIDER MESSAGE: APPT * 05/17/1998 10:55AM * NEEDED * MESSAGE: Acute eye discomfort. * HOME PHONE: [phone] * SUBJECTIVE: * CONTACT PHONE: [phone] * CHIEF CONCERN... Eye * Pt. * discomfort, no improvement after 48 hours of home management. Pt has had c/o eye pain form4 days. He has pain when moving eyes from side to side. When he coughs his eyes and whole head hurt,and has pain in the back of the eye. light sensitive, he feels they are swollen, denies any bulging. He c/o also of recent chills and possible fever. eyes dont hurt if head is moveed, only when eyes are moved. No hx of eye problems, no change in acuity, no drainage or redness.Denies any glaucoma sx.; ALLERGIES/SENSITIVITIES... KNA 05/17/98 CURRENT MEDICATIONS... Denies 05/17/98 PERTINENT PAST HISTORY... Denies 05/17/98 WEIGHT: Not Available ASSESSMENT: eye pain/discomfort-(adult) PLAN: DISPOSITION: SEMI-URGENT RECOMMENDED THE FOLLOWING... Referenced guideline Eye pain/discomfort-(adult)-nurse guidelines. Schedule appointment with provider within 8 hours Call taken by AIDA MORALES RN [phone] 05/17/1998 10:48 AM ADDENDUM: <> 05/17/1998 11:00AM by ANNA CLEMENT: appt made for this afternoon at 400 with eliz APPOINTMENT MADE. QUALITY CHEMIST Melita Roche - 04/02/1998 12:01 AM CST Progress Notes signed by Melita Roche MD at 04/21/98 9880 Author: Melita Roche MD Service: (none) Author Type: Physician Filed: 08/10/10 0755 Note Time: 04/02/98 0001 Status: Signed Automotive Painter: Melita Roche MD (Physician) IMPRESSION: Vasectomy performed using no scalpel technique. Tobacco smoking. Wants to quit. SUBJECTIVE: Estephania are here today for his vasectomy and have no further questions. OBJECTIVE: BP: 126/72. He is given Valium 10 mg orally and Robinul 1 tablet orally on arrival at the office. He is prepped and draped in the usual fashion. Each of the vas deferens is infiltrated with 2% Xylocaine and bicarbonate, 2.5 cc. The midline skin is also infiltrated. Using the three finger technique, the right vas is isolated, grasped with a small ring forceps, and punctured. Using a sharp dissector, the vas is further isolated, hooked with one leaf of the dissector, and brought into the opening. It is bluntly dissected, small bleeders cauterized and, then, partly divided. The ends are fulgurated with electrocautery. Division of the vas was completed, removing 1.5 cm segment. Mosquito hemostat is used to grasp the adventitial tissues between the ends of the vase and a 4-0 Dacron suture is used to close the adventitials over one of the ends. Then the vas is dropped back into the scrotal cavity. Procedure was repeated in a likewise fashion on the left side. Steri-Strip was used to close the opening. ASSESSMENT: Vasectomy performed using no scalpel technique. Tobacco smoking. PLAN: Reiterated the importance of sperm checks at 2 and 4 months. Home to rest with an ice pack today. May be up and about and shower tomorrow. Mild analgesics for comfort. Scrotal support for 2-4 days. Recheck p.r.n. Zyban samples given today. We had discussed them earlier. See my previous note. giw Melita Hernandez - 03/17/1998 12:01 AM CST Progress Notes signed by Melita Roche MD at 04/21/98 1854 Author: Melita Roche MD Service: (none) Author Type: Physician Filed: 08/10/10 0739 Note Time: 03/17/98 0001 Status: Signed Automotive Painter: Melita Roche MD (Physician) IMPRESSION: Tobacco addiction. SUBJECTIVE: Austin wants to stop smoking. He is having input from his spouse and worries about the possibility of his children picking up smoking. He has been smoking one pack of [place] Lights since age 16 and has been aware of how difficulty it is to stop smoking. He wonders about different techniques such as acupuncture. He has had the book Clearing The Air. He is not anxious to start Zyban. He has tried the patch without any success in the past. MEDICATIONS: None. ALLERGIES: None. OBJECTIVE: Wt: 240 pounds. He looks well and healthy. He is conversant and alert and has normal mood and affect. ASSESSMENT: Tobacco addiction. PLAN: We discussed the various options. He may try hypnosis, but we discussed the availability of Zyban and nicotine replacement including inhaler. He recognizes his primary problem will be that of his habit. (I spent 20 minutes, all counseling.) beh Melita Hernandez - 02/22/1998 12:01 AM CST Progress Notes signed by Melita Roche MD at 02/25/98 1640 Author: Melita Roche MD Service: (none) Author Type: Physician Filed: 08/10/10 0715 Note Time: 02/22/98 0001 Status: Signed Automotive Painter: Melita Roche MD (Physician) IMPRESSION: Contraceptive counseling. Tobacco abuse. SUBJECTIVE: Austin and his , Shivani, are here today to discuss permanent contraception in the form of vasectomy. They have three children, ages 5, 3, and 1 year of age. Shivani has had gestational diabetes with two of the three and they want no more children. 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 PAST MEDICAL HISTORY: Healthy. SOCIAL HISTORY: No current physical activity. HEALTH HABITS: He smokes a pack of cigarettes per day. OBJECTIVE: BP: 136/86, left arm, large cuff. Wt: 240 lb. Penis and testicles are normal, and the vas is palpable bilaterally. ASSESSMENT: Desires permanent contraception in the form of vasectomy. Tobacco abuse. PLAN: Outlined both vasectomy and tubal ligation. We discussed no scalpel vasectomy in detail and discussed that it is done here in the office under local anesthetic and has a short 2-4 day recovery period. We discussed potential complications such as infection, bleeding, postvasectomy congestion syndrome, and even the remote possibility of . We discussed recent research suggesting there may be an increased risk of prostate cancer and recommendations that all men should have prostate examinations annually after age 45. We discussed the importance of having sperm checks at 2 and 4 months. I gave the vasectomy and no scalpel vasectomy handouts; they indicate understanding. He will return to see me to review options for stopping smoking. beh Noah Coulter MD - 08/25/1997 12:01 AM CDT Progress Notes signed by Noah Gomes MD at 09/01/97 4654 Author: Noah Gomes MD Service: (none) Author Type: Physician Filed: 08/10/10 0427 Note Time: 08/25/97 0001 Status: Signed Automotive Painter: Noah Gomes MD (Physician) IMPRESSION: Chronic left serous otitis media. SUBJECTIVE: This 31-year-old patient returns essentially unchanged. He has plugging of his left ear and this has gone on for seven weeks. When initially seen he had respiratory symptoms but these have resolved and now he still has the pressure and plugging sensation of the left ear which bothers him a great deal. He has been trying Sudafed without much benefit. OBJECTIVE: The patient is alert and oriented. He is in no distress. The left tympanic membrane is dull with fluid behind it, mainly yellow. There is loss of normal landmarks. The right tympanic membrane is retracted. ASSESSMENT: Chronic left serous otitis media. PLAN: Will treat with Keflex for 21 days but if this is ineffective, he will be referred to ear, nose and throat. kbw Conversion, [facility] - 07/30/1997 12:01 AM CDT Phone Note signed by at 07/30/97 1200 Author: [facility] Conversion Service: (none) Author Type: (none) Filed: 08/10/10 0403 Note Time: 07/30/972044 Status: Signed Automotive Painter: Sita Conversion IMPRESSION: Sore throat-(adult)-nurse guidelines SUBJECTIVE: PATIENT COMPLAINS OF... Sore * HOME PHONE: [phone] * throat, denies cough or cold. Pt states he was seen in clinic couple of days ago for sorethroat and earpain. SS negative at that time. Ear pain gone but still has sore throat. Glands enlarged. Pt asking for home care for sorethroat, will do repeat strep if no relief after a couple of days of home care.; -Enlarged tender neck glands -Denies any urgent or semi-urgent symptoms ALLERGIES/SENSITIVITIES... KNA 07/30/97 CURRENT MEDICATIONS... Denies 07/30/97 PERTINENT PAST HISTORY... Denies 07/30/97 ASSESSMENT: Sore throat-(adult)-nurse guidelines DISPOSITION: HOME CARE PLAN: RECOMMENDED THE FOLLOWING... Referenced guideline Sore throat-(adult)-nurse guidelines. -Take acetaminophen or ibuprofen as directed -Gargle with warm salt water or ice water -Use hard candies, ice or cough drops to soothe throat -Increase liquids to 8-10 regular glasses each day. Juice and water are best. Cool beverages or warm liquids are most soothing. -Eat soft foods or suck on flavored frozen desserts -Improve room humidity with a cool mist vaporizer Patient information given per Sore Throat nurse guidelines. INFORMED PATIENT TO CALLBACK IF... -Sore throat lasts > 1 week without major improvement -Any other questions or concerns Call taken by RICO NIETO RN [phone] 07/30/1997 11:53 AM ADDENDUM: QUALITY CHEMIST Noah Gomes MD - 07/13/1997 12:01 AM CST Progress Notes signed by Noah Gomes MD at 07/23/97 0644 Author: Noha Gomes MD Service: (none) Author Type: Physician Filed: 08/10/10 0348 Note Time: 07/13/97 0001 Status: Signed Automotive Painter: Noah Gomes MD (Physician) IMPRESSION: Serous otitis media, possible Mycoplasma, and chest wall pain. SUBJECTIVE: A 31-year-old patient is here because he developed a sharp lateral chest pain four days ago and it has been more or less intermittent. It's somewhat aggravated with activity. He notes it even with rest. He does have some exertional dyspnea. No cough. He has also had plugging of his left ear but no pain. He is otherwise in good health. He takes no medicines, isn't allergic to anything, and he does smoke. OBJECTIVE: Patient is alert and oriented. He is in no acute distress. BP: 136/74. Wt: 230 lb. Conjunctivae and pupils are normal. Left tympanic membrane is retracted. There is fluid behind it. The right tympanic membrane is normal. Both external canals are normal. Oral mucosa normal. Posterior oropharynx mildly inflamed, no cervical or axillary adenopathy. No respiratory distress. Lungs clear. He has tenderness in the lateral chest wall to pressure. Heart regular rhythm, no murmur, and no gallop. Abdomen is soft, no masses, no organ enlargement, and no tenderness. Chest x-ray and EKG are normal. ASSESSMENT: Serous otitis media, possible Mycoplasma, and chest wall pain. PLAN: Discussion and fluids. Recommend Sudafed and follow up prn. beh QUALITY CHEMIST Noah Gomes MD - 05/28/1997 12:01 AM CST Progress Notes signed by Noah Gomes MD at 06/05/97 1627 Author: Noah Gomes MD Service: (none) Author Type: Physician Filed: 08/10/10 0305 Note Time: 05/28/97 0001 Status: Signed Automotive Painter: Noah Gomes MD (Physician) IMPRESSION: Bronchospasm, possibly low-grade sinusitis. SUBJECTIVE: Austin Carranza is a 31-year-old patient who has had a dry cough for about a month. He has felt a little shortness of breath, no wheezing. Just today, he started developing rhinorrhea. He has a little pain in his ears, no sore throat. He does smoke. OBJECTIVE: BP: 130/86. T: 97.3. Patient is alert and oriented. He is in no acute distress. No sinus tenderness. There is purulence at the left nostril orifice and erythema of the nasal mucosa. There is low-grade bilateral serous otitis media. The external canals of the ears are normal. Oral mucosa. Posterior oropharynx is very slightly erythematous. No cervical or axillary adenopathy. There is prolonged expiratory phase in the lungs. No rales. No respiratory distress. Heart with regular rhythm, no murmur. ASSESSMENT: Bronchospasm, possibly low-grade sinusitis. PLAN: Treat with Proventil inhaler 2 puffs q.i.d., but if not responding, he will call and we would give an antibiotic to cover for a sinus infection. [id number] Noah Lowery - 02/19/1997 12:01 AM CST Progress Notes signed by Noah Cornelius DPM at 03/06/97 1254 Author: Noah Cornelius DPM Service: (none) Author Type: (none) Filed: 08/10/10 0139 Note Time: 02/19/97 0001 Status: Signed Automotive Painter: Noah Cornelius DPM (Physician) IMPRESSION: Orthotic check. SUBJECTIVE: Austin Carranza returns for follow-up of orthotics. He states the right device is doing quite nicely. The left device still feels a little prominent in the area of the lateral ball of the foot. OBJECTIVE: Examination reveals the devices to be fitting well bilateral. The forefoot area of the device may be slightly too long in the areas of the fourth and fifth metatarsal heads. ASSESSMENT: Orthotic check. PLAN: 1. The devices were reduced at the distal aspect in the area of sub third, fourth, and fifth metatarsal heads. 2. We will have him monitor this over the next few weeks. If there are problems we will see him back at that point. std Noah Lowery - 01/20/1997 12:01 AM CDT Progress Notes signed by Noah Cornelius DPM at 03/06/97 1213 Author: Noah Cornelius DPM Service: (none) Author Type: (none) Filed: 08/10/10 0113 Note Time: 01/20/97 0001 Status: Signed Automotive Painter: Noah Cornelius DPM (Physician) IMPRESSION: Orthotic check. SUBJECTIVE: Austin Carranza returns follow-up orthotics. Overall he is doing better with less a.m. discomfort. It is of note that both of the devices are not as comfortable as they could be in the front of the foot and in the arch. OBJECTIVE: On physical examination the devices are noted to fit well. The distal aspect of the device does not have a normal parabola and is impinging under the first and fifth. ASSESSMENT: Orthotic check. PLAN: The devices were ground to reduce the excessive thickness in the forefoot as well as to round the distal parabola. The patient noted this was significantly more comfortable. I will see him back p.r.n. sto Noah Lowery - 12/18/1996 12:01 AM CDT Progress Notes signed by Noah Cornelius DPM at 03/06/97 0853 Author: Noah Cornelius DPM Service: (none) Author Type: (none) Filed: 08/10/10 0047 Note Time: 12/18/96 0001 Status: Signed Automotive Painter: Noah Cornelius DPM (Physician) IMPRESSION: Plantar fasciitis, bilateral. SUBJECTIVE: Austin Carranza. Patient returns to follow up plantar fasciitis bilateral. Patient states that with the taping in place, he did notice a 70-80% relief of the previous discomfort. Upon removal of the taping, he felt well initially, but the pain is aggravated by increased activities over the weekend and now is having discomfort at the previous level. OBJECTIVE: Continued tenderness at the plantar medial aspect of the right and left heels, unchanged from the last visit. ASSESSMENT: Plantar fasciitis, bilateral. PLAN: Discussed continued treatment options in light of his successful trial with the supportive therapy. Suggested and he agrees to treatment with the functional orthotic devices. He was casted non- weightbearing in neutral position prone using Root technique. Prescribed polypropylene functional device with deep heel cup and extrinsic rearfoot post. Will see him back 2-3 weeks after dispensing. lap QUALITY CHEMIST Noah Cornelius - 12/04/1996 12:01 AM CDT Progress Notes signed by Noah Cornelius DPM at 03/06/97 0928 Author: Noah Cornelius DPM Service: (none) Author Type: (none) Filed: 08/10/10 0036 Note Time: 12/04/96 0001 Status: Signed Automotive Painter: Noah Cornelius DPM (Physician) IMPRESSION: Plantar fasciitis, bilateral. SUBJECTIVE: Austin Carranza. Initial visit for a patient complaining of pain in the arch and heel area of both feet with the left being worse than the right. Recalls the pain starting approximately six months ago after a basketball game during which time he noticed a stretching or pulling in the arch of both feet. He has had pain since that point getting progressively worse. States the pain is significantly worse in the morning with initial weight-bearing after periods of rest. He otherwise is in good health. Currently taking no medications. Denies allergies. OBJECTIVE: Exam reveals neurovascular status to be intact. Tinel's sign of the tibial nerve is negative bilateral. There is tenderness at the plantar medial aspect of the right and left heel with the left greater than the right and to a lesser extent at the plantar central aspect, but there is no evidence of ecchymosis or erythema in the heel area. On weight-bearing he does show mild pronotary changes with decreased medial arch height. ASSESSMENT: Plantar fasciitis, bilateral. PLAN: Discussed etiology and treatment options. Will evaluate supportive therapy at this point. A Low-Dye taping was applied to the right and left foot to be kept in place for the next three days. He will evaluate the support and will see him back in two weeks for recheck. If this is successful, proceed with functional orthotic therapy. If not, will consider anti-inflammatory therapy. lap QUALITY CHEMIST Noah Gomes MD - 10/09/1996 12:01 AM CDT Progress Notes signed by Noah Gomes MD at 10/13/96 1329 Author: Noah Gomes MD Service: (none) Author Type: Physician Filed: 08/09/10 1257 Note Time: 10/09/96 0001 Status: Signed Automotive Painter: Noah Gomes MD (Physician) IMPRESSION: Gastroenteritis. SUBJECTIVE: A 30-year-old patient is here because he has been experiencing some upper abdominal pain and loose watery stools. No nausea. His appetite has been down a bit. There has bee no melena or hematochezia. He does have lactose intolerance. He has some myalgias in his leg. The diarrhea has been improving some, as has the abdominal pain. He did take some Imodium for it. OBJECTIVE: BP: 130/70. Wt: 230 lb. Oropharynx is not inflamed, no cervical adenopathy. Lungs clear. Heart regular rhythm, no murmur. Abdomen is soft, no masses, and no organ enlargement, but he does have some mild right lower quadrant tenderness. ASSESSMENT: Gastroenteritis. PLAN: Symptomatic measures. Expect gradual resolution and follow up if not responding. beh Noah Gomes MD - 10/15/1995 12:01 AM CDT Progress Notes signed by Noah Gomes MD at 10/18/95 0830 Author: Noah Gomes MD Service: (none) Author Type: Physician Filed: 08/09/102000 Note Time: 10/15/95 0001 Status: Signed Automotive Painter: Noah Gomes MD (Physician) IMPRESSION: Plantar fasciitis. SUBJECTIVE: Austin Carranza is a 29-year-old patient who is here with pain in his right foot. He has had this for about three months. He is not aware of particular injury, but he has a great deal of pain upon arising in the morning. He is a homemaker. OBJECTIVE: He does have a slight mildly pronated foot and he has tenderness over the plantar fascia. ASSESSMENT: Plantar fasciitis. PLAN: Referral to Podiatry for orthotic. ncss/prr/48 Santiago Marie MD - 03/06/1995 12:01 AM CST Progress Notes signed by at 04/12/95 1126 Author: Santiago Marie MD Service: (none) Author Type: (none) Filed: 08/09/10 180 Note Time: 03/06/95 0001 Status: Signed Automotive Painter: Sita Conversion IMPRESSION: Postop check. SUBJECTIVE: Postop septoplasty. Doing well. Reports good breathing. OBJECTIVE: Exam shows all well-healed. ASSESSMENT: Postop check. PLAN: N/A cbc QUALITY CHEMIST Santiago Marie MD - 01/31/1995 12:01 AM CDT Progress Notes signed by at 03/07/95 1720 Author: Santiago Marie MD Service: (none) Author Type: (none) Filed: 08/09/10 0899 Note Time: 01/31/95 0001 Status: Signed Automotive Painter: Sita Conversion IMPRESSION: Postop check. SUBJECTIVE: Postop septoplasty. OBJECTIVE: Packs and splints removed. Septum is well-healed. He is doing well. Excellent external results at this time. ASSESSMENT: Postop check. PLAN: Recheck in one month. cbc QUALITY CHEMIST Eliz Robles PA-C - 01/25/1995 12:01 AM CDT Progress Notes signed by Eliz Robles PA-C at 01/29/95 8773 Author: Eliz Robles PA-C Service: (none) Author Type: Physician Industrial Economics Professor Filed: 08/09/10 7667 Note Time: 01/25/95 0001 Status: Signed Automotive Painter: Eliz Robles PA-C (Physician Industrial Economics Professor) IMPRESSION: Preoperative physical. SUBJECTIVE: Austin Carranza is a white male who presents for preoperative physical for nose repair surgery. OBJECTIVE: N/A ASSESSMENT: N/A PLAN: Preoperative physical prior to nose repair surgery. ncss/prr Santiago Marie MD - 01/19/1995 12:01 AM CDT Progress Notes signed by at 01/30/95 1418 Author: Sanitago Marie MD Service: (none) Author Type: (none) Filed: 08/09/10 1747 Note Time: 01/19/95 0001 Status: Signed Automotive Painter: Sita Pablo IMPRESSION: Nasal fracture; deviated septum. SUBJECTIVE: Patient hit on left lateral nasal surface by softball this past weekend. He has nasal obstruction as well as an external deformity. OBJECTIVE: On exam, his septum is deflected, the left side nasal pyramid to the right. Both sides of the bony pyramid are affected. ASSESSMENT: Nasal fracture; deviated septum. PLAN: Reviewed risks and goals of septoplasty closed reduction nasal fracture with him. Risks including anesthesia, bleeding, infection, 10% need for revision. He understands and wishes to proceed. Will schedule. Noah Coulter MD - 11/21/1994 12:01 AM CDT Progress Notes signed by Noah Gomes MD at 11/28/94 1344 Author: Noah Gomes MD Service: (none) Author Type: Physician Filed: 08/09/10 1728 Note Time: 11/21/94 0001 Status: Signed Automotive Painter: Noah Gomes MD (Physician) IMPRESSION: Follow-up knee sprain. ncss/jmn SUBJECTIVE: Austin Carranza is a 29-year-old patient who injured his right knee three days ago playing softball. He as seen in the Emergency Room and had normal x-ray of the knee and of the neck. He is feeling better. He does still have some pain and tenderness around the knee. He requests a note stating that he can return to work but would only do light work for one week. 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 OBJECTIVE: On examination, the knee is normal. He does have some mild patellar tenderness. No effusion. Cruciate and collateral ligaments are intact. Donald's sign is negative. ASSESSMENT: Follow-up knee sprain. PLAN: Note is given and he will follow-up if he is having further problems. Noah Gomes MD - 09/01/1994 12:01 AM CDT Progress Notes signed by Noah Gomes MD at 09/04/94 1117 Author: Noah Gomes MD Service: (none) Author Type: Physician Filed: 08/09/10 1712 Note Time: 09/01/94 0001 Status: Signed Automotive Painter: Noah Gomes MD (Physician) IMPRESSION: Acute low back sprain. SUBJECTIVE: A 28-year-old patient here complaining of low back pain. It has bothered him for a month. He notes it at work when he has been bending over. He does construction work. He is concerned about it because he is about to start his softball season and wants to be sure he is in good shape. He notes the pain when bending in certain positions. There is no abdominal pain or sphincter incontinence or numbness or tingling or radiation of the pain. He has noted some increased urinary frequency. OBJECTIVE: He has a focal area of tenderness in the right paraspinal L5 area. Abdomen is soft, no masses, and no organ enlargement. Straight leg raising is normal. Normal patellar and Jacob's reflexes. Normal dorsiflexion of the great toe. ASSESSMENT: Acute low back sprain. PLAN: Went over pamphlet and exercises with him and also gave him Motrin 600 mg qid. If he is not responding to this in two weeks, he'll call and be referred to physical therapy. Noah Gomes MD - 12/12/1993 12:01 AM CDT Progress Notes signed by Noah Gomes MD at 12/15/93 0739 Author: Noah Gomes MD Service: (none) Author Type: Physician Filed: 08/09/10 1647 Note Time: 12/12/93 0001 Status: Signed Automotive Painter: Noah Gomes MD (Physician) IMPRESSION: Suture removal and tobacco addiction. SUBJECTIVE: A 28-year-old patient here for suture removal. He has a laceration in the web space between 4th and 5th fingers of the right hand. This was sutured 10 days ago. The wound is healing nicely. Sutures removed without difficulty. The patient also requests a cholesterol. He has never had his checked, but apparently his sister has an elevated cholesterol. He has no family history of elevated cholesterol, but he does smoke one pack per day. We talked about the need to quit smoking, and he is interested in trying the patch. OBJECTIVE: ASSESSMENT: Suture removal and tobacco addiction. PLAN: Will check a cholesterol. Sutures removed and patient given information and prescription for Nicoderm starting 21 mg a day for six weeks, 14 mg a day for two weeks, and 7 mg a day for two weeks. documented in this encounter Plan of Treatment Not on filedocumented as of this encounter Procedures Procedure Name Priority Date/Time Associated Comments Diagnosis XR CHEST 2 VIEWS Routine 07/14/2002 10:05 Results for this AM AIR QUALITY CHEMIST procedure are i n the results section. LIPID PANEL AND Routine 06/11/2002 11:21 Results for this DIRECT LDL(IF NEEDED) AM AIR QUALITY CHEMIST proced ure are in the results section. LDL CHOLESTEROL, Routine 06/11/2002 11:21 Results for this DIRECT MEASURED AM AIR QUALITY CHEMIST procedure ar e in the results section. CT MAXFACE WO IV CONT Routine 07/19/2001 1:00 PM Results for this AIR QUALITY CHEMIST procedure are i n the results section. LIPID PROFILE= Routine 05/27/2001 10:01 Results f or this CHOL,TRIG,HDL,LDL AM AIR QUALITY CHEMIST procedure are in the results section. URINALYSIS COMPLETE Routine 03/22/1999 11:17 Resu lts for this HOLD CULTURE AM AIR QUALITY CHEMIST procedure are i n the results section. WBC, BLOOD Routine 03/22/1999 11:17 Results for this AM AIR QUALITY CHEMIST procedure are i n the results section. STREP GROUP A ANTIGEN Routine 05/18/1998 9:06 AM Results for this TEST AIR QUALITY CHEMIST procedure are i n the results section. BETA STREP FOLLOWUP Routine 05/18/1998 9:06 AM Re sults for this AIR QUALITY CHEMIST procedure are i n the results section. GLUCOSE, WHOLE BLOOD Routine 05/18/1998 8:49 AM R esults for this POCT AIR QUALITY CHEMIST procedure are i n the results section. DIFFERENTIAL MANUAL Routine 05/18/1998 8:49 AM Re sults for this AIR QUALITY CHEMIST procedure are i n the results section. URINALYSIS COMPLETE Routine 05/18/1998 8:49 AM Re sults for this AIR QUALITY CHEMIST procedure are i n the results section. HEMOGLOBIN, BLOOD Routine 05/18/1998 8:49 AM Resu lts for this AIR QUALITY CHEMIST procedure are i n the results section. WBC, BLOOD Routine 05/18/1998 8:49 AM Results f or this AIR QUALITY CHEMIST procedure are i n the results section. URINE CULTURE Routine 05/17/1998 5:11 PM Results for this AIR QUALITY CHEMIST procedure are i n the results section. XR CHEST PA WITH Routine 07/13/1997 9:59 AM Resul ts for this LATERAL AIR QUALITY CHEMIST procedure are i n the results section. STREP GROUP A ANTIGEN Routine 06/15/1997 3:04 PM Results for this TEST AIR QUALITY CHEMIST procedure are i n the results section. BETA STREP FOLLOWUP Routine 06/15/1997 3:04 PM Re sults for this AIR QUALITY CHEMIST procedure are i n the results section. documented in this encounter Results XR Chest 2 Views (07/14/2002 10:05 AM AIR QUALITY CHEMIST) Anatomical Region Laterality Modality Chest, Lung Other Specimen (Source) Anatomical Location Collection Method / Collectio n Time Received Time / Laterality Volume Narrative 07/14/2002 10:05 AM AIR QUALITY CHEMIST Normal. [id number] Dictating MARY PARDO RADIOLOGIST Procedure Note Mary Etienne - 06/30/2016Formattin g of this note might be different from the original. Normal. [id number] Dictating MARY PARDO RADIOLOGIST Melita Roche MD RAD GD (ABNORMAL) Lipid Panel and Direct LDL(If Needed) (06/11/2002 11:21 AM AIR QUALITY CHEMIST) Patholo gist Method Time Signature Length Of Fast 12.0 Hours HP CONVERSION Cholesterol/HDL 10.4 No normal [facility] CONVERSION Ratio Screen range Cholesterol 303 (H) 125 - 199 [facility] CONVERSION mg/dL HDL Cholesterol 29 (L) 40 - 60 [facility] CONVERSION mg/dL Triglycerides 509 (H) 0 - 199 [facility] CONVERSION mg/dL LDL Calculated See Note 66 - 129 [facility] CONVERSION (A) mg/dL Comment: Unable to calculate due to >400 mg/dL Tr iglyceride. Specimen (Source) Anatomical Collection Method Collection Time Re ceived Time Location / / Volume Laterality 06/11/2002 11:21 AM AIR QUALITY CHEMIST Melita Roche MD LAB_1 Performing Organization Address City/State/ZIP Code Phon e Number [facility] CONVERSION (ABNORMAL) LDL Cholesterol, Direct Measured (06/11/2002 11:21 AM AIR QUALITY CHEMIST) P athologist Signature LDL Direct 161 (H) <130 mg/dL [facility] CONVERSION Comment: Direct LDL Reference Ranges 0-129 ?? Desirable 130-159 Borderline Risk >160 ?High Risk Specimen (Source) Anatomical Collection Method Collection Time Re ceived Time Location / / Volume Laterality 06/11/2002 11:21 AM AIR QUALITY CHEMIST Melita Roche MD LAB_1 Performing Organization Address City/State/ZIP Code Phon e Number HP CONVERSION CT Maxface WO IV Cont (07/19/2001 1:00 PM AIR QUALITY CHEMIST) Anatomical Region Laterality Modality Head Other Specimen (Source) Anatomical Location Collection Method / Collectio n Time Received Time / Laterality Volume Impressions 07/19/2001 1:00 PM AIR QUALITY CHEMIST : ?SOFT TISSUE DENSITY IN THE POSTERI OR ETHMOID AIR CELLS WORSE ?ON THE RIGHT EXTENDING POSTERIORLY INTO THE RIGHT PORTION OF ?THE SEPTATED SPHENOID SINUS CONSIS TENT WITH SINUSITIS. ?SMALL CONCHAE BULLOSA BILATERALLY IN THE OSTEOMEATAL ?COMPLEX. ??OTHERWISE NORMAL CT SCA N OF THE PARANASAL SINUSES. FINDINGS: ?DIRECT CORONAL IMAGES WERE OBTAINE D AT 2 MM INTERVALS ?THROUGH THE PARANASAL SINUSES WITH OUT THE USE OF INTRAVENOUS ?CONTRAST. ?FRONTAL SINUSES ARE NORMAL IN APPE ARANCE. ??THERE ARE ?POSTERIOR ETHMOID AIR CELLS OPACIF IED WITH SOFT TISSUE ?BILATERALLY AND THIS IS MORE PROMI NENT ON THE RIGHT. ??THE ?MUCOSAL THICKENING EXTENDS POSTERI ILIA INTO THE RIGHT ?PORTION OF A SEPTATED SPHENOID SIN US. ??MAXILLARY SINUSES ARE ?CLEAR. ??SMALL CONCHAE BULLOSA ARE SEEN BILATERALLY IN THE ?OSTEOMEATAL COMPLEX, HOWEVER, THER E IS NO EVIDENCE OF ?OBSTRUCTION OF THE INFUNDIBULA OR OTHER ABNORMALITY. ?[facility] TECH-ID : TRANS-ID: ? EDR Narrative 07/19/2001 1:00 PM AIR QUALITY CHEMIST CLINICAL DATA: ?CT SINUS W/O CONTRAST. HEARING LOS S, EAR FLUID. ?473.9 Procedure Note [place]ell Mary Dillon - 06/30/2016Formattin g of this note might be different from the original. CLINICAL DATA: CT SINUS W/O CONTRAST. HEARING LOSS, EA R FLUID. 473.9 IMPRESSION : SOFT TISSUE DENSITY IN THE POSTERIOR ET HMOID AIR CELLS WORSE ON THE RIGHT EXTENDING POSTERIORLY INTO THE RIGHT PORTION OF THE SEPTATED SPHENOID SINUS CONSISTENT WITH SINUSITIS. SMALL CONCHAE BULLOSA BILATERALLY IN TH E OSTEOMEATAL COMPLEX. OTHERWISE NORMAL CT SCAN OF TH E PARANASAL SINUSES. FINDINGS: DIRECT CORONAL IMAGES WERE OBTAINED AT 2 MM INTERVALS THROUGH THE PARANASAL SINUSES WITHOUT T HE USE OF INTRAVENOUS CONTRAST. FRONTAL SINUSES ARE NORMAL IN APPEARANC E. THERE ARE POSTERIOR ETHMOID AIR CELLS OPACIFIED W ITH SOFT TISSUE BILATERALLY AND THIS IS MORE PROMINENT ON THE RIGHT. THE MUCOSAL THICKENING EXTENDS POSTERIORLY INTO THE RIGHT PORTION OF A SEPTATED SPHENOID SINUS. M AXILLARY SINUSES ARE CLEAR. SMALL CONCHAE BULLOSA ARE SEEN B ILATERALLY IN THE OSTEOMEATAL COMPLEX, HOWEVER, THERE IS NO EVIDENCE OF OBSTRUCTION OF THE INFUNDIBULA OR OTHER ABNORMALITY. [facility] TECH-ID : TRANS-ID: EDR Mello Stanley MD RAD CT (ABNORMAL) Lipid Profile= Chol,Trig,HDL,LDL (05/27/2001 10:01 AM AIR QUALITY CHEMIST) [facility] Method Time Signature Cholesterol/HDL 7.9 No normal HP CONVERSION Ratio Screen range Triglycerides 283 (HH) 0 - 199 HP CONVERSION mg/dL HDL Cholesterol 30 (LL) 40 - 60 HP CONVERSION mg/dL LDL Calculated 150 (HH) 66 - 129 HP CONVERSION mg/dL Cholesterol 237 (HH) 125 - 199 HP CONVERSION mg/dL Specimen (Source) Anatomical Collection Method Collection Time Re ceived Time Location / / Volume Laterality 05/27/2001 10:01 AM AIR QUALITY CHEMIST Melita Roche MD LAB_1 Performing Organization Address City/State/ZIP Code Phon e Number HP CONVERSION WBC, Blood (03/22/1999 11:17 AM AIR QUALITY CHEMIST) athologist Signature White Blood 9.3 3.8 - 11.0 HP CONVERSION Cell Count K/cmm Specimen (Source) Anatomical Collection Method Collection Time Re ceived Time Location / / Volume Laterality 03/22/1999 11:17 AM AIR QUALITY CHEMIST Marie Martinez LAB_1 Performing Organization Address City/State/ZIP Code Phon e Number HP CONVERSION (ABNORMAL) Urinalysis Complete Hold Culture (03/22/1999 11:17 AM AIR QUALITY CHEMIST) [facility] Method Time Signature U Specific 1.025 1.005 - 25 HP CONVERSION [place] pH Urine 5.0 4.5 - 7.5 HP CONVERSION Protein Urine Negative Neg-Trac HP CONVERSION Glucose, Negative Neg-Trac HP CONVERSION Qualitative U Ketones Negative Negative HP CONVERSION U BILI Negative Negative HP CONVERSION Blood Urine Negative Negative HP CONVERSION Nitrite Urine Negative Negative HP CONVERSION Leukocyte Negative Negative HP CONVERSION Esterase Urine Urobilinogen Negative 0.2 - 1.0 HP CONVERSION Urine White Blood 0-2 0 - 3 /HPF HP CONVERSION Cells Urine Red Blood Cells 0-2 0 - 3 /HPF HP CONVERSION Urine Epithelial Cells Few Few /HPF HP CONVERSION Bacteria Urine Rare (A) None HP CONVERSION Urine Mucus Moderate None HP CONVERSION Hold For Yes No normal HP CONVERSION Culture? range Specimen (Source) Anatomical Collection Method Collection Time Re ceived Time Location / / Volume Laterality 03/22/1999 11:17 AM AIR QUALITY CHEMIST Marie Martinez LAB_1 Performing Organization Address [facility] Code Phon e Number HP CONVERSION Strep Group A Antigen Test (05/18/1998 9:06 AM AIR QUALITY CHEMIST) [facility] Time Signature Strep Group A Negative Negative HP CONVERSION Antigen Test Comment: Culture to follow. Specimen (Source) Anatomical Collection Method Collection Time Re ceived Time Location / / Volume Laterality 05/18/1998 9:06 AM AIR QUALITY CHEMIST Melita Roche MD LAB_1 Performing Organization Address [facility] Phon e Number HP CONVERSION Beta Strep Followup (05/18/1998 9:06 AM AIR QUALITY CHEMIST) P athologist Signature Strep Screen SEE TEXT HP CONVERSION Comment: Patient: AUSTIN CARRANZA Rapid Strep Follow up Culture @ ? Collected: ??[id number] ??[id number] Source: Throat ?Processed: ??[id number] ??[id number] Final Report ------ ?[id number] ??[id number] No beta hemolytic Strep group A isolated . @ = Rapid F/U Cult Performed at ??[address] [place], [place] ?[address] Specimen (Source) Anatomical Collection Method Collection Time Re ceived Time Location / / Volume Laterality 05/18/1998 9:06 AM AIR QUALITY CHEMIST Melita Roche MD LAB_1 Performing Organization Address [facility] Phon e Number HP CONVERSION WBC, Blood (05/18/1998 8:49 AM AIR QUALITY CHEMIST) athologist Signature White Blood 4.4 3.8 - 11.0 HP CONVERSION Cell Count K/cmm Specimen (Source) Anatomical Collection Method Collection Time Re ceived Time Location / / Volume Laterality 05/18/1998 8:49 AM AIR QUALITY CHEMIST Melita Roche MD LAB_1 Performing Organization Address [facility] Code Phon e Number HP CONVERSION Hemoglobin, Blood (05/18/1998 8:49 AM AIR QUALITY CHEMIST) athologist Signature Hemoglobin 13.9 13.4 - 17.5 HP CONVERSION gm/dL Specimen (Source) Anatomical Collection Method Collection Time Re ceived Time Location / / Volume Laterality 05/18/1998 8:49 AM AIR QUALITY CHEMIST Melita Roche MD LAB_1 Performing Organization Address [facility] Phon e Number HP CONVERSION (ABNORMAL) Differential Manual (05/18/1998 8:49 AM AIR QUALITY CHEMIST) Patholo gist Method Time Signature Neutrophils 56 50 - 70 % HP CONVERSION Bands 1 0 - 5 % HP CONVERSION Lymphocytes 37 20 - 40 % HP CONVERSION Monocyte 3 (LL) 5 - 14 % HP CONVERSION Eosinophils 3 0 - 6 % HP CONVERSION Platelet Normal No normal HP CONVERSION Estimate range Specimen (Source) Anatomical Collection Method Collection Time Re ceived Time Location / / Volume Laterality 05/18/1998 8:49 AM AIR QUALITY CHEMIST Melita Roche MD LAB_1 Performing Organization Address [facility] Phon e Number HP CONVERSION (ABNORMAL) [facility] (05/18/1998 8:49 AM AIR QUALITY CHEMIST) Analysis Performed At Patho logist Time Signature Length Of Fast 4.0 (LL) 8.0 - 24.0 HP CONVERSION Hours Bedside Blood 70 mg/dL HP CONVERSION Glucose Test Specimen (Source) Anatomical Collection Method Collection Time Re ceived Time Location / / Volume Laterality 05/18/1998 8:49 AM AIR QUALITY CHEMIST Melita Roche MD LAB_1 Performing Organization Address [facility] Phon e Number HP CONVERSION (ABNORMAL) Urinalysis Complete (05/18/1998 8:49 AM AIR QUALITY CHEMIST) [facility] gist Method Time Signature Glucose, Negative Neg-Trac HP CONVERSION Qualitative U Protein Urine Negative Neg-Trac HP CONVERSION Ketones Trace (A) Negative HP CONVERSION U BILI Negative Negative HP CONVERSION U Specific 1.025 1.005 - 25 HP CONVERSION [place] Blood Urine Moderate Negative HP CONVERSION (A) pH Urine 5.5 4.5 - 7.5 HP CONVERSION Urobilinogen Negative 0.2 - 1.0 HP CONVERSION Urine Nitrite Urine Negative Negative HP CONVERSION Leukocyte Negative Negative HP CONVERSION Esterase Urine White Blood 0-2 0 - 3 /HPF HP CONVERSION Cells Urine Red Blood Cells 5-10 (A) 0 - 3 /HPF HP CONVERSION Urine Bacteria Urine Few (A) None HP CONVERSION Urine Mucus Moderate None HP CONVERSION Specimen (Source) Anatomical Collection Method Collection Time Re ceived Time Location / / Volume Laterality 05/18/1998 8:49 AM AIR QUALITY CHEMIST Melita Roche MD LAB_1 Performing Organization Address City/State/ZIP Code Phon e Number HP CONVERSION Urine Culture (05/17/1998 5:11 PM AIR QUALITY CHEMIST) [facility] Signature Urine Culture SEE TEXT HP CONVERSION Comment: Patient: AUSTIN CARRANZA Culture, Urine @ ?Collected: ?171 Source: Clean Ca ?Processed: ?171 ? SENSI Final Report ------ ?[id number] ??[id number] No growth @ = URINE CULTURE Performed at ??[address] [place], [place] ?[address] Specimen (Source) Anatomical Collection Method Collection Time Re ceived Time Location / / Volume Laterality 05/17/1998 5:11 PM AIR QUALITY CHEMIST Bryce Walden MD LAB_1 Performing Organization Address [facility] Phon e Number HP CONVERSION XR Chest PA With Lateral (07/13/1997 9:59 AM AIR QUALITY CHEMIST) Anatomical Region Laterality Modality Other Specimen (Source) Anatomical Location Collection Method / Collectio n Time Received Time / Laterality Volume Impressions 07/13/1997 9:59 AM AIR QUALITY CHEMIST : ?? NORMAL CHEST. FINDINGS: ?? CH1 ?? THE CARDIOVASCULAR STRUCTURES APPEAR NORMAL. ?? NO EVIDENCE OF ACTIVE PULMONARY DISE ASE. TECH-ID : ? RE TRANS-ID: Narrative 07/13/1997 9:59 AM AIR QUALITY CHEMIST CLINICAL DATA: ?CHEST PAIN AND SOB X3 DAYS Procedure Note Balbir Cadena - 06/30/2016 CLINICAL DATA: CHEST PAIN AND SOB X3 DAYS IMPRESSION : NORMAL CHEST. FINDINGS: CH1 THE CARDIOVASCULAR STRUCTURES APPEAR NO RMAL. NO EVIDENCE OF ACTIVE PULMONARY DISEASE . TECH-ID : RE TRANS-ID: Noah Gomes MD RAD GD Strep Group A Antigen Test (06/15/1997 3:04 PM AIR QUALITY CHEMIST) Analysis Performed At Patho logist Time Signature Strep Group A Negative Negative HP CONVERSION Antigen Test Comment: Culture to follow. Specimen (Source) Anatomical Collection Method Collection Time Re ceived Time Location / / Volume Laterality 06/15/1997 3:04 PM AIR QUALITY CHEMIST Noah Gomes MD LAB_1 Performing Organization Address [facility] Phon e Number HP CONVERSION Beta Strep Followup (06/15/1997 3:04 PM AIR QUALITY CHEMIST) P athologist Signature Strep Screen SEE TEXT HP CONVERSION Comment: Patient: AUSTIN CARRANZA Rapid Strep Follow up Culture @ ? Collected: ??[id number] ??[id number] Source: Throat ?Processed: ??[id number] ??[id number] Final Report ------ ?[id number] ??[id number] No beta hemolytic Strep group A isolated . @ = Rapid F/U Cult Performed at ??[address], [place] ?[address] Specimen (Source) Anatomical Collection Method Collection Time Re ceived Time Location / / Volume Laterality 06/15/1997 3:04 PM AIR QUALITY CHEMIST Noah Gomes MD LAB_1 Performing Organization Address City/State/ZIP Code Phon e Number HP CONVERSION documented in this encounter Visit Diagnoses Not on filedocumented in this encounter Care Teams Pathology Tech Relationship Specialty Start Date End Date Vargas Mazariegos, DIRECTOR AGENCY & STRATEGIC PARTNERSHIPS, COMMUTATOR INSPECTOR PCP - General 07/24/10 03/28/16 documented as of this encounter
--- OUTSIDE RECORDS SUMMARY | 2022-01-26 07:16 | XMS_ITS | Encounter Summary ---
:1965 Author Organization [email or web address] Address [address], [place] [address] Care Team Providers Name Role Phone Vargas Mazariegos APRN, CNP Primary Care Provider [phone] Encounter Details Date Type Department Care Team Description 04/01/2004 Nursing Visit [place] [facility] Dallas Elder MD [address] [place] [address] [place] [address] [phone] (Wo rk) Social History Tobacco Use Types Packs/Day Years Used Date Smoking Tobacco: Never Assessed Sex Assigned at Date Recorded Not on file documented as of this encounter Plan of Treatment Not on filedocumented as of this encounter Visit Diagnoses Not on filedocumented in this encounter Care Teams Mobile Game Engineer Relationship Specialty Start Date End Date Vargas Mazariegos APRN, CNP PCP - General 07/24/10 03/28/16 documented as of this encounter
--- OUTSIDE RECORDS SUMMARY | 2022-01-26 07:16 | XMS_ITS | Encounter Summary ---
:1965 Author Organization [facility] Address [address] [place] [address] Care Team Providers Name Role Phone Vargas Mazariegos SERINA, EARLY CHILDHOOD ASSISTANT Primary Care Provider [phone] Encounter Details Date Type Department Care Team Description 08/19/2003 PN Conversion Only JENNY CONVERSION Sameer Saldana [address] [place] [address] Social History Tobacco Use Types Packs/Day Years Used Date Smoking Tobacco: Never Assessed Sex Assigned at Date Recorded Not on file documented as of this encounter Plan of Treatment Not on filedocumented as of this encounter Procedures Procedure Name Priority Date/Time Associated Comments Diagnosis LIPID PANEL AND Routine 08/19/2003 3:46 PM Result s for this DIRECT LDL(IF NEEDED) CDT proced ure are in the results section. HOMOCYSTEINE Routine 08/19/2003 3:46 PM Results f or this CDT procedure are i n the results section. C-REATIVE PROTEIN Routine 08/19/2003 3:46 PM Resu lts for this (CARDIAC) CDT procedure are i n the results section. PROSTATIC SPECIFIC Routine 08/19/2003 3:46 PM Res ults for this ANTIGEN(SCREEN) CDT procedure ar e in the results section. ALT (SGPT) Routine 08/19/2003 3:46 PM Results f or this CDT procedure are i n the results section. documented in this encounter Results ALT (SGPT) (08/19/2003 3:46 PM CDT) [facility] gist Method Time Signature Alanine 39 0 - 65 HP CONVERSION Aminotransferase U/L Specimen (Source) Anatomical Collection Method Collection Time Re ceived Time Location / / Volume Laterality 08/19/2003 3:46 PM CDT Sameer Saldana MD LAB_1 Performing Organization Address [facility] Phon e Number HP CONVERSION (ABNORMAL) Lipid Panel and Direct LDL(If Needed) (08/19/2003 3:46 PM CDT) Patholo gist Method Time Signature Length Of Fast 12.0 Hours HP CONVERSION Cholesterol/HDL 6.5 No normal HP CONVERSION Ratio Screen range Cholesterol 175 125 - 199 HP CONVERSION mg/dL HDL Cholesterol 27 (L) 40 - 60 HP CONVERSION mg/dL Triglycerides 393 (H) 0 - 199 HP CONVERSION mg/dL LDL Calculated 69 66 - 129 HP CONVERSION mg/dL Comment: Specimen (Source) Anatomical Collection Method Collection Time Re ceived Time Location / / Volume Laterality 08/19/2003 3:46 PM CDT Sameer Saldana MD LAB_1 Performing Organization Address [facility] Phon e Number HP CONVERSION CRP, Sensitive (Cardiac) (08/19/2003 3:46 PM CDT) P athologist Signature High Sensitivity 2.0 0.0 - 3.0 HP CONVERSION C-Reactive mg/L Protein Specimen (Source) Anatomical Collection Method Collection Time Re ceived Time Location / / Volume Laterality 08/19/2003 3:46 PM CDT Sameer Saldana MD LAB_1 Performing Organization Address [facility] Phon e Number HP CONVERSION Prostatic Specific Antigen (Screen) (08/19/2003 3:46 PM CDT) P athologist Signature Prostate 0.5 0.0 - 4.0 HP CONVERSION Specific ng/mL Antigen Specimen (Source) Anatomical Collection Method Collection Time Re ceived Time Location / / Volume Laterality 08/19/2003 3:46 PM CDT Sameer Saldana MD LAB_1 Performing Organization Address City/[facility] Code Phon e Number HP CONVERSION Homocysteine (08/19/2003 3:46 PM CDT) Analysis Performed At Patho logist Time Signature Homocysteine 14.3 5.0 - 13.9 HP CONVERSION Plasma umol/L Specimen (Source) Anatomical Collection Method Collection Time Re ceived Time Location / / Volume Laterality 08/19/2003 3:46 PM CDT Sameer Saldana MD LAB_1 Performing Organization Address City/State/ZIP Code Phon e Number HP CONVERSION documented in this encounter Visit Diagnoses Not on filedocumented in this encounter Care Teams German Instructor Relationship Specialty Start Date End Date Vargas Mazariegos, SERINA, EARLY CHILDHOOD ASSISTANT PCP - General 07/24/10 03/28/16 documented as of this encounter
== END 2022-01-26 07:10 | disposition home or self-care (01) ==
LOC: US 07:10
PROVIDERS: PCP Physician Assistant Medical; Visit Provider Physician Assistant Medical
DX: M79.661 Pain in right lower leg (principal)
CPT/HCPCS: 93971

== ENCOUNTER 2022-07-11 08:36 | Outpatient (CLI) | payer BC, SELFPAY | END 2022-07-11 08:37 | disposition home or self-care (01) | LOC: NFLDREF 07-12 22:24 | PROVIDERS: PCP Physician Assistant Medical; Referring Provider Physician Assistant Medical; Visit Provider Physician Assistant Medical | DX: Z00.00 Encounter for general adult medical examination without abnormal findings (principal); E78.5 Hyperlipidemia, unspecified; I10 Essential (primary) hypertension; F32.A Depression, unspecified; M54.12 Radiculopathy, cervical region | CPT/HCPCS: 80053; 80061; 84153 ==

== ENCOUNTER 2022-12-04 07:30 | Outpatient (RCR) | payer BC, SELFPAY | END 2023-02-21 14:50 | disposition home or self-care (01) | PROVIDERS: PCP Physician Assistant Medical; Visit Provider Physician Assistant Medical | DX: M54.12 Radiculopathy, cervical region (principal); Z51.89 Encounter for other specified aftercare | CPT/HCPCS: 97110; 97140; 97162; J1100; J2795 ==

== ENCOUNTER 2023-08-27 08:05 | Outpatient (CLI) | payer BC, SELFPAY ==
--- OUTSIDE RECORDS SUMMARY | 2023-08-29 09:34 | XMS_ITS | Clinical Summary ---
Author Name Unknown Organization [facility] Address [address] [place] [address] Care Team Providers Care Thread Cutter Name Role Phone Noah Cerda MD Primary Care Provider [phone] Source Comments You are receiving this document as you are listed as the primary care provider,follow-up provider, or the patient has been referred to you for consultation.This is in compliance with the Medicare and[facility] EHR Incentive Program,which states Providers who transition their patient to another setting of careor provider of care or refers their patient to another provider of care shouldprovide summary care record for each transition of care or referral. [email or web address] Allergies Active Allergy Reactions Criticality Noted Date Comments Atorvastatin 09/18/2013 PN: myalgia, PN: cramps Medications Medication Sig Dispensed Refills Start Date End Date Status unknown medication LW Comment:CPAP 9, [facility] 04/05/2005 Active venlafaxine (EFFEXORXR) 75 MG 24 hour release capsuleIndications:Mi ld single current episode of major depressive disorder (HRC) Take 1 Cap by mouth daily. 90 Cap 11/29/2016 Active pravastatin (PRAVACHOL) 20 MG tabletIndications:Hyp erlipidemia, unspecified hyperlipidemia type (HRC) TAKE 1 TABLET DAILY (EVERY 24 HOURS) 90 Tab 12/30/2016 Active Additional Information Patient not taking.Reported on 07/05/2022 hydroCHLOROthiazide 12.5 MG capsule Take 1 Capsule (12.5 mg) by mouth daily. 01/28/2022 Active losartan (COZAAR) 100 MG tablet Take 1 Tablet (100 mg) by mouth daily. 01/28/2022 Active doxycycline hyclate (VIBRA-TABS) 100 MG tablet Take 1 Tablet (100 mg) by mouth daily. 02/14/2022 Active buPROPion (WELLBUTRIN XL) 150 MG 24 hour release tablet Take 1 Tablet (150 mg) by mouth every morning. 01/28/2022 Active ciprofloxacin-dexamet hasone (CIPRODEX) 0.3-0.1 % ear drop suspensionn ciprofloxacin 0.3 %-dexamethasone 0.1 % ear drops,suspension INSTILL 4 DROPS IN AFFECTED EAR THREE TIMES A DAY FOR 10 DAYS Active rosuvastatin (CRESTOR) 10 MG tablet Take 1 Tablet (10 mg) by mouth daily at bedtime. 06/21/2022 Active Active Problems Problem Noted Date Diagnosed Date Essential hypertension 03/24/2022 Asymptomatic varicose veins 08/08/2007 Overview: LW Modifier: Right thigh ; Varicose Veins Encounter for sterilization 08/08/2007 Overview: LW Onset: 1997 ; Vasectomy Elective Severe obstructive sleep apnea 04/05/2005 Overview: Setting: APAP 9-20 FFM Supplied by: [facility] PSG done: 04/04/05 AHI 52 RDI 71 Lowest O2 Sat: 83% Asim/Ubaldo Hyperlipidemia 09/10/2003 Overview: LW Onset: [id number] Major depressive disorder, single episode 2003 Overview: LW Onset: 06Epm84 ; Depression Major NOS Obesity 09/10/2003 Overview: LW Modifier: BMI > 35 LW Onset: 83Sga69 Tobacco use disorder 09/27/2002 Overview: Tobacco Abuse Immunizations Name Administration Dates Next Due DT Ped 12/02/1993 HepA-HepB ([place], 18+ yrs) 03/31/2004,05/25/19 04,04/27/2003 Influenza IIV4 (Quadrivalent) 0.5mL (15645) 12/22 [place] COVID-19 Vaccine 07/23/2020 TDAP (ADACEL) 03/08/2010 Td 03/31/2004 Tdap 01/12/2017 Family History Relation Name Status Comments Other Social History Tobacco Use Types Packs/Day Years Used Date Smoking Tobacco: Every Day Cigarettes Smokeless Tobacco: Never Comments:Smoking History Pac ks/day: Alcohol Use Standard Drinks/Week Comments No 0 (1 standard drink = 0.6 oz pur e alcohol) rare Sex and Gender Information Value Date Recorded Sex Assigned at Not on file Gender Identity Not on file Sexual Orientation Not on file Last Filed Vital Signs Vital Sign Reading Time Taken Comments Blood Pressure 131/86 07/05/2022 10:32 AM CDT Pulse 69 07/05/2022 10:03 AM CDT Temperature 36.1 ??C (97 ??F) 03/27/2022 11:26 AM LACE AND TEXTILES RESTORER Respiratory Rate 18 07/05/2022 10:03 AM CDT Oxygen Saturation 98% 07/05/2022 10:03 AM CDT Inhaled Oxygen Concentration - - Weight 144.2 kg (318 lb) 07/05/2022 10:03 AM CDT Height 182.9 cm (6') 07/05/2022 10:03 AM CDT Body Mass Index 43.13 07/05/2022 10:03 AM CDT Plan of Treatment Health Maintenance Due Date Last Done Comments Hep C Screening (Preventive Services) 1966 Pneumococcal (1 - PCV) 1972 HIV Screening (Preventive Services) 1982 Adult Preventive Visit 1984 FIT Colon Cancer Screening 2010 Zoster/Shingles (1 of 2) 2016 COVID-19 Vaccine ( season) 2022 04/17/2022, 07/23/2020 PSA Screening Discussion 03/23/2023 03/23/2022, 07/23 Influenza (Season Ended) 2023 01/06/2016 DTaP/Tdap/Td (5 - Tdap) 01/12/2027 01/13/20 17, 03/08/2010, 03/31/2004, Additional history exists Cholesterol 03/23/2027 03/23/2022, 09/22, 06/02/2014, Additional history exists HepA Aged Out 03/31/2004, 05/2003, 04/27/2003 No longer eligible based on patient's age to complete this topic HepB Completed 03/31/2004, 05/2003, 04/27/2003 Hib Aged Out No longer eligi ble based on patient's age to complete this topic IPV (Polio) Aged Out No longer eligi ble based on patient's age to complete this topic [email or web address] Aged Out No longer eligi ble based on patient's age to complete this topic Procedures Procedure Name Priority Date/Time Associated Diagnosis Comments PROSTATIC SPECIFIC ANTIGEN(SCREEN) Routine 03/23/2022 11:40 AM LACE AND TEXTILES RESTORER Screening for prostate cancer LIPID PANEL & DIRECT LDL (IF NEEDED) Routine 03/23/2022 11:40 AM LACE AND TEXTILES RESTORER Lipid screening from Last 3 Months or Most Recently Relevant to Health Maintenance Results * (ABNORMAL) Lipid Panel and Direct LDL(If Needed) (03/23/2022 11:40 AM LACE AND TEXTILES RESTORER) Cholesterol 188 0 - 199 mg/dL 03/23/2022 3:53 PM [facility] Triglyceride 167(H) <=149 mg/dL 03/23/2022 3:53 PM [facility] HDL Cholesterol 36(L) >=40 mg/dL 2 3:53 PM [facility] LDL, Calculated 119 <130 mg/dL 2 3:53 PM [facility] Non HDL Chol, Calculated 152 <=159 mg/dL 03/23/2022 3:53 PM [facility] Cholesterol/HDL Ratio 5.2 03/23/2022 3:53 PM [facility] Hours Fasting 0 03/23/2022 3:53 PM [facility] Blood Venipuncture / Unknown 03/23/2022 11:40 AM LACE AND TEXTILES RESTORER 03/23/2022 11:40 AM LACE AND TEXTILES RESTORER Noah Cerda MD LAB_1 [facility] [address] [place] [address], [facility] [phone] [facility] [address] [place] [address] [phone] * PSA - Prostatic Specific Antigen (Screen) (03/23/2022 11:40 AM LACE AND TEXTILES RESTORER) Prostatic Specific Antigen 0.4 0.0 - 4.0 ng/mL 03/23/2022 6:42 PM LACE AND TEXTILES RESTORER [facility] Blood Venipuncture / Unknown 03/23/2022 11:40 AM LACE AND TEXTILES RESTORER 03/23/2022 11:40 AM LACE AND TEXTILES RESTORER Narrative [facility] - 03/23/2022 6:42 PM LACE AND TEXTILES RESTORER The [employer] PSA Chemiluminescent immunoassay is used. Results obtained with different test methods or kits cannot be used interchangeably. Noah Cerda MD LAB_1 [facility] [address] from Last 3 Months or Most Recently Relevant to Health Maintenance Advance Directives * Full Code (Latest Code Status on File) Date Activated Date Inactivated Comments 03/27/2022 9:25 AM 03/27/2022 2:49 PM Care Teams Thread Cutter Relationship Specialty [place] [address] [place] [address] PCP - General Family Practice 03/29/16
--- OUTSIDE RECORDS SUMMARY | 2023-08-29 09:35 | XMS_ITS | Clinical Summary ---
Author Name Unknown Organization [email or web address] [facility] Address [place], [place] [address] Care Team Providers Care Solution Advisor Name Role Phone Cecilia Brito MICROMATIC HONE OPERATOR Primary Care Provider [phone] Allergies No known active allergies Medications Medication Sig Dispensed Refills Start Date End Date Status VENLAFAXINE HCL (VENLAFAXINE ORAL) Take by mouth. Ac tive PRAVASTATIN SODIUM (PRAVASTATIN ORAL) Take by mouth. Ac tive hydrochlorothiazide (HCTZ) 25 mg tablet Take 25 mg by mouth once daily. Active Family History Medical History Relation Name Comments Heart Disease Other Relation Name Status Comments Other Social History Tobacco Use Types Packs/Day Years Used Date Smoking Tobacco: Every Day Cigarettes Alcohol Use Standard Drinks/Week Comments Not Asked 0 (1 standard drink = 0.6 oz pur e alcohol) Social Connections Answer Date Recorded Frequency of Communication with Friends and Fami ly Not on file 04/23/2021 Financial Resource Strain Answer Date R ecorded Difficulty of Paying Living Expenses Not on file 04/23/2021 Difficulty of Paying Living Expenses Not on file 04/23/2021 Sex and Gender Information Value Date Recorded Sex Assigned at Not on file Gender Identity Not on file Sexual Orientation Not on file Obstetrics History Last Filed Vital Signs Vital Sign Reading Time Taken Comments Blood Pressure 160/91 11/03/2022 7:33 PM CDT Pulse 73 11/03/2022 7:33 PM CDT Temperature 36.7 ??C (98 ??F) 11/03/2022 7:33 PM CDT Respiratory Rate 18 11/03/2022 7:33 PM CDT Oxygen Saturation 95% 11/03/2022 7:33 PM CDT Inhaled Oxygen Concentration - - Weight 145.2 kg (320 lb) 11/03/2022 7:33 PM CDT Height 182.9 cm (6') 11/03/2022 7:33 PM CDT Body Mass Index 43.4 11/03/2022 7:33 PM CDT Plan of Treatment Health Maintenance Due Date Last Done Comments Tdap 1977 Depression screening for age 12+ 1978 HIV for age 15-65 1981 Hepatitis C screening for ag e 18-79 1984 Tetanus booster 1986 Colonoscopy through age 75 11/09/2011 Lipids for age 45-75 11/09/2011 Zoster (shingles) series for age 50+ (1 of 2) 2016 BMI (ht and wt on same day) for age 18+ 01/26/2017 01/27/2016 COVID-19 vaccine series ( season) 2022 04/17/2022, 07/23/2020 Influenza for age 50-64 12/23/2023 Pneumococcal series for age 6-64 Aged Out No longer eligible b ased on patient's age to complete this topic Care Teams Solution Advisor Relationship Specialty Start Date End Date Cecilia Brito FNP [address] [place] [address] PCP - General 11/03/22
== END 2023-08-27 08:06 | disposition home or self-care (01) ==
LOC: NFLDREF 08-29 09:33
PROVIDERS: PCP Physician Assistant Medical; Referring Provider Physician Assistant Medical; Visit Provider Physician Assistant Medical
DX: E78.2 Mixed hyperlipidemia (principal); I10 Essential (primary) hypertension; Z13.29 Encounter for screening for other suspected endocrine disorder
CPT/HCPCS: 80053; 80061; 84443

== ENCOUNTER 2024-05-09 09:47 | Outpatient (CLI) | payer BC, SELFPAY | END 2024-05-09 09:48 | disposition home or self-care (01) | LOC: NFLDREF 05-11 16:52 | PROVIDERS: PCP Physician Assistant Medical; Referring Provider Physician Assistant Medical; Visit Provider Podiatrist | DX: Z79.899 Other long term (current) drug therapy (principal) | CPT/HCPCS: 84450; 84460 ==

== ENCOUNTER 2024-06-23 06:50 | Outpatient (CLI) | payer BC, SELFPAY ==
--- NOTE | 2024-06-23 07:48 | W.ANESCHARGE ---
Anesthesia Charges Start Date/Time Anesthesia Start Date: 06/23/24 Anesthesia Start Time: 07:18 Stop Date/Time Anesthesia Stop Date: 06/23/24 Anesthesia Stop Time: 07:45 Coding CPT Codes CPT Codes: ANES LWR INTST NDSC NOS - [id number] ([id number]) P3 - PATIENT W/SEVERE SYS DISEASE, QK - POND TENDER 2-4 CNCRNT ANES PROC, QX - BLANKET FOLDER SVC W/ MD MED DIRECTION
--- NOTE | 2024-06-23 08:09 | W.ANESCHARGE ---
Anesthesia Charges Start Date/Time Anesthesia Start Date: 06/23/24 Anesthesia Start Time: 07:18 Stop Date/Time Anesthesia Stop Date: 06/23/24 Anesthesia Stop Time: 07:45 Coding CPT Codes CPT Codes: ANES LWR INTST NDSC NOS - [id number] ([id number]) QK - REFINERY SUPERINTENDENT 2-4 CNCRNT ANES PROC, QX - GUSSET STITCHER SVC W/ MD MED DIRECTION, P3 - PATIENT W/SEVERE SYS DISEASE
== END 2024-06-23 06:51 | disposition home or self-care (01) ==
PROVIDERS: PCP Physician Assistant Medical; Visit Provider Internal Medicine
DX: Z12.11 Encounter for screening for malignant neoplasm of colon (principal); D12.5 Benign neoplasm of sigmoid colon; Z86.0100 Personal history of colon polyps, unspecified
CPT/HCPCS: 00811; 45385; 88305; J2704

== ENCOUNTER 2024-08-15 09:40 | Outpatient (CLI) | payer BC, SELFPAY | END 2024-08-15 09:41 | disposition home or self-care (01) | LOC: NFLDREF 08-18 04:02 | PROVIDERS: PCP Physician Assistant Medical; Referring Provider Physician Assistant Medical; Visit Provider Podiatrist | DX: B35.1 Tinea unguium (principal) | CPT/HCPCS: 84450; 84460 ==

== ENCOUNTER 2024-09-03 08:08 | Outpatient (CLI) | payer BC, SELFPAY | END 2024-09-03 08:09 | disposition home or self-care (01) | LOC: NFLDREF 09-10 00:53 | PROVIDERS: PCP Physician Assistant Medical; Referring Provider Physician Assistant Medical; Visit Provider Physician Assistant Medical | DX: Z00.01 Encounter for general adult medical examination with abnormal findings (principal); I10 Essential (primary) hypertension; E78.2 Mixed hyperlipidemia; R73.03 Prediabetes; F32.A Depression, unspecified; Z12.5 Encounter for screening for malignant neoplasm of prostate | CPT/HCPCS: 80053; 80061; 84443; G0103 ==